=== PATIENT | female | born 1935 | race Caucasian/White ===

== ENCOUNTER 2017-03-12 10:03 | Emergency (ER) | payer OTHER, MEDICARE ==
[~2017-03-12] VITALS: Ht 154.9 cm; Wt 95.3 kg
[~2017-03-12 10:03] MED LIST: ADVAIR 250-501 EACH INH; ALPH-E-MIXED-4400 IU PO; ASPIRIN EC81 M1 PO; BYSTOLIC5 M1 PO; CARDIZEM30 MG; CRESTOR20 M2 PO; CYMBALTA60 MG PO; LIPOFLAVONOID1 TAB PO; SINGULAIR10 M1 PO; SPIRIVA18 MCG INH
[2017-03-12 10:11] VITALS: BP 129/72
--- NOTE | 2017-03-12 10:19 | ED GENERAL ADULT ---
See Addendum History of Present Illness General Chief Complaint: Upper Respiratory Sx/Fever Stated Complaint: COUGH SOB Source: patient, old records Exam Limitations: no limitations Vital Signs & Intake/Output Vital Signs & Intake/Output Vital Signs Date Time Temp Pulse Resp B/P Pulse O2 O2 Flow FiO2 Ox Delivery Rate 03/12 1035 97 03/12 1011 98.5 69 20 129/72 98 Room Air Allergies Coded Allergies: Penicillins (Severe, ANAPHYLAXIS 03/12/17) latex (Intermediate, HIVES 03/12/17) atorvastatin (VOMITING 03/12/17) diphenhydramine (HIVES 03/12/17) Reconcile Medications Aspirin (Ecotrin*) 81 MG TABLET.DR 1 TAB PO QPM HEART HEALTH (Reported) Azithromycin 250 MG TABLET 1 DP PO AD lungs 2 the first day followed by 1 for days 2-5 Benzonatate (Tessalon Perle) 100 MG CAPSULE 1 CAP PO TID PRN COUGH Fluticasone/Salmeterol (Advair 250-50 Diskus) 250 MCG-50 MCG/DOSE BLST.W.DEV 1 PUF INH BID ASTHMA (Reported) Methylprednisolone. (Medrol) 4 MG TAB.DS.PK 1 DP PO AD breathing Montelukast Sodium (Singulair) 10 MG TABLET 1 TAB PO QPM ASTHMA (Reported) Nebivolol HCl (Bystolic) 5 MG TABLET 1 TAB PO QPM HEART (Reported) Rosuvastatin Calcium (Crestor) 20 MG TABLET 1 TAB PO DAILY CHOLESTEROL ( Reported) Tiotropium [place] (Spiriva) 18 MCG CAP.W.DEV 1 CAP INH DAILY ASTHMA ( Reported) Triage Note: PER PT DRY COUGH X 3 DAYS NO FEVER DID NOT CALL DR BECAUSE IT WAS THE WEEKEND. DRY COUGH IN TRIAGE. Triage Nurses Notes Reviewed? yes HPI: Patient is an 81-year-old female presents complaining of cough. Cough 3 days. Cough had clear sputum production until this morning when she noticed some mcgraw sputum production. Intermittent wheezing. Mild dyspnea that worsens with exertion. Cough is currently moderate at times severe. Patient has not used her nebulizer treatment today for her symptoms. Positive nasal congestion and sinus pressure. Patient denies chest pain, fevers, chills. (MIKEY PACE,CLAY) Past History Travel History Traveled to [place] past 21 day No Medical History Any Pertinent Medical History? 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 BROTHER FH: myocardial infarction, Onset: 50-60. Hx Contributory? No (CLAY KRAMER) Review of Systems Review of Systems Constitutional: Denies: chills, fever. EENTM: Reports: nasal congestion. Respiratory: Reports: see HPI. Cardiovascular: Reports: peripheral edema. Denies: chest pain. GI: Reports: no symptoms. Denies: abdominal pain, nausea, vomiting. Genitourinary: Reports: no symptoms. Musculoskeletal: Reports: no symptoms. Skin: Reports: no symptoms. Neurological/Psychological: Reports: no symptoms. Hematologic/Endocrine: Reports: no symptoms. Immunologic/Allergic: Reports: no symptoms. (CLAY KRAMER) Physical Exam Physical Exam General Appearance: well developed/nourished, alert, awake Head: atraumatic, normal appearance Eyes: Bilateral: normal appearance, PERRL, EOMI. Ears, Nose, Throat: normal pharynx, normal ENT inspection, hearing grossly normal Neck: normal inspection, supple, full range of motion Respiratory: chest non-tender, mild expiratory wheezing most pronounced in the right mid and upper lobe. No appreciable rales or rhonchi Cardiovascular: regular rate/rhythm (no appreciable murmur) Gastrointestinal: soft, non-tender Extremities: 1+ bilateral lower extremity edema Neurologic/Psych: no motor/sensory deficits, awake, alert, oriented x 3, normal gait, normal mood/affect Skin: intact, normal color, warm/dry Lymphatic: no anterior cervical collin Core Measures ACS in differential dx? No CVA/TIA Diagnosis: No Severe Sepsis Present: No Septic Shock Present: No (CLAY KRAMER) Progress Differential Diagnoses I considered the following diagnoses in my evaluation of the patient: Bronchitis , pneumonia, sinusitis, congestive heart failure Plan of Care: Orders Procedure Date/time Status XRY-CHEST XRAY, PA AND LATERAL 03/12 1023 Active 03/12/2017 11:16:54 AM: Patient resting comfortably. Awaiting results of chest x -ray. Discussed with Dr. Ravi. 03/12/2017 11:23:44 AM: Results of chest x-ray discussed with patient. No respiratory distress, patient afebrile, oxygen saturation high 90s on room air. Appears stable for discharge and outpatient follow-up. Instructed to follow-up with her primary care doctor this week for recheck and further evaluation. (CLAY KRAMER) Initial ED EKG: none (CLAY KRAMER) Departure Departure Time of Disposition: 1118 Disposition: HOME OR SELF CARE Condition: Stable Clinical Impression Primary Impression: Bronchitis Secondary Impressions: Sinusitis Qualifiers: Sinusitis location: maxillary Chronicity: acute Recurrence: not specified as recurrent Qualified Code: J01.00 - Acute maxillary sinusitis, unspecified Referrals: KACEY GRAY MD (PCP/Family) Additional Instructions: Follow-up with your primary care doctor this week for further evaluation. Call tomorrow morning for appointment. Return to emergency department if breathing worsening, unable to stay hydrated, or worsening of symptoms. Departure Forms: Customer Survey General Discharge Information Prescriptions: Current Visit Scripts Azithromycin 1 DP PO AD #6 TAB 2 the first day followed by 1 for days 2-5 Methylprednisolone. (Medrol) 1 DP PO AD #1 DP Benzonatate (Tessalon Perle) 1 CAP PO TID PRN COUGH #21 CAP (CLAY KRAMER) PA/LOADER OPERATOR SUPERVISOR Co-Sign Statement Statement: ED Attending supervision documentation- [X] I saw and evaluated the patient. I have also reviewed all the pertinent lab results and diagnostic results. I agree with the findings and the plan of care as documented in the PA's/LOADER OPERATOR SUPERVISOR's documentation. [X] I have reviewed the ED Record and agree with the PA's/LOADER OPERATOR SUPERVISOR's documentation. [] Additions or exceptions (if any) to the PAs/LOADER OPERATOR SUPERVISOR's note and plan are summarized below: [] (ALENA MARIN,LEA Yang) Critical Care Note Critical Care Note Critical Care Time: non-applicable (CLAY KRAMER)
--- NOTE | 2017-03-12 11:18 | RADIOLOGY REPORT ---
EXAMINATION: XR CHEST CLINICAL INFORMATION: Cough with sputum production. COMPARISON: None TECHNIQUE: 2 views of the chest were obtained. FINDINGS: Both lungs are well-expanded and clear of acute process. Heart size is mildly enlarged. Pulmonary vascularity is normal. No gross bony abnormality seen. IMPRESSION: Mild cardiomegaly. No acute process seen in the chest.
[2017-03-12] MEDS ORDERED: TESSALON PERLE100 M1 PO (11:19)
[2017-03-12] MEDS ORDERED: AZITHROMYCIN250 M1 PO (11:19)
[2017-03-12] MEDS ORDERED: MEDROL4 M2 PO (11:19)
== END 2017-03-12 11:28 ==
LOC: ERH 10:03
DX: J40 Bronchitis, not specified as acute or chronic (principal); J32.9 Chronic sinusitis, unspecified; Z87.891 Personal history of nicotine dependence
CPT/HCPCS: 1263

== ENCOUNTER 2017-04-07 16:15 | Inpatient (IN) | payer OTHER, MEDICARE ==
[~2017-04-07] VITALS: Ht 157.5 cm; Wt 94.6 kg
[~2017-04-07 16:15] MED LIST changes: +AZITHROMYCIN250 M1 PO; +MEDROL4 M2 PO; +TESSALON PERLE100 M1 PO
--- NOTE | 2017-04-07 16:21 | NUR ---
PT TO ED FOR C/C OF SOB FOR THE LAST THREE DAYS, DENIES CHEST PAIN OR CHEST PRESSURE. DOES HAVE HISTORY OF COPD AND ASTHMA. DID USE NEBULIZER AND RESCUE INHALER WITHOUT RELIEF. REPORTS DYSPNEA ON EXERTION. O2 SAT 96% RA. DENIES FEVER OR COUGH AT HOME.
--- NOTE | 2017-04-07 16:37 | ED DYSPNEA/ASTHMA COMPLAINT ---
History of Present Illness General Chief Complaint: Dyspnea (COPD, CHF, Other) Stated Complaint: SOB, TROUBLE AMBULATING Source: patient, family, old records Exam Limitations: no limitations Vital Signs & Intake/Output Vital Signs & Intake/Output Vital Signs Date Time Temp Pulse Resp B/P B/P Pulse O2 O2 Flow FiO2 Mean Ox Delivery Rate 04/07 1754 114 22 116/70 04/07 1754 112 22 116/70 96 04/07 1744 112 28 121/77 96 Room Air 04/07 1720 98.1 102 20 111/80 04/07 1621 98.1 102 20 111/80 96 Room Air Room Air Allergies Coded Allergies: Penicillins (Severe, ANAPHYLAXIS 04/07/17) latex (Intermediate, HIVES 04/07/17) atorvastatin (VOMITING 04/07/17) diphenhydramine (HIVES 04/07/17) Reconcile Medications Aspirin (Ecotrin*) 81 MG TABLET.DR 1 TAB PO QPM HEART HEALTH (Reported) Azithromycin 250 MG TABLET 1 DP PO AD lungs 2 the first day followed by 1 for days 2-5 Benzonatate (Tessalon Perle) 100 MG CAPSULE 1 CAP PO TID PRN COUGH Fluticasone/Salmeterol (Advair 250-50 Diskus) 250 MCG-50 MCG/DOSE BLST.W.DEV 1 PUF INH BID ASTHMA (Reported) Methylprednisolone. (Medrol) 4 MG TAB.DS.PK 1 DP PO AD breathing Montelukast Sodium (Singulair) 10 MG TABLET 1 TAB PO QPM ASTHMA (Reported) Nebivolol HCl (Bystolic) 5 MG TABLET 1 TAB PO QPM HEART (Reported) Rosuvastatin Calcium (Crestor) 20 MG TABLET 1 TAB PO DAILY CHOLESTEROL ( Reported) Tiotropium [place] (Spiriva) 18 MCG CAP.W.DEV 1 CAP INH DAILY ASTHMA ( Reported) Triage Note: PT TO ED FOR C/C OF SOB FOR THE LAST THREE DAYS, DENIES CHEST PAIN OR CHEST PRESSURE. DOES HAVE HISTORY OF COPD AND ASTHMA. DID USE NEBULIZER AND RESCUE INHALER WITHOUT RELIEF. REPORTS DYSPNEA ON EXERTION. O2 SAT 96% RA. DENIES FEVER OR COUGH AT HOME. Triage Nurses Notes Reviewed? yes HPI: Patient presents to the emergency department with increasing dyspnea on exertion over the past 2 days. Patient denies any chest pain or palpitations. Patient states that she woke up at 5:30 this morning feeling like she cannot breathe and had to go sit in a recliner. Patient does use CPAP at night. Today she got short of breath just walking across room so came into the emergency department for evaluation. Patient denies any anorexia. There are no fevers or chills. There is no coughing. Past History Travel History Traveled to [place] past 21 day No Medical History Any Pertinent Medical History? 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 BROTHER FH: myocardial infarction, Onset: 50-60. Hx Contributory? No Review of Systems Review of Systems Constitutional: Reports: no symptoms. EENTM: Reports: no symptoms. Respiratory: Reports: see HPI, orthopnea, short of breath. Cardiovascular: Reports: no symptoms. GI: Reports: no symptoms. Genitourinary: Reports: no symptoms. Musculoskeletal: Reports: no symptoms. Skin: Reports: no symptoms. Neurological/Psychological: Reports: no symptoms. Hematologic/Endocrine: Reports: no symptoms. Immunologic/Allergic: Reports: no symptoms. All Other Systems: Reviewed and Negative Physical Exam Physical Exam General Appearance: well developed/nourished, alert, awake, anxious, moderate distress Head: atraumatic, normal appearance Eyes: Bilateral: PERRL, EOMI. Ears, Nose, Throat: normal pharynx, normal ENT inspection, hearing grossly normal Neck: normal inspection, supple, full range of motion, NO JVD Respiratory: normal breath sounds, chest non-tender, no respiratory distress, lungs clear Cardiovascular: normal peripheral pulses, tachycardia, irregularly irregular Gastrointestinal: normal bowel sounds, soft, non-tender Extremities: normal inspection, normal capillary refill, normal range of motion, pedal edema (TRACE) Neurologic/Psych: no motor/sensory deficits, awake, alert, oriented x 3, normal mood/affect Skin: intact, normal color, warm/dry Lymphatic: no anterior cervical collin Core Measures ACS in differential dx? Yes Severe Sepsis Present: No Septic Shock Present: No Progress Differential Diagnosis: AMI, pulmonary embolism, NEW ONSET AFIB Plan of Care: Orders Procedure Date/time Status Admit to inpatient 04/07 1808 Active CTA CHEST-PULMONARY EMBOLISM 04/07 1734 Active THYROID STIMULATING HORMONE 04/07 1640 Complete MAGNESIUM 04/07 1640 Complete D-DIMER 04/07 1637 Complete TROPONIN LEVEL 04/07 1616 Complete COMPREHENSIVE METABOLIC PANEL 04/07 161 Complete CBC WITHOUT DIFFERENTIAL 04/07 161 Complete EKG 04/07 1616 Active Current Medications Sig/Trinity Start time Last Medication Dose Stop Time Status Admin Diltiazem HCl 10 MG ONCE ONE 04/07 1745 UNVr 04/07 (Cardizem) 04/07 1746 1754 Heparin Sodium/ 25,000 UNIT Q24H 04/07 1700 UNVr 04/07 Dextrose 1740 (Heparin) Dextrose/Water 500 ML (D5W) Laboratory Tests 04/07/17 1640: Anion Gap 11, Estimated GFR > 60, BUN/Creatinine Ratio 23.8, Glucose 92, Calcium 9.3, Magnesium 1.9, Total Bilirubin 0.5, AST 32, ALT 50, Alkaline Phosphatase 42 , Troponin I < 0.01, Total Protein 6.5, Albumin 4.1, Globulin 2.4, Albumin/ Globulin Ratio 1.7, TSH 2.090, D-Dimer 419 H, CBC w Diff NO MAN DIFF REQ, RBC 4.28, MCV 89.5, MCH 29.4, RDW 14.6 H, MPV 8.7, Gran % 66.2, Lymphocytes % 25.6, Monocytes % 5.7, Eosinophils % 1.7, Basophils % 0.8, Absolute Granulocytes 5.6, Absolute Lymphocytes 2.2, Absolute Monocytes 0.5, Absolute Eosinophils 0.1, Absolute Basophils 0.1, PUBS MCHC 32.9 L 04/07/17 1637: Magnesium Cancelled, TSH Cancelled Initial ED EKG: AFIB (WITH RVR), nonspecific ST T wave chg Prior EKG: changed Rhythm Strip: atrial fibrillation Departure Departure Disposition: STILL A PATIENT Condition: Fair Clinical Impression Primary Impression: Atrial fibrillation with RVR Referrals: MARINA MD,SUCHITH (PCP/Family) Departure Forms: Customer Survey General Discharge Information Admission Note Spoke With: KACEY GRAY MD Documentation of Exam: Documentation of any treatments & extenuating circumstances including Concerns Regarding Discharge (functional status, medication knowledge or non-compliance, living conditions, etc.) that warrant an admission rather than observation: [ Tele admission, rate control, heparin, cardiology consultation, follow up CT scan.] Critical Care Note Critical Care Note Critical Care Time: mins: (45 min)
--- NOTE | 2017-04-07 16:58 | NUR ---
PT MILDLY SOB INCREASINGLY WORSE X 3 DAYS, UNABLWE TO LAY FLAT REPORTS REMOTE AFIB HX
[2017-04-07 17:01] LABS: ABSOLUTE BASOPHIL COUNT 0.1 /CUMM (0.0-0.2); ABSOLUTE EOSINOPHIL COUNT 0.1 /CUMM (0.0-0.7); ABSOLUTE GRANULOCYTE CT 5.6 /CUMM (1.4-6.5); ABSOLUTE LYMPH COUNT 2.2 /CUMM (1.2-3.4); ABSOLUTE MONOCYTE COUNT 0.5 /CUMM (0.10-0.60); BASOPHIL % 0.8 % (0.0-2.0); EOSINOPHIL % 1.7 % (0-5); GRANULOCYTE % 66.2 % (42.2-75.2); HEMATOCRIT 38.3 % (37-47); MEAN CORPUSCULAR HGB 29.4 PG (27.0-31.0); MEAN CORPUSCULAR HGB CONC 32.9 G/DL (33.0-37.0); MEAN CORPUSCULAR VOLUME 89.5 FL (81.0-99.0); MEAN PLATELET VOLUME 8.7 FL (7.4-10.4); PLATELET COUNT 204 /CUMM (130-400); RBC DISTRIBUTION WIDTH 14.6 % (11.5-14.5); RED BLOOD CELL CT 4.28 /CUMM (4.20-5.40); WHITE BLOOD CELL COUNT 8.4 /CUMM (4.8-10.8)
--- NOTE | 2017-04-07 17:42 | NUR ---
PT ON MONITOR AFIB WITH RVR RATE 144,, IV CARDIZEM 10 MG GIVEN, F/B HEPARIN BOLUS , LUNGS CLEAR NO RHONCHI. PT REPORTS STUNG BY A BEE A WEEK AGO AND THAT IS WHAT STARTED THIS. NO PEDAL EDEMA
--- NOTE | 2017-04-07 18:37 | History & Physical ---
ALBERT GOLDMAN 04/07/17 1836: General Information and HPI MD Statement: I have seen and personally examined HERIBERTO YANG and documented this H&P. The patient is a 81 year old F who presented with a patient stated chief complaint of [seven-day duration shortness of breath, new onset atrial fibrillation]. Source of Information: patient, family Exam Limitations: no limitations History of Present Illness: Mrs Yang is an 81-year-old lady with a PMH of CAD/stent placement to LAD (2006 ), SD status post cath in January 2010, COLT on CPAP, hyperlipidemia, prior tobacco use, asthma presents with complaints of 67 day duration of shortness of breath with mild exertion. The patient reports being stung by a bumblebee last Monday evening and woke up on Monday with noticeable shortness of breath with minimal exertion. She denied any tightness in her neck or wheezing at the time. She reports symptoms persisted for the rest of the week that she describes as getting winded with walking a few steps. She does endorse some intermittent episodes of palpitations at night and an episode of nausea, dizziness and noticeable lower extremity swelling late yesterday to today. She denies any fevers, chills, chest pain, chest pressure, orthopnea, PND during this time. She did attempt to use her albuterol nebulizer with no relief Allergies/Medications Allergies: Coded Allergies: Penicillins (Severe, ANAPHYLAXIS 04/07/17) latex (Intermediate, HIVES 04/07/17) atorvastatin (VOMITING 04/07/17) diphenhydramine (HIVES 04/07/17) Home Med list Aspirin (Ecotrin*) 81 MG TABLET. 1 TAB PO QPM HEART HEALTH (Reported) Fluticasone/Salmeterol (Advair 250-50 Diskus) 250 MCG-50 MCG/DOSE BLST.W.DEV 1 PUF INH BID ASTHMA (Reported) Montelukast Sodium (Singulair) 10 MG TABLET 1 TAB PO QPM ASTHMA (Reported) Nebivolol HCl (Bystolic) 5 MG TABLET 1 TAB PO QPM HEART (Reported) Rosuvastatin Calcium (Crestor) 20 MG TABLET 1 TAB PO DAILY CHOLESTEROL ( Reported) Tiotropium [place] (Spiriva) 18 MCG CAP.W.DEV 1 CAP INH DAILY ASTHMA ( Reported) Past History Travel History Traveled to [place] past 21 day No Medical History Neurological: NONE EENT: NONE Cardiovascular: CAD, hypertension, hyperlipidemia, myocardial infarction, NSTEMI , CARDIAC STENT Respiratory: asthma, COPD Gastrointestinal: NONE Hepatic: NONE Renal: NONE Musculoskeletal: osteoarthritis Psychiatric: NONE Endocrine: NONE Blood Disorders: NONE 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 BROTHER FH: myocardial infarction, Onset: 50-60. Psychosocial History Who Do You Live With? spouse ETOH Use: denies use Illicit Drug Use: denies illicit drug use Review of Systems Review of Systems Constitutional: Reports: see HPI. EENTM: Reports: see HPI. Cardiovascular: Reports: see HPI. Respiratory: Reports: see HPI. GI: Reports: see HPI. Genitourinary: Reports: no symptoms. Musculoskeletal: Reports: see HPI. Skin: Reports: no symptoms. Exam & Diagnostic Data Last 24 Hrs of Vital Signs/I&O Vital Signs Date Time Temp Pulse Resp B/P B/P Pulse O2 O2 Flow FiO2 Mean Ox Delivery Rate 04/07 2005 97.4 119 20 128/90 96 04/07 1754 114 22 116/70 04/07 1754 112 22 116/70 96 04/07 1744 112 28 121/77 96 Room Air 04/07 1720 98.1 102 20 111/80 04/07 1621 98.1 102 20 111/80 96 Room Air Room Air Physical Exam General Appearance Alert, Cooperative, No Acute Distress Skin No Breakdown, No Significant Lesion HEENT EOMI, Mucous Membr. moist/pink Cardiovascular Normal S1, Normal S2, irregularly irregular rhythm Lungs Normal Air Movement, diminished breath sounds in the basilar regions bilaterally Abdomen Normal Bowel Sounds, Soft, No Tenderness Extremities Normal Pulses, 1+ pitting edema bilateral lower extremities Vascular Pulses Symmetrical Last 24 Hrs of Labs/Luiz: Laboratory Tests 04/07/17 1640: Anion Gap 11, Estimated GFR > 60, BUN/Creatinine Ratio 23.8, Glucose 92, Calcium 9.3, Magnesium 1.9, Total Bilirubin 0.5, AST 32, ALT 50, Alkaline Phosphatase 42 , Troponin I < 0.01, Total Protein 6.5, Albumin 4.1, Globulin 2.4, Albumin/ Globulin Ratio 1.7, TSH 2.090, D-Dimer 419 H, CBC w Diff NO MAN DIFF REQ, RBC 4.28, MCV 89.5, MCH 29.4, RDW 14.6 H, MPV 8.7, Gran % 66.2, Lymphocytes % 25.6, Monocytes % 5.7, Eosinophils % 1.7, Basophils % 0.8, Absolute Granulocytes 5.6, Absolute Lymphocytes 2.2, Absolute Monocytes 0.5, Absolute Eosinophils 0.1, Absolute Basophils 0.1, PUBS MCHC 32.9 L 04/07/17 1637: Magnesium Cancelled, TSH Cancelled Diagnostic Data EKG Results Atrial fibrillation, HR 145. Low voltage throughout. Borderline T abnormalities in anterior lateral leads. QTC 469 Other Results Chest CTA: 1. Small focus of pulmonary emboli in peripheral right lower lobe pulmonary vessels. 2. Right upper lobe infiltrate in the medial right upper lobe. Assessment/Plan Assessment: 81-year-old lady with a PMH of CAD/stent placement to [facility] (2006), SD status post cath in January 2010, COLT on CPAP, hyperlipidemia, prior tobacco use, asthma presents with complaints of 67 day duration of shortness of breath with mild exertion. Patient was stung by a bee on her face 7 days ago and has since experienced daily dyspnea with minimal exertion, intermittent episodes of palpitations, dizziness, lower extremity swelling for the past 24 hours. No relief obtained with albuterol nebulizer. VS on admission: BP 111/80, HR 102, RR 20, SPO2 96% on RA, T 98.1 Pertinent labs: WBC 8.4, H&H 12.6/30.3, glucose 204, sodium 142, potassium 4.7, bicarbonate 22, BUN/Cr 19/0.8, glucose 92. D-dimer: 419 Magnesium: 1.9 TSH: 2.090 Chest CTA: Small focus of pulmonary emboli in peripheral right lower lobe pulmonary vessels. Right upper lobe infiltrate in the medial right upper lobe. Problem list 1. New onset atrial ablation 2. Rapid ventricular response 3. Small PE and peripheral right lower lobe 4. CAD s/p stent placement to LAD 2006 5. Hyperlipidemia 6. COLT on nocturnal CPAP 7. Asthma Plan: * Admit to telemetry for continuous cardiac monitoring * Heparin therapy for atrial fibrillation protocol * A. fib with RVR: Patient did receive 1 dose of Cardizem 10 mg 1. Will discuss with cardiology for Cardizem IV pushes if recurrence of RVR * continue home dose of Crestor 20 mg daily. Follow-up lipid panel in the a.m. and adjust statin dose per ASCVD score. The patient does have a previous history of myalgias associated with atorvastatin thus may not be able to tolerate higher dose of Crestor 20 mg * Continue with aspirin 81 mg daily * EKG/troponin at 0100 hours, 0600 hrs to rule out ACS * Echocardiogram in the a.m. to assess ventricular function and for valve pathology * Nocturnal CPAP * TRCs for history of asthma * Heart healthy diet * DVT prophylaxis: Heparin * Full code As Ranked By This Provider Problem List: 1. Atrial fibrillation with RVR 2. PE (pulmonary thromboembolism) 3. HLD (hyperlipidemia) 4. COLT (obstructive sleep apnea) 5. Asthma Core Measures/Miscellaneous Acute Coronary Syndrome ACS Diagnosis: No Cerebrovascular Accident CVA/TIA Diagnosis: No Congestive Heart Failure CHF Diagnosis: No Venous Thromboembolism VTE Risk Factors: Age > 40 No Mech VTE prophylaxis d/t: No contraindications No VTE Pharm Prophylaxis d/t: No contraindications VTE Diagnosis: No VTE Type: Pulmonary Embolism VTE Confirmed by (Test): CT CHEST ANGIOGRAM Severe Sepsis Severe Sepsis Present: No Septic Shock Septic Shock Present: No Miscellaneous Documentation Attending Case Discussed With: KACEY GRAY MD Primary Care Physician: KACEY GRAY MD Patient sees these Specialists Dr. Patricio (cardiology) Level of Patient Care: Telemetry Resident Review Statement Resident Statement: examined this patient, discussed with sourcing internship, agreed with sourcing internship, discussed with family, reviewed EMR data (avail), discussed with nursing , reviewed images KACEY GRAY MD 04/08/17 1134: Attending Review Statement Attending Statement Attending Statement: examined this patient, discuss w/resident/PA/YIELD ANALYST, agreed w/resident/PA/YIELD ANALYST, reviewed EMR data (avail)
--- NOTE | 2017-04-07 18:59 | NUR ---
TO CT. PT ALERT NO ACUTE SOB, NO CP./
--- NOTE | 2017-04-07 19:05 | NUR ---
PT TO BED 177 BED 1
--- NOTE | 2017-04-07 19:24 | NUR ---
ASSUMED CARE FROM RACH Mendes RN
--- NOTE | 2017-04-07 19:28 | CT SCAN REPORT ---
EXAMINATION: CT ANGIOGRAM OF THE CHEST WITH AND WITHOUT CONTRAST (CT PULMONARY ANGIOGRAM FOR PE) CLINICAL INFORMATION: CHEST PAIN, CRAVEN, A FIB, +D-DIMER
COMPARISON: Chest x-ray 03/12/2017 TECHNIQUE: Prior to contrast administration, noncontrast localization images were obtained. Subsequently, multidetector volumetric imaging was performed from the thoracic inlet to below the diaphragms following the administration of 77 mL Optiray 350 intravenous contrast. No contrast reaction reported. Sagittal, coronal, and MIP oblique sagittal reformatted images were obtained on the CT workstation, uploaded to PACS, and reviewed. Total exam dose-length product 518.38 mGy-cm. FINDINGS: QUALITY OF STUDY/CONTRAST BOLUS: Satisfactory PULMONARY ARTERIES: There are small peripheral pulmonary emboli in the tertiary and more peripheral vessels at the right lower lobe. No other pulmonary emboli evident. THORACIC AORTA: Thoracic aortic diameter measures 4.2 cm, mildly prominent. LUNG: In the medial right upper lobe there is a patchy parenchymal infiltrate. Left lung is clear. PLEURA: No pleural effusion or pneumothorax. MEDIASTINUM: Heart size is enlarged. No evidence of septal bowing or right heart strain. No pericardial effusion. CHEST WALL/AXILLA: No axillary or internal mammary lymphadenopathy. OSSEOUS STRUCTURES: Multilevel degenerative change of the spine with bridging osteophytes of the vertebrae. UPPER ABDOMEN: Unremarkable. No reflux of contrast into the hepatic veins to suggest elevated right heart pressures. IMPRESSION: 1. Small focus of pulmonary emboli in peripheral right lower lobe pulmonary vessels. 2. Right upper lobe infiltrate in the medial right upper lobe. This critical result was discussed with Dr. Benitez on 04/07/2017, 7:25 PM and it was ascertained that the content and urgency of the report was understood at the time of direct communication. VTE: positive
--- NOTE | 2017-04-07 19:31 | NUR ---
HOUSE STAFF AT BEDSIDE
--- NOTE | 2017-04-07 19:50 | NUR ---
HEPARIN RUNNING AT 22.8 ML. HEPARIN STOPPED AT 1935. MD GOLDMAN INFORMED SOON HE CAME OUT OF PT ROOM. HEPARIN CONTINUES TO BE STOPPED PER . PTT DRAWN AND SENT TO LAB
--- NOTE | 2017-04-07 19:58 | NUR ---
PT A/O X4. RESP UNLABORED. HR 117 AFIB. PT DENIES CP.
[2017-04-07 21:00] VITALS: BP 122/60
[2017-04-07 21:31] LABS: PTT 77 SEC (25-37)
[2017-04-08 03:02] LABS: PTT 97 SEC (25-37)
[2017-04-08 08:01] VITALS: BP 120/76
--- NOTE | 2017-04-08 08:19 | PN- Housestaff ---
Subjective Follow-up For: Afib with RVR Pulmonary embolism Subjective: Patient seen and examined at bedside. Resting comfortably in bed with no complaints other than dypsnea on exertion. Denies an chest pain, palpitations, lightheadedness, dizziness, abdominal pain, n/v/c/d. No events reported overnight. Review of Systems Constitutional: Reports: see HPI. Objective Last 24 Hrs of Vital Signs/I&O Vital Signs Date Time Temp Pulse Resp B/P B/P Pulse O2 O2 Flow FiO2 Mean Ox Delivery Rate 04/08 0801 98.1 100 20 120/76 98 Nasal 2.0L Cannula 04/07 2339 102 130/72 04/07 2100 95 Room Air 04/07 2100 97.9 115 22 122/60 95 Room Air 04/07 2005 97.4 119 20 128/90 96 04/07 1754 114 22 116/70 04/07 1754 112 22 116/70 96 04/07 1744 112 28 121/77 96 Room Air 04/07 1720 98.1 102 20 111/80 04/07 1621 98.1 102 20 111/80 96 Room Air Room Air Intake & Output 04/08 1600 04/08 0800 04/08 0000 Intake Total 797.6 Output Total 475 Balance 322.6 Intake, IV 177.6 Intake, Oral 620 Output, Urine 475 Patient 94.574 kg Weight Weight Standing Scale Measurement Method Physical Exam General Appearance: Alert, Cooperative, No Acute Distress Other Physical Findings: Skin No Breakdown, No Significant Lesion HEENT EOMI, Mucous Membr. moist/pink Cardiovascular Normal S1, Normal S2, irregularly irregular rhythm Lungs Normal Air Movement, diminished breath sounds in the basilar regions bilaterally Abdomen Normal Bowel Sounds, Soft, No Tenderness Extremities Normal Pulses, 1+ pitting edema bilateral lower extremities Vascular Pulses Symmetrical Current Medications: Current Medications Sig/Trinity Start time Last Medication Dose Route Stop Time Status Admin Acetaminophen 650 MG Q6P PRN 04/07 2015 AC PO Al Hydroxide/Mg 30 ML ONCE ONE 04/08 630 DC Hydroxide PO 04/08 631 Aspirin Buffered 81 MG QPM 04/07 2200 AC 04/07 PO 2339 Budesonide/ 2 PUF BID 04/07 2200 AC Formoterol Fumarate INH Diltiazem HCl 5 MG ONCE ONE 04/08 415 DC IV PUSH 04/08 416 Diltiazem HCl 0 .STK-MED ONE 05/12 1755 DC .ROUTE Diltiazem HCl 10 MG ONCE ONE 04/07 1745 DC / IV PUSH 04/07 1746 1754 Diltiazem HCl 0 .STK-MED ONE 04/07 1733 DC .ROUTE Diltiazem HCl 10 MG ONCE ONE 04/07 1700 DC 05/ IV / 1701 1720 Heparin Sodium 0 .STK-MED ONE 04/07 1733 DC (Porcine) .ROUTE Heparin Sodium 4,000 UNIT ONCE ONE 04/07 1700 DC 04/07 (Porcine) IV 04/07 1701 1720 Heparin Sodium/ 25,000 UNIT Q24H 04/07 2115 AC 04/07 Dextrose IV 2115 Dextrose/Water 500 ML Heparin Sodium/ 25,000 UNIT Q24H 04/07 1700 DC 04/07 Dextrose IV 1740 Dextrose/Water 500 ML Montelukast Sodium 10 MG QPM 04/07 2200 AC 04/07 PO 2339 Nebivolol 5 MG QPM 04/07 2200 AC 04/07 PO 2339 Oxycodone/ 1 TAB Q6P PRN 04/07 2015 AC Acetaminophen PO Oxycodone/ 2 TAB Q6P PRN 04/07 2015 AC Acetaminophen PO Patient Medication 1 UNIT ONE NR 04/07 2100 DC Teaching ED 04/07 2130 Rosuvastatin Calcium 20 MG 1700 04/08 1700 AC PO Tiotropium [place] 1 PUF DAILY 04/08 1000 AC 04/07 INH 2339 Last 24 Hrs of Lab/Luiz Results Last 24 Hrs of Labs/Mics: Laboratory Tests 04/08/17 0615: Sodium Pending, Potassium Pending, Chloride Pending, Carbon Dioxide Pending, Anion Gap Pending, BUN Pending, Creatinine Pending, BUN/Creatinine Ratio Pending , Phosphorus Pending, Magnesium Pending, Troponin I Pending, Triglycerides Pending, Cholesterol Pending, LDL Cholesterol, Calc Pending, HDL Cholesterol Pending, Cholesterol/HDL Ratio Pending, CBC w Diff Pending, WBC Pending, RBC Pending, Hgb Pending, Hct Pending, MCV Pending, MCH Pending, RDW Pending, Plt Count Pending, MPV Pending, PUBS MCHC Pending 04/08/17 0230: APTT 97 H 04/08/17 0015: Troponin I < 0.01 04/07/17 2000: PT 12.0, INR 1.14, APTT 77 H 04/07/17 1640: Anion Gap 11, Estimated GFR > 60, BUN/Creatinine Ratio 23.8, Glucose 92, Calcium 9.3, Magnesium 1.9, Total Bilirubin 0.5, AST 32, ALT 50, Alkaline Phosphatase 42 , Troponin I < 0.01, Total Protein 6.5, Albumin 4.1, Globulin 2.4, Albumin/ Globulin Ratio 1.7, TSH 2.090, D-Dimer 419 H, CBC w Diff NO MAN DIFF REQ, RBC 4.28, MCV 89.5, MCH 29.4, RDW 14.6 H, MPV 8.7, Gran % 66.2, Lymphocytes % 25.6, Monocytes % 5.7, Eosinophils % 1.7, Basophils % 0.8, Absolute Granulocytes 5.6, Absolute Lymphocytes 2.2, Absolute Monocytes 0.5, Absolute Eosinophils 0.1, Absolute Basophils 0.1, PUBS MCHC 32.9 L 04/07/17 1637: Magnesium Cancelled, TSH Cancelled Assessment/Plan Assessment: 81-year-old lady with a PMH of CAD/stent placement to LAD (2006), OK status post cath in January 2010, COLT on CPAP, hyperlipidemia, prior tobacco use, asthma presents with complaints of 67 day duration of shortness of breath with mild exertion 2/2 PE. # New onset Afib with RVR Better controlled after some cardizem boluses were given on admission. However patient needs to be on cardizem drip as per cardio. * Cont tele monitoring * Give on time cardizem bolus 5mg and then start Cardizem drip 5 cc/hr * Continue home dose of Crestor 20 mg daily. * Follow-up lipid panel - only remarkable for TG 157 * Follow echocardiogram to assess ventricular function and for valve pathology * Cont to appreciate cardio recs # Small PE and possible PNA Chest CTA: Small focus of pulmonary emboli in peripheral right lower lobe pulmonary vessels. Right upper lobe infiltrate in the medial right upper lobe. D-dimer elevated at 419. * Cont heparin drip * Pulm consulted, Dr. Benitez aware. * Appreciate cardio recs # History of CAD s/p stent placement to LAD 2006 Serial troponins and EKGs negative. * Follow echo * Continue with aspirin 81 mg daily # Hyperlipidemia, asthma, COLT on nocturnal CPAP * Cont home meds * Nocturnal CPAP * TRCs for history of asthma - Heart healthy diet - Mild pain pathway - DVT prophylaxis: Heparin - Full code Problem List: 1. PE (pulmonary thromboembolism) 2. HLD (hyperlipidemia) 3. COLT (obstructive sleep apnea) 4. Atrial fibrillation with RVR 5. DVT prophylaxis 6. Full code status Pain Ratin Pain Location: 0 Pain Goal: Remain pain free Pain Plan: Mild path Tomorrow's Labs & Rationales: CBC, BEP Pain Goal: Remain pain free Pain Plan: Mild path Tomorrow's Labs & Rationales: CBC, BEP
[2017-04-08 08:55] LABS: ABSOLUTE BASOPHIL COUNT 0.1 /CUMM (0.0-0.2); ABSOLUTE EOSINOPHIL COUNT 0.2 /CUMM (0.0-0.7); ABSOLUTE GRANULOCYTE CT 5.9 /CUMM (1.4-6.5); ABSOLUTE LYMPH COUNT 2.3 /CUMM (1.2-3.4); ABSOLUTE MONOCYTE COUNT 0.6 /CUMM (0.10-0.60); BASOPHIL % 0.7 % (0.0-2.0); EOSINOPHIL % 2.2 % (0-5); GRANULOCYTE % 65.2 % (42.2-75.2); HEMATOCRIT 38.1 % (37-47); MEAN CORPUSCULAR HGB 29.5 PG (27.0-31.0); MEAN CORPUSCULAR HGB CONC 32.7 G/DL (33.0-37.0); MEAN CORPUSCULAR VOLUME 90.1 FL (81.0-99.0); MEAN PLATELET VOLUME 9.4 FL (7.4-10.4); PLATELET COUNT 202 /CUMM (130-400); RBC DISTRIBUTION WIDTH 14.5 % (11.5-14.5); RED BLOOD CELL CT 4.23 /CUMM (4.20-5.40)
[2017-04-08 11:17] LABS: PTT 87 SEC (25-37)
--- NOTE | 2017-04-08 11:29 | Admission Certification ---
Admission Certification Certification Statement - As attending physician, I certify that at the time of - admission, based on clinical presentation, severity of - symptoms, need for further diagnostic testing and - therapeutic interventions, and risk of adverse outcomes - without in-hospital treatment, in my clinical assessment, - this patient requires an acute hospital stay for a minimum - of two nights or longer. I have also considered psychsocial - factors such as support system, advanced age, financial - issues, cognitive issues, and failed out-patient treatments, - past re-admission history, safety of patient, and lack of - compliance as applicable. Specific rationale supporting this admission is: PE, AFIB
--- NOTE | 2017-04-08 11:31 | Cons- Cardiology ---
General Information and HPI Consulting Request Date of Consult: 04/08/17 Requested By: KACEY GRAY MD Reason for Consult: New-onset atrial fibrillation Source of Information: patient, old records Exam Limitations: no limitations History of Present Illness: Yumiko Yang is an 81-year-old female with known coronary artery disease and a previous stent. She also has sleep apnea, hyperlipidemia, asthma. The patient has noted about one week of increasing shortness of breath and also awareness of her heart beating rapid and irregular. She has had no chest pain, edema, syncope. On evaluation in the emergency department she was found to have a small pulmonary artery embolism in the right lower lobe and a right upper lobe infiltrate. She has been started on heparin drip. She was found to be in rapid atrial fibrillation in the emergency department. She has been given some boluses of IV Cardizem but was not placed on a drip. She remains in atrial fibrillation at this time with a heart rate ranging in the 120s to 140s. Allergies/Medications Allergies: Coded Allergies: Penicillins (Severe, ANAPHYLAXIS 04/07/17) latex (Intermediate, HIVES 04/07/17) atorvastatin (VOMITING 04/07/17) diphenhydramine (HIVES 04/07/17) Home Med List: Aspirin (Ecotrin*) 81 MG TABLET.DR 1 TAB PO QPM HEART HEALTH (Reported) Fluticasone/Salmeterol (Advair 250-50 Diskus) 250 MCG-50 MCG/DOSE BLST.W.DEV 1 PUF INH BID ASTHMA (Reported) Montelukast Sodium (Singulair) 10 MG TABLET 1 TAB PO QPM ASTHMA (Reported) Nebivolol HCl (Bystolic) 5 MG TABLET 1 TAB PO QPM HEART (Reported) Rosuvastatin Calcium (Crestor) 20 MG TABLET 1 TAB PO DAILY CHOLESTEROL ( Reported) Tiotropium [place] (Spiriva) 18 MCG CAP.W.DEV 1 CAP INH DAILY ASTHMA ( Reported) Review of Systems Review of Systems: She has no complaints in the review of systems. Past History Travel History Traveled to [place] past 21 day No Medical History Neurological: NONE EENT: NONE Cardiovascular: CAD, hypertension, hyperlipidemia, myocardial infarction, NSTEMI , CARDIAC STENT Respiratory: asthma, COPD Gastrointestinal: NONE Hepatic: NONE Renal: NONE Musculoskeletal: osteoarthritis Psychiatric: NONE Endocrine: NONE Blood Disorders: NONE Cancer(s): NONE COMMERCIAL ARTIST/Reproductive: NONE Surgical History Surgical History: none, non-contributory Family History Relations & Conditions If Any: FATHER FH: myocardial infarction, Onset: 60+. BROTHER FH: myocardial infarction, Onset: 50-60. Psychosocial History Where Do You Live? Home Who Do You Live With? spouse Services at Home: None Smoking Status: Former Smoker ETOH Use: denies use Illicit Drug Use: denies illicit drug use Exam & Diagnostic Data Vital Signs and I&O Vital Signs Date Time Temp Pulse Resp B/P B/P Pulse O2 O2 Flow FiO2 Mean Ox Delivery Rate 04/08 1007 98 Nasal 2.0L Cannula 04/08 1004 Nasal 2.0L Cannula 04/08 0801 98.1 100 20 120/76 98 Nasal 2.0L Cannula 04/08 0415 118 116/70 04/07 2339 102 130/72 04/07 2100 95 Room Air 04/07 2100 97.9 115 22 122/60 95 Room Air 04/07 2005 97.4 119 20 128/90 96 04/07 1754 114 22 116/70 04/07 1754 112 22 116/70 96 04/07 1744 112 28 121/77 96 Room Air 04/07 1720 98.1 102 20 111/80 04/07 1621 98.1 102 20 111/80 96 Room Air Room Air Intake & Output 04/08 1600 04/08 0800 04/08 0000 04/07 1600 04/07 0800 04/07 0000 Intake Total 797.6 Output Total 475 Balance 322.6 Intake, IV 177.6 Intake, Oral 620 Output, Urine 475 Patient 209 lb Weight Weight Standing Scale Measurement Method Physical Exam: She is an obese elderly female in no acute distress. HEENT exam is normal Neck veins are not distended Carotids are normal Chest is clear to percussion and auscultation Heart reveals irregular rhythm, soft heart sounds, no murmurs Abdomen is benign Extremities reveal no edema and pulses are present. There is negative Soraya's sign. Labs/Luiz Results: Laboratory Tests 04/08 04/08 04/08 04/08 0930 0615 0230 0015 Chemistry Sodium (137 - 145 mmol/L) 143 Potassium (3.5 - 5.1 mmol/L) 4.5 Chloride (98 - 107 mmol/L) 107 Carbon Dioxide (22 - 30 mmol/L) 25 Anion Gap (5 - 16) 11 BUN (7 - 17 mg/dL) 19 H Creatinine (0.5 - 1.0 mg/dL) 0.8 Estimated GFR (>60 ml/min) > 60 BUN/Creatinine Ratio (7 - 25 %) 23.8 Phosphorus (2.5 - 4.5 mg/dL) 4.8 H Magnesium (1.6 - 2.3 mg/dL) 2.1 Troponin I (< 0.11 ng/ml) < 0.01 < 0.01 Triglycerides (<150 mg/dL) 157 H Cholesterol (<200 MG/DL) 135 LDL Cholesterol, Calc (65 - 129 mg/dL) 47 L HDL Cholesterol (40 - 60 mg/dL) 57 Cholesterol/HDL Ratio (0.00 - 4.23 %) 2 Coagulation APTT (25 - 37 SEC) Pending 97 H Hematology CBC w Diff NO MAN DIFF REQ WBC (4.8 - 10.8 /CUMM) 9.0 RBC (4.20 - 5.40 /CUMM) 4.23 Hgb (12.0 - 16.0 G/DL) 12.4 Hct (37 - 47 %) 38.1 MCV (81.0 - 99.0 FL) 90.1 MCH (27.0 - 31.0 PG) 29.5 RDW (11.5 - 14.5 %) 14.5 Plt Count (130 - 400 /CUMM) 202 MPV (7.4 - 10.4 FL) 9.4 Gran % (42.2 - 75.2 %) 65.2 Lymphocytes % (20.5 - 51.1 %) 25.0 Monocytes % (1.7 - 9.3 %) 6.9 Eosinophils % (0 - 5 %) 2.2 Basophils % (0.0 - 2.0 %) 0.7 Absolute Granulocytes (1.4 - 6.5 /CUMM) 5.9 Absolute Lymphocytes (1.2 - 3.4 /CUMM) 2.3 Absolute Monocytes (0.10 - 0.60 /CUMM) 0.6 Absolute Eosinophils (0.0 - 0.7 /CUMM) 0.2 Absolute Basophils (0.0 - 0.2 /CUMM) 0.1 PUBS MCHC (33.0 - 37.0 G/DL) 32.7 L 04/07 04/07 04/07 2000 1640 1637 Chemistry Sodium (137 - 145 mmol/L) 142 Potassium (3.5 - 5.1 mmol/L) 4.7 Chloride (98 - 107 mmol/L) 109 H Carbon Dioxide (22 - 30 mmol/L) 22 Anion Gap (5 - 16) 11 BUN (7 - 17 mg/dL) 19 H Creatinine (0.5 - 1.0 mg/dL) 0.8 Estimated GFR (>60 ml/min) > 60 BUN/Creatinine Ratio (7 - 25 %) 23.8 Glucose (65 - 99 mg/dL) 92 Calcium (8.4 - 10.2 mg/dL) 9.3 Magnesium (1.6 - 2.3 mg/dL) 1.9 Cancelled Total Bilirubin (0.2 - 1.3 mg/dL) 0.5 AST (14 - 36 U/L) 32 ALT (9 - 52 U/L) 50 Alkaline Phosphatase (<127 U/L) 42 Troponin I (< 0.11 ng/ml) < 0.01 Total Protein (6.3 - 8.2 g/dL) 6.5 Albumin (3.5 - 5.0 g/dL) 4.1 Globulin (1.9 - 4.2 gm/dL) 2.4 Albumin/Globulin Ratio (1.1 - 2.2 %) 1.7 TSH (0.270 - 4.200 uIU/mL) 2.090 Cancelled Coagulation PT (9.4 - 12.5 SEC) 12.0 INR (0.90 - 1.19) 1.14 APTT (25 - 37 SEC) 77 H D-Dimer (70 - 232 ng/ml) 419 H Hematology CBC w Diff NO MAN DIFF REQ WBC (4.8 - 10.8 /CUMM) 8.4 RBC (4.20 - 5.40 /CUMM) 4.28 Hgb (12.0 - 16.0 G/DL) 12.6 Hct (37 - 47 %) 38.3 MCV (81.0 - 99.0 FL) 89.5 MCH (27.0 - 31.0 PG) 29.4 RDW (11.5 - 14.5 %) 14.6 H Plt Count (130 - 400 /CUMM) 204 MPV (7.4 - 10.4 FL) 8.7 Gran % (42.2 - 75.2 %) 66.2 Lymphocytes % (20.5 - 51.1 %) 25.6 Monocytes % (1.7 - 9.3 %) 5.7 Eosinophils % (0 - 5 %) 1.7 Basophils % (0.0 - 2.0 %) 0.8 Absolute Granulocytes (1.4 - 6.5 /CUMM) 5.6 Absolute Lymphocytes (1.2 - 3.4 /CUMM) 2.2 Absolute Monocytes (0.10 - 0.60 /CUMM) 0.5 Absolute Eosinophils (0.0 - 0.7 /CUMM) 0.1 Absolute Basophils (0.0 - 0.2 /CUMM) 0.1 PUBS MCHC (33.0 - 37.0 G/DL) 32.9 L Diagnostic Data EKG Results Admission EKG on 04/07/2017 showed atrial fibrillation at a rate of 145 with diffuse low voltage and nonspecific anterolateral T-wave flattening. 2 other EKGs have been done subsequently, both of which show similar findings with heart rates in the 130s. CXR Results PATIENT: YUMIKO YANG PRESENT AGE: 81 PATIENT ACCOUNT NO: [id number] : 34 LOCATION: [facility] ORDERING PHYSICIAN: LEA CARVAJAL MD SERVICE DATE: 04/07/17 EXAM TYPE: CAT - CTA CHEST-PULMONARY EMBOLISM EXAMINATION: CT ANGIOGRAM OF THE CHEST WITH AND WITHOUT CONTRAST (CT PULMONARY ANGIOGRAM FOR PE) CLINICAL INFORMATION: CHEST PAIN, CRAVEN, A FIB, +D-DIMER
COMPARISON: Chest x-ray 03/12/2017 TECHNIQUE: Prior to contrast administration, noncontrast localization images were obtained. Subsequently, multidetector volumetric imaging was performed from the thoracic inlet to below the diaphragms following the administration of 77 mL Optiray 350 intravenous contrast. No contrast reaction reported. Sagittal, coronal, and MIP oblique sagittal reformatted images were obtained on the CT workstation, uploaded to PACS, and reviewed. Total exam dose-length product 518.38 mGy-cm. FINDINGS: QUALITY OF STUDY/CONTRAST BOLUS: Satisfactory PULMONARY ARTERIES: There are small peripheral pulmonary emboli in the tertiary and more peripheral vessels at the right lower lobe. No other pulmonary emboli evident. THORACIC AORTA: Thoracic aortic diameter measures 4.2 cm, mildly prominent. LUNG: In the medial right upper lobe there is a patchy parenchymal infiltrate. Left lung is clear. PLEURA: No pleural effusion or pneumothorax. MEDIASTINUM: Heart size is enlarged. No evidence of septal bowing or right heart strain. No pericardial effusion. CHEST WALL/AXILLA: No axillary or internal mammary lymphadenopathy. OSSEOUS STRUCTURES: Multilevel degenerative change of the spine with bridging osteophytes of the vertebrae. UPPER ABDOMEN: Unremarkable. No reflux of contrast into the hepatic veins to suggest elevated right heart pressures. IMPRESSION: 1. Small focus of pulmonary emboli in peripheral right lower lobe pulmonary vessels. 2. Right upper lobe infiltrate in the medial right upper lobe. This critical result was discussed with Dr. Benitez on 04/07/2017, 7:25 PM and it was ascertained that the content and urgency of the report was understood at the time of direct communication. VTE: positive DICTATED BY: ANNABEL MAURER MD DATE/TIME DICTATED:04/07/171916 VEGETABLE TIER:CYDNEY DATE/TIME TRANSCRIBED:04/07/171916 CONFIDENTIAL, DO NOT COPY WITHOUT APPROPRIATE AUTHORIZATION. Assessment/Plan Assessment/Plan This patient presents with "new onset" atrial fibrillation at a moderate to rapid rate. She also has a small pulmonary embolism and a probable pneumonia. For some reason she has not been placed on a Cardizem drip at this time and her rate is not well controlled. I recommend an additional Cardizem bolus and then starting on a Cardizem drip starting at 5 mg/h and increasing as necessary to keep heart rate under 100. I would keep her on IV heparin for now and eventually convert her to pulmonary embolism doses of Eliquis. An echocardiogram will be ordered. Consideration for antibiotic therapy for her infiltrate would be appropriate. A pulmonary consult should be obtained. Copies To: FARNKLYN MARIN,EMIL Thomas; MARINA MARIN,[facility] Consult Acknowledgment - Thank you for your consult request.
--- NOTE | 2017-04-08 11:34 | PN- Att Addend ---
See Addendum Attending Addendum Attending Brief Note Patient has no complaints this morning. She reports shortness of breath with minimal exertion. General Appearance: Alert, No Acute Distress Skin: Grossly normal HEENT: PEERLA Neck: Supple, No JVD Cardiovascular: Irregular rhythm Lungs: Clear to Auscultation, Normal Air Movement Abdomen: Normal Bowel Sounds, Soft, No Tenderness Neurological: Normal Speech, Strength at 5/5 X4 Ext, Cranial Nerves 3-12 NL, Reflexes 2+ Extremities: No Clubbing, No Cyanosis, No Edema Vascular: Normal Pulses Assessment 81-year-old with history of coronary artery disease, objective sleep apnea, dyslipidemia, history of asthma, and prior history of atrial fibrillation that has resolved and has previously followed Mateo Patricio MD presenting with complaints of shortness of breath. Patient in new onset A. fib with RVR and CAT scan chest suggesting peripheral right lower lobe PE. Suspect A. fib in the setting of PE. Patient is currently on heparin drip. Right upper lobe infiltrate however patient is not demonstrating any signs of pneumonia. We will follow off antibiotics. Plan Continue heparin drip Cardiology consult Rate control meds per cardiology Inform patient's pulmonary K. Maribell Benitez MD Follow off antibiotics Continue other medications including inhalers DVT prophylaxis Current Medications Sig/Trinity Start time Last Medication Dose Route Stop Time Status Admin Acetaminophen 650 MG Q6P PRN 04/07 2015 AC PO Al Hydroxide/Mg 30 ML ONCE ONE 04/08 0630 DC 04/08 Hydroxide PO 04/08 0631 0640 Albuterol Sulfate 3 ML Q4P PRN 04/08 1015 AC INH Aspirin Buffered 81 MG QPM 04/07 2200 AC 04/07 PO 2339 Budesonide/ 2 PUF BID 04/07 2200 AC Formoterol Fumarate INH Diltiazem HCl 125 MG Q24H 04/08 1130 AC Sodium Chloride 100 ML IV Diltiazem HCl 5 MG ONCE ONE 04/08 0415 DC 04/08 IV PUSH 04/086 0415 Diltiazem HCl 0 .STK-MED ONE 04/07 1755 DC .ROUTE Diltiazem HCl 10 MG ONCE ONE 04/07 1745 DC 04/07 IV PUSH 04/07 1746 1754 Diltiazem HCl 0 .STK-MED ONE 04/07 1733 DC .ROUTE Diltiazem HCl 10 MG ONCE ONE 04/07 1700 DC / IV 04/07 1701 1720 Heparin Sodium 0 .STK-MED ONE 04/07 1733 DC (Porcine) .ROUTE Heparin Sodium 4,000 UNIT ONCE ONE 04/07 1700 DC 04/07 (Porcine) IV 04/07 1701 1720 Heparin Sodium/ 25,000 UNIT Q24H 04/07 2115 AC 04/07 Dextrose IV 2115 Dextrose/Water 500 ML Heparin Sodium/ 25,000 UNIT Q24H 04/07 1700 DC 04/07 Dextrose IV 1740 Dextrose/Water 500 ML Montelukast Sodium 10 MG QPM 04/07 2200 AC 04/07 PO 2339 Nebivolol 5 MG QPM 04/07 2200 AC 04/07 PO 2339 Oxycodone/ 1 TAB Q6P PRN 04/07 2015 AC Acetaminophen PO Oxycodone/ 2 TAB Q6P PRN 04/07 2015 AC Acetaminophen PO Patient Medication 1 UNIT ONE NR 04/07 2100 DC Teaching ED 04/07 2130 Rosuvastatin Calcium 20 MG 1700 04/08 1700 AC PO Tiotropium [place] 1 PUF DAILY 04/08 1000 AC 04/07 INH 2339 Laboratory Tests 04/08 04/08 04/08 04/08 0930 0615 0230 0015 Chemistry Sodium (137 - 145 mmol/L) 143 Potassium (3.5 - 5.1 mmol/L) 4.5 Chloride (98 - 107 mmol/L) 107 Carbon Dioxide (22 - 30 mmol/L) 25 Anion Gap (5 - 16) 11 BUN (7 - 17 mg/dL) 19 H Creatinine (0.5 - 1.0 mg/dL) 0.8 Estimated GFR (>60 ml/min) > 60 BUN/Creatinine Ratio (7 - 25 %) 23.8 Phosphorus (2.5 - 4.5 mg/dL) 4.8 H Magnesium (1.6 - 2.3 mg/dL) 2.1 Troponin I (< 0.11 ng/ml) < 0.01 < 0.01 Triglycerides (<150 mg/dL) 157 H Cholesterol (<200 MG/DL) 135 LDL Cholesterol, Calc (65 - 129 mg/dL) 47 L HDL Cholesterol (40 - 60 mg/dL) 57 Cholesterol/HDL Ratio (0.00 - 4.23 %) 2 Coagulation APTT (25 - 37 SEC) Pending 97 H Hematology CBC w Diff NO MAN DIFF REQ WBC (4.8 - 10.8 /CUMM) 9.0 RBC (4.20 - 5.40 /CUMM) 4.23 Hgb (12.0 - 16.0 G/DL) 12.4 Hct (37 - 47 %) 38.1 MCV (81.0 - 99.0 FL) 90.1 MCH (27.0 - 31.0 PG) 29.5 RDW (11.5 - 14.5 %) 14.5 Plt Count (130 - 400 /CUMM) 202 MPV (7.4 - 10.4 FL) 9.4 Gran % (42.2 - 75.2 %) 65.2 Lymphocytes % (20.5 - 51.1 %) 25.0 Monocytes % (1.7 - 9.3 %) 6.9 Eosinophils % (0 - 5 %) 2.2 Basophils % (0.0 - 2.0 %) 0.7 Absolute Granulocytes (1.4 - 6.5 /CUMM) 5.9 Absolute Lymphocytes (1.2 - 3.4 /CUMM) 2.3 Absolute Monocytes (0.10 - 0.60 /CUMM) 0.6 Absolute Eosinophils (0.0 - 0.7 /CUMM) 0.2 Absolute Basophils (0.0 - 0.2 /CUMM) 0.1 PUBS MCHC (33.0 - 37.0 G/DL) 32.7 L 04/07 04/07 04/07 2000 1640 1637 Chemistry Sodium (137 - 145 mmol/L) 142 Potassium (3.5 - 5.1 mmol/L) 4.7 Chloride (98 - 107 mmol/L) 109 H Carbon Dioxide (22 - 30 mmol/L) 22 Anion Gap (5 - 16) 11 BUN (7 - 17 mg/dL) 19 H Creatinine (0.5 - 1.0 mg/dL) 0.8 Estimated GFR (>60 ml/min) > 60 BUN/Creatinine Ratio (7 - 25 %) 23.8 Glucose (65 - 99 mg/dL) 92 Calcium (8.4 - 10.2 mg/dL) 9.3 Magnesium (1.6 - 2.3 mg/dL) 1.9 Cancelled Total Bilirubin (0.2 - 1.3 mg/dL) 0.5 AST (14 - 36 U/L) 32 ALT (9 - 52 U/L) 50 Alkaline Phosphatase (<127 U/L) 42 Troponin I (< 0.11 ng/ml) < 0.01 Total Protein (6.3 - 8.2 g/dL) 6.5 Albumin (3.5 - 5.0 g/dL) 4.1 Globulin (1.9 - 4.2 gm/dL) 2.4 Albumin/Globulin Ratio (1.1 - 2.2 %) 1.7 TSH (0.270 - 4.200 uIU/mL) 2.090 Cancelled Coagulation PT (9.4 - 12.5 SEC) 12.0 INR (0.90 - 1.19) 1.14 APTT (25 - 37 SEC) 77 H D-Dimer (70 - 232 ng/ml) 419 H Hematology CBC w Diff NO MAN DIFF REQ WBC (4.8 - 10.8 /CUMM) 8.4 RBC (4.20 - 5.40 /CUMM) 4.28 Hgb (12.0 - 16.0 G/DL) 12.6 Hct (37 - 47 %) 38.3 MCV (81.0 - 99.0 FL) 89.5 MCH (27.0 - 31.0 PG) 29.4 RDW (11.5 - 14.5 %) 14.6 H Plt Count (130 - 400 /CUMM) 204 MPV (7.4 - 10.4 FL) 8.7 Gran % (42.2 - 75.2 %) 66.2 Lymphocytes % (20.5 - 51.1 %) 25.6 Monocytes % (1.7 - 9.3 %) 5.7 Eosinophils % (0 - 5 %) 1.7 Basophils % (0.0 - 2.0 %) 0.8 Absolute Granulocytes (1.4 - 6.5 /CUMM) 5.6 Absolute Lymphocytes (1.2 - 3.4 /CUMM) 2.2 Absolute Monocytes (0.10 - 0.60 /CUMM) 0.5 Absolute Eosinophils (0.0 - 0.7 /CUMM) 0.1 Absolute Basophils (0.0 - 0.2 /CUMM) 0.1 PUBS MCHC (33.0 - 37.0 G/DL) 32.9 L Vital Signs Date Time Temp Pulse Resp B/P B/P Pulse O2 O2 Flow FiO2 Mean Ox Delivery Rate 04/08 1007 98 Nasal 2.0L Cannula 04/08 1004 Nasal 2.0L Cannula 04/08 0801 98.1 100 20 120/76 98 Nasal 2.0L Cannula 04/08 0415 118 116/70 04/07 2339 102 130/72 04/07 2100 95 Room Air 04/07 2100 97.9 115 22 122/60 95 Room Air 04/07 2005 97.4 119 20 128/90 96 04/07 1754 114 22 116/70 04/07 1754 112 22 116/70 96 04/07 1744 112 28 121/77 96 Room Air 04/07 1720 98.1 102 20 111/80 04/07 1621 98.1 102 20 111/80 96 Room Air Room Air
--- NOTE | 2017-04-08 13:11 | ULTRASOUND REPORT ---
EXAMINATION: US TRIPLEX OF LOWER EXTREMITIES, BILATERAL CLINICAL INFORMATION: This is an 81-year-old female with history of pulmonary embolism. Lower extremity edema bilaterally. Possible deep vein thrombosis. Shortness of breath. COMPARISON: None TECHNIQUE: Color-flow triplex imaging with spectral analysis and compression Doppler were performed on the lower extremities. FINDINGS: Respiratory variation, normal compression and augmented flow are noted throughout the lower extremities. The visualized common femoral vein, superficial femoral vein, profunda femoral vein, popliteal vein and midcalf peroneal and posterior tibial venous segments show no evidence of deep venous thrombosis. There is no Sheldon's cyst. IMPRESSION: Normal triplex scan without evidence of deep venous thrombosis involving the lower extremities.
[2017-04-08 15:44] VITALS: BP 108/60
[2017-04-08 22:06] LABS: PTT 79 SEC (25-37)
[2017-04-08 22:38] VITALS: BP 102/60
[2017-04-09 08:04] VITALS: BP 100/60
--- NOTE | 2017-04-09 09:10 | PN- Housestaff ---
Subjective Follow-up For: afib rvr PE Subjective: Patient seen and examined at bedside. Resting comfortably in bed but still complaints of dypsnea on exertion. Denies an chest pain, palpitations, lightheadedness, dizziness, abdominal pain, n/v/c/d. No events reported overnight. Review of Systems Constitutional: Reports: no symptoms. Objective Last 24 Hrs of Vital Signs/I&O Vital Signs Date Time Temp Pulse Resp B/P B/P Pulse O2 O2 Flow FiO2 Mean Ox Delivery Rate 04/09 0804 98.1 96 18 100/60 97 Nasal 2.0L Cannula 04/09 0000 95 Nasal 2.0L Cannula 04/08 2315 98 100/58 04/08 2238 98.5 66 18 102/60 96 04/08 1630 132 120/76 04/08 1619 Nasal 2.0L Cannula 04/08 1544 98.1 89 20 108/60 97 Intake & Output 04/09 1600 04/09 0800 04/09 0000 Intake Total 577.6 857.6 Output Total 375 325 Balance 202.6 532.6 Intake, IV 177.6 177.6 Intake, Oral 400 680 Output, Urine 375 325 Physical Exam General Appearance: Alert, Oriented X3, Cooperative Other Physical Findings: Skin No Breakdown, No Significant Lesion HEENT EOMI, Mucous Membr. moist/pink Cardiovascular Normal S1, Normal S2, irregularly irregular rhythm Lungs Normal Air Movement, diminished breath sounds in the basilar regions bilaterally Abdomen Normal Bowel Sounds, Soft, No Tenderness Extremities Normal Pulses, 1+ pitting edema bilateral lower extremities Vascular Pulses Symmetrical Current Medications: Current Medications Sig/Trinity Start time Last Medication Dose Route Stop Time Status Admin Acetaminophen 650 MG Q6P PRN 04/07 2015 AC PO Al Hydroxide/Mg 30 ML Q4-6 PRN PRN 04/09 1015 AC 04/09 Hydroxide PO 1026 Al Hydroxide/Mg 30 ML .STK-MED ONE 04/08 2355 DC Hydroxide PO 04/08 2356 Al Hydroxide/Mg 30 ML ONCE ONE 04/08 2345 DC 04/09 Hydroxide PO 04/08 2346 0650 Albuterol Sulfate 3 ML Q4P PRN 04/08 1015 AC INH Aspirin Buffered 81 MG QPM 04/070 AC 04/08 PO 2300 Budesonide/ 2 PUF BID 04/07 2200 AC 04/09 Formoterol Fumarate INH 1008 Diltiazem HCl 5 MG ONCE ONE 04/08 1400 DC 04/08 IV PUSH 04/08 1401 1630 Diltiazem HCl 125 MG Q24H 04/08 1130 AC 04/09 Sodium Chloride 100 ML IV 1009 Heparin Sodium/ 25,000 UNIT Q24H 04/07 2115 AC 04/07 Dextrose IV 2115 Dextrose/Water 500 ML Montelukast Sodium 10 MG QPM 04/07 2200 AC 04/08 PO 2300 Nebivolol 5 MG QPM 04/07 2200 AC 04/07 PO 2339 Oxycodone/ 1 TAB Q6P PRN 04/07 2015 AC Acetaminophen PO Oxycodone/ 2 TAB Q6P PRN 04/07 2015 AC Acetaminophen PO Rosuvastatin Calcium 20 MG 1700 04/08 1700 AC 04/08 PO 1723 Tiotropium [employer] 1 PUF DAILY 04/08 1000 AC 04/09 INH 1008 Last 24 Hrs of Lab/Luiz Results Last 24 Hrs of Labs/Mics: Laboratory Tests 04/09/17 1045: APTT Pending 04/08/17 2150: APTT 79 H Assessment/Plan Assessment: 81-year-old lady with a PMH of CAD/stent placement to LAD (2006), SD status post cath in January 2010, COLT on CPAP, hyperlipidemia, prior tobacco use, asthma presents with complaints of 67 day duration of shortness of breath with mild exertion 2/2 PE. # New onset Afib with RVR Better controlled after some cardizem boluses were given on admission. However patient needs to be on cardizem drip as per cardio. * Cont tele monitoring * Will switch from cardizem drip to 30 mg po q 6h, per cardiology (appreciated) * Continue home dose of Crestor 20 mg daily. * LDL= 47. TG 157 * will f/u echocardiogram to assess ventricular function and for valve pathology * Cont to appreciate cardio recs # Small PE and possible PNA Chest CTA: Small focus of pulmonary emboli in peripheral right lower lobe pulmonary vessels. Right upper lobe infiltrate in the medial right upper lobe. D-dimer elevated at 419. * Cont heparin drip, will eventually transition to NOAC. * persitent dyspnea could be multifactorial, will start Lasix 20 mg IV daily ( per cardio recc) * Pulm consulted, Dr. Benitez aware. * Appreciate cardio recs # History of CAD s/p stent placement to LAD 2006 Serial troponins and EKGs negative. * Follow echo * Continue with aspirin 81 mg daily # Hyperlipidemia, asthma, COLT on nocturnal CPAP * Cont home meds * Nocturnal CPAP * TRCs for history of asthma - Heart healthy diet - Mild pain pathway - DVT prophylaxis: Heparin - Full code Problem List: 1. Atrial fibrillation with RVR 2. PE (pulmonary thromboembolism) Pain Ratin Pain Location: NONE Pain Goal: Remain pain free Pain Plan: PER PAIN PATHWAY Tomorrow's Labs & Rationales: BEP-Arythmias CBC-On ANTICOAGUALTION
--- NOTE | 2017-04-09 10:59 | PN- Cardiology ---
Subjective Subjective: The patient is still complaining of shortness of breath. She remains in atrial fibrillation. Her heart rate is in the 90s to low 100s. She is on 5 mg per hour of Cardizem. She is also on 5 mg daily of Bystolic. Cardiac enzymes were negative. Objective Vital Signs and I&Os Vital Signs Date Time Temp Pulse Resp B/P B/P Pulse O2 O2 Flow FiO2 Mean Ox Delivery Rate 04/09 0804 98.1 96 18 100/60 97 Nasal 2.0L Cannula 04/09 0000 95 Nasal 2.0L Cannula 04/08 2315 98 100/58 04/08 2238 98.5 66 18 102/60 96 04/08 1630 132 120/76 04/08 1619 Nasal 2.0L Cannula 04/08 1544 98.1 89 20 108/60 97 Intake & Output 04/09 1600 04/09 0800 04/09 0000 04/08 1600 04/08 0800 04/08 0000 Intake Total 577.6 857.6 950 797.6 Output Total 375 325 925 475 Balance 202.6 532.6 25 322.6 Intake, IV 177.6 177.6 150 177.6 Intake, Oral 400 680 800 620 Number 1 Bowel Movements Output, Urine 375 325 925 475 Patient 209 lb Weight Weight Standing Scale Measurement Method Physical Exam: She is in no distress HEENT exam is normal Chest is clear Heart reveals irregular rhythm no murmurs Extremities no edema Current Medications: Current Medications Sig/Trinity Start time Last Medication Dose Route Stop Time Status Admin Acetaminophen 650 MG Q6P PRN 04/07 2015 AC PO Al Hydroxide/Mg 30 ML Q4-6 PRN PRN 04/09 1015 AC 04/09 Hydroxide PO 1026 Al Hydroxide/Mg 30 ML .STK-MED ONE 04/08 2355 DC Hydroxide PO 04/08 2356 Al Hydroxide/Mg 30 ML ONCE ONE 04/08 2345 DC 04/09 Hydroxide PO 04/08 2346 0650 Albuterol Sulfate 3 ML Q4P PRN 04/08 1015 AC INH Aspirin Buffered 81 MG QPM 04/07 2200 AC 04/08 PO 2300 Budesonide/ 2 PUF BID 04/07 2200 04/09 Formoterol Fumarate INH 1008 Diltiazem HCl 5 MG ONCE ONE 04/08 1400 DC 04/08 IV PUSH 05/13 1401 1630 Diltiazem HCl 125 MG Q24H 04/08 1130 04/09 Sodium Chloride 100 ML IV 1009 Heparin Sodium/ 25,000 UNIT Q24H 04/07 2115 04/07 Dextrose IV 2115 Dextrose/Water 500 ML Montelukast Sodium 10 MG QPM 04/07 2200 04/08 PO 2300 Nebivolol 5 MG QPM 04/07 220 04/07 PO 2339 Oxycodone/ 1 TAB Q6P PRN 04/07 2015 AC Acetaminophen PO Oxycodone/ 2 TAB Q6P PRN 04/07 2015 AC Acetaminophen PO Rosuvastatin Calcium 20 MG 1700 04/08 1700 04/08 PO 1723 Tiotropium [place] 1 PUF DAILY 04/08 1000 04/09 INH 1008 Results Last 48 Hrs of Labs/Mics: Laboratory Tests 04/09/17 1045: APTT Pending 04/08/17 2150: APTT 79 H 04/08/17 0930: APTT 87 H 04/08/17 0615: Anion Gap 11, Estimated GFR > 60, BUN/Creatinine Ratio 23.8, Phosphorus 4.8 H, Magnesium 2.1, Troponin I < 0.01, Triglycerides 157 H, Cholesterol 135, LDL Cholesterol, Calc 47 L, HDL Cholesterol 57, Cholesterol/HDL Ratio 2, CBC w Diff NO MAN DIFF REQ, RBC 4.23, MCV 90.1, MCH 29.5, RDW 14.5, MPV 9.4, Gran % 65.2, Lymphocytes % 25.0, Monocytes % 6.9, Eosinophils % 2.2, Basophils % 0.7, Absolute Granulocytes 5.9, Absolute Lymphocytes 2.3, Absolute Monocytes 0.6, Absolute Eosinophils 0.2, Absolute Basophils 0.1, PUBS MCHC 32.7 L 04/08/17 0230: APTT 97 H 04/08/17 0015: Troponin I < 0.01 04/07/17 2000: PT 12.0, INR 1.14, APTT 77 H 04/07/17 1640: Anion Gap 11, Estimated GFR > 60, BUN/Creatinine Ratio 23.8, Glucose 92, Calcium 9.3, Magnesium 1.9, Total Bilirubin 0.5, AST 32, ALT 50, Alkaline Phosphatase 42 , Troponin I < 0.01, Total Protein 6.5, Albumin 4.1, Globulin 2.4, Albumin/ Globulin Ratio 1.7, TSH 2.090, D-Dimer 419 H, CBC w Diff NO MAN DIFF REQ, RBC 4.28, MCV 89.5, MCH 29.4, RDW 14.6 H, MPV 8.7, Gran % 66.2, Lymphocytes % 25.6, Monocytes % 5.7, Eosinophils % 1.7, Basophils % 0.8, Absolute Granulocytes 5.6, Absolute Lymphocytes 2.2, Absolute Monocytes 0.5, Absolute Eosinophils 0.1, Absolute Basophils 0.1, PUBS MCHC 32.9 L 04/07/17 1637: Magnesium Cancelled, TSH Cancelled Assessment/Plan Assessment/Plan The heart rate is improved. I recommend changing IV Cardizem for oral Cardizem 30 mg 4 times a day to start. She is still short of breath and I recommend adding a diuretic to her regimen, Lasix 20 mg daily by mouth. Her echocardiogram showed LVH with normal LV systolic function. Continue telemetry? Yes
--- NOTE | 2017-04-09 12:01 | PN- Att Addend ---
Attending Addendum Attending Brief Note She reports shortness of breath with minimal exertion. General Appearance: Alert, No Acute Distress Skin: Grossly normal HEENT: PEERLA Neck: Supple, No JVD Cardiovascular: Irregular rhythm Lungs: Decreased air entry Abdomen: Normal Bowel Sounds, Soft, No Tenderness Neurological: Normal Speech, Strength at 5/5 X4 Ext, Cranial Nerves 3-12 NL, Reflexes 2+ Extremities: No Clubbing, No Cyanosis, No Edema Vascular: Normal Pulses Assessment 81-year-old with history of coronary artery disease, objective sleep apnea, dyslipidemia, history of asthma, and prior history of atrial fibrillation that has resolved and has previously followed Mateo Patricio MD presenting with complaints of shortness of breath. Patient in new onset A. fib with RVR and CAT scan chest suggesting peripheral right lower lobe PE with no DVT. Suspect A. fib in the setting of PE. Patient is currently on heparin drip. Right upper lobe infiltrate however patient is not demonstrating any signs of pneumonia. We will follow off antibiotics. Rates are controlled on Cardizem. Plan to transition to Eliquis for anticoagulation. Plan Continue heparin drip and change to Eliquis PE dose Rate control meds per cardiology Follow echocardiogram Follow off antibiotics Continue other medications including inhalers DVT prophylaxis Current Medications Sig/Trinity Start time Last Medication Dose Route Stop Time Status Admin Acetaminophen 650 MG Q6P PRN 04/07 2015 AC PO Al Hydroxide/Mg 30 ML Q4-6 PRN PRN 04/09 1015 AC 04/09 Hydroxide PO 1026 Al Hydroxide/Mg 30 ML .STK-MED ONE 04/08 2355 DC Hydroxide PO 04/08 2356 Al Hydroxide/Mg 30 ML ONCE ONE 04/08 2345 DC 04/09 Hydroxide PO 04/08 2346 0650 Albuterol Sulfate 3 ML Q4P PRN 04/08 1015 AC INH Aspirin Buffered 81 MG QPM 04/07 2200 AC 04/08 PO 2300 Budesonide/ 2 PUF BID 04/07 220 AC 04/09 Formoterol Fumarate INH 1008 Diltiazem HCl 5 MG ONCE ONE 04/08 1400 DC 04/08 IV PUSH 04/08 1401 1630 Diltiazem HCl 125 MG Q24H 04/08 1130 AC 04/09 Sodium Chloride 100 ML IV 1009 Heparin Sodium/ 25,000 UNIT Q24H 04/07 2115 04/07 Dextrose IV 2115 Dextrose/Water 500 ML Montelukast Sodium 10 MG QPM 04/07 2200 AC 04/08 PO 2300 Nebivolol 5 MG QPM 04/07 2200 AC 04/07 PO 2339 Oxycodone/ 1 TAB Q6P PRN 04/07 2015 AC Acetaminophen PO Oxycodone/ 2 TAB Q6P PRN 04/07 2015 AC Acetaminophen PO Rosuvastatin Calcium 20 MG 1700 04/08 1700 AC 04/08 PO 1723 Tiotropium [place] 1 PUF DAILY 04/08 1000 AC 04/09 INH 1008 Laboratory Tests 04/09 04/08 1045 2150 Coagulation APTT (25 - 37 SEC) Pending 79 H Vital Signs Date Time Temp Pulse Resp B/P B/P Pulse O2 O2 Flow FiO2 Mean Ox Delivery Rate 04/09 0804 98.1 96 18 100/60 97 Nasal 2.0L Cannula 04/09 0000 95 Nasal 2.0L Cannula 04/08 2315 98 100/58 04/08 2238 98.5 66 18 102/60 96 04/08 1630 132 120/76 04/08 1619 Nasal 2.0L Cannula 04/08 1544 98.1 89 20 108/60 97
[2017-04-09 12:37] LABS: PTT 71 SEC (25-37)
[2017-04-09 14:27] VITALS: BP 110/70
--- NOTE | 2017-04-09 19:42 | ECHOCARDIOGRAM REPORT ---
HERIBERTO PETTY Age: 81 : 1935 Gender: F Exam Date: 04/09/2017 08:58 Exam Location: [address] Ht (in): 62 Wt (lb): 208 BSA: 2.08 BP: 100 / 58 Ordering Physician: ALBERT GOLDMAN MD Referring Physician: Mateo Patricio MD Technologist: Maya Foster [facility] Room Number: 172 Indications: AFIB/FLUTTER Rhythm: Atrial fibrillation Technical Quality: fair FINDINGS Left Ventricle Normal size left ventricle. Left ventricular wall thickness mildly increased. Normal left ventricular ejection fraction estimated at 60-65%. Right Ventricle Normal right ventricular size and function. Right Atrium Normal right atrial size. Left Atrium Mild left atrial dilatation. Mitral Valve Mitral annular calcification. Trace to mild mitral regurgitation. Aortic Valve Aortic valve is normal in structure and function. Tricuspid Valve Tricuspid valve is normal in structure and function. Trace to mild tricuspid regurgitation. Right ventricular systolic pressure estimated to be within the normal range at 30 mmHg. Pulmonic Valve Pulmonic valve not well visualized, grossly normal. Pericardium No pericardial effusion. Great Vessels Normal size aortic root and borderline dilated Ascending Aorta. CONCLUSIONS Normal left and right ventricular systolic function with mild left ventricular hypertrophy.Mild left atrial enlargement. No significant Pulmonary hypertension. Mild left atrial enlargement. Mateo Patircio M.D. (Electronically Signed) Final Date: 09 Apr 2017 19:41 MEASUREMENTS (Male / Female) Normal Values 2D ECHO LV Diastolic Diameter PLAX 5.2 cm 4.2 - 5.9 / 3.9 - 5.3 cm LV Systolic Diameter PLAX 3.5 cm 2.1 - 4.0 cm LV Fractional Shortening PLAX 32.7 % 25 - 46 % LV Ejection Fraction 2D Teich 60.7 % IVS Diastolic Thickness 1.3 cm LVPW Diastolic Thickness 1.3 cm LV Relative Wall Thickness 0.5 RV Internal Dim ED PLAX 2.6 cm 1.9 - 3.8 cm LVOT Diameter 1.9 cm Aortic Root Diameter 3.0 cm LA Systolic Diameter LX 3.7 cm 3.0 - 4.0 / 2.7 - 3.8 cm LA Volume 47.0 cm 18 - 58 / 22 - 52 cm Ascending Aorta Diameter 3.9 cm DOPPLER AV Peak Velocity 113.0 cm/s AV Peak Gradient 5.1 mmHg AV Mean Velocity 77.7 cm/s AV Mean Gradient 3.0 mmHg AV Velocity Time Integral 19.7 cm LVOT Peak Velocity 83.6 cm/s LVOT Peak Gradient 2.8 mmHg LVOT Mean Velocity 55.7 cm/s LVOT Mean Gradient 1.0 mmHg LVOT Velocity Time Integral 15.8 cm LVOT Stroke Volume 44.8 cm AV Area Cont Eq vti 2.3 cm AV Area Cont Eq pk 2.1 cm MV Peak Velocity 139.0 cm/s MV Peak Gradient 7.7 mmHg MV Mean Velocity 59.5 cm/s MV Mean Gradient 2.0 mmHg Mitral E Point Velocity 134.0 cm/s MV PHT Velocity 146.0 cm/s MV Deceleration [place] 515.0 cm/s MV Pressure Half Time 85.0 ms MV Area PHT 2.6 cm MV Deceleration Time 257.0 ms TR Peak Velocity 252.0 cm/s TR Peak Gradient 25.4 mmHg Right Atrial Pressure 5.0 mmHg Pulmonary Artery Systolic Pressu 30.4 mmHg Right Ventricular Systolic Press 30.4 mmHg PV Peak Velocity 114.0 cm/s PV Peak Gradient 5.2 mmHg PV Mean Velocity 73.7 cm/s PV Mean Gradient 3.0 mmHg PV Velocity Time Integral 23.3 cm LV E' Lateral Velocity 12.9 cm/s Mitral E to LV E' Lateral Ratio 10.4 LV E' Septal Velocity 15.2 cm/s Mitral E to LV E' Septal Ratio 8.8
[2017-04-09 23:54] VITALS: BP 106/66
--- NOTE | 2017-04-10 06:30 | PN- Housestaff ---
Subjective Follow-up For: Afib with RVR Pulmonary embolism Tele-Events Since Last Visit: Afib with HR 80-113 Subjective: Patient seen and examined at bedside. Seating comfortably in bed with no complaints other than dypsnea on exertion. She was doing fine until she woke up and felt short of breath. Feeling better after putting the oxygen on. Denies an chest pain, palpitations, lightheadedness, dizziness, abdominal pain, n/v/c/d. No events reported overnight. Review of Systems Constitutional: Reports: see HPI. Objective Last 24 Hrs of Vital Signs/I&O Vital Signs Date Time Temp Pulse Resp B/P B/P Pulse O2 O2 Flow FiO2 Mean Ox Delivery Rate 04/10 0747 97.9 108 20 100/60 97 Nasal 2.0L Cannula 04/10 0625 107 102/68 04/10 0027 92 106/66 04/10 0000 92 CPAP 04/09 2354 98.9 85 20 106/66 92 Nasal Cannula 04/09 2049 107 106/64 04/09 2000 98.3 04/09 1725 118 110/70 04/09 1600 Nasal 2.0L Cannula 04/09 1427 99.5 94 20 110/70 96 Nasal 2.0L Cannula 04/09 1423 94 110/70 04/09 1359 94 Nasal 2.0L Cannula Intake & Output 04/10 1600 04/10 0800 04/10 0000 Intake Total 75 777.6 Output Total 500 Balance 75 277.6 Intake, IV 177.6 Intake, Oral 75 600 Output, Urine 500 Physical Exam General Appearance: Alert, Oriented X3, Cooperative, No Acute Distress Other Physical Findings: Skin No Breakdown, No Significant Lesion HEENT EOMI, Mucous Membr. moist/pink Cardiovascular Normal S1, Normal S2, irregularly irregular rhythm Lungs Normal Air Movement, diminished breath sounds in the basilar regions bilaterally Abdomen Normal Bowel Sounds, Soft, No Tenderness Extremities Normal Pulses, 1+ pitting edema bilateral lower extremities Vascular Pulses Symmetrical Current Medications: Current Medications: Current Medications Sig/Trinity Start time Last Medication Dose Route Stop Time Status Admin Acetaminophen 650 MG Q6P PRN 04/07 2015 AC PO Al Hydroxide/Mg 30 ML .STK-MED ONE 04/09 1030 DC Hydroxide PO 04/09 1031 Al Hydroxide/Mg 30 ML .STK-MED ONE 04/09 1027 DC Hydroxide PO 04/09 1028 Al Hydroxide/Mg 30 ML Q4-6 PRN PRN 04/09 1015 AC 04/09 Hydroxide PO 1026 Albuterol Sulfate 3 ML Q4P PRN 04/08 1015 AC 04/09 INH 1359 Apixaban 10 MG BID 04/09 2200 AC 04/09 PO 2049 Aspirin Buffered 81 MG QPM 04/07 2200 AC 04/09 PO 2049 Budesonide/ 2 PUF BID 04/07 2200 AC 04/09 Formoterol Fumarate INH 2048 Diltiazem HCl 30 MG Q6 04/09 1256 AC 04/10 PO 0625 Diltiazem HCl 125 MG Q24H 04/08 1130 DC 04/09 Sodium Chloride 100 ML IV 1009 Furosemide 20 MG DAILY 04/09 1254 AC 04/09 PO 1423 Furosemide 20 MG DAILY 04/09 1246 DC IV Furosemide 20 MG ONCE ONE 04/09 1245 CAN IV 04/09 1246 Heparin Sodium/ 25,000 UNIT Q24H 04/07 2115 DC 04/09 Dextrose IV 04/09 2200 1541 Dextrose/Water 500 ML Montelukast Sodium 10 MG QPM 04/07 2200 AC 04/09 PO 2049 Nebivolol 5 MG QPM 04/07 2200 AC 04/09 PO 2049 Oxycodone/ 1 TAB Q6P PRN 04/07 2015 AC Acetaminophen PO Oxycodone/ 2 TAB Q6P PRN 04/07 2015 AC Acetaminophen PO Patient Medication 1 UNIT ONE NR 04/09 1315 [place] Teaching ED 04/09 1330 Patient Medication 1 UNIT ONE NR 04/09 1315 [place] Teaching ED 04/09 1330 Rosuvastatin Calcium 20 MG 1700 04/08 1700 AC 04/09 PO 1725 Senna/Docusate Sodium 1 TAB DAILY 04/10 1000 UNVr PO Tiotropium [place] 1 PUF DAILY 04/08 1000 AC 04/09 INH 1008 Last 24 Hrs of Lab/Luiz Results Last 24 Hrs of Labs/Mics: Laboratory Tests 04/09/17 2245: APTT Cancelled 04/09/17 1045: APTT 71 H Assessment/Plan Assessment: 81-year-old lady with a PMH of CAD/stent placement to LAD (2006), CT status post cath in January 2010, COLT on CPAP, hyperlipidemia, prior tobacco use, asthma presents with complaints of 67 day duration of shortness of breath with mild exertion 2/2 PE. # New onset Afib with RVR Better controlled after some cardizem boluses were given on admission. However patient needs to be on cardizem drip as per cardio. * Cont tele monitoring * Consider starting Cardizem CD 120mg if okay with cardi * Cont 30 mg po Q6 for now * Cont to appreciate cardio recs # Small PE and possible PNA Chest CTA: Small focus of pulmonary emboli in peripheral right lower lobe pulmonary vessels. Right upper lobe infiltrate in the medial right upper lobe. D-dimer elevated at 419. * Cont Eliquis 10mg BID * Cont Lasix 20 mg IV daily (per cardio recc) * Pulm consulted, Dr. Benitez aware. * Appreciate cardio recs # History of CAD s/p stent placement to LAD 2006 Serial troponins and EKGs negative. * Follow echo - Normal left and right ventricular systolic function with mild left ventricular hypertrophy.Mild left atrial enlargement. No significant Pulmonary hypertension. Mild left atrial enlargement. * Continue with aspirin 81 mg daily # Hyperlipidemia, * Continue home dose of Crestor 20 mg daily. * LDL= 47. TG 157 # Asthma, COLT on nocturnal CPAP * Cont home meds * Nocturnal CPAP * TRCs for history of asthma * Oxygen support as needed # Weakness Patient feels weaker than baseline and would like to rehab. * Appreciate PT recs - Heart healthy diet - Mild pain pathway - DVT prophylaxis: Heparin - Full code Problem List: 1. PE (pulmonary thromboembolism) 2. HLD (hyperlipidemia) 3. COLT (obstructive sleep apnea) 4. Atrial fibrillation with RVR Pain Ratin Pain Location: 0 Pain Goal: Remain pain free Pain Plan: Mild path Tomorrow's Labs & Rationales: None
[2017-04-10 07:47] VITALS: BP 100/60
[2017-04-10] MEDS ORDERED: ELIQUIS5 M1 PO ×2 (08:52→11:55)
[2017-04-10] MEDS ORDERED: FUROSEMIDE20 M1 PO (08:55)
--- NOTE | 2017-04-10 08:58 | Patient Discharge Instructions ---
Discharge Instructions General Discharge Information You were seen/treated for: Atrial fibrillation with rapid ventircular rate Pulmonary embolism Special Instructions: Please follow up with your member service specialist Dr. Henderson and machine puller over Dr. Benitez within 1 week of discaharge. Please follow up with primary care provider within 2 weeks of discharge. Diet Continue normal diet: Yes Activity Full Activity/No Limits: Yes (as tolerated) Acute Coronary Syndrome Inclusion Criteria At DC or during hospital stay patient has or had the following: ACS DIAGNOSIS No Discharge Core Measures Meds if any: Prescribed or Continued at Discharge Meds if any: NOT Prescribed or Continued at Discharge Congestive Heart Failure Inclusion Criteria At DC or during hospital stay patient has or had the following: CHF DIAGNOSIS No Discharge Core Measures Meds if any: Prescribed or Continued at Discharge Meds if any: NOT Prescribed or Continued at Discharge Cerebrovascular accident Inclusion Criteria At DC or during hospital stay patient has or had the following: CVA/TIA Diagnosis No Discharge Core Measures Meds if any: Prescribed or Continued at Discharge Meds if any: NOT Prescribed or Continued at Discharge Venous thromboembolism Inclusion Criteria VTE Diagnosis Yes VTE Type Pulmonary Embolism VTE Confirmed by (Test) CT CHEST ANGIOGRAM Discharge Core Measures - Per Current guidelines, there needs to be overlap - treatment for the first 5 days of Warfarin therapy. - If discharged on Warfarin prior to 5 days of - overlap therapy, the patient will need to be - assessed for post discharge needs including - *Post discharge parental anticoagulation - *Warfarin and/or parental anticoagulation education - *Follow up date to check INR post discharge At least 5 days overlap therapy as Inpatient Yes Meds if any: Prescribed or Continued at Discharge Note: Overlap Therapy is Warfarin and Anticoagulant Meds if any: NOT Prescribed or Continued at Discharge
--- NOTE | 2017-04-10 09:12 | PN- Att Addend ---
Attending Addendum Attending Brief Note She reports shortness of breath with minimal exertion. General Appearance: Alert, No Acute Distress Skin: Grossly normal HEENT: PEERLA Neck: Supple, No JVD Cardiovascular: Irregular rhythm Lungs: Decreased air entry Abdomen: Normal Bowel Sounds, Soft, No Tenderness Neurological: Normal Speech, Strength at 5/5 X4 Ext, Cranial Nerves 3-12 NL, Reflexes 2+ Extremities: No Clubbing, No Cyanosis, No Edema Vascular: Normal Pulses Assessment 81-year-old with history of coronary artery disease, objective sleep apnea, dyslipidemia, history of asthma, and prior history of atrial fibrillation that has resolved and has previously followed Mateo Patricio MD presenting with complaints of shortness of breath. Patient in new onset A. fib with RVR and CAT scan chest suggesting peripheral right lower lobe PE with no DVT. Suspect A. fib in the setting of PE. Patient is currently on heparin drip. Right upper lobe infiltrate however patient is not demonstrating any signs of pneumonia. We will follow off antibiotics. Rates are controlled on Cardizem. Now transitioned to Eliquis for anticoagulation. Plan Eliquis PE dose Rate control meds per cardiology Continue other medications including inhalers STR placement Current Medications Sig/Trinity Start time Last Medication Dose Route Stop Time Status Admin Acetaminophen 650 MG Q6P PRN 04/07 2015 AC PO Al Hydroxide/Mg 30 ML .STK-MED ONE 04/09 1030 DC Hydroxide PO 04/09 1031 Al Hydroxide/Mg 30 ML .STK-MED ONE 04/09 1027 DC Hydroxide PO 04/09 1028 Al Hydroxide/Mg 30 ML Q4-6 PRN PRN 04/09 1015 AC 04/09 Hydroxide PO 1026 Albuterol Sulfate 3 ML Q4P PRN 04/08 1015 AC 04/09 INH 1359 Apixaban 10 MG BID 04/09 2200 AC 04/09 PO 2049 Aspirin Buffered 81 MG QPM 04/07 2200 AC 04/09 PO 2049 Budesonide/ 2 PUF BID 04/07 2200 AC 04/09 Formoterol Fumarate INH 2048 Diltiazem HCl 120 MG DAILY 04/10 1000 AC PO Diltiazem HCl 30 MG Q6 04/09 1256 DC 04/10 PO 0625 Diltiazem HCl 125 MG Q24H 04/08 1130 DC 04/09 Sodium Chloride 100 ML IV 1009 Furosemide 20 MG DAILY 04/09 1254 AC 04/09 PO 1423 Furosemide 20 MG DAILY 04/09 1246 DC IV Furosemide 20 MG ONCE ONE 04/09 1245 CAN IV 04/09 1246 Heparin Sodium/ 25,000 UNIT Q24H 04/07 2115 DC 04/09 Dextrose IV 04/09 2200 1541 Dextrose/Water 500 ML Montelukast Sodium 10 MG QPM 04/07 2200 AC 04/09 PO 2049 Nebivolol 5 MG QPM 04/07 2200 AC 04/09 PO 2049 Oxycodone/ 1 TAB Q6P PRN 04/07 2015 AC Acetaminophen PO Oxycodone/ 2 TAB Q6P PRN 04/07 2015 AC Acetaminophen PO Patient Medication 1 UNIT ONE NR 04/10 0900 [place] Teaching ED 04/10 1500 Patient Medication 1 UNIT ONE NR 04/09 1315 [place] Teaching ED 04/09 1330 Patient Medication 1 UNIT ONE NR 04/09 1315 [place] Teaching [place] 04/09 1330 Rosuvastatin Calcium 20 MG 1700 04/08 1700 AC 04/09 PO 1725 Senna/Docusate Sodium 1 TAB DAILY 04/10 1000 AC PO Tiotropium [employer] 1 PUF DAILY 04/08 1000 AC 04/09 INH 1008 Laboratory Tests 04/09 04/09 2245 1045 Coagulation APTT (25 - 37 SEC) Cancelled 71 H Vital Signs Date Time Temp Pulse Resp B/P B/P Pulse O2 O2 Flow FiO2 Mean Ox Delivery Rate 04/10 0848 98 Nasal 2.0L Cannula 04/10 0747 97.9 108 20 100/60 97 Nasal 2.0L Cannula 04/10 0625 107 102/68 04/10 0027 92 106/66 04/10 0000 92 CPAP 04/09 2354 98.9 85 20 106/66 92 Nasal Cannula 04/09 2049 107 106/64 04/09 2000 98.3 04/09 1725 118 110/70 04/09 1600 Nasal 2.0L Cannula 04/09 1427 99.5 94 20 110/70 96 Nasal 2.0L Cannula 04/09 1423 94 110/70 04/09 1359 94 Nasal 2.0L Cannula
--- NOTE | 2017-04-10 09:45 | PN- Cardiology ---
Subjective Subjective: The patient is awake, alert The patient continues to not feel palpitations despite underlying atrial fibrillation The events of the last 24 hours as well as telemetry were reviewed. Review of Systems: The review of systems is negative for chest pains, palpitations nor lightheadedness. The remainder of the 14 point review of systems is noncontributory with the exception of above. Objective Vital Signs and I&Os Vital Signs Date Time Temp Pulse Resp B/P B/P Pulse O2 O2 Flow FiO2 Mean Ox Delivery Rate 04/10 0848 98 Nasal 2.0L Cannula 04/10 0747 97.9 108 20 100/60 97 Nasal 2.0L Cannula 04/10 0625 107 102/68 04/10 0027 92 106/66 04/10 0000 92 CPAP 04/09 2354 98.9 85 20 106/66 92 Nasal Cannula 04/09 2049 107 106/64 04/09 2000 98.3 04/09 1725 118 110/70 04/09 1600 Nasal 2.0L Cannula 04/09 1427 99.5 94 20 110/70 96 Nasal 2.0L Cannula 04/09 1423 94 110/70 04/09 1359 94 Nasal 2.0L Cannula Intake & Output 04/10 1600 04/10 0800 / 0000 04/09 1600 04/09 0800 04/09 0000 Intake Total 75 777.6 578 577.6 857.6 Output Total 500 400 375 325 Balance 75 277.6 178 202.6 532.6 Intake, IV 177.6 218 177.6 177.6 Intake, Oral 75 600 360 400 680 Output, Urine 500 400 375 325 Physical Exam: General: Nontoxic, no apparent distress. HEENT: Sclera and conjunctiva within normal limits, without xanthelasmas. Neck: Carotids 2+ without bruits. Respiratory: Scattered rhonchi, without accessory respiratory muscle use. Heart: Irregularly irregular rate and rhythm, 2/6 systolic ejection left sternal border, without JVD. Abdomen: Soft, nontender, no masses, normoactive bowel sounds. Extremities: Without clubbing, cyanosis, without edema. Neuro: Nonfocal exam, strength, 5 out of 5 Skin: Within normal limits without lesions. Psych: Mood and affect: Normal Current Medications: Current Medications Sig/Trinity Start time Last Medication Dose Route Stop Time Status Admin Acetaminophen 650 MG Q6P PRN 04/07 2015 AC PO Al Hydroxide/Mg 30 ML .STK-MED ONE 04/09 1030 DC Hydroxide PO 04/09 1031 Al Hydroxide/Mg 30 ML .STK-MED ONE 04/09 1027 DC Hydroxide PO 04/09 1028 Al Hydroxide/Mg 30 ML Q4-6 PRN PRN 04/09 1015 AC 04/09 Hydroxide PO 1026 Albuterol Sulfate 3 ML Q4P PRN 04/08 1015 AC 04/09 INH 1359 Apixaban 10 MG BID 04/09 2200 AC 04/09 PO 2049 Aspirin Buffered 81 MG QPM 04/07 2200 AC 04/09 PO 2049 Budesonide/ 2 PUF BID 04/07 2200 AC 04/09 Formoterol Fumarate INH 2048 Diltiazem HCl 120 MG DAILY 04/10 1000 AC PO Diltiazem HCl 30 MG Q6 04/09 1256 DC 04/10 PO 0625 Diltiazem HCl 125 MG Q24H 04/08 1130 DC 04/09 Sodium Chloride 100 ML IV 1009 Furosemide 20 MG DAILY 04/09 1254 AC 04/09 PO 1423 Furosemide 20 MG DAILY 04/09 1246 DC IV Furosemide 20 MG ONCE ONE 04/09 1245 CAN IV 04/09 1246 Heparin Sodium/ 25,000 UNIT Q24H 04/07 2115 DC 04/09 Dextrose IV 04/09 2200 1541 Dextrose/Water 500 ML Montelukast Sodium 10 MG QPM / 2200 AC 04/09 PO 2049 Nebivolol 5 MG QPM 04/07 2200 04/09 PO 2049 Oxycodone/ 1 TAB Q6P PRN 04/07 2015 AC Acetaminophen PO Oxycodone/ 2 TAB Q6P PRN 04/07 2015 AC Acetaminophen PO Patient Medication 1 UNIT ONE NR 04/10 0900 Teaching ED 04/10 1500 Patient Medication 1 UNIT ONE NR 04/09 1315 [place] Teaching ED 04/09 1330 Patient Medication 1 UNIT ONE NR 04/09 1315 [place] Teaching ED 04/09 1330 Rosuvastatin Calcium 20 MG 1700 04/08 1700 04/09 PO 1725 Senna/Docusate Sodium 1 TAB DAILY 04/10 1000 AC PO Tiotropium [place] 1 PUF DAILY 04/08 1000 AC 04/09 INH 1008 Results Last 48 Hrs of Labs/Mics: Laboratory Tests 04/09/17 2245: APTT Cancelled 04/09/17 1045: APTT 71 H 04/08/17 2150: APTT 79 H Assessment/Plan Assessment/Plan The patient is an 81-year-old woman with a past medical history of coronary artery disease as well as remote atrial fibrillation (proximally 6 years ago), asthma and obstructive sleep apnea. She presents with symptoms of increasing dyspnea, and is found to have a pulmonary embolism was well as recurrence of atrial fibrillation with suboptimal rate control. Pulmonary embolism: Continue with full anticoagulation using her current regimen of Eliquis. She will require permanent further anticoagulation given her atrial fibrillation. Atrial fibrillation: Heart rate control has improved; however, is not optimal. Long-acting Cardizem CD has been started, and I would increase the dose if tolerated from a blood pressure standpoint. Her beta kody regimen will remain changed given her underlying asthma. Coronary artery disease: Stable, We will continue to follow, continue current regimen Continue telemetry? Yes
--- NOTE | 2017-04-10 12:01 | Discharge Summary ---
Visit Information Visit Dates Admission Date: 04/07/17 Discharge Date: 04/10/17 Hospital Course Course Attending Physician: KACEY GRAY MD Primary Care Physician: KACEY GRAY MD Hospital Course: Mrs Yang is an 81-year-old lady with a PMH of CAD/stent placement to LAD (2006 ), RI status post cath in January 2010, COLT on CPAP, hyperlipidemia, prior tobacco use, asthma presents with complaints of 67 day duration of shortness of breath with mild exertion. VS on admission: BP 111/80, HR 102, RR 20, SPO2 96% on RA, T 98.1 Pertinent labs: WBC 8.4, H&H 12.6/30.3, glucose 204, sodium 142, potassium 4.7, bicarbonate 22, BUN/Cr 19/0.8, glucose 92. D-dimer: 419 Magnesium: 1.9 TSH: 2.090 Patient was admitted on telemetry protocol measures were addressed Problem #1 new onset atrial fibrillation with rapid ventricular response Patient was diagnosed with new onset atrial fibrillation on admission and was during her hospital stay started on Cardizem drip after Cardizem bolus and later on changed to oral Cardizem 120 mg daily on discharge. She was also started on heparin drip that was later changed to Eliquis first on milligrams twice a day for 7 days and will change to 5 mg twice a day and patient was instructed to follow-up environmental projects advisor as outpatient and she would be on long-term anticoagulation for atrial fibrillation. Problem #2 small PE in peripheral right lower lobe/right upper lobe infiltrate Chest CTA was done on admission that showed small focus of primary emboli in peripheral right lower lobe vessels and was started on heparin drip and was changed to therapeutic dose of Eliquis 10 mg twice a day for 7 days and then 5 mg twice a day. Even though on CAT scan patient showed right upper lobe infiltrate however patient was not demonstrating any signs of pneumonia and watched off of antibiotics during her hospital stay. Problem #3 CAD status post stent placement to LAD 2006 We continues her home dose of Lasix 20 mg daily along with 81 mg of aspirin. Patient was continued on her home dose of beta blockers. Problem #4 hyperlipidemia Patient was continued on her home dose of Crestor 20 mg daily Problem #5 obstructive sleep apnea on nocturnal CPAP Patient was instructed to continue her nocturnal CPAP at home Problem #6 history of asthma Patient was provided with her home doses of inhalers and was instructed to continue the same. Comment logical DVT prophylaxis Heart appetite Patient is full code Complications: none Allergies: Coded Allergies: Penicillins (Severe, ANAPHYLAXIS 04/07/17) latex (Intermediate, HIVES 04/07/17) atorvastatin (VOMITING 04/07/17) diphenhydramine (HIVES 04/07/17) Significant Procedures: HERIBERTO YANG Age: 81 : 1935 Gender: F Exam Date: 04/09/2017 08:58 Exam Location: [address] [place] [address] Ht (in): 62 Wt (lb): 208 BSA: 2.08 BP: 100 / 58 Ordering Physician: ALBERT GOLDMAN MD Referring Physician: Emil Patricio MD Technologist: Maya Foster [facility] Room Number: 172 Indications: AFIB/FLUTTER Rhythm: Atrial fibrillation Technical Quality: fair FINDINGS Left Ventricle Normal size left ventricle. Left ventricular wall thickness mildly increased. Normal left ventricular ejection fraction estimated at 60-65%. Right Ventricle Normal right ventricular size and function. Right Atrium Normal right atrial size. Left Atrium Mild left atrial dilatation. Mitral Valve Mitral annular calcification. Trace to mild mitral regurgitation. Aortic Valve Aortic valve is normal in structure and function. Tricuspid Valve Tricuspid valve is normal in structure and function. Trace to mild tricuspid regurgitation. Right ventricular systolic pressure estimated to be within the normal range at 30 mmHg. Pulmonic Valve Pulmonic valve not well visualized, grossly normal. Pericardium No pericardial effusion. Great Vessels Normal size aortic root and borderline dilated Ascending Aorta. CONCLUSIONS Normal left and right ventricular systolic function with mild left ventricular hypertrophy.Mild left atrial enlargement. No significant Pulmonary hypertension. Mild left atrial enlargement. Emil Patricio M.D. (Electronically Signed) Final Date: 09 Apr 2017 19:41 MEASUREMENTS (Male / Female) Normal Values 2D ECHO LV Diastolic Diameter PLAX 5.2 cm 4.2 - 5.9 / 3.9 - 5.3 cm LV Systolic Diameter PLAX 3.5 cm 2.1 - 4.0 cm LV Fractional Shortening PLAX 32.7 % 25 - 46 % LV Ejection Fraction 2D Teich 60.7 % IVS Diastolic Thickness 1.3 cm LVPW Diastolic Thickness 1.3 cm LV Relative Wall Thickness 0.5 RV Internal Dim ED PLAX 2.6 cm 1.9 - 3.8 cm LVOT Diameter 1.9 cm Aortic Root Diameter 3.0 cm LA Systolic Diameter LX 3.7 cm 3.0 - 4.0 / 2.7 - 3.8 cm LA Volume 47.0 cm 18 - 58 / 22 - 52 cm Ascending Aorta Diameter 3.9 cm DOPPLER AV Peak Velocity 113.0 cm/s AV Peak Gradient 5.1 mmHg AV Mean Velocity 77.7 cm/s AV Mean Gradient 3.0 mmHg AV Velocity Time Integral 19.7 cm LVOT Peak Velocity 83.6 cm/s LVOT Peak Gradient 2.8 mmHg LVOT Mean Velocity 55.7 cm/s LVOT Mean Gradient 1.0 mmHg LVOT Velocity Time Integral 15.8 cm LVOT Stroke Volume 44.8 cm AV Area Cont Eq vti 2.3 cm AV Area Cont Eq pk 2.1 cm MV Peak Velocity 139.0 cm/s MV Peak Gradient 7.7 mmHg MV Mean Velocity 59.5 cm/s MV Mean Gradient 2.0 mmHg Mitral E Point Velocity 134.0 cm/s MV PHT Velocity 146.0 cm/s MV Deceleration Gregory 515.0 cm/s MV Pressure Half Time 85.0 ms MV Area PHT 2.6 cm MV Deceleration Time 257.0 ms TR Peak Velocity 252.0 cm/s TR Peak Gradient 25.4 mmHg Right Atrial Pressure 5.0 mmHg Pulmonary Artery Systolic Pressu 30.4 mmHg Right Ventricular Systolic Press 30.4 mmHg PV Peak Velocity 114.0 cm/s PV Peak Gradient 5.2 mmHg PV Mean Velocity 73.7 cm/s PV Mean Gradient 3.0 mmHg PV Velocity Time Integral 23.3 cm LV E' Lateral Velocity 12.9 cm/s Mitral E to LV E' Lateral Ratio 10.4 LV E' Septal Velocity 15.2 cm/s Mitral E to LV E' Septal Ratio 8.8 DICTATED BY: EMIL PATRICIO MD DATE/TIME DICTATED:04/09/171940 FISHER EEL:CYDNEY DATE/TIME TRANSCRIBED:04/09/171940 Pertinent Lab Results: SERVICE DATE: 04/07/17 EXAM TYPE: CAT - CTA CHEST-PULMONARY EMBOLISM EXAMINATION: CT ANGIOGRAM OF THE CHEST WITH AND WITHOUT CONTRAST (CT PULMONARY ANGIOGRAM FOR PE) CLINICAL INFORMATION: CHEST PAIN, CRAVEN, A FIB, +D-DIMER
COMPARISON: Chest x-ray 03/12/2017 TECHNIQUE: Prior to contrast administration, noncontrast localization images were obtained. Subsequently, multidetector volumetric imaging was performed from the thoracic inlet to below the diaphragms following the administration of 77 mL Optiray 350 intravenous contrast. No contrast reaction reported. Sagittal, coronal, and MIP oblique sagittal reformatted images were obtained on the CT workstation, uploaded to PACS, and reviewed. Total exam dose-length product 518.38 mGy-cm. FINDINGS: QUALITY OF STUDY/CONTRAST BOLUS: Satisfactory PULMONARY ARTERIES: There are small peripheral pulmonary emboli in the tertiary and more peripheral vessels at the right lower lobe. No other pulmonary emboli evident. THORACIC AORTA: Thoracic aortic diameter measures 4.2 cm, mildly prominent. LUNG: In the medial right upper lobe there is a patchy parenchymal infiltrate. Left lung is clear. PLEURA: No pleural effusion or pneumothorax. MEDIASTINUM: Heart size is enlarged. No evidence of septal bowing or right heart strain. No pericardial effusion. CHEST WALL/AXILLA: No axillary or internal mammary lymphadenopathy. OSSEOUS STRUCTURES: Multilevel degenerative change of the spine with bridging osteophytes of the vertebrae. UPPER ABDOMEN: Unremarkable. No reflux of contrast into the hepatic veins to suggest elevated right heart pressures. IMPRESSION: 1. Small focus of pulmonary emboli in peripheral right lower lobe pulmonary vessels. 2. Right upper lobe infiltrate in the medial right upper lobe. This critical result was discussed with Dr. Benitez on 04/07/2017, 7:25 PM and it was ascertained that the content and urgency of the report was understood at the time of direct communication. VTE: positive Disposition Summary Disposition Principal Diagnosis: New onset atrial fibrillation Additional Diagnosis: PE Discharge Disposition: SNF Discharge Instructions General Discharge Information Code Status: Full Code Patient's Diet: Heart healthy diet Patient's Activity: as tolerated assistance Follow-Up Instructions/Appts: Please follow up with your environmental projects advisor Dr. Henderson and rn wound care Dr. Benitez within 1 week of discaharge. Please follow up with primary care provider within 2 weeks of discharge. Medications at Discharge Discharge Medications: Continue taking these medications: Fluticasone/Salmeterol (Advair 250-50 Diskus) 250 MCG-50 MCG/DOSE BLST.W.DEV 1 Puff Inhale through mouth TWICE DAILY Montelukast Sodium (Singulair) 10 MG TABLET 1 Tablet ORAL Every night Tiotropium [place] (Spiriva) 18 MCG CAP.W.DEV 1 Capsule Inhale through mouth DAILY Aspirin (Ecotrin*) 81 MG TABLET.DR 1 Tablet ORAL Every night Rosuvastatin Calcium (Crestor) 20 MG TABLET 1 Tablet ORAL DAILY Nebivolol HCl (Bystolic) 5 MG TABLET 1 Tablet ORAL Every night Start taking the following new medications: Apixaban (Eliquis) 5 MG TABLET 10 Milligram ORAL TWICE DAILY Qty = 90 No Refills Instructions: 04/10-04/16 10mg twice a day 04/17- 5mg twice a day Furosemide (Furosemide) 20 MG TABLET 20 Milligram ORAL DAILY Qty = 30 No Refills Copies To: KACEY GRAY MD Attending MD Review Statement Documenting Attending: KACEY GRAY MD
[2017-04-10 12:41] VITALS: BP 100/60
== END 2017-04-10 13:15 | DRG 308 ==
LOC: ERH 16:15 → ERHI 18:08 → 1NO 18:08 → ENRESERV 18:53 → 1NO 20:57 → ENPENDDIS 04-10 12:24 → 1NO 04-10 13:15
PROVIDERS: Emergency Medicine; Internal Medicine; ADMIT Internal Medicine
DX: I48.91 Unspecified atrial fibrillation (principal); I26.99 Other pulmonary embolism without acute cor pulmonale; J44.9 Chronic obstructive pulmonary disease, unspecified; I25.10 Atherosclerotic heart disease of native coronary artery without angina pectoris; I25.2 Old myocardial infarction; E78.5 Hyperlipidemia, unspecified; G47.33 Obstructive sleep apnea (adult) (pediatric); J45.909 Unspecified asthma, uncomplicated; Z87.891 Personal history of nicotine dependence
CPT/HCPCS: 1NP; 36415; 82436; 93005; 93010; 93306; 93970; 96365; 96366; 96375; 96376; 97116-GO; 97161-GP; 97530-GO; 99291; J1644; J3490; J7060

== ENCOUNTER 2017-05-14 15:34 | Emergency (ER) | payer OTHER, MEDICARE ==
[~2017-05-14] VITALS: Ht 160 cm; Wt 98.0 kg
[~2017-05-14 15:34] MED LIST changes: +ELIQUIS5 M1 PO; +FUROSEMIDE20 M1 PO
--- NOTE | 2017-05-14 16:30 | ED DYSPNEA/ASTHMA COMPLAINT ---
History of Present Illness General Chief Complaint: Wheezing/Asthma Stated Complaint: PT HAS A PROBLEM BREATHING SPO 96 Source: patient Exam Limitations: no limitations Vital Signs & Intake/Output Vital Signs & Intake/Output Vital Signs Date Time Temp Pulse Resp B/P B/P Pulse O2 O2 Flow FiO2 Mean Ox Delivery Rate 05/14 1827 97.2 98 18 123/57 97 Room Air 05/14 1705 97 05/14 1617 96 Room Air Room Air 05/14 1544 97.7 47 20 128/80 95 Room Air Room Air Allergies Coded Allergies: Penicillins (Severe, ANAPHYLAXIS 05/14/17) latex (Intermediate, HIVES 05/14/17) atorvastatin (VOMITING 05/14/17) diphenhydramine (HIVES 05/14/17) Triage Note: PT TO ED FOR C/C OF DIFFICULTY BREATHING, CHEST TIGHTNESS THAT HAS BEEN INTERMITTENT FOR THE LAST WEEK SINCE BEING DISCHARGED FROM [facility], BUT TODAY IT BECAME WORSE. NO WORK OF BREATHING NOTED, DENIES FEVER OR CHILLS, DENIES CHEST PAIN, RECENTLY DIAGNOSED HERE WITH PE THREE WEEKS AGO AND STARTED ON ELIQUIS, CARDIZEM, AND DIGOXIN. PT'S O2 SAT 95 RA. Triage Nurses Notes Reviewed? yes HPI: 81 yo Female with past medical history of atrial fibrillation on digoxin/ Cardizem/Eliquis, pulmonary embolism, coronary artery disease status post stent placement in 2006, CT in 2009, obstructive sleep apnea with CPAP, hyperlipidemia , asthma, and a recent diagnosis of pneumonia in March, is here with complaints of shortness of breath and chest pressure since . She initially had dyspnea on exertion, but worsened to dyspnea at rest today which brought her to the emergency department. She has bilateral lower extremity swelling, which has remained the same since a month. She denies any fever, chills, palpitation, nausea, vomiting, headache, trauma, recent flu, sick contacts, recent travel, cough. She quit smoking 43 yrs ago, but used to smoke 2 packs per day before that. (SESAR MARIN,JENNIFER) Reconcile Medications Acetaminophen 500 MG TABLET 2 TAB PO Q6 PRN PAIN (Reported) Apixaban (Eliquis) 5 MG TABLET 1 TAB PO BID BLOOD THINNER (Reported) Aspirin (Ecotrin*) 81 MG TABLET. 1 TAB PO QPM HEART HEALTH (Reported) Digoxin 125 MCG TABLET 1 TAB PO DAILY HEART (Reported) Ergocalciferol (Vitamin D2) (Vitamin D2) 50,000 UNIT CAPSULE 1 CAP PO Q2W SUPPLEMENT (Reported) Fluticasone Propionate (Flonase Allergy Relief) 50 MCG/ACTUATION SPRAY.SUSP 1 SPRAY JONATHAN DAILY ALLERGIES (Reported) Fluticasone/Salmeterol (Advair 250-50 Diskus) 250 MCG-50 MCG/DOSE BLST.W.DEV 1 PUF INH BID ASTHMA (Reported) Furosemide (Lasix) 40 MG TABLET 1 TAB PO DAILY DIURETIC (Reported) Levalbuterol HCl (Xopenex) 0.63 MG/3 ML VIAL.NEB 1 Vial INH/ARTEMIO Q6P PRN ASTHMA Montelukast Sodium (Singulair) 10 MG TABLET 1 TAB PO QPM ASTHMA (Reported) Nebivolol HCl (Bystolic) 5 MG TABLET 1 TAB PO QPM HEART (Reported) Rosuvastatin Calcium (Crestor) 20 MG TABLET 1 TAB PO DAILY CHOLESTEROL ( Reported) Sennosides (Senna) 8.6 MG TABLET 1 TAB PO QPM GI (Reported) Tiotropium [place] (Spiriva) 18 MCG CAP.W.DEV 1 CAP INH DAILY ASTHMA ( Reported) Ubidecarenone (Co Q-10) (Unknown Strength) CAPSULE (Unknown Dose) PO DAILY SUPPLEMENT (Reported) Vitamin E 400 UNIT CAPSULE 1 CAP PO DAILY SUPPLEMENT (Reported) (CHEKO MARIN,FRANKLIN) Past History Travel History Traveled to [place] past 21 day No Medical History Any Pertinent Medical History? see below for history Neurological: NONE EENT: NONE Cardiovascular: AFIB, CAD, hypertension, hyperlipidemia, myocardial infarction, NSTEMI, CARDIAC STENT Respiratory: asthma, COPD, pulmonary embolism Gastrointestinal: NONE Hepatic: NONE Renal: NONE Musculoskeletal: osteoarthritis Psychiatric: NONE Endocrine: NONE Blood Disorders: NONE Cancer(s): NONE CHIEF CREDIT OFFICER/Reproductive: NONE History of MRSA: No History of VRE: No History of CDIFF: No Surgical History Surgical History: non-contributory, N Psychosocial History Who do you live with Spouse Services at Home None What is your primary language Malawian Tobacco Use: Quit >30 days ago ETOH Use: denies use Illicit Drug Use: denies illicit drug use Family History Family History, If Any: FATHER FH: myocardial infarction, Onset: 60+. BROTHER FH: myocardial infarction, Onset: 50-60. Hx Contributory? No (JENNIFER KABA MD) Review of Systems Review of Systems Constitutional: Reports: weakness. Denies: chills, diaphoresis, fever, malaise. EENTM: Reports: no symptoms. Respiratory: Reports: short of breath. Denies: cough, hemoptysis, sputum production, stridor , wheezing. Cardiovascular: Reports: see HPI (chest pressure), edema, orthopena. Denies: palpitations. GI: Reports: no symptoms. Musculoskeletal: Reports: no symptoms. Skin: Reports: no symptoms. Neurological/Psychological: Reports: no symptoms. Hematologic/Endocrine: Reports: no symptoms. All Other Systems: Reviewed and Negative (JENNIFER KABA MD) Physical Exam Physical Exam General Appearance: well developed/nourished, no apparent distress, alert, awake , obese Head: atraumatic, normal appearance Eyes: Bilateral: normal appearance, PERRL, EOMI. Ears, Nose, Throat: normal pharynx, normal ENT inspection Neck: normal inspection, supple, full range of motion, no JVD Respiratory: chest non-tender, no respiratory distress, quiet respiration, bilateral vesicular breath sounds, harsh breath sound heard over right lung base , no wheeze b/l Cardiovascular: irregularly irregular Peripheral Pulses: 4+ radial (R), 4+ radial (L) Gastrointestinal: normal bowel sounds, soft, non-tender, no organomegaly Extremities: normal capillary refill, pedal edema Neurologic/Psych: no motor/sensory deficits, awake, alert, oriented x 3, normal gait, normal mood/affect Skin: intact, normal color, warm/dry Lymphatic: no anterior cervical collin Core Measures ACS in differential dx? No Severe Sepsis Present: No Septic Shock Present: No (JENNIFER KABA MD) Progress Differential Diagnosis: asthma, AMI, CHF, pericarditis, pulmonary embolism, pneumonia, pneumothorax, unstable angina Plan of Care: Orders Procedure Date/time Status ER SPECIMEN TO BE OBTAINED 05/14 1726 Active Lab Add-on Test 05/14 1700 Active B-TYPE NATRIURETIC PEP (BNP) 05/14 1614 Complete EKG 05/14 1551 Active TROPONIN LEVEL 05/14 1548 Complete COMPREHENSIVE METABOLIC PANEL 05/14 1548 Complete CBC WITHOUT DIFFERENTIAL 05/14 1548 Complete Laboratory Tests 05/14/17 1629: Quy-I-Xcqqdanidcy Pept Cancelled 05/14/17 1614: Anion Gap 11, Estimated GFR 53 L, BUN/Creatinine Ratio 14.0, Glucose 99, Calcium 9.2, Total Bilirubin 0.6, AST 24, ALT 37, Alkaline Phosphatase 44, Troponin I < 0.01, Lou-F-Rwrrjejlnyv Pept 1480 H, Total Protein 6.8, Albumin 4.2, Globulin 2.6, Albumin/Globulin Ratio 1.6, CBC w Diff NO MAN DIFF REQ, RBC 4.32, MCV 88.8, MCH 29.1, RDW 14.2, MPV 8.2, Gran % 59.9, Lymphocytes % 25.4, Monocytes % 9.2, Eosinophils % 4.4, Basophils % 1.1, Absolute Granulocytes 4.0, Absolute Lymphocytes 1.7, Absolute Monocytes 0.6, Absolute Eosinophils 0.3, Absolute Basophils 0.1, PUBS MCHC 32.7 L Microbiology 05/14 1726 LOWER RESP: Respiratory Culture - CAN Cancelled: REJECTED - POOR QUALITY SPECIMEN. ER ([facility] NOTIFIED AT 05/14 1726 LOWER RESP: Gram Stain - CAN Cancelled: REJECTED - POOR QUALITY SPECIMEN. ER ([facility]) NOTIFIED AT PATIENT IMPROVED SLIGHTLY AFTER NEBULIZER TREATMENT. SHE WAS NOT WHEEZING BEFORE OR AFTER TREATMENT, AND HER LUNG EXAM REMAINS CLEAR. SHE IS SATURATING 97% WITH AMBULATION ON ROOM AIR. SHE FEELS WELL AT REST AND HAS NO COMPLAINTS. HER HR HAS IMPROVED. PATIENT IS STABLE FOR DISCHARGE HOME, HAS NEBULIZER AT HOME AND WILL CONTINUE ROUND THE CLOCK TREATMENTS FOR 1 MORE DAY, WILL FOLLOW UP WITH HER PROCESSING ASSOCIATE AND ERP PM THIS WEEK, RETURN TO ED IF DYSPNEA WORSENS. SUSPECT LIKELY DECONDITIONING AND SEASONAL ALLERGIES CONTRIBUTING TO SYMPTOMS. PATIENT FEELS SAFE TO GO HOME AND HAS EXCELLENT FAMILY SUPPORT. (CHEKO MARIN,FRANKLIN) CXR Impression: no acute abnormality, cardiomegaly present Initial ED EKG: normal QRS complex, AFIB, no ST T wave changes Prior EKG: changed (rate under control) Comments: 05/14/17 1755hrs: Signing out the patient to my attending Dr Still. Patient is still in the ED and the reports of blood tests and CXR just discussed with him. neck cutter or Plasterer Rough not contacted yet. (SESAR MARIN,JENNIFER) Departure Departure Condition: Stable Clinical Impression Primary Impression: Dyspnea Qualifiers: Dyspnea type: dyspnea on exertion Qualified Code: R06.09 - Other forms of dyspnea Referrals: KALEB GRAY MD (PCP/Family) Departure Forms: Customer Survey General Discharge Information (JENNIFER KABA MD) Departure Time of Disposition: 1813 Disposition: HOME OR SELF CARE Additional Instructions: PLEASE FOLLOW UP WITH DR. AVILEZ AND DR. ESTES THIS WEEK. TAKE YOUR NEBULIZER TREATMENTS EVERY 6 HOURS. RETURN TO EMERGENCY DEPARTMENT IF YOU FEEL LIGHTHEADED, PALPITATIONS, SUDDEN SHORTNESS OF BREATH, FEVER, OR CHILLS. Prescriptions: Current Visit Scripts Levalbuterol HCl (Xopenex) 1 Vial INH/ARTEMIO Q6P PRN ASTHMA #144 ML Ref 3 (FRANKLIN STILL MD) Critical Care Note Critical Care Note Critical Care Time: non-applicable (JENNIFER KABA MD) (JENNIFER KABA MD) Critical Care Note Critical Care Note Critical Care Time: non-applicable (JENNIFER KABA MD)
[2017-05-14 16:37] LABS: ABSOLUTE BASOPHIL COUNT 0.1 /CUMM (0.0-0.2); ABSOLUTE EOSINOPHIL COUNT 0.3 /CUMM (0.0-0.7); ABSOLUTE LYMPH COUNT 1.7 /CUMM (1.2-3.4); ABSOLUTE MONOCYTE COUNT 0.6 /CUMM (0.10-0.60); BASOPHIL % 1.1 % (0.0-2.0); EOSINOPHIL % 4.4 % (0-5); GRANULOCYTE % 59.9 % (42.2-75.2); HEMATOCRIT 38.3 % (37-47); MEAN CORPUSCULAR HGB 29.1 PG (27.0-31.0); MEAN CORPUSCULAR HGB CONC 32.7 G/DL (33.0-37.0); MEAN CORPUSCULAR VOLUME 88.8 FL (81.0-99.0); MEAN PLATELET VOLUME 8.2 FL (7.4-10.4); PLATELET COUNT 220 /CUMM (130-400); RBC DISTRIBUTION WIDTH 14.2 % (11.5-14.5); RED BLOOD CELL CT 4.32 /CUMM (4.20-5.40); WHITE BLOOD CELL COUNT 6.6 /CUMM (4.8-10.8)
[2017-05-14] MEDS ORDERED: VITAMIN D250000 UNIT PO (16:55)
[2017-05-14] MEDS ORDERED: ACETAMINOPHEN500 M4 PO (16:56)
[2017-05-14] MEDS ORDERED: ELIQUIS5 M1 PO (16:57)
[2017-05-14] MEDS ORDERED: DIGOXIN125 MCG PO (16:58)
[2017-05-14] MEDS ORDERED: CO Q-10400 MG PO (16:58)
[2017-05-14] MEDS ORDERED: FLONASE ALLERG9.9 ML NAS (16:59)
[2017-05-14] MEDS ORDERED: LASIX40 M1 PO (16:59)
[2017-05-14] MEDS ORDERED: SENNA8.6 M3 PO (17:01)
[2017-05-14] MEDS ORDERED: VITAMIN E400 UNI5 PO (17:01)
--- NOTE | 2017-05-14 17:44 | RADIOLOGY REPORT ---
EXAMINATION: XR PORTABLE CHEST CLINICAL INFORMATION: Chest pressure and dyspnea for 3 days. COMPARISON: Chest 03/12/2017. TECHNIQUE: Portable frontal view of the chest was obtained. FINDINGS: There is mild cardiomegaly with normal pulmonary vascularity. Both lungs are expanded and clear. No gross bony abnormality seen. IMPRESSION: Cardiomegaly otherwise no acute process seen.
[2017-05-14] MEDS ORDERED: XOPENEX0.63 MG/1 INH/SOL (18:17)
[2017-05-14 18:27] VITALS: BP 123/57
== END 2017-05-14 18:50 ==
LOC: ERH 15:34
PROVIDERS: Emergency Medicine
DX: R06.00 Dyspnea, unspecified (principal); R07.89 Other chest pain
CPT/HCPCS: 1263; 87070; 93005; 93010

== ENCOUNTER 2017-06-24 19:44 | Emergency (ER) | payer OTHER, MEDICARE ==
[~2017-06-24] VITALS: Ht 157.5 cm; Wt 98.4 kg
[~2017-06-24 19:44] MED LIST changes: +ACETAMINOPHEN500 M4 PO; +CO Q-10400 MG PO; +DIGOXIN125 MCG PO; +FLONASE ALLERG9.9 ML NAS; +LASIX40 M1 PO; +SENNA8.6 M3 PO; +VITAMIN D250000 UNIT PO; +VITAMIN E400 UNI5 PO; +XOPENEX0.63 MG/1 INH/SOL
[2017-06-24 19:51] VITALS: BP 116/71
--- NOTE | 2017-06-24 20:07 | ED SKIN/ALLERGY COMPLAINT ---
History of Present Illness General Chief Complaint: General Adult Stated Complaint: LEFT LEG BLEEDING, ON BLOOD THINNER Source: patient Exam Limitations: no limitations Vital Signs & Intake/Output Vital Signs & Intake/Output Vital Signs Date Time Temp Pulse Resp B/P B/P Pulse O2 O2 Flow FiO2 Mean Ox Delivery Rate 06/24 2019 98 Room Air 06/24 1951 89 20 116/71 98 Allergies Coded Allergies: Penicillins (Severe, ANAPHYLAXIS 05/14/17) latex (Intermediate, HIVES 05/14/17) atorvastatin (VOMITING 05/14/17) diphenhydramine (HIVES 05/14/17) Reconcile Medications Apixaban (Eliquis) 5 MG TABLET 1 TAB PO BID BLOOD THINNER (Reported) Aspirin (Ecotrin*) 81 MG TABLET.DR 1 TAB PO QPM HEART HEALTH (Reported) Digoxin 125 MCG TABLET 1 TAB PO DAILY HEART (Reported) Ergocalciferol (Vitamin D2) (Vitamin D2) 50,000 UNIT CAPSULE 1 CAP PO Q2W SUPPLEMENT (Reported) Fluticasone Propionate (Flonase Allergy Relief) 50 MCG/ACTUATION SPRAY.SUSP 1 SPRAY JONATHAN DAILY ALLERGIES (Reported) Fluticasone/Salmeterol (Advair 250-50 Diskus) 250 MCG-50 MCG/DOSE BLST.W.DEV 1 PUF INH BID ASTHMA (Reported) Furosemide (Lasix) 40 MG TABLET 1 TAB PO DAILY DIURETIC (Reported) Montelukast Sodium (Singulair) 10 MG TABLET 1 TAB PO QPM ASTHMA (Reported) Rosuvastatin Calcium (Crestor) 20 MG TABLET 1 TAB PO DAILY CHOLESTEROL ( Reported) Sennosides (Senna) 8.6 MG TABLET 1 TAB PO QPM GI (Reported) Tiotropium Pigeon (Spiriva) 18 MCG CAP.W.DEV 1 CAP INH DAILY ASTHMA ( Reported) Ubidecarenone (Co Q-10) (Unknown Strength) CAPSULE (Unknown Dose) PO DAILY SUPPLEMENT (Reported) Vitamin E 400 UNIT CAPSULE 1 CAP PO DAILY SUPPLEMENT (Reported) Triage Note: PER PT HIT LLE ON BED THIS AM, CONTINUES TO BLEED, MILD BLEEDING NOTED NO DEFORMITY NOTED Triage Nurses Notes Reviewed? yes Onset: Abrupt Duration: hour(s):, constant, continues in ED Timing: recent history Severity: moderate, severe No Modifying Factors: none HPI: 81-year-old female comes into emergency room for further evaluation of skin avulsion to left lower leg. She is on the liquids. She reports that she banged her leg on table earlier. His had some associated bleeding that has not stopped. Last tetanus shot unknown. Denies any trauma or injury anywhere else. Denies any other system symptoms. (ANANDA ZEPEDA) Past History Travel History Traveled to [place] past 21 day No Medical History Any Pertinent Medical History? see below for history Neurological: NONE EENT: NONE Cardiovascular: AFIB, CAD, hypertension, hyperlipidemia, myocardial infarction, NSTEMI, CARDIAC STENT Respiratory: asthma, COPD, pulmonary embolism Gastrointestinal: NONE Hepatic: NONE Renal: NONE Musculoskeletal: osteoarthritis Psychiatric: NONE Endocrine: NONE Blood Disorders: NONE Cancer(s): NONE SHORT PIECE HANDLER/Reproductive: NONE History of MRSA: No History of VRE: No History of CDIFF: No Surgical History Surgical History: non-contributory, N Psychosocial History Who do you live with Spouse Services at Home None What is your primary language Maldivian Tobacco Use: Never used Family History Family History, If Any: FATHER FH: myocardial infarction, Onset: 60+. BROTHER FH: myocardial infarction, Onset: 50-60. Hx Contributory? No (ANANDA ZEPEDA) Review of Systems Review of Systems Constitutional: Reports: no symptoms. EENTM: Reports: no symptoms. Respiratory: Reports: no symptoms. Cardiovascular: Reports: no symptoms. GI: Reports: no symptoms. Genitourinary: Reports: no symptoms. Musculoskeletal: Reports: see HPI. Skin: Reports: see HPI. Neurological/Psychological: Reports: no symptoms. Hematologic/Endocrine: Reports: no symptoms. Immunologic/Allergic: Reports: no symptoms. All Other Systems: Reviewed and Negative (ANANDA ZEPEDA) Physical Exam Physical Exam General Appearance: well developed/nourished Head: atraumatic Eyes: Bilateral: normal appearance. Ears, Nose, Throat: normal ENT inspection, hearing grossly normal Neck: normal inspection Respiratory: no respiratory distress Back: normal inspection Extremities: normal inspection, normal range of motion, no edema Neurologic/Psych: awake, alert, oriented x 3, normal mood/affect Skin: intact Skin Problem Location: lower extremities Skin Problem Character: small skin avulsion left lower leg, no activebleeding, mild weeping, no hemorrhaging, Lymphatic: no anterior cervical collin (ANANDA ZEPEDA) Progress Differential Diagnosis: abscess/cellulitis, allergic reaction, contusion, laceration, Plan of Care: Current Medications Sig/Trinity Start time Last Medication Dose Stop Time Status Admin Tetanus/Diphtheria 0.5 ML ONCE ONE 06/24 2015 UNVr 06/24 Toxoids Adsorbed 06/24 (Decavac) Departure Departure Disposition: HOME OR SELF CARE Condition: Stable Clinical Impression Primary Impression: Avulsion of skin of left lower leg Referrals: KALEB GRAY MD (PCP/Family) Additional Instructions: Keep dressing in place for 3 days. Have taken out by primary care doctor. Return if any concerns worsening symptoms. Please go over all results of today's visit with your primary care doctor. Contact your primary care doctor to let them know you were here in the emergency room. There may be nonspecific findings which may not be related to your visit today here in the emergency room but may require further evaluation and chronic monitoring by your primary care doctor. If you had a laceration today the chance of foreign body always remains. You should follow-up with your primary care doctor for recheck in 3-5 days for a wound check. If you had an x-ray done there is a chance that a fracture could have been missed on initial read and you should follow-up with your primary care doctor for repeat x-rays if symptoms persist. If your blood pressure was elevated here in the emergency room please have rechecked by her primary care doctor within the next 48 hours by your primary care doctor. If you were prescribed a narcotic here in the emergency room or any type of controlled substances you're not allowed to drive while taking this medication or operate any type of heavy machinery. Narcotics can make you feel lightheaded dizziness nausea and can cause constipation. You may need to burr picker a stool softener. Thank you for choosing [facility] emergency room. Please return to the emergency room immediately if you have any other concerns worsening of symptoms. Departure Forms: Customer Survey General Discharge Information Comments 06/24/2017 8:20:57 PM [facility] in [place] and place. No bleeding or weeping through dressing. Leave in place for 3 days. Follow-up with primary care. Return if any concerns. (ANANDA ZEPEDA) PA/ORGAN PIPE FINISHER Co-Sign Statement Statement: ED Attending supervision documentation- [X] I saw and evaluated the patient. I have also reviewed all the pertinent lab results and diagnostic results. I agree with the findings and the plan of care as documented in the PA's/ORGAN PIPE FINISHER's documentation. [] I have reviewed the ED Record and agree with the PA's/ORGAN PIPE FINISHER's documentation. [] Additions or exceptions (if any) to the PAs/ORGAN PIPE FINISHER's note and plan are summarized below: [] (BRITTANY ALATORRE DO)
== END 2017-06-24 20:19 ==
LOC: ERH 19:44
DX: S81.812A Laceration without foreign body, left lower leg, initial encounter (principal); W22.03XA Walked into furniture, initial encounter; Y92.9 Unspecified place or not applicable; Y93.9 Activity, unspecified
CPT/HCPCS: 90471; 90714

== ENCOUNTER 2017-11-12 14:08 | Inpatient (IN) | payer OTHER, MEDICARE ==
[~2017-11-12] VITALS: Ht 157.5 cm; Wt 82.1 kg
[~2017-11-12 14:08] MED LIST changes: +BACLOFEN10 M1 PO; +BACTRIM DS TAB1 EACH PO; +BENTYL10 M1 PO; +DILTIAZEM 24HR180 M2 PO; +LINZESS145 MC1 PO; +MACRODANTIN100 M1 PO; +MAGNESIUM OXID400 M1 PO; +METOLAZONE2.5 M1 PO; +METOPROLOL SUCC25 M1 PO; +Magic mouthwash PO; +PREDNISONE10 M2 PO; +PREDNISONE20 M1 PO; +PROAIR HFA8.5 GM INH; +SIMETHICONE80 M1 PO; +TORSEMIDE10 M1 PO; +TORSEMIDE20 M1 PO; +ULTRAM50 M1 PO; +VITAMIN B-121000 MC3 PO; +[UNRECOGNIZED DRUG - CODE] IV
--- NOTE | 2017-11-12 14:55 | ED DYSPNEA/ASTHMA COMPLAINT ---
History of Present Illness General Chief Complaint: General Adult Stated Complaint: SOB Source: patient, old records Exam Limitations: no limitations Vital Signs & Intake/Output Vital Signs & Intake/Output Vital Signs Date Time Temp Pulse Resp B/P B/P Pulse O2 O2 Flow FiO2 Mean Ox Delivery Rate 11/17 1501 97.8 100 20 100/60 96 Room Air 11/17 1417 96 Room Air 11/17 1048 98.3 11/17 1034 107 118/64 11/17 0710 98.0 92 18 104/68 95 Room Air 11/17 0000 Room Air 11/16 2221 99.4 117 18 100/64 96 Room Air 11/16 2020 93 Room Air ED Intake and Output 11/17 0000 11/16 1200 Intake Total 640 210 Output Total 1600 Balance -960 210 Intake, IV 10 Intake, Oral 640 200 Number 0 Bowel Movements Output, Urine 1600 Allergies Coded Allergies: Penicillins (Severe, ANAPHYLAXIS 05/14/17) lubiprostone (From AMITIZA) (Severe, ITCHING 10/06/17) latex (Intermediate, HIVES 05/14/17) atorvastatin (VOMITING 05/14/17) diphenhydramine (HIVES 05/14/17) Reconcile Medications Albuterol Sulfate (Proair Hfa) 90 MCG HFA.AER.AD 2 PUF INH Q4-6 PRN PRN DYSPNEA Apixaban (Eliquis) 5 MG TABLET 1 TAB PO BID atrial fibrilliation (Reported) Aspirin (Ecotrin*) 81 MG TABLET. 0.25 TAB PO QA HEART HEALTH (Reported) Digoxin 125 MCG TABLET 1 TAB PO EOD HEART (Reported) Diltiazem HCl (Diltiazem 24HR Cd) 180 MG CAP.ER.24H 1 TAB PO DAILY ARRYTHMIAS (Reported) Fluticasone Propionate (Flonase Allergy Relief) 50 MCG/ACTUATION SPRAY.SUSP 1 SPRAY JONATHAN PRN ALLERGIES (Reported) Fluticasone/Salmeterol (Advair 250-50 Diskus) 250 MCG-50 MCG/DOSE BLST.W.DEV 1 PUF INH BID ASTHMA (Reported) Magnesium Oxide 400 MG TABLET 1 TAB PO DAILY supplement (Reported) Metoprolol Succinate 25 MG TAB 1 TAB PO DAILY HIGH BLOOD PRESSURE (Reported) Montelukast Sodium (Singulair) 10 MG TABLET 1 TAB PO 2100 ALLERGIES (Reported ) Rosuvastatin Calcium (Crestor) (Unknown Strength) TABLET 20 MG PO QPM CHOLESTEROL (Reported) Tiotropium Garden (Spiriva) 18 MCG CAP.W.DEV 1 CAP INH DAILY ASTHMA ( Reported) Torsemide 10 MG TABLET 1 TAB PO Mon SUN water retention . Torsemide 20 MG TABLET 1 TAB PO SAT water retention . Triage Note: 82 YO FEMALE TO TRIAGE FOR SHARP PAIN UNDERNEATH L BREAST THAT STARTED LAST PM. ALSO C/O SOB. STATES HX OF ASTHMA, STATES SHE TRIED USING HER INHALER WITHOUT RELIEF. STATES "I THOUGH THE PAIN WOULD GO AWAY BUT IT DIDNT" PT TO [facility] FOR EKG. Triage Nurses Notes Reviewed? yes HPI: Patient presents for evaluation of dyspnea that began subacutely on Monday. Patient states she is also experiencing an intermittent sharp stabbing left chest pain or merrily under the left breast that gets worse with coughing. It occasionally radiates to the left side of her back. She describes the pain as "electric shocks". She is not currently experiencing the sharp, electric like pain over the left chest but instead just a mild ache. She has had a cough productive of brown phlegm along with nasal congestion and sore throat. She denies fever, rashes, vomiting, diarrhea, dysuria or abdominal pain. Past History Travel History Traveled to [place] past 21 day No Medical History Any Pertinent Medical History? 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 Psychiatric: anxiety Endocrine: NONE Blood Disorders: NONE Cancer(s): NONE TEST AUTOMATION ARCHITECT/Reproductive: NONE History of MRSA: No History of VRE: No History of CDIFF: No Influenza Vaccine: 07/28/17 Tetanus Vaccine: 06/24/17 Surgical History Surgical History: appendectomy, CERVICAL SPINE, C SECTION, BREAST CYST, APPENDICITIS, TONSILITIS CARDIAC STENT breast surgery right knee surgery Psychosocial History Who do you live with Spouse Services at Home None What is your primary language Georgian Tobacco Use: Never used Family History Family History, If Any: FATHER FH: myocardial infarction, Onset: 60+. BROTHER FH: myocardial infarction, Onset: 50-60. Hx Contributory? No Review of Systems Review of Systems Constitutional: Reports: no symptoms. EENTM: Reports: no symptoms. Respiratory: Reports: see HPI. Cardiovascular: Reports: no symptoms. GI: Reports: no symptoms. Genitourinary: Reports: no symptoms. Musculoskeletal: Reports: no symptoms. Skin: Reports: see HPI. Neurological/Psychological: Reports: no symptoms. Hematologic/Endocrine: Reports: no symptoms. Immunologic/Allergic: Reports: no symptoms. All Other Systems: Reviewed and Negative Physical Exam Physical Exam Respiratory: SEE BELOW Comments: Gen.: Well-nourished, well-developed, no acute respiratory distress. Head: Normocephalic, atraumatic. Eyes: Normal inspection bilaterally Ears: Normal inspection bilaterally Nose: Normal inspection Throat/mouth : Moist mucosa Neck: Supple, full range of motion, no goiter Heart: Regular rate and rhythm, no murmurs rubs or gallops Lungs: Decreased breath sounds over the left posterior base Chest: Nontender Back: Normal range of motion Abdomen: Soft, nontender, nondistended, normal bowel sounds Extremities: Normal range of motion grossly, equal radial pulses, no cyanosis, mild pretibial pitting edema bilaterally, calves nontender Neurologic: Cranial nerves grossly intact, speech is clear Skin: warm and dry Psychiatric: Calm, cooperative, no apparent delusions or hallucinations Core Measures ACS in differential dx? No CVA/TIA Diagnosis No Sepsis Present: No Sepsis Focused Exam Completed? No Progress Differential Diagnosis: bronchitis, CHF, COPD, pneumonia, PERICARDIAL EFFUSION Plan of Care: Orders Procedure Date/time Status XRY-CHEST XRAY, PA AND LATERAL 11/18 0800 Active CBC WITHOUT DIFFERENTIAL 11/18 0600 Active Nursing Misc 11/17 1557 Active RT: Reevaluation 11/17 1417 Active RT RE-EVALUATION 11/17 UNK Complete PT Evaluate & Treat 11/17 UNK Active Nursing Misc 11/17 UNK Active AEROSOL CHG 11/16 UNK Complete Current Medications Sig/Trinity Start time Last Medication Dose Stop Time Status Admin Torsemide 20 MG TUES THURS SAT 11/18 1000 AC (Demadex 20 MG) Torsemide 10 MG SuMoWeFr 11/17 1359 AC (Demadex 10 MG) Acetaminophen 650 MG Q6 PRN 11/17 0632 AC 11/17 (Tylenol) 0637 Aspirin 81 MG DAILY 11/16 1000 AC 11/17 (Aspirin) 1033 Apixaban 5 MG BID 11/15 2200 AC 11/17 (Eliquis) 1034 Guaifenesin 600 MG Q12 11/14 1346 AC 11/17 (Mucinex) 1034 Budesonide/ 2 PUF BID 11/14 1240 AC 11/17 Formoterol Fumarate 1035 (SYMBICORT) Albuterol Sulfate 3 ML Q4P PRN 11/13 2330 AC 11/16 (Proventil) 2020 Rosuvastatin Calcium 20 MG 1700 11/13 1700 AC 11/17 (Crestor) 1758 Diltiazem HCl 180 MG DAILY 11/13 1000 AC 11/17 (Cardizem CD) 1034 Fluticasone 2 SPRAY DAILY 11/13 1000 AC 11/17 Propionate 1034 (Flonase) Magnesium Oxide 400 MG DAILY 11/13 1000 AC 11/17 (Mag-Ox) 1034 Metoprolol Succinate 25 MG DAILY 11/13 1000 AC 11/17 (Toprol XL) 1034 Tiotropium Garden 1 PUF DAILY 11/13 1000 AC 11/17 (Spiriva) 1035 Montelukast Sodium 10 MG 2100 11/12 2100 AC 11/16 (Singulair) 2103 Albuterol Sulfate 2 PUF Q4-6 PRN PRN 11/12 2015 AC (Ventolin) Digoxin 0.125 MG Q48@1700 11/12 2015 AC 11/16 (Lanoxin) 1621 Laboratory Tests 11/17/17 0640: Anion Gap 7, Estimated GFR > 60, BUN/Creatinine Ratio 15.0, CBC w Diff NO MAN DIFF REQ, RBC 3.71 L, MCV 86.2, MCH 28.5, RDW 16.1 H, MPV 8.0, Gran % 74.5, Lymphocytes % 17.5 L, Monocytes % 5.9, Eosinophils % 1.8, Basophils % 0.3, Absolute Granulocytes 7.2 H, Absolute Lymphocytes 1.7, Absolute Monocytes 0.6, Absolute Eosinophils 0.2, Absolute Basophils 0, PUBS MCHC 33.0 Diagnostic Imaging: Discussed w/RAD: Radiology Read. CXR Impression: PATIENT: YUMIKO PETTY PRESENT AGE: 82 PATIENT ACCOUNT NO: [id number] : 34 LOCATION: [facility] ORDERING PHYSICIAN: Janes Vidal MD SERVICE DATE: 11/12/17-1646 EXAM TYPE: RAD - XRY-CHEST XRAY, PA AND LATERAL EXAMINATION: XR CHEST CLINICAL INFORMATION: Left effusion COMPARISON: 10/09/2017 TECHNIQUE: 2 views of the chest were obtained. FINDINGS: Frontal and lateral views of the chest were obtained. The right lung is well expanded and clear. There is a moderate to large left pleural effusion present, larger in size than on the prior exam. There may be associated left lower lung consolidation. No pneumothorax is seen. The cardiac silhouette is prominent. There is no evidence of pulmonary edema. IMPRESSION: Moderate to large left pleural effusion which is larger in size than effusion demonstrated on the prior exam. Cannot exclude underlying left lower lobe consolidation. DICTATED BY: Della Tellez MD DATE/TIME DICTATED:11/12/171721 OFFICE SUPPORT ASSOCIATE:CYDNEY DATE/TIME TRANSCRIBED:11/12/171721 CONFIDENTIAL, DO NOT COPY WITHOUT APPROPRIATE AUTHORIZATION. <Electronically signed in Other Vendor System> SIGNED BY: Della Tellez MD 11/12/171725 Initial ED EKG: rate (121), AFIB, ST depression Prior EKG: unchanged Comments: 11/12/2017 6:18:44 PM I updated Yumiko on lab tests initially and then after her chest x-ray report was available. She has been ambulated here in the emergency department and dropped her oxygen saturation into the low 80s and became extremely dyspneic. Departure Departure Disposition: STILL A PATIENT Condition: Stable Clinical Impression Primary Impression: Recurrent left pleural effusion Secondary Impressions: Dyspnea Qualifiers: Dyspnea type: dyspnea on exertion Qualified Code: R06.09 - Other forms of dyspnea Hypoxia Referrals: Thierry Nunes MD (PCP/Family) Departure Forms: Customer Survey General Discharge Information Admission Note Documentation of Exam: Documentation of any treatments & extenuating circumstances including Concerns Regarding Discharge (functional status, medication knowledge or non-compliance, living conditions, etc.) that warrant an admission rather than observation: Observation Note Spoke With: Arben MARIN,[facility] Physician Advisor Notified: JANES ALATORRE DO Place Patient In: Non-ED OBS Care Area Rationale for Observation: My rational for observation is as follows: Patient has a worsening left pleural effusion of an unclear etiology. The effusion has now compromised pulmonary function to the point where she is unable to ambulate even a few steps without becoming severely dyspneic and hypoxic. She cannot be safely treated as an outpatient and would likely return in worse clinical condition. The exertion of outpatient treatment could cause worsening dyspnea, hypoxia and respiratory failure. I feel she now requires hospitalization for thoracentesis and pulmonary consultation. Critical Care Note Critical Care Note Critical Care Time: non-applicable
[2017-11-12 16:14] LABS: ABSOLUTE BASOPHIL COUNT 0.1 /CUMM (0.0-0.2); ABSOLUTE EOSINOPHIL COUNT 0 /CUMM (0.0-0.7); ABSOLUTE GRANULOCYTE CT 12.3 /CUMM (1.4-6.5); ABSOLUTE LYMPH COUNT 1.6 /CUMM (1.2-3.4); ABSOLUTE MONOCYTE COUNT 0.8 /CUMM (0.10-0.60); BASOPHIL % 0.6 % (0.0-2.0); EOSINOPHIL % 0.2 % (0-5); HEMATOCRIT 38.4 % (37-47); MEAN CORPUSCULAR HGB 28.1 PG (27.0-31.0); MEAN CORPUSCULAR HGB CONC 32.3 G/DL (33.0-37.0); MEAN CORPUSCULAR VOLUME 86.8 FL (81.0-99.0); MEAN PLATELET VOLUME 7.9 FL (7.4-10.4); PLATELET COUNT 376 /CUMM (130-400); RBC DISTRIBUTION WIDTH 16.6 % (11.5-14.5); RED BLOOD CELL CT 4.42 /CUMM (4.20-5.40); WHITE BLOOD CELL COUNT 14.8 /CUMM (4.8-10.8)
--- NOTE | 2017-11-12 17:26 | RADIOLOGY REPORT ---
EXAMINATION: XR CHEST CLINICAL INFORMATION: Left effusion COMPARISON: 10/09/2017 TECHNIQUE: 2 views of the chest were obtained. FINDINGS: Frontal and lateral views of the chest were obtained. The right lung is well expanded and clear. There is a moderate to large left pleural effusion present, larger in size than on the prior exam. There may be associated left lower lung consolidation. No pneumothorax is seen. The cardiac silhouette is prominent. There is no evidence of pulmonary edema. IMPRESSION: Moderate to large left pleural effusion which is larger in size than effusion demonstrated on the prior exam. Cannot exclude underlying left lower lobe consolidation.
--- NOTE | 2017-11-12 20:05 | History & Physical ---
Surinder MARIN,[facility] 11/12/17 2004: General Information and HPI MD Statement: I have seen and personally examined HERIBERTO PETTY and documented this H&P. The patient is a 82 year old F who presented with a patient stated chief complaint of [sob and L chest pain]. Source of Information: patient Exam Limitations: no limitations History of Present Illness: 82 yo F pmhx AFIB, CAD (s/p PCI of LAD), hypertension, hyperlipidemia, myocardial infarction, NSTEMI, pericardial effusion, pulmonary embolism, asthma, COPD, pulmonary embolism, osteoarthritis, cervical disc disease with myelopathy s/p anterior cervical discectomy, anxiety presenting for sob and L chest pain. She recently admitted to [facility] (Oct 08) for COPD and recurrent left exudative pleural effusion. The patietn states that she has been having intermitted cough with brown productive phelgm, congestion and worsenign SOB. She visited the wellness center and was treated with IV steroids which initially improved her symptoms however for the past 2 days her symptoms have gotten worst. She also complains of L sided chest pain described as sharp, 10/10 and radiating to her back. She says it feels like it is an electic shock like feeling. The pain is worst with inspiration, sitting up and acitvity. She also states that she was been stopped her diureitcs as she last 5 lbs 2 weeks ago and 5 lbs this past week. She endorses poor appetite during this period. She was supposed to see Dr. Benitez tomorrow. She denies any nausea, vomiting, abdominal pain, palpitations, urinary or bowel symptoms. Allergies/Medications Allergies: Coded Allergies: Penicillins (Severe, ANAPHYLAXIS 05/14/17) lubiprostone (From AMITIZA) (Severe, ITCHING 10/06/17) latex (Intermediate, HIVES 05/14/17) atorvastatin (VOMITING 05/14/17) diphenhydramine (HIVES 05/14/17) Home Med list Albuterol Sulfate (Proair Hfa) 90 MCG HFA.AER.AD 2 PUF INH Q4-6 PRN PRN DYSPNEA Apixaban (Eliquis) 5 MG TABLET 1 TAB PO BID atrial fibrilliation (Reported) Aspirin (Ecotrin*) 81 MG TABLET.DR 0.25 TAB PO [facility] [employer] [facility] (Reported) Digoxin 125 MCG TABLET 1 TAB PO EOD HEART (Reported) Diltiazem HCl (Diltiazem 24HR Cd) 180 MG CAP.ER.24H 1 TAB PO DAILY ARRYTHMIAS (Reported) Fluticasone Propionate (Flonase Allergy Relief) 50 MCG/ACTUATION SPRAY.SUSP 1 SPRAY JONATHAN PRN ALLERGIES (Reported) Fluticasone/Salmeterol (Advair 250-50 Diskus) 250 MCG-50 MCG/DOSE BLST.W.DEV 1 PUF INH BID ASTHMA (Reported) Magnesium Oxide 400 MG TABLET 1 TAB PO DAILY supplement (Reported) Metoprolol Succinate 25 MG TAB 1 TAB PO DAILY HIGH BLOOD PRESSURE (Reported) Montelukast Sodium (Singulair) 10 MG TABLET 1 TAB PO 2100 ALLERGIES (Reported ) Rosuvastatin Calcium (Crestor) (Unknown Strength) TABLET 20 MG PO QPM CHOLESTEROL (Reported) Tiotropium [place] (Spiriva) 18 MCG CAP.W.DEV 1 CAP INH DAILY ASTHMA ( Reported) Torsemide 10 MG TABLET 1 TAB PO Mon SUN water retention . Torsemide 20 MG TABLET 1 TAB PO Mon water retention . Past History Travel History Traveled to [place] past 21 day No Medical History Neurological: NONE EENT: NONE Cardiovascular: AFIB, CAD (s/p PCI of LAD), hypertension, hyperlipidemia, myocardial infarction, NSTEMI, pericardial effusion pulmonary embolism Respiratory: asthma, COPD, pulmonary embolism, EFFUSION Gastrointestinal: NONE Hepatic: NONE Renal: NONE Musculoskeletal: osteoarthritis, cervical disc disease with myelopathy s/p anterior cervical discectomy Psychiatric: anxiety Endocrine: NONE Blood Disorders: NONE Cancer(s): NONE OUTSIDE INSTALLATION MACHINIST/Reproductive: NONE History of MRSA: No History of VRE: No History of CDIFF: No Influenza Vaccine: 07/28/17 Tetanus Vaccine: 06/24/17 Surgical History Surgical History: appendectomy, CERVICAL SPINE, C SECTION, BREAST CYST, APPENDICITIS, TONSILITIS CARDIAC STENT breast surgery right knee surgery Past Family/Social History Family History Relations & Conditions if any FATHER FH: myocardial infarction, Onset: 60+. BROTHER FH: myocardial infarction, Onset: 50-60. Psychosocial History Who Do You Live With? spouse Services at Home: None Functional Ability ADLs Independent: dressing, eating, toileting, bathing. Ambulation: cane, walker IADLs Independent: shopping, housework, finances, food prep, telephone, transportation , medication admin. Review of Systems Review of Systems Constitutional: Reports: see HPI, unexplained weight loss. Cardiovascular: Reports: chest pain, peripheral edema. Denies: palpitations. Respiratory: Reports: cough, short of breath, sputum production. GI: Denies: abdominal pain, constipation, diarrhea. Genitourinary: Reports: no symptoms. Exam & Diagnostic Data Last 24 Hrs of Vital Signs/I&O Vital Signs Date Time Temp Pulse Resp B/P B/P Pulse O2 O2 Flow FiO2 Mean Ox Delivery Rate 11/13 1251 97.0 81 18 112/63 95 Room Air 11/13 1241 97.0 81 18 112/63 95 Room Air 11/13 1005 98.5 102 20 122/60 11/13 0611 96.2 83 20 102/55 96 Nasal 2.0L Cannula 11/13 0600 98 Nasal 2.0L Cannula 11/13 0600 97.1 85 20 106/53 98 Nasal 2.0L Cannula 11/12 2230 99.9 103 20 106/56 11/12 2209 103 20 106/56 97 Nasal 2.0L Cannula 11/12 2100 106 19 161/61 97 Nasal 2.0L Cannula 11/12 2015 99.9 109 20 105/56 95 Nasal 2.0L Cannula 11/12 1918 102 16 93/54 Nasal 2.0L Cannula 11/12 1816 97.8 114 18 111/68 96 Nasal 2.0L Cannula Intake & Output 11/13 1600 11/13 0800 11/13 0000 Intake Total 410 Output Total 400 100 Balance 10 -100 Intake, IV 10 Intake, Oral 400 Output, Urine 400 100 Patient 150 lb Weight Weight Estimated Measurement Method Physical Exam General Appearance Alert, Oriented X3, Cooperative Cardiovascular irregularly irregular Lungs Clear to Auscultation, decreased breath sounds form mid and lower bases, worst on L Abdomen Normal Bowel Sounds, Soft, No Tenderness Last 24 Hrs of Labs/Luiz: Laboratory Tests 11/13/17 1027: Troponin I < 0.01 11/13/17 0630: CBC w Diff NO MAN DIFF REQ, RBC 3.94 L, MCV 86.9, MCH 28.3, RDW 16.3 H, MPV 8.0, Gran % 77.0 H, Lymphocytes % 14.6 L, Monocytes % 7.2, Eosinophils % 1.0, Basophils % 0.2, Absolute Granulocytes 8.2 H, Absolute Lymphocytes 1.6, Absolute Monocytes 0.8 H, Absolute Eosinophils 0.1, Absolute Basophils 0, PUBS MCHC 32.6 L 11/13/17 0345: Troponin I < 0.01 Microbiology 11/13 320 URINE ROUT: Legionella Antigen - COLB 11/13 320 URINE ROUT: Streptococcus pneumoniae Antigen (M - COLB 11/12 2156 BLOOD: Blood Culture - RES 11/12 2116 BLOOD: Blood Culture - RES 11/12 1947 NASOPHARYN: Influenza Virus A & B Rapid Smear - CAN Cancelled: SPECIMEN NOT RECEIVED IN LABORATORY 11/12 1945 LOWER RESP: Respiratory Culture - CAN Cancelled: SPECIMEN NOT RECEIVED IN LABORATORY 11/12 1945 LOWER RESP: Gram Stain - CAN Cancelled: SPECIMEN NOT RECEIVED IN LABORATORY Assessment/Plan Assessment: A: 82 yo F pmhx AFIB, CAD (s/p PCI of LAD), hypertension, hyperlipidemia, myocardial infarction, NSTEMI, pericardial effusion, pulmonary embolism, asthma, COPD, pulmonary embolism, osteoarthritis, cervical disc disease with myelopathy s/p anterior cervical discectomy, anxiety presenting for sob and L chest pain found to have worsening L pleural effuision P: #Acute hypoxic respiratory failure with Recurrent left pleural effusion vitals: HR 114, RR 19, BP 93/48797/60, 96% on 2 L WBC 14.8 pro bnp 201 CXR: Moderate to large left pleural effusion which is larger in size than effusion demonstrated on the prior exam. Cannot exclude underlying left lower lobe consolidation. Chest Ct: Left-sided pleural-parenchymal disease is essentially stable. No new findings. Interval resolution right-sided groundglass nodule. Stable small pericardial fluid. Severe coronary atherosclerosis with stents noted. Echo 2017: LVEF >55, prominent picardial fat. -trc, nebs, mucinixex, spiriva, flonase, singulair -IR consult for thora -holding eliquis for thora -pulm consult (Dr. Kirby) #LLL consolidaiton -f/u lima culture, urine legionella/strep, rapid flu -cont IV ceftriaxone and azithro for cap coverage #L chest pain Trops <.01x3 -3x ekg and trops #htn -cont torsemide #hx of PE -cont dilt, digoxin -holding eliquis for possible thora #hx of cad -cont metoprolol, crestor, aspirin #vitamins -cont mag ox #dvt prophylaxis -ALPS until restart eqliuis #FULL CODE As Ranked By This Provider Problem List: 1. Pleural effusion 2. Consolidation lung Core Measures/Misc (08/13) Acute Coronary Syndrome ACS Diagnosis: No Congestive Heart Failure Congestive Heart Failure Diagnosis No Cerebrovascular Accident CVA/TIA Diagnosis: No VTE (View Protocol) VTE Risk Factors Acute Medical Illness No Mechanical VTE Prophylaxis d/t N/A MechProphylax Ordered No VTE Pharm Prophylaxis d/t Surgical Contraindication Sepsis (View protocol) Sepsis Present: No Margo Avinajulián 11/13/17 0313: Resident Review Statement Resident Statement: examined this patient, discussed with fashion intern Other Findings: Patient is a 62-year-old female with past medical history of epicardial mass, pericardial effusion, COPD/asthma, CAD status post stent placement, hyperlipidemia, A. fib/PE on Eliquis and sleep apnea on CPAP , recent thoracentesis(10/09/2017) showing exudative effusion/reactive mesothelial cells presented to the ED the chief complaint of shortness of breath that worsened since yesterday. Patient was discharged from [facility] on 10/14/2017 after being treated for COPD exacerbation and thoracentesis for large pleural effusion. She reports that after she went home she never really got back to her baseline. She has been continuously short of breath and felt as if she had upper respiratory tract infection. She has been coughing with reddish brown productive sputum and postnasal drip. She was seen at the wellness center and was prescribed steroids which improved her symptoms slightly. Her breathing was worsening however over the past weekend she was very short of breath and unable to ambulate much. She has bringing up a lot of productive reddish sputum. She also complains of sharp , 10/ 10 substernal chest pain under the breast that felt like electrical shocks down her back. These pains worsened with inspiration and ambulation. She denies any nausea, vomiting, abdominal pain, palpitations, urinary or bowel symptoms. She does admit to having lost about 10 pounds of weight in the past few days. Her appetite has also been poor because of the sickness. Vitals in ED: Temperature 98.9, pulse 94, respiration 18, blood pressure 106/68, saturating 97% on room air Labs showed a white count of 14.8, normal chemistries, troponin 0.01, proBNP 2010, digoxin level 0.05 KG showed atrial fibrillation at 130 bpm, no ST-T wave changes Chest CT showed left-sided pleural parenchymal disease which is stable. Coronary atherosclerosis which is stable Chest x-ray showed left large pleural effusion which is bigger than effusion seen in the prior exam. Physical exam: General: Awake, alert, oriented, no distress HEENT: PERRLA, EOMI Chest: Diminished breath sounds on the left side CVS: S1 and S2 heard no murmurs Extremities: No edema, normal pulses Assessment and plan #1 Acute hypoxic respiratory failure likely Secondary to community acquired pneumonia and moderate left-sided pleural effusion: recent thoracentesis(2016) showing exudative effusion/reactive mesothelial cells. -Admit patient to telemetry -Vitals per protocol -Pancultures -Urine strep and Legionella -We'll get a flu swab -We'll continue IV ceftriaxone and azithromycin for now. -TRC nebs [id number] -Oxygen as needed -No steroids at this time since patient is not wheezing -Pulmonary consult with Dr. Kirby in a.m. -Consider IR consult for possible thoracentesis -We will hold Eliquis for possible thoracentesis. #2 atypical chest pain: Pain is slightly pruritic. It was associated EKG changes. -Closely monitored on telemetry -3 sets of troponin and EKG to rule out ACS -Continue aspirin and statin and metoprolol. #3History of COPD -Oxygen as needed -Continue home medications ipratropium albuterol and nebs #4 hypertension/hyperlipidemia -We will hold torsemide for now for borderline low blood pressure. -Continue aspirin and statin #5 Atrial fibrillation -continue diltiazem and digoxin -We will hold Eliquis for possible thoracentesis in a.m. #Diet -Heart healthy #DVT prophylaxis with Alps #CODE STATUS full code Arben MARIN, [facility] 11/13/17 0659: Attending MD Review Statement Attending Statement Attending MD Statement: examined this patient, discuss w/resident/PA/RAIL CAR PAINTER/SANDBLASTER, agreed w/resident/PA/RAIL CAR PAINTER/SANDBLASTER, reviewed images, amended to note Attending Assessment/Plan: 82 yo F with h/o COPD/ asthma, COLT on CPAP, Afib/ PE on eliquis, CAD s/p stent, resolved pericardial effusion with negative workup, chronic leukocytosis, HTN, recently admitted to [facility] (Oct 08) for COPDE and recurrent left pleural effusion that was tapped showed exudative effusion with reactive epithelial cells, returns today for left sided sharp chest pain (under left breast) radiating to the back, worse with inspiration and coughing, productive cough ( brown phlegm), congestion and worsening exertional dyspnea. She was seen at the infusion center on Oct 30 and received IV solumedrol but over past 2 days her symptoms have gotten worse. She tried mucinex with some relief. C/o sore throat, post nasal drip and chills. She is on torsemide 20 mg alternating with 10 mg. She has noticed a 10 lb weight loss over 2 weeks and hence she did not take torsemide 10 mg for 2 days. She has seen Dr. Kirby in the past, and states she had an appointment with Dr. Benitez on 11/13 for further evaluation of cause of pleural effusion. Vitals: tmax 99.9, HR 100's, BP 106/56, sats 96% RA, on ambulation sats dropped to 85% on RA. Exam: AAO, in no distress. Chest reduced air entry on left lung. LE: no edema. Labs: WBC 14.8, glucose 133, trop neg, proBNP 2010, digoxin level 0.5. EKG: Afib. CXR: moderate to large left pleural effusion, mild cardiomegaly, no CHF. LE dopplers neg. CT chest: moderate to large volume left pleural effusion which is larger in size than effusion demonstrated on prior exam, left lower lobe consolidation. CT chest: Left lung notable for partial consolidation/ atelectasis left lower lobe due to persistent moderate size pleural effusion. Fluid is subpulmonic. Echo (2017): EF > 55%, mild to mod TR, pulm htn. Assessment and plan: 1. Acute hypoxic respiratory failure 2. Recurrent left pleural effusion 3. Left lower lobe consolidation concerning for community acquired pneumonia 4. Left sided pleuritic chest pain 5. No evidence of COPD exacerbation 6. Afib on eliquis (last dose at 10.30 pm on 11/12) - 23 hour observation on Telemetry - Serial EKG and troponin to rule out ACS - TRC nebs - Panculture, urine legionella and strep Ag, flu swab - IV ceftriaxone and azithro if she remains afebrile, would consider stopping antibiotics - Symptomatic rx with nebs, mucinex. - No need for steroids at this point. - IR guided thoracentesis in AM - Hold eliquis in anticipation of thoracentesis - Pulm consult (Dr. Kirby) - Resume torsemide, digoxin, metoprolol, cardizem, aspirin, statin. DVT ppx Alps (resume eliquis post thoracentesis). Full code. Observation Initial Note - I have personally examined HERIBERTO PETTY on 11/13/17 at 0659. The disposition of HERIBERTO PETTY is uncertain at this time and before a determination can be made, she requires a period of observation for the following reasons [dyspnea, recurrent pleural effusion]
--- NOTE | 2017-11-12 20:55 | CT SCAN REPORT ---
EXAMINATION: CT CHEST WITHOUT CONTRAST CLINICAL INFORMATION: Shortness of breath, productive cough COMPARISON: 10/06/2018 TECHNIQUE: Multidetector volumetric CT imaging of the chest was done. Axial MIP volume rendering provided. Sagittal and coronal reformatted images were obtained. DLP: 529 mGy-cm FINDINGS: ANIMAL CARE ASSISTANT: Unchanged in extent of left-sided pleural-parenchymal disease LUNGS: Right lung remains clear. Left lung notable for partial consolidation/atelectasis left lower lobe due to a persistent moderate size pleural effusion which remains simple fluid attenuating. No locules of air. Fluid remains predominantly subpulmonic. Small amount of pericardial fluid. Severe coronary atherosclerosis with stents noted. Groundglass nodule right lower lobe has resolved. MEDIASTINUM: As above. No aneurysm. PLEURA: As above. AXILLA: No lymphadenopathy. UPPER ABDOMEN: Unremarkable. OSSEOUS STRUCTURES: Unremarkable. IMPRESSION: Left-sided pleural-parenchymal disease is essentially stable. No new findings. Interval resolution right-sided groundglass nodule. Stable small pericardial fluid. Severe coronary atherosclerosis with stents noted.
[2017-11-13 06:00] VITALS: BP 106/53
[2017-11-13 07:00] LABS: ABSOLUTE BASOPHIL COUNT 0 /CUMM (0.0-0.2); ABSOLUTE EOSINOPHIL COUNT 0.1 /CUMM (0.0-0.7); ABSOLUTE GRANULOCYTE CT 8.2 /CUMM (1.4-6.5); ABSOLUTE LYMPH COUNT 1.6 /CUMM (1.2-3.4); ABSOLUTE MONOCYTE COUNT 0.8 /CUMM (0.10-0.60); BASOPHIL % 0.2 % (0.0-2.0); HEMATOCRIT 34.3 % (37-47); MEAN CORPUSCULAR HGB 28.3 PG (27.0-31.0); MEAN CORPUSCULAR HGB CONC 32.6 G/DL (33.0-37.0); MEAN CORPUSCULAR VOLUME 86.9 FL (81.0-99.0); PLATELET COUNT 316 /CUMM (130-400); RBC DISTRIBUTION WIDTH 16.3 % (11.5-14.5); RED BLOOD CELL CT 3.94 /CUMM (4.20-5.40); WHITE BLOOD CELL COUNT 10.6 /CUMM (4.8-10.8)
--- NOTE | 2017-11-13 08:41 | PN- Housestaff ---
[facility] 11/13/17 0839: Subjective Follow-up For: Acute hypoxic respiratory failure due to community-acquired pneumonia. Pleural effusion Tele-Events Since Last Visit: No overnight events. Subjective: No overnight events patient remained afebrile overnight. Patient seen and examined this morning on bedside. She is lying in bed comfortably. She is using 2 L of oxygen and maintaining saturation 96%. She reported cough without sputum and also she is feeling weak. She reported some chest discomfort while taking deep breath. She denied any chest pain, short of breath at rest, nausea, vomiting, abdominal pain, headache, chills, fever and dysuria. Review of Systems Constitutional: Reports: weakness. EENTM: Reports: no symptoms. Cardiovascular: Reports: no symptoms. Respiratory: Reports: cough. Gastrointestinal: Reports: no symptoms. Genitourinary: Reports: no symptoms. Musculoskeletal: Reports: no symptoms. Neurological/Psychological: Reports: no symptoms. Objective Last 24 Hrs of Vital Signs/I&O Vital Signs Date Time Temp Pulse Resp B/P B/P Pulse O2 O2 Flow FiO2 Mean Ox Delivery Rate 11/13 0611 96.2 83 20 102/55 96 Nasal 2.0L Cannula 11/13 0600 98 Nasal 2.0L Cannula 11/13 0600 97.1 85 20 106/53 98 Nasal 2.0L Cannula 11/12 2230 99.9 103 20 106/56 11/12 2209 103 20 106/56 97 Nasal 2.0L Cannula 11/12 2100 106 19 161/61 97 Nasal 2.0L Cannula 11/12 2015 99.9 109 20 105/56 95 Nasal 2.0L Cannula 11/12 1918 102 16 93/54 Nasal 2.0L Cannula 11/12 1816 97.8 114 18 111/68 96 Nasal 2.0L Cannula 11/12 1620 102 19 107/55 11/12 1502 98.2 114 20 125/60 96 Room Air 11/12 1441 Room Air 11/12 1411 98.9 94 18 106/68 97 Room Air Intake & Output 11/13 1600 11/13 0800 12 0000 Intake Total 410 Output Total 400 100 Balance 10 -100 Intake, IV 10 Intake, Oral 400 Output, Urine 400 100 Patient 150 lb Weight Weight Estimated Measurement Method Physical Exam General Appearance: Alert, Oriented X3, Cooperative, No Acute Distress Skin Temp/Moisture Exam: Warm/Dry HEENT: Atraumatic, PERRLA, EOMI Neck: Supple Cardiovascular: Normal S1, Normal S2 Lungs: decreased breath sounds at bases. Abdomen: Soft, No Tenderness Neurological: Normal Speech, Strength at 5/5 X4 Ext, Normal Tone, Sensation Intact Extremities: No Edema Assessment/Plan Assessment: 82 yo F with h/o COPD/ asthma, COLT on CPAP, Afib/ PE on eliquis, CAD s/p stent, resolved pericardial effusion with negative workup, chronic leukocytosis, HTN, recently admitted to [facility] (Oct 08) for COPDE and recurrent left pleural effusion that was tapped showed exudative effusion with reactive epithelial cells, returns today for left sided sharp chest pain (under left breast) radiating to the back, worse with inspiration and coughing, productive cough ( brown phlegm), congestion and worsening exertional dyspnea. She was seen at the infusion center on Oct 30 and received IV solumedrol but over past 2 days her symptoms have gotten worse. We will keep the patient under observation in telemetry for 23 hours. Acute hypoxic respiratory failure due to community accquired pneumonia: -we will continue the supplemental oxygen to keep the patient's oxygen saturation above 92% -We will continue IV antibiotics -We'll follow the blood and sputum culture -We'll follow the strep and Legionella urine antigen results Pleural effusion: -Last time thoracentesis was done, it was exudative fluid. -Probably patient had empyema. -We will get the thoracentesis again and send the fluids for culture sensitivity and cytology. H/O A.fib: -We will continue Cardizem and metoprolol for rate control. -We will hold Eliquis considering patient needs thoracentesis for pleural effusion. -Continue low-dose aspirin. History of COPD and obstructive sleep apnea: -TRC nebulization as needed -We will continue home medication -We will continue nighttime CPAP patient is using. DVT prophylaxis: Mechanical as well as holding Eliquis for thoracentesis. Code status: Full code Problem List: 1. Acute respiratory failure with hypoxia 2. Community acquired pneumonia 3. Pleural effusion Pain Ratin Pain Location: none Pain Goal: Remain pain free Pain Plan: tylenol for mild pain Tomorrow's Labs & Rationales: cbc/bep Kezia Durham 11/13/17 1232: Attending MD Review Statement Attending Statement Attending MD Statement: examined this patient, discuss w/resident/PA/TEST TUBE MAKER, agreed w/resident/PA/TEST TUBE MAKER, discussed with family, reviewed EMR data (avail), discussed with nursing, discussed with case mgmt, reviewed images, amended to note Attending Assessment/Plan: 82 yo F with h/o COPD/ asthma, COLT on CPAP, Afib/ PE on eliquis, CAD s/p stent, resolved pericardial effusion with negative workup, chronic leukocytosis, HTN, recently admitted to [facility] (Oct 08) for COPDE and recurrent left pleural effusion that was tapped showed exudative effusion with reactive epithelial cells, returns today for left sided sharp chest pain (under left breast) radiating to the back, worse with inspiration and coughing, productive cough ( brown phlegm), congestion and worsening exertional dyspnea. Patient seen/examined bedside. Patient c/o left sided pleuritic chest pain wtih cough and sputum production. She is afebrile and denies chills, weight loss. CT wit left lower lobe consolidation. labs and vitals reviewed. Patient admit to telemetry monitoring for atypical chest pain likely from pleural origin in high risk patient. Serial cardiac enzymes negative for MA. Patient is on iv antibitoics , oxygen supplementation since admission. Consult ID (?empyema and need of abx) and pulmonary (recurrent pleural effusion). Eliquis is held in anticipation of possible thoracocentesis. Home meds resumed. Plan of care d/mon patient bedside in ER. She agrees to plan of care.
[2017-11-13 12:51] VITALS: BP 112/63
[2017-11-13 16:05] VITALS: BP 122/70
--- NOTE | 2017-11-13 16:34 | Cons- Infect Disease ---
General Information and HPI Consulting Request Date of Consult: 11/13/17 Requested By: Kezia Durham MD Reason for Consult: Rule out pneumonia/empyema Source of Information: patient, old records History of Present Illness: This is an 82-year-old woman with a history of hypertension, hyperlipidemia, coronary artery disease, status post non-STEMI, atrial fibrillation, maintained on Eliquis, CHFpEF, pericardial effusion, pulmonary embolism, COPD, obstructive sleep apnea, on CPAP, and osteoarthritis, with a reportedly 40 pound weight loss over the past several months on diuretics, hospitalized 5 weeks prior to admission with shortness of breath, treated with steroids and found to have an exudative left pleural effusion, with cytology revealing atypical epithelial cells, discharged off steroids and on Torsemide, with the dose decreased over the past several weeks, admitted on November 12 after presenting to the emergency room with the acute onset of left sided chest pain, worse with movement, shortness of breath and a cough, productive of brown sputum, with no reported fevers or chills. On admission she was afebrile. Her O2 sat dropped to 85% with ambulation but increased to 95% at rest. Laboratory data revealed a white blood cell count of 15,000, BUN/creatinine 17 and 0.9, BNP 2010. Chest x- ray revealed a moderate to large left pleural effusion. CT of the chest revealed a partial consolidation/atelectasis at the left lower lobe with a moderate size pleural effusion, appearing simple. She was begun on Ceftriaxone and Azithromycin. Her Eliquis has been held and she is scheduled for a left thoracentesis tomorrow. She has been afebrile since admission. She feels somewhat improved from admission with no further chest pain and with a minimal cough. Allergies/Medications Allergies: Coded Allergies: Penicillins (Severe, ANAPHYLAXIS 05/14/17) lubiprostone (From AMITIZA) (Severe, ITCHING 10/06/17) latex (Intermediate, HIVES 05/14/17) atorvastatin (VOMITING 05/14/17) diphenhydramine (HIVES 05/14/17) Home Med List: Albuterol Sulfate (Proair Hfa) 90 MCG HFA.AER.AD 2 PUF INH Q4-6 PRN PRN DYSPNEA Apixaban (Eliquis) 5 MG TABLET 1 TAB PO BID atrial fibrilliation (Reported) Aspirin (Ecotrin*) 81 MG TABLET. 0.25 TAB PO QAM HEART HEALTH (Reported) Digoxin 125 MCG TABLET 1 TAB PO EOD HEART (Reported) Diltiazem HCl (Diltiazem 24HR Cd) 180 MG CAP.ER.24H 1 TAB PO DAILY ARRYTHMIAS (Reported) Fluticasone Propionate (Flonase Allergy Relief) 50 MCG/ACTUATION SPRAY.SUSP 1 SPRAY JONATHAN PRN ALLERGIES (Reported) Fluticasone/Salmeterol (Advair 250-50 Diskus) 250 MCG-50 MCG/DOSE BLST.W.DEV 1 PUF INH BID ASTHMA (Reported) Magnesium Oxide 400 MG TABLET 1 TAB PO DAILY supplement (Reported) Metoprolol Succinate 25 MG TAB 1 TAB PO DAILY HIGH BLOOD PRESSURE (Reported) Montelukast Sodium (Singulair) 10 MG TABLET 1 TAB PO 2100 ALLERGIES (Reported ) Rosuvastatin Calcium (Crestor) (Unknown Strength) TABLET 20 MG PO QPM CHOLESTEROL (Reported) Tiotropium [place] (Spiriva) 18 MCG CAP.W.DEV 1 CAP INH DAILY ASTHMA ( Reported) Torsemide 10 MG TABLET 1 TAB PO Mon SUN water retention . Torsemide 20 MG TABLET 1 TAB PO Mon water retention . 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 BROTHER FH: myocardial infarction, Onset: 50-60. Psychosocial History Who Do You Live With? spouse Services at Home: None Smoking Status: Former Smoker Functional Ability ADLs Independent: dressing, eating, toileting, bathing. Ambulation: cane, walker IADLs Independent: shopping, housework, finances, food prep, telephone, transportation , medication admin. Review of Systems Review of Systems All Other Systems: Reviewed and Negative Exam & Diagnostic Data Last 24 Hrs of Vital Signs/I&O Vital Signs Date Time Temp Pulse Resp B/P B/P Pulse O2 O2 Flow FiO2 Mean Ox Delivery Rate 11/13 1251 97.0 81 18 112/63 95 Room Air 11/13 1241 97.0 81 18 112/63 95 Room Air 11/13 1005 98.5 102 20 122/60 11/13 0611 96.2 83 20 102/55 96 Nasal 2.0L Cannula 11/13 0600 98 Nasal 2.0L Cannula 11/13 0600 97.1 85 20 106/53 98 Nasal 2.0L Cannula 11/12 2230 99.9 103 20 106/56 11/12 2209 103 20 106/56 97 Nasal 2.0L Cannula 11/12 2100 106 19 161/61 97 Nasal 2.0L Cannula 11/12 2015 99.9 109 20 105/56 95 Nasal 2.0L Cannula 11/12 1918 102 16 93/54 Nasal 2.0L Cannula 11/12 1816 97.8 114 18 111/68 96 Nasal 2.0L Cannula Intake & Output 11/13 1600 11/13 0800 11/13 0000 Intake Total 410 Output Total 400 100 Balance 10 -100 Intake, IV 10 Intake, Oral 400 Output, Urine 400 100 Patient 150 lb Weight Weight Estimated Measurement Method Physical Exam Other Physical Findings: Afebrile. She is awake and alert in no acute distress. Skin reveals no rash. HEENT negative. Neck is supple with no adenopathy. Chest tender under the left breast on palpation. Lungs decreased breath sounds at the left base. Heart regular rhythm with no murmur. Abdomen is soft, nontender with positive bowel sounds. Back no CVA tenderness. Extremities trace edema both lower extremities. Neuro is without focality. Last 24 Hours of Lab Results: Laboratory Tests 11/13 11/13 11/13 1027 0630 0345 Chemistry Troponin I (< 0.11 ng/ml) < 0.01 < 0.01 Hematology CBC w Diff NO MAN DIFF REQ WBC (4.8 - 10.8 /CUMM) 10.6 RBC (4.20 - 5.40 /CUMM) 3.94 L Hgb (12.0 - 16.0 G/DL) 11.2 L Hct (37 - 47 %) 34.3 L MCV (81.0 - 99.0 FL) 86.9 MCH (27.0 - 31.0 PG) 28.3 RDW (11.5 - 14.5 %) 16.3 H Plt Count (130 - 400 /CUMM) 316 MPV (7.4 - 10.4 FL) 8.0 Gran % (42.2 - 75.2 %) 77.0 H Lymphocytes % (20.5 - 51.1 %) 14.6 L Monocytes % (1.7 - 9.3 %) 7.2 Eosinophils % (0 - 5 %) 1.0 Basophils % (0.0 - 2.0 %) 0.2 Absolute Granulocytes (1.4 - 6.5 /CUMM) 8.2 H Absolute Lymphocytes (1.2 - 3.4 /CUMM) 1.6 Absolute Monocytes (0.10 - 0.60 /CUMM) 0.8 H Absolute Eosinophils (0.0 - 0.7 /CUMM) 0.1 Absolute Basophils (0.0 - 0.2 /CUMM) 0 PUBS MCHC (33.0 - 37.0 G/DL) 32.6 L Last 24 Hours of Luiz Results: Blood cultures 2 November 12 negative Diagnostic Data Recent Imaging Findings: Chest x-ray November 12 revealed a moderate to large left pleural effusion. CT of the chest November 12 revealed a partial consolidation/atelectasis at the left lower lobe with a moderate size pleural effusion, appearing simple. Assessment/Plan Assessment/Plan Impression: This is an 82-year-old woman with a history of hypertension, hyperlipidemia, coronary artery disease, status post non-STEMI, atrial fibrillation, maintained on Eliquis, CHFpEF, pericardial effusion, pulmonary embolism, COPD, obstructive sleep apnea, on CPAP and osteoarthritis, with a reportedly 40 pound weight loss over the past several months on diuretics, found to have an exudative effusion on her last hospitalization 5 weeks prior to admission, admitted on November 12 after presenting to the emergency room with the acute onset of left sided chest pain, worse with movement, shortness of breath and a cough, productive of brown sputum, found to be afebrile with an elevated white blood cell count and with a recurrent left pleural effusion on chest x-ray and CT scan. The etiology of her recurrent effusion is unclear. It may be related to CHF, though her ejection fraction was greater than 55% on her recent echocardiogram. Infection is possible, though the fluid appears simple and an empyema seems unlikely, particularly as she has remained afebrile and her white blood cell count quickly normalized. An underlying malignancy is possible, particularly with her recent weight loss, though this occurred on diuretics, with her recent cytology revealing atypical epithelial cells. Finally a pulmonary embolism is possible, though she is on Eliquis. Suggestion: 1. Await repeat left thoracentesis, scheduled for the a.m. 2. Await Pulmonary evaluation 3. Consider Cardiology reevaluation 4. Discontinue Ceftriaxone and Azithromycin and follow off antibiotics pending above Consult Acknowledgment - Thank you for your consult request.
[2017-11-13 21:25] VITALS: BP 107/62
[2017-11-13 22:29] VITALS: BP 124/60
[2017-11-14 07:02] VITALS: BP 120/60
[2017-11-14 08:12] LABS: PT 15.9 SEC (9.4-12.5)
[2017-11-14 08:25] LABS: ABSOLUTE BASOPHIL COUNT 0.1 /CUMM (0.0-0.2); ABSOLUTE EOSINOPHIL COUNT 0.1 /CUMM (0.0-0.7); ABSOLUTE GRANULOCYTE CT 8.9 /CUMM (1.4-6.5); ABSOLUTE LYMPH COUNT 1.8 /CUMM (1.2-3.4); ABSOLUTE MONOCYTE COUNT 1.1 /CUMM (0.10-0.60); BASOPHIL % 0.5 % (0.0-2.0); EOSINOPHIL % 0.8 % (0-5); GRANULOCYTE % 74.7 % (42.2-75.2); MEAN CORPUSCULAR HGB CONC 33.5 G/DL (33.0-37.0); MEAN CORPUSCULAR VOLUME 86.7 FL (81.0-99.0); MEAN PLATELET VOLUME 8.2 FL (7.4-10.4); PLATELET COUNT 329 /CUMM (130-400); RBC DISTRIBUTION WIDTH 16.3 % (11.5-14.5); RED BLOOD CELL CT 3.69 /CUMM (4.20-5.40); WHITE BLOOD CELL COUNT 11.9 /CUMM (4.8-10.8)
--- NOTE | 2017-11-14 09:07 | PN-Observation ---
Assessment/Plan Assessment: 82 yo F with h/o COPD/ asthma, COLT on CPAP, Afib/ PE on eliquis, CAD s/p stent, resolved pericardial effusion with negative workup, chronic leukocytosis, HTN, recently admitted to [place] (Oct 08-) for COPDE and recurrent left pleural effusion that was tapped showed exudative effusion with reactive epithelial cells, returns today for left sided sharp chest pain (under left breast) radiating to the back, worse with inspiration and coughing, productive cough ( brown phlegm), congestion and worsening exertional dyspnea. She was seen at the infusion center on Oct 30 and received IV solumedrol but over past 2 days her symptoms have gotten worse. We will keep the patient under observation in telemetry for 23 hours. Acute hypoxic respiratory failure due to community accquired pneumonia: -we will continue the supplemental oxygen to keep the patient's oxygen saturation above 92% -We will continue IV antibiotics -We'll follow the blood and sputum culture -We'll follow the strep and Legionella urine antigen results Pleural effusion: -Last time thoracentesis was done, it was exudative fluid. -Probably patient had empyema. -We will get the thoracentesis again and send the fluids for culture sensitivity and cytology. H/O A.fib: -We will continue Cardizem and metoprolol for rate control. -We will hold Eliquis considering patient needs thoracentesis for pleural effusion. -Continue low-dose aspirin. History of COPD and obstructive sleep apnea: -TRC nebulization as needed -We will continue home medication -We will continue nighttime CPAP patient is using. DVT prophylaxis: Mechanical as well as holding Eliquis for thoracentesis. Code status: Full code
--- NOTE | 2017-11-14 09:22 | PN- Housestaff ---
Remy MARIN,Marisa 11/14/17921: Subjective Follow-up For: Acute hypoxic respiratory failure due to community-acquired pneumonia/malignancy /pulmonary embolism/cardiac etiology Pleural effusion Tele-Events Since Last Visit: afib rate 82-107, in the 120's as of morning. no events. Subjective: Patient was seen and evaluated bedside. She notes that she feels "okay" and that she feels better since admission. However, she notes some shortness of breath on exertion when she went to the bathroom without her oxygen. At the time of interview she is on oxygen 2 L. She notes that last night she had an event where she woke up completely confused. This has never happened to her before. About 10 minutes later she returned to normal baseline mental functioning. Review of Systems Constitutional: Reports: weakness. EENTM: Reports: no symptoms. Cardiovascular: Reports: no symptoms. Respiratory: Reports: short of breath. Gastrointestinal: Reports: no symptoms. Genitourinary: Reports: no symptoms. Musculoskeletal: Reports: no symptoms, see HPI. Skin: Reports: no symptoms. Neurological/Psychological: Reports: no symptoms. Hematologic/Endocrine: Reports: no symptoms. Immunologic/Allergic: Reports: no symptoms. Objective Last 24 Hrs of Vital Signs/I&O Vital Signs Date Time Temp Pulse Resp B/P B/P Pulse O2 O2 Flow FiO2 Mean Ox Delivery Rate 11/14 0909 93 104/52 11/14 0900 19 96 Room Air 11/14 0849 98 Nasal 2.0L Cannula 11/14 800 18 96 Nasal 2.0L Cannula 11/14 0702 98.3 80 20 120/60 97 Nasal Cannula 11/13 2303 Nasal 2.0L Cannula 11/139 98.2 104 20 124/60 95 Nasal 2.0L Cannula 11/13 2219 95 Nasal 2.0L Cannula 11/13 2125 97.9 89 20 107/62 95 Nasal 2.0L Cannula 11/13 1605 97.5 84 16 122/70 95 Room Air 11/13 1251 97.0 81 18 112/63 95 Room Air 11/13 1241 97.0 81 18 112/63 95 Room Air Intake & Output 11/14 1600 11/14 0800 11/14 0000 Intake Total 0 Output Total 350 Balance -350 Intake, IV 0 Intake, Oral 0 Number 1 Bowel Movements Output, Urine 350 Physical Exam General Appearance: Alert, Oriented X3, Cooperative, No Acute Distress Skin: No Rashes, No Breakdown, No Significant Lesion Skin Temp/Moisture Exam: Warm/Dry Sepsis Skin Exam (color): Normal for Ethnicity HEENT: Atraumatic, PERRLA, EOMI, Mucous Membr. moist/pink Neck: Supple, No JVD Cardiovascular: Normal S1, Normal S2, No Murmurs Lungs: Clear to Auscultation Abdomen: Normal Bowel Sounds, Soft, No Tenderness Neurological: Normal Speech Extremities: No Clubbing, No Cyanosis, No Edema, Normal Pulses, tenderness in the lower left extremity on palpation Vascular: Pulses Symmetrical Sepsis Peripheral Pulse Location: Radial Sepsis Peripheral Pulse Exam: Normal Sepsis Cap Refill Exam: <2 Sec Current Medications: Current Medications Sig/Trinity Start time Last Medication Dose Route Stop Time Status Admin Acetaminophen 325 MG Q6 PRN 11/12 2015 AC PO Albuterol Sulfate 3 ML Q4P PRN 11/13 2330 AC 11/13 INH 2323 Albuterol Sulfate 2 PUF Q4-6 PRN PRN 11/12 2015 AC INH Aspirin 20.25 MG QAM 11/13 1000 AC 11/14 PO 0936 Azithromycin 500 MG DAILY 11/13 1000 DC 11/13 Sodium Chloride 250 ML IV 1005 Ceftriaxone Sodium 1,000 MG DAILY 11/13 1000 DC 11/13 IV 1005 Digoxin 0.125 MG Q48@1700 11/12 2015 AC 11/12 PO 2230 Diltiazem HCl 180 MG DAILY 11/13 1000 AC 11/14 PO 0908 Fluticasone 2 SPRAY DAILY 11/13 1000 AC 11/13 Propionate JONATHAN 1005 Magnesium Oxide 400 MG DAILY 11/13 1000 AC 11/14 PO 0909 Metoprolol Succinate 25 MG DAILY 11/13 1000 AC 11/14 PO 0909 Montelukast Sodium 10 MG 2100 11/12 2100 AC 11/13 PO 2123 Rosuvastatin Calcium 20 MG 1700 11/13 1700 AC 11/13 PO 1828 Tiotropium [place] 1 PUF DAILY 11/13 1000 AC 11/13 INH 1005 Torsemide 10 MG SuMoWeFr 11/12 2015 AC 11/13 PO 212 Last 24 Hrs of Lab/Luiz Results Last 24 Hrs of Labs/Mics: Laboratory Tests 11/14/17 0650: Anion Gap 8, Estimated GFR 60, BUN/Creatinine Ratio 18.9, PT 15.9 H, INR 1.52 H, CBC w Diff NO MAN DIFF REQ, RBC 3.69 L, MCV 86.7, MCH 29.0, RDW 16.3 H, MPV 8.2, Gran % 74.7, Lymphocytes % 15.0 L, Monocytes % 9.0, Eosinophils % 0.8, Basophils % 0.5, Absolute Granulocytes 8.9 H, Absolute Lymphocytes 1.8, Absolute Monocytes 1.1 H, Absolute Eosinophils 0.1, Absolute Basophils 0.1, PUBS MCHC 33.5 Assessment/Plan Assessment: Assessment 82 yo F with h/o COPD/ asthma, COLT on CPAP, Afib/PE in december on eliquis, CAD s/p stent, resolved pericardial effusion with negative workup, chronic leukocytosis, HTN, recently admitted to [facility] (Oct 08-) for COPD and recurrent left pleural effusion that was tapped showed exudative effusion with reactive epithelial cells, returned for left sided sharp chest pain (under left breast) radiating to the back, worse with inspiration and coughing, productive cough (brown phlegm), congestion and worsening exertional dyspnea. She was last seen at the infusion center on Oct 30 and received IV solumedrol but her symptoms continued to worsen. A chest x-ray showed a large left pleural effusion, unable to exclude underlying left lower lobe consolidation. CT scan of the chest showed left-sided pleural parenchymal disease. She was started on ceftriaxone and azithromycin for questionable pneumonia but further antibiotics were deferred as per infectious disease due to the unclear etiology of her recurrent effusion. The patient was afebrile on admission and did have an increased WBC count to 14.8 but this decreased to 10.6 the next day. The patient had a recent echocardiogram which showed an ejection fraction of greater than 55%. The patient has no history of malignancy but does admit to recent weight loss. She also had recent cytology which showed atypical epithelial cells. The patient has a history of pulmonary embolism last December and has been on Eliquis since. The patient has normal kidney function. Thus as of yet the etiology of her recurrent pleural effusion is unclear but we are evaluating infection, malignancy, pulmonary embolism, cardiac causes. Plan Acute hypoxic respiratory failure with left recurrent/persistent pleural effusion secondary to questionable pneumonia/malignancy/pulmonary embolism/ cardiac causes: -we will continue the supplemental oxygen to keep the patient's oxygen saturation above 92%. Patient is currently on 2 L nasal cannula. -Follow off antibiotics as per infectious disease consult. -Blood culture no growth day 1 -Urine strep and Legionella antigen are pending receipt and will be sent today. -Patient is set for thoracentesis tomorrow with fluid culture, sensitivity, cytology -Patient is to receive CTA chest today for questionable pulmonary embolism. -Cardio consult with Dr. Hunt's group has been placed -Symbicort and Mucinex as needed A.fib: -We will continue Cardizem and metoprolol for rate control. -Continue to hold Eliquis as patient is sent for thoracentesis tomorrow. Will need 2 days of being off Eliquis before procedure can be performed. -Continue low-dose aspirin. Hypotension -Continue to hold torsemide for borderline low blood pressure of 104/52 History of COPD and obstructive sleep apnea: -TRC nebulization as needed -Continue home medication -Continue nighttime CPAP Overnight confusion -Closely monitor patient's mental status DVT prophylaxis: -Mechanical solely as we are holding Eliquis for tomorrow's thoracentesis. Code status: Full code Problem List: 1. Pleural effusion 2. Acute respiratory failure with hypoxia 3. Hypoxia Pain Ratin Pain Location: Left lower extremity Pain Goal: Pain 4 or less Pain Plan: Tylenol Tomorrow's Labs & Rationales: CBC, BEP DVT/Prophylaxis: mechanical Kezia Durham 11/14/17 1115: Attending MD Review Statement Attending Statement Attending MD Statement: examined this patient, discuss w/resident/PA/[employer], agreed w/resident/PA/[employer], discussed with family, reviewed EMR data (avail), discussed with nursing, discussed with case mgmt, reviewed images, amended to note Attending Assessment/Plan: 82 yo F with h/o COPD/ asthma, COLT on CPAP, Afib/ PE on eliquis, CAD s/p stent, resolved pericardial effusion with negative workup, chronic leukocytosis, HTN, recently admitted to [facility] (Oct 08) for COPDE and recurrent left pleural effusion that was tapped showed exudative effusion with reactive epithelial cells, returns today for left sided sharp chest pain (under left breast) radiating to the back, worse with inspiration and coughing, productive cough ( brown phlegm), congestion and worsening exertional dyspnea. Patient seen/examined bedside. No new complaints. Patient admit to telemetry monitoring for atypical chest pain likely from pleural origin in high risk patient. Serial cardiac enzymes negative for GA. Recurrent/persistent pleural effusion : Patient is off antibitoics as per ID, oxygen supplementation as needed. Plan for thorcacentesis r/o infection or malignancy. Consulted ID (?empyema and need of abx) and pulmonary (recurrent pleural effusion), cardiology for uncontrolled afib. Afib is uncontrolled , cardiology consulted, cardizem and metoprolol. CTA chest rule underlying PE. Eliquis is held in anticipation of possible thoracocentesis tomorrow. Home meds resumed. cont current care. I anticipate > 2midnight stay for her acute clinical problems and aprpecuiate consultants input.
--- NOTE | 2017-11-14 10:26 | Cons- Cardiology ---
General Information and HPI Consulting Request Date of Consult: 11/14/17 Requested By: Kezia Durham MD Reason for Consult: Shortness of breath Source of Information: patient, old records Exam Limitations: no limitations History of Present Illness: This is an 82-year-old female with a past medical history of asthma, heart failure with preserved ejection fraction, renal insufficiency, coronary artery disease with prior LAD stent, pulmonary embolism in March 2017, sleep apnea, atrial fibrillation on Eliquis, previous pleural effusion, previous pericardial effusion requiring a transfer to [place]; cardiac catheterization without obstructive CAD but some concern for possible interventricular dependence who presents to [facility] with an episode of shortness of breath has not resolved. Patient states that she was concerned that she may be losing minerals and therefore decreased her torsemide dose from 20 alternating with 10 daily to only 20 mg every other day. She only did that for a few days prior to admission. She states that she developed acute shortness of breath and therefore presented to the emergency room for evaluation. She also described a left sharp chest pain that was pleuritic and worse with inspiration. She still has dyspnea on exertion but denies chest discomfort. On prior admission her pleural effusion demonstrated exudative effusion. Allergies/Medications Allergies: Coded Allergies: Penicillins (Severe, ANAPHYLAXIS 05/14/17) lubiprostone (From AMITIZA) (Severe, ITCHING 10/06/17) latex (Intermediate, HIVES 05/14/17) atorvastatin (VOMITING 05/14/17) diphenhydramine (HIVES 05/14/17) Home Med List: Albuterol Sulfate (Proair Hfa) 90 MCG HFA.AER.AD 2 PUF INH Q4-6 PRN PRN DYSPNEA Apixaban (Eliquis) 5 MG TABLET 1 TAB PO BID atrial fibrilliation (Reported) Aspirin (Ecotrin*) 81 MG TABLET.DR 0.25 TAB PO rubberit HEART [employer] (Reported) Digoxin 125 MCG TABLET 1 TAB PO EOD HEART (Reported) Diltiazem HCl (Diltiazem 24HR Cd) 180 MG CAP.ER.24H 1 TAB PO DAILY ARRYTHMIAS (Reported) Fluticasone Propionate (Flonase Allergy Relief) 50 MCG/ACTUATION SPRAY.SUSP 1 SPRAY JONATHAN PRN ALLERGIES (Reported) Fluticasone/Salmeterol (Advair 250-50 Diskus) 250 MCG-50 MCG/DOSE BLST.W.DEV 1 PUF INH BID ASTHMA (Reported) Magnesium Oxide 400 MG TABLET 1 TAB PO DAILY supplement (Reported) Metoprolol Succinate 25 MG TAB 1 TAB PO DAILY HIGH BLOOD PRESSURE (Reported) Montelukast Sodium (Singulair) 10 MG TABLET 1 TAB PO 2100 ALLERGIES (Reported ) Rosuvastatin Calcium (Crestor) (Unknown Strength) TABLET 20 MG PO QPM CHOLESTEROL (Reported) Tiotropium [facility] (Spiriva) 18 MCG CAP.W.DEV 1 CAP INH DAILY ASTHMA ( Reported) Torsemide 10 MG TABLET 1 TAB PO Mon SUN water retention . Torsemide 20 MG TABLET 1 TAB PO Mon water retention . Current Medications: Current Medications Sig/Trinity Start time Last Medication Dose Route Stop Time Status Admin Acetaminophen 325 MG Q6 PRN 11/12 2015 AC PO Albuterol Sulfate 3 ML Q4P PRN 11/13 2330 AC 11/13 INH 2323 Albuterol Sulfate 2 PUF Q4-6 PRN PRN 11/12 2015 AC INH Aspirin 20.25 MG QAM 11/13 1000 AC 11/14 PO 0936 Azithromycin 500 MG DAILY 11/13 1000 DC 11/13 Sodium Chloride 250 ML IV 1005 Ceftriaxone Sodium 1,000 MG DAILY 11/13 1000 DC 11/13 IV 1005 Digoxin 0.125 MG Q48@1700 11/12 2015 AC 11/12 PO 2230 Diltiazem HCl 180 MG DAILY 11/13 1000 AC 11/14 PO 0908 Fluticasone 2 SPRAY DAILY 11/13 1000 AC 11/13 Propionate JONATHAN 1005 Magnesium Oxide 400 MG DAILY 11/13 1000 AC 11/14 PO 0909 Metoprolol Succinate 25 MG DAILY 11/13 1000 AC 11/14 PO 0909 Montelukast Sodium 10 MG 2100 11/12 2100 AC 11/13 PO 2122 Rosuvastatin Calcium 20 MG 1700 11/13 1700 AC 11/13 PO 1828 Tiotropium [facility] 1 PUF DAILY 11/13 1000 AC 11/13 INH 1005 Torsemide 10 MG SuMoWeFr 11/12 2015 AC 11/13 PO 2122 Review of Systems Review of Systems: Eyes no blurred or double vision Ears no deafness or ringing Nose and throat no recurrent sinusitis Lungs per history of present illness Heart per history of present illness Abdomen no nausea vomiting Musculoskeletal occasional muscle and joint pains Psych no anxiety or depression Neuro without recurrent headache or seizures Endocrine no heat or cold intolerance Past History Travel History Traveled to [place] past 21 day No Medical History Neurological: NONE EENT: NONE Cardiovascular: AFIB, CAD (s/p PCI of LAD), hypertension, hyperlipidemia, myocardial infarction, NSTEMI, pericardial effusion pulmonary embolism Respiratory: asthma, COPD, obstructive sleep apnea, pulmonary embolism, EFFUSION Gastrointestinal: gastritis Hepatic: NONE Renal: NONE Musculoskeletal: osteoarthritis, cervical disc disease with myelopathy s/p anterior cervical discectomy Psychiatric: anxiety Endocrine: NONE Blood Disorders: NONE Cancer(s): NONE 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 BROTHER FH: myocardial infarction, Onset: 50-60. Psychosocial History Who Do You Live With? spouse Services at Home: None Smoking Status: Former Smoker Functional Ability ADLs Independent: dressing, eating, toileting, bathing. Ambulation: cane, walker IADLs Independent: shopping, housework, finances, food prep, telephone, transportation , medication admin. Exam & Diagnostic Data Vital Signs and I&O Vital Signs Date Time Temp Pulse Resp B/P B/P Pulse O2 O2 Flow FiO2 Mean Ox Delivery Rate 11/14 0909 93 104/52 11/14 09 19 96 Room Air 11/14 0849 98 Nasal 2.0L Cannula 11/14 800 18 96 Nasal 2.0L Cannula 11/14 0702 98.3 80 20 120/60 97 Nasal Cannula 11/13 2303 Nasal 2.0L Cannula 11/13 2229 98.2 104 20 124/60 95 Nasal 2.0L Cannula 11/13 2219 95 Nasal 2.0L Cannula 11/13 2125 97.9 89 20 107/62 95 Nasal 2.0L Cannula 11/13 1605 97.5 84 16 122/70 95 Room Air 11/13 1251 97.0 81 18 112/63 95 Room Air 11/13 1241 97.0 81 18 112/63 95 Room Air Intake & Output 11/14 1600 11/14 0800 11/14 0000 11/13 1600 11/13 0800 11/13 0000 Intake Total 0 410 Output Total 350 400 100 Balance -350 10 -100 Intake, IV 0 10 Intake, Oral 0 400 Number 1 Bowel Movements Output, Urine 350 400 100 Patient 150 lb Weight Weight Estimated Measurement Method Physical Exam: Patient is a well-developed well-nourished female appearing in no acute distress HEENT is unremarkable Neck is supple there is no JVD Lungs decreased breath sounds at the left base Heart irregular rhythm S1 and S2 are normal no murmurs gallops or rubs Abdomen bowel sounds positive Extremities 1+ edema Labs/Luiz Results: Laboratory Tests 11/14 11/13 0650 1027 Chemistry Sodium (137 - 145 mmol/L) 137 Potassium (3.5 - 5.1 mmol/L) 3.9 Chloride (98 - 107 mmol/L) 101 Carbon Dioxide (22 - 30 mmol/L) 28 Anion Gap (5 - 16) 8 BUN (7 - 17 mg/dL) 17 Creatinine (0.5 - 1.0 mg/dL) 0.9 Estimated GFR (>60 ml/min) 60 BUN/Creatinine Ratio (7 - 25 %) 18.9 Troponin I (< 0.11 ng/ml) < 0.01 Coagulation PT (9.4 - 12.5 SEC) 15.9 H INR (0.90 - 1.19) 1.52 H Hematology CBC w Diff NO MAN DIFF REQ WBC (4.8 - 10.8 /CUMM) 11.9 H RBC (4.20 - 5.40 /CUMM) 3.69 L Hgb (12.0 - 16.0 G/DL) 10.7 L Hct (37 - 47 %) 32.0 L MCV (81.0 - 99.0 FL) 86.7 MCH (27.0 - 31.0 PG) 29.0 RDW (11.5 - 14.5 %) 16.3 H Plt Count (130 - 400 /CUMM) 329 MPV (7.4 - 10.4 FL) 8.2 Gran % (42.2 - 75.2 %) 74.7 Lymphocytes % (20.5 - 51.1 %) 15.0 L Monocytes % (1.7 - 9.3 %) 9.0 Eosinophils % (0 - 5 %) 0.8 Basophils % (0.0 - 2.0 %) 0.5 Absolute Granulocytes (1.4 - 6.5 /CUMM) 8.9 H Absolute Lymphocytes (1.2 - 3.4 /CUMM) 1.8 Absolute Monocytes (0.10 - 0.60 /CUMM) 1.1 H Absolute Eosinophils (0.0 - 0.7 /CUMM) 0.1 Absolute Basophils (0.0 - 0.2 /CUMM) 0.1 PUBS MCHC (33.0 - 37.0 G/DL) 33.5 11/13 11/13 0630 0345 Chemistry Troponin I (< 0.11 ng/ml) < 0.01 Hematology CBC w Diff NO MAN DIFF REQ WBC (4.8 - 10.8 /CUMM) 10.6 RBC (4.20 - 5.40 /CUMM) 3.94 L Hgb (12.0 - 16.0 G/DL) 11.2 L Hct (37 - 47 %) 34.3 L MCV (81.0 - 99.0 FL) 86.9 MCH (27.0 - 31.0 PG) 28.3 RDW (11.5 - 14.5 %) 16.3 H Plt Count (130 - 400 /CUMM) 316 MPV (7.4 - 10.4 FL) 8.0 Gran % (42.2 - 75.2 %) 77.0 H Lymphocytes % (20.5 - 51.1 %) 14.6 L Monocytes % (1.7 - 9.3 %) 7.2 Eosinophils % (0 - 5 %) 1.0 Basophils % (0.0 - 2.0 %) 0.2 Absolute Granulocytes (1.4 - 6.5 /CUMM) 8.2 H Absolute Lymphocytes (1.2 - 3.4 /CUMM) 1.6 Absolute Monocytes (0.10 - 0.60 /CUMM) 0.8 H Absolute Eosinophils (0.0 - 0.7 /CUMM) 0.1 Absolute Basophils (0.0 - 0.2 /CUMM) 0 PUBS MCHC (33.0 - 37.0 G/DL) 32.6 L 11/12 1600 Chemistry Sodium (137 - 145 mmol/L) 137 Potassium (3.5 - 5.1 mmol/L) 4.0 Chloride (98 - 107 mmol/L) 98 Carbon Dioxide (22 - 30 mmol/L) 27 Anion Gap (5 - 16) 12 BUN (7 - 17 mg/dL) 17 Creatinine (0.5 - 1.0 mg/dL) 0.9 Estimated GFR (>60 ml/min) 60 BUN/Creatinine Ratio (7 - 25 %) 18.9 Glucose (65 - 99 mg/dL) 133 H Calcium (8.4 - 10.2 mg/dL) 9.4 Magnesium (1.6 - 2.3 mg/dL) 2.2 Troponin I (< 0.11 ng/ml) < 0.01 [id number]-[id number] Pept (<125 pg/mL) 2010 H Hematology CBC w Diff NO MAN DIFF REQ WBC (4.8 - 10.8 /CUMM) 14.8 H RBC (4.20 - 5.40 /CUMM) 4.42 Hgb (12.0 - 16.0 G/DL) 12.4 Hct (37 - 47 %) 38.4 MCV (81.0 - 99.0 FL) 86.8 MCH (27.0 - 31.0 PG) 28.1 RDW (11.5 - 14.5 %) 16.6 H Plt Count (130 - 400 /CUMM) 376 MPV (7.4 - 10.4 FL) 7.9 Gran % (42.2 - 75.2 %) 83.0 H Lymphocytes % (20.5 - 51.1 %) 10.6 L Monocytes % (1.7 - 9.3 %) 5.6 Eosinophils % (0 - 5 %) 0.2 Basophils % (0.0 - 2.0 %) 0.6 Absolute Granulocytes (1.4 - 6.5 /CUMM) 12.3 H Absolute Lymphocytes (1.2 - 3.4 /CUMM) 1.6 Absolute Monocytes (0.10 - 0.60 /CUMM) 0.8 H Absolute Eosinophils (0.0 - 0.7 /CUMM) 0 Absolute Basophils (0.0 - 0.2 /CUMM) 0.1 PUBS MCHC (33.0 - 37.0 G/DL) 32.3 L Toxicology Digoxin (0.8 - 2.0 ng/mL) 0.5 L Diagnostic Data EKG Results Atrial fibrillation nonspecific ST-T changes CXR Results IMPRESSION: Moderate to large left pleural effusion which is larger in size than effusion demonstrated on the prior exam. Cannot exclude underlying left lower lobe consolidation. Other Results Echocardiogram September 2017 CONCLUSIONS Limited follow-up study. Left ventricular cavity size normal. Left ventricular wall thickness mildly increased. No obvious regional wall motion abnormalities. Left ventricular ejection fraction is estimated at > 55 %. Normal right ventricular size and function. Mild right atrial dilatation. Moderate left atrial dilatation. Mild mitral stenosis. Bbfl-iz-dxlpxpdi mitral regurgitation. Tdju-vt-njlgkchs tricuspid regurgitation. Unable to estimate the right ventricular systolic pressure. Minimal pericardial effusion. Prominent epicardial fat. Left pleural effusion. Jone Jefferson M.D. Assessment/Plan Assessment/Plan 1. Previous pericardial effusion requiring prior transfer to [place] and cardiac mass was excluded by MRI; concern for constrictive physdiology 2. Cardiac catheterization 07/2017 without obstructive CAD, mildly increased filling pressures and concern for interventricular dependence 3. History of known atrial fibrillation on Eliquis 3. History of coronary artery disease with prior LAD stent 4. History of pulmonary embolism in March 2017 5. History of asthma 6. Heart failure with preserved ejection fraction, mild EF 55% 7. Pleural effusion, left recurrent questionable etiology most recent thoracentesis demonstrating the fluid to be an exudate which is not consistent with congestive heart failure. Etiology possibly secondary to infection versus malignancy. 8. Renal insufficiency 9. Atypical chest pain most likely secondary to pericardial effusion. Troponins are negative 3 Recommendations 1. Agree with holding liquids pending thoracentesis 2. Plan for CTA to rule out PE 3. Continue Cardizem and metoprolol for rate control 4. Further plans from the cardiac standpoint will be dependent upon the results of thoracentesis. 5. Stress importance of compliance with outpatient diuretics Thank you for allowing [facility] to participate in the care of your patient. Consult Acknowledgment - Thank you for your consult request.
--- NOTE | 2017-11-14 10:53 | PN- Infect Dx ---
Subjective Subjective: Afebrile. She slept poorly last night and did note shortness of breath with exertion. She has had no further left-sided chest pain or cough. Objective Last 24 Hrs of Vital Signs/I&O Vital Signs Date Time Temp Pulse Resp B/P B/P Pulse O2 O2 Flow FiO2 Mean Ox Delivery Rate 11/14 0909 93 104/52 11/14 0900 19 96 Room Air 11/14 0849 98 Nasal 2.0L Cannula 11/14 08 18 96 Nasal 2.0L Cannula 11/14 0702 98.3 80 20 120/60 97 Nasal Cannula 11/13 2303 Nasal 2.0L Cannula 11/13 2229 98.2 104 20 124/60 95 Nasal 2.0L Cannula 11/13 2219 95 Nasal 2.0L Cannula 11/13 2125 97.9 89 20 107/62 95 Nasal 2.0L Cannula 11/13 1605 97.5 84 16 122/70 95 Room Air 11/13 1251 97.0 81 18 112/63 95 Room Air 11/13 1241 97.0 81 18 112/63 95 Room Air Intake & Output 11/14 1600 11/14 0800 11/14 0000 Intake Total 0 Output Total 350 Balance -350 Intake, IV 0 Intake, Oral 0 Number 1 Bowel Movements Output, Urine 350 Physical Exam Other Physical Findings: She appears comfortable in no acute distress Lungs decreased breath sounds at the left base Heart irregular rhythm with no murmur Extremities trace edema both lower extremities Results Last 24 Hours of Lab Results: Laboratory Tests 11/14 0650 Chemistry Sodium (137 - 145 mmol/L) 137 Potassium (3.5 - 5.1 mmol/L) 3.9 Chloride (98 - 107 mmol/L) 101 Carbon Dioxide (22 - 30 mmol/L) 28 Anion Gap (5 - 16) 8 BUN (7 - 17 mg/dL) 17 Creatinine (0.5 - 1.0 mg/dL) 0.9 Estimated GFR (>60 ml/min) 60 BUN/Creatinine Ratio (7 - 25 %) 18.9 Coagulation PT (9.4 - 12.5 SEC) 15.9 H INR (0.90 - 1.19) 1.52 H Hematology CBC w Diff NO MAN DIFF REQ WBC (4.8 - 10.8 /CUMM) 11.9 H RBC (4.20 - 5.40 /CUMM) 3.69 L Hgb (12.0 - 16.0 G/DL) 10.7 L Hct (37 - 47 %) 32.0 L MCV (81.0 - 99.0 FL) 86.7 MCH (27.0 - 31.0 PG) 29.0 RDW (11.5 - 14.5 %) 16.3 H Plt Count (130 - 400 /CUMM) 329 MPV (7.4 - 10.4 FL) 8.2 Gran % (42.2 - 75.2 %) 74.7 Lymphocytes % (20.5 - 51.1 %) 15.0 L Monocytes % (1.7 - 9.3 %) 9.0 Eosinophils % (0 - 5 %) 0.8 Basophils % (0.0 - 2.0 %) 0.5 Absolute Granulocytes (1.4 - 6.5 /CUMM) 8.9 H Absolute Lymphocytes (1.2 - 3.4 /CUMM) 1.8 Absolute Monocytes (0.10 - 0.60 /CUMM) 1.1 H Absolute Eosinophils (0.0 - 0.7 /CUMM) 0.1 Absolute Basophils (0.0 - 0.2 /CUMM) 0.1 PUBS MCHC (33.0 - 37.0 G/DL) 33.5 Last 24 Hours of Luiz Results: Blood cultures 2 November 12 negative Assessment/Plan Impression: Stable now off antibiotics with temperatures remaining normal and white blood cell count mildly elevated. Her respiratory status is stable and she is awaiting a left thoracentesis for her recurrent left pleural effusion, which is of unclear etiology. This will apparently be deferred until tomorrow because she was on Eliquis, but she is scheduled for a CTA today to rule out a pulmonary embolism. Suggestion: 1. Follow-up CTA of the chest 2. Await left thoracentesis, now scheduled for the a.m. November 15 3. Continue to follow off antibiotics
--- NOTE | 2017-11-14 11:50 | CT SCAN REPORT ---
EXAMINATION: CT ANGIOGRAM CHEST CLINICAL INFORMATION: Shortness of breath, pleural effusion tachycardia. Assess for pulmonary embolus. COMPARISON: Chest x-ray and CT scan 11/12/2017. TECHNIQUE: Multiple axial images were obtained through the chest after the administration of 98 mL of Optiray 350 intravenous contrast. Images were reviewed on a dedicated 3-D workstation. DLP: 528.01 mGy-cm FINDINGS: Vascular: The main pulmonary artery, secondary and tertiary branches of the pulmonary artery are normally opacified with no evidence of pulmonary embolism. The aorta, coronary arteries and great vessels demonstrate atheromatous calcifications. There is no evidence of thrombus or dissection.. Mediastinum: There is no mediastinal mass and there is no mediastinal lymphadenopathy. The cardiac size is slightly prominent. There is a small pericardial effusion. Lungs: There is opacification of the left base which may be consistent with atelectasis or consolidation. This underlies a moderate pleural effusion, similar compared to the prior study. The right lung is well-aerated. Pleura: There is a moderate left-sided pleural effusion which has a similar configuration compared to the prior study. Fluid is redemonstrated in the left major fissure. Axilla: There is no axillary lymphadenopathy. There are no masses in the chest wall. Upper abdomen: The adrenal glands are not enlarged. The visualized spleen and kidneys are unremarkable. The gallbladder is not included on the [id number], but was normal on the prior CT scan. Skeletal: There are multilevel degenerative changes in the thoracic spine. There are no acute osseous findings. Bone mineralization is diffusely decreased. There is multilevel osteophytosis with multiple bridging osteophytes. IMPRESSION: 1. There are no pulmonary emboli or thrombi. 2. There has been no interval change in the left-sided moderate pleural effusion with adjacent left lower lobe atelectasis/consolidation. 3. There is a stable small pericardial effusion.
[2017-11-14 14:25] VITALS: BP 102/62
[2017-11-14 22:35] VITALS: BP 104/68
[2017-11-15 07:39] VITALS: BP 92/54
[2017-11-15 08:05] LABS: ABSOLUTE BASOPHIL COUNT 0.1 /CUMM (0.0-0.2); ABSOLUTE EOSINOPHIL COUNT 0.2 /CUMM (0.0-0.7); ABSOLUTE GRANULOCYTE CT 7.6 /CUMM (1.4-6.5); BASOPHIL % 0.5 % (0.0-2.0); EOSINOPHIL % 1.7 % (0-5); GRANULOCYTE % 69.9 % (42.2-75.2); HEMATOCRIT 35.5 % (37-47); MEAN CORPUSCULAR HGB 28.5 PG (27.0-31.0); MEAN CORPUSCULAR HGB CONC 32.8 G/DL (33.0-37.0); MEAN PLATELET VOLUME 8.3 FL (7.4-10.4); PLATELET COUNT 372 /CUMM (130-400); RBC DISTRIBUTION WIDTH 16.1 % (11.5-14.5); RED BLOOD CELL CT 4.08 /CUMM (4.20-5.40); WHITE BLOOD CELL COUNT 10.9 /CUMM (4.8-10.8)
--- NOTE | 2017-11-15 09:05 | PN- Housestaff ---
Remy MARIN,Marisa 11/15/17 0905: Subjective Follow-up For: Acute hypoxic respiratory failure due to community-acquired pneumonia/malignancy /pulmonary embolism/cardiac etiology Pleural effusion Tele-Events Since Last Visit: Atrial fibrillation rates ranging from 76-84 with a 3 beat run of V-tach at 12am Subjective: Patient was seen and examined bedside. She notes that her breathing is "heavier " today. She denies any chest or abdominal pain. She continues to have a cough and was able to produce sputum which is clear. She denies any dizziness/ weakness. Review of Systems Constitutional: Reports: no symptoms. EENTM: Reports: no symptoms. Cardiovascular: Reports: no symptoms. Respiratory: Reports: cough, short of breath, sputum production. Gastrointestinal: Reports: no symptoms. Genitourinary: Reports: no symptoms. Musculoskeletal: Reports: no symptoms. Skin: Reports: no symptoms. Neurological/Psychological: Reports: no symptoms. Hematologic/Endocrine: Reports: no symptoms. Immunologic/Allergic: Reports: no symptoms. Objective Last 24 Hrs of Vital Signs/I&O Vital Signs Date Time Temp Pulse Resp B/P B/P Pulse O2 O2 Flow FiO2 Mean Ox Delivery Rate 11/15 0739 98.3 77 20 92/54 93 Room Air 11/15 0645 94 Room Air 11/15 0000 Nasal 2.0L Cannula 11/14 2235 98.5 66 20 104/68 94 Room Air 11/14 2130 96 Room Air 11/14 1616 114 102/62 11/14 1600 Nasal 2.0L Cannula 11/14 1425 98.8 78 20 102/62 97 Nasal 2.0L Cannula Intake & Output 11/15 1600 11/15 0800 11/15 0000 Intake Total 120 120 Output Total 300 300 Balance -180 -180 Intake, Oral 120 120 Number 1 Bowel Movements Output, Urine 300 300 Physical Exam General Appearance: Alert, Oriented X3, Cooperative, No Acute Distress Skin: No Rashes, No Breakdown, No Significant Lesion Skin Temp/Moisture Exam: Warm/Dry Sepsis Skin Exam (color): Normal for Ethnicity HEENT: Atraumatic, PERRLA, EOMI, Mucous Membr. moist/pink Lymphatic: Axillary nl, Cervical nl Cardiovascular: Normal S1, Normal S2, No Murmurs Lungs: decreased left lower lobe air entry. otherwise good air entry and clear to auscultation. Abdomen: Normal Bowel Sounds, Soft, No Tenderness, No Hepatospenomegaly, No Masses Neurological: Normal Speech Extremities: No Clubbing, No Cyanosis, Normal Pulses, No Tenderness/Swelling, decreasing pedal edema now 1+ nonpitting Vascular: Normal Pulses, Pulses Symmetrical Sepsis Peripheral Pulse Location: Radial Sepsis Peripheral Pulse Exam: Normal Sepsis Cap Refill Exam: <2 Sec Current Medications: Current Medications Sig/Trinity Start time Last Medication Dose Route Stop Time Status Admin Acetaminophen 325 MG Q6 PRN 11/12 2015 AC PO Albuterol Sulfate 3 ML Q4P PRN 11/13 2330 AC 11/15 INH 0634 Albuterol Sulfate 2 PUF Q4-6 PRN PRN 11/12 2015 AC INH Aspirin 20.25 MG QAM 11/13 1000 AC 11/14 PO 0936 Budesonide/ 2 PUF BID 11/14 1240 AC 11/15 Formoterol Fumarate INH 0949 Digoxin 0.125 MG Q48@1700 11/12 2015 AC 11/14 PO 1616 Diltiazem HCl 180 MG DAILY 11/13 1000 AC 11/14 PO 0908 Fluticasone 2 SPRAY DAILY 11/13 1000 AC 11/15 Propionate JONATHAN 0949 Guaifenesin 600 MG Q12 11/14 1346 AC 11/15 PO 0948 Magnesium Oxide 400 MG DAILY 11/13 1000 AC 11/15 PO 0948 Metoprolol Succinate 25 MG DAILY 11/13 1000 AC 11/14 PO 0909 Montelukast Sodium 10 MG 2100 11/12 2100 AC 11/14 PO 2045 Rosuvastatin Calcium 20 MG 1700 11/13 1700 AC 11/14 PO 1616 Tiotropium [place] 1 PUF DAILY 11/13 1000 AC 11/15 INH 0948 Torsemide 10 MG SuMoWeFr 11/12 2015 AC 11/13 PO 2123 Last 24 Hrs of Lab/Luiz Results Last 24 Hrs of Labs/Mics: Laboratory Tests 11/15/17 0624: CBC w Diff NO MAN DIFF REQ, RBC 4.08 L, MCV 87.0, MCH 28.5, RDW 16.1 H, MPV 8.3, Gran % 69.9, Lymphocytes % 18.8 L, Monocytes % 9.1, Eosinophils % 1.7, Basophils % 0.5, Absolute Granulocytes 7.6 H, Absolute Lymphocytes 2.0, Absolute Monocytes 1.0 H, Absolute Eosinophils 0.2, Absolute Basophils 0.1, PUBS MCHC 32.8 L Microbiology 11/15 900 BODY FLUID: Body Fluid Culture - ORD 11/15 900 BODY FLUID: Gram Stain - ORD 11/15 800 BODY FLUID: Body Fluid Culture - COLB 11/15 800 BODY FLUID: Gram Stain - COLB 11/14 123 URINE ROUT: Legionella Antigen - COMP 11/14 123 URINE ROUT: Streptococcus pneumoniae Antigen (M - COMP Assessment/Plan Assessment: Assessment 82 yo F with h/o COPD/ asthma, COLT on CPAP, Afib/PE in december on eliquis, CAD s/p stent, resolved pericardial effusion with negative workup, chronic leukocytosis, HTN, recently admitted to [facility] (Oct 08) for COPD and recurrent left pleural effusion that was tapped showed exudative effusion with reactive epithelial cells, returned for left sided sharp chest pain (under left breast) radiating to the back, worse with inspiration and coughing, productive cough (brown phlegm), congestion and worsening exertional dyspnea. She was last seen at the infusion center on Oct 30 and received IV solumedrol but her symptoms continued to worsen. A chest x-ray showed a large left pleural effusion, unable to exclude underlying left lower lobe consolidation. CT scan of the chest showed left-sided pleural parenchymal disease. She was started on ceftriaxone and azithromycin for questionable pneumonia but further antibiotics were deferred as per infectious disease due to the unclear etiology of her recurrent effusion. She has been persistently afebrile and has a decreased WBC count since admission. The patient had a recent echocardiogram which showed an ejection fraction of greater than 55%. The patient has no history of malignancy but does admit to recent weight loss. She also had recent cytology which showed atypical epithelial cells that are most likely reactive mesothelial cells. The patient has a history of pulmonary embolism last December and has been on Eliquis since. The patient has normal kidney function. Thus as of yet the etiology of her recurrent pleural effusion is unclear but we are evaluating infection, malignancy, cardiac causes. She had a CTA chest yesterday which was negative for PE. Plan Acute hypoxic respiratory failure with left recurrent/persistent pleural effusion secondary to questionable pneumonia/malignancy/cardiac causes: -we will continue the supplemental oxygen to keep the patient's oxygen saturation above 92%. This morning oxygen saturation is 93% on room air. -Continue to follow off antibiotics as per infectious disease. -Blood culture no growth day 2 -Urine strep and Legionella antigen are negative. -Patient is set for thoracentesis today with fluid culture, sensitivity, cytology -Symbicort and Mucinex as needed A.fib: -We will continue Cardizem and metoprolol for rate control. -Continue to hold Eliquis as patient is undergoing thoracentesis today. We will restart post-procedure. -Holding outpatient ASA as 20.25 tab is not available here and she is to undergo thoracentesis anyway. Hypotension -Continue to hold torsemide for borderline low blood pressure of 104/52 History of COPD and obstructive sleep apnea -TRC nebulization as needed -Continue home medication -Continue nighttime CPAP Overnight confusion 11/14 -Continue to closely monitor patient's mental status DVT prophylaxis: -Mechanical solely as we are holding Eliquis for thoracentesis. Code status: Full code Problem List: 1. Pleural effusion 2. Acute respiratory failure with hypoxia Pain Ratin Pain Location: left lower extremity on palpation Pain Goal: Pain 4 or less Pain Plan: tylenol Tomorrow's Labs & Rationales: bep cbc Marva,Kezia 11/15/17 1350: Attending MD Review Statement Attending Statement Attending MD Statement: examined this patient, discuss w/resident/PA/PUBLICATIONS INSPECTOR, agreed w/resident/PA/PUBLICATIONS INSPECTOR, discussed with family, reviewed EMR data (avail), discussed with nursing, discussed with case mgmt, reviewed images, amended to note Attending Assessment/Plan: 82 yo F with h/o COPD/ asthma, COLT on CPAP, Afib/ PE on eliquis, CAD s/p stent, resolved pericardial effusion with negative workup, chronic leukocytosis, HTN, recently admitted to [facility] (Oct 08) for COPDE and recurrent left pleural effusion that was tapped showed exudative effusion with reactive epithelial cells, returns today for left sided sharp chest pain (under left breast) radiating to the back, worse with inspiration and coughing, productive cough ( brown phlegm), congestion and worsening exertional dyspnea. Patient seen/examined bedside. No new complaints. Patient admit to telemetry monitoring for atypical chest pain likely from pleural origin in high risk patient. Serial cardiac enzymes negative for SC. Recurrent/persistent pleural effusion : Patient is off antibitoics as per ID, oxygen supplementation as needed. Plan for thorcacentesis scheduled later today r/o infection or malignancy. Consulted ID (?empyema and need of abx) and pulmonary (recurrent pleural effusion), cardiology for uncontrolled afib. Afib is better controlled , cardiology consulted, cardizem and metoprolol. CTA chest no PE. Eliquis is held in anticipation of possible thoracocentesis, restart scarlett. cont current care.
--- NOTE | 2017-11-15 10:50 | PN- Cardiology ---
Subjective Subjective: The patient is awake, alert The events of the last 24 hours as well as telemetry were reviewed. Review of Systems: The review of systems is negative for chest pains, palpitations nor lightheadedness. The remainder of the 14 point review of systems is noncontributory with the exception of above. Objective Vital Signs and I&Os Vital Signs Date Time Temp Pulse Resp B/P B/P Pulse O2 O2 Flow FiO2 Mean Ox Delivery Rate 11/15 0739 98.3 77 20 92/54 93 Room Air 11/15 0645 94 Room Air 11/15 0000 Nasal 2.0L Cannula 11/14 2235 98.5 66 20 104/68 94 Room Air 11/14 2130 96 Room Air 11/14 1616 114 102/62 11/14 1600 Nasal 2.0L Cannula 11/14 1425 98.8 78 20 102/62 97 Nasal 2.0L Cannula Intake & Output 11/15 1600 11/15 0800 11/15 0000 11/14 1600 11/14 0800 11/14 0000 Intake Total 120 120 240 0 Output Total 300 300 400 350 Balance -180 -180 -160 -350 Intake, IV 0 Intake, Oral 120 120 240 0 Number 1 1 Bowel Movements Output, Urine 300 300 400 350 Physical Exam: General: Nontoxic, no apparent distress. HEENT: Sclera and conjunctiva within normal limits, without xanthelasmas. Neck: Carotids 2+ without bruits. Respiratory: Decreased breath sounds and left lower to mid thorax, without accessory respiratory muscle use. Heart: Irregular rate and rhythm, 2-6 systolic ejection murmur at left sternal border, without JVD. Abdomen: Soft, nontender, no masses, normoactive bowel sounds. Extremities: Without clubbing, cyanosis, without edema. Neuro: Nonfocal exam, strength, 5 out of 5 Skin: Within normal limits without lesions. Psych: Mood and affect: Normal Current Medications: Current Medications Sig/Trinity Start time Last Medication Dose Route Stop Time Status Admin Acetaminophen 325 MG Q6 PRN 11/12 2015 AC PO Albuterol Sulfate 3 ML Q4P PRN 11/13 2330 AC 11/15 INH 0634 Albuterol Sulfate 2 PUF Q4-6 PRN PRN 11/12 2015 AC INH Aspirin 20.25 MG QAM 11/13 1000 AC 11/14 PO 0936 Budesonide/ 2 PUF BID 11/14 1240 AC 11/15 Formoterol Fumarate INH 0949 Digoxin 0.125 MG Q48@1700 11/12 2015 AC 11/14 PO 1616 Diltiazem HCl 180 MG DAILY 11/13 1000 AC 11/14 PO 0908 Fluticasone 2 SPRAY DAILY 11/13 1000 AC 11/15 Propionate JONATHAN 0949 Guaifenesin 600 MG Q12 11/14 1346 AC 11/15 PO 0948 Magnesium Oxide 400 MG DAILY 11/13 1000 AC 11/15 PO 0948 Metoprolol Succinate 25 MG DAILY 11/13 1000 AC 11/14 PO 0909 Montelukast Sodium 10 MG 2100 11/12 2100 AC 11/14 PO 2045 Rosuvastatin Calcium 20 MG 1700 11/13 1700 AC 11/14 PO 1616 Tiotropium [place] 1 PUF DAILY 11/13 1000 AC 11/15 INH 0948 Torsemide 10 MG SuMoWeFr 11/12 2015 AC 11/13 PO 2123 Results Last 48 Hrs of Labs/Mics: Laboratory Tests 11/15/17 0624: CBC w Diff NO MAN DIFF REQ, RBC 4.08 L, MCV 87.0, MCH 28.5, RDW 16.1 H, MPV 8.3, Gran % 69.9, Lymphocytes % 18.8 L, Monocytes % 9.1, Eosinophils % 1.7, Basophils % 0.5, Absolute Granulocytes 7.6 H, Absolute Lymphocytes 2.0, Absolute Monocytes 1.0 H, Absolute Eosinophils 0.2, Absolute Basophils 0.1, PUBS MCHC 32.8 L 11/14/17 0650: Anion Gap 8, Estimated GFR 60, BUN/Creatinine Ratio 18.9, PT 15.9 H, INR 1.52 H, CBC w Diff NO MAN DIFF REQ, RBC 3.69 L, MCV 86.7, MCH 29.0, RDW 16.3 H, MPV 8.2, Gran % 74.7, Lymphocytes % 15.0 L, Monocytes % 9.0, Eosinophils % 0.8, Basophils % 0.5, Absolute Granulocytes 8.9 H, Absolute Lymphocytes 1.8, Absolute Monocytes 1.1 H, Absolute Eosinophils 0.1, Absolute Basophils 0.1, PUBS MCHC 33.5 Microbiology 11/14 1230 URINE ROUT: Legionella Antigen - COMP 11/14 1230 URINE ROUT: Streptococcus pneumoniae Antigen (M - COMP Assessment/Plan Assessment/Plan The patient is an 82-year-old woman with past medical history of asthma, congestive heart failure with preserved LVEF, chronic kidney disease, coronary artery disease (prior LAD stenting), atrial fibrillation on request and a prior pulmonary embolism. She has well has had pleural effusions with thoracentesis. She presented to our hospital with increasing dyspnea in the setting of withholding her diuretics at home due to a self concern of losing minerals. Dyspnea: The patient has chronic congestive heart failure with a preserved LV systolic function and has had previous pleural effusions which demonstrated an exudate quality. At this time, she will undergo a repeat thoracentesis, both for diagnostic and palliative effect. We have discussed the need for compliance with her diuretic regimen. Coronary artery disease: Stable, we will continue current medication regimen. Atrial fibrillation: The patient's anticoagulation regimen was held for her upcoming thoracentesis. This will be restarted afterwards, and we will follow. Continue telemetry? Yes
--- NOTE | 2017-11-15 11:06 | PN- Infect Dx ---
Subjective Subjective: Afebrile. She continues to note shortness of breath with exertion but not at rest. She has had no further chest pain but notes a minimal cough, occasionally productive of mcgraw sputum. Objective Last 24 Hrs of Vital Signs/I&O Vital Signs Date Time Temp Pulse Resp B/P B/P Pulse O2 O2 Flow FiO2 Mean Ox Delivery Rate 11/15 0739 98.3 77 20 92/54 93 Room Air 11/15 0645 94 Room Air 11/15 0000 Nasal 2.0L Cannula 11/14 2235 98.5 66 20 104/68 94 Room Air 11/14 2130 96 Room Air 11/14 1616 114 102/62 11/14 1600 Nasal 2.0L Cannula 11/14 1425 98.8 78 20 102/62 97 Nasal 2.0L Cannula Intake & Output 11/15 1600 11/15 0800 11/15 0000 Intake Total 120 120 Output Total 300 300 Balance -180 -180 Intake, Oral 120 120 Number 1 Bowel Movements Output, Urine 300 300 Physical Exam Other Physical Findings: She appears comfortable in no acute distress Lungs decreased breath sounds at the left base Heart irregular rhythm with no murmur Extremities no cyanosis, clubbing or edema Results Last 24 Hours of Lab Results: Laboratory Tests 11/15 624 Hematology CBC w Diff NO MAN DIFF REQ WBC (4.8 - 10.8 /CUMM) 10.9 H RBC (4.20 - 5.40 /CUMM) 4.08 L Hgb (12.0 - 16.0 G/DL) 11.6 L Hct (37 - 47 %) 35.5 L MCV (81.0 - 99.0 FL) 87.0 MCH (27.0 - 31.0 PG) 28.5 RDW (11.5 - 14.5 %) 16.1 H Plt Count (130 - 400 /CUMM) 372 MPV (7.4 - 10.4 FL) 8.3 Gran % (42.2 - 75.2 %) 69.9 Lymphocytes % (20.5 - 51.1 %) 18.8 L Monocytes % (1.7 - 9.3 %) 9.1 Eosinophils % (0 - 5 %) 1.7 Basophils % (0.0 - 2.0 %) 0.5 Absolute Granulocytes (1.4 - 6.5 /CUMM) 7.6 H Absolute Lymphocytes (1.2 - 3.4 /CUMM) 2.0 Absolute Monocytes (0.10 - 0.60 /CUMM) 1.0 H Absolute Eosinophils (0.0 - 0.7 /CUMM) 0.2 Absolute Basophils (0.0 - 0.2 /CUMM) 0.1 PUBS MCHC (33.0 - 37.0 G/DL) 32.8 L Last 24 Hours of Luiz Results: Blood cultures November 12 negative Recent Imaging Studies: CTA of the chest November 14 no evidence of pulmonary emboli; opacification of the left base with a moderate left pleural effusion Assessment/Plan Impression: Stable off antibiotics with temperatures remaining normal and white blood cell count essentially normal. Her respiratory status is stable and she is awaiting a left thoracentesis, to be done later today, for her recurrent left pleural effusion, which is of unclear etiology. Suggestion: 1. Await left thoracentesis, scheduled for later today 2. Continue to follow off antibiotics pending above
[2017-11-15 14:02] VITALS: BP 120/62
--- NOTE | 2017-11-15 16:04 | RADIOLOGY REPORT ---
EXAMINATION:\H\ \N\XR CHEST CLINICAL INFORMATION: Status post left thoracentesis COMPARISON: CTA chest 11/14/2017 and chest x-ray 11/12/2017 TECHNIQUE: Frontal view of the chest was obtained. FINDINGS: Significant interval improvement in aeration of the left lung base. A small left-sided pleural effusion persists. No pneumothorax. Cardiomegaly IMPRESSION: No left-sided pneumothorax. Significant interval improvement in aeration of the left lung base.
--- NOTE | 2017-11-15 17:08 | ULTRASOUND REPORT ---
PROCEDURE: Thoracentesis CLINICAL INFORMATION: Pleural Effusion COMPARISON: CTA chest 11/14/2017 and thoracentesis 10/09/2017 TECHNIQUE: Indirect ultrasound guided thoracentesis using a 5 Romansh Yueh catheter. FINDINGS: Informed consent was obtained from the patient prior to the procedure. During this process, the procedure alternatives were explained, along with the intended outcome and benefits. The risks of the procedure, as well as the risk of not doing the procedure, was discussed. The patient was given the opportunity to ask questions regarding the procedure and appeared competent to make medical decisions. A signed consent form which documents this discussion was placed in the medical record. Ultrasound evaluation of the chest for pleural fluid was performed. A moderate pleural effusion is noted on the left side. A timeout procedure was performed. Using standard interventional and sterile techniques, lidocaine was used to anesthetize the region. A 5 Romansh Yueh catheter was introduced into the left pleural fluid using standard safety needle technique. Approximately 860 mL of serous fluid was removed into the Vacutainer bottles. The catheter was then removed. Good hemostasis was achieved. The patient tolerated the procedure well. A sterile dressing was placed. The patient was discharged from the department in stable condition. Postprocedure x-ray demonstrated no pneumothorax. Sample sent to laboratory for requested analysis. COMPLICATIONS: None. IMPRESSION: Successful ultrasound-guided left-sided thoracentesis yielding 860 mL of fluid.
[2017-11-15 22:15] VITALS: BP 110/62
[2017-11-16 06:30] VITALS: BP 92/62
--- NOTE | 2017-11-16 09:13 | PN- Housestaff ---
Marisa Alberto MD 11/16/17 0912: Subjective Review of Systems Constitutional: Reports: no symptoms. EENTM: Reports: no symptoms. Cardiovascular: Reports: chest pain. Respiratory: Reports: short of breath. Gastrointestinal: Reports: no symptoms. Genitourinary: Reports: no symptoms. Musculoskeletal: Reports: back pain. Skin: Reports: no symptoms. Neurological/Psychological: Reports: no symptoms. Hematologic/Endocrine: Reports: no symptoms. Immunologic/Allergic: Reports: no symptoms. Objective Last 24 Hrs of Vital Signs/I&O Vital Signs Date Time Temp Pulse Resp B/P B/P Pulse O2 O2 Flow FiO2 Mean Ox Delivery Rate 11/16 1621 91 98/52 11/16 1427 99.6 80 18 96/50 95 Room Air 11/16 0744 93 Room Air Room Air 11/16 0630 98.3 60 18 92/62 95 Room Air 11/16 0000 Room Air 11/15 2215 98.4 84 18 110/62 95 Room Air 11/15 2049 94 Room Air 11/15 1724 117 124/62 Intake & Output 11/16 1600 11/16 0800 11/16 0000 Intake Total 400 210 550 Output Total 750 390 Balance -350 210 160 Intake, IV 10 10 Intake, Oral 400 200 540 Output, Urine 750 390 Physical Exam General Appearance: Alert, Oriented X3, Cooperative, No Acute Distress Skin: No Rashes, No Breakdown, No Significant Lesion Skin Temp/Moisture Exam: Warm/Dry Sepsis Skin Exam (color): Normal for Ethnicity HEENT: Atraumatic, PERRLA, EOMI, Mucous Membr. moist/pink Neck: Supple Cardiovascular: Regular Rate, Normal S1, Normal S2, No Murmurs Lungs: Clear to Auscultation, Normal Air Movement Abdomen: Normal Bowel Sounds, Soft, No Tenderness Neurological: Normal Speech Extremities: No Clubbing, No Cyanosis, No Edema, Normal Pulses, No Tenderness/ Swelling Vascular: Normal Pulses, Pulses Symmetrical Sepsis Peripheral Pulse Location: Radial Sepsis Peripheral Pulse Exam: Normal Sepsis Cap Refill Exam: <2 Sec Current Medications: Current Medications Sig/Trinity Start time Last Medication Dose Route Stop Time Status Admin Acetaminophen 325 MG .STK-MED ONE 11/15 2138 DC PO 11/15 2139 Acetaminophen 325 MG Q6 PRN 11/12 2015 AC 11/15 PO 2138 Albuterol Sulfate 3 ML Q4P PRN 11/13 2330 AC 11/16 INH 0741 Albuterol Sulfate 2 PUF Q4-6 PRN PRN 11/12 2015 AC INH Apixaban 5 MG BID 11/15 2200 AC 11/16 PO 0957 Aspirin 81 MG DAILY 11/16 1000 AC 11/16 PO 0959 Aspirin 20.25 MG QAM 11/13 1000 DC 11/14 PO 0936 Budesonide/ 2 PUF BID 11/14 1240 AC 11/16 Formoterol Fumarate INH 0959 Digoxin 0.125 MG Q48@1700 11/12 2015 AC 11/16 PO 1621 Diltiazem HCl 180 MG DAILY 11/13 1000 AC 11/15 PO 1725 Fluticasone 2 SPRAY DAILY 11/13 1000 AC 11/16 Propionate JONATHAN 0957 Guaifenesin 600 MG Q12 11/14 1346 AC 11/16 PO 0957 Magnesium Oxide 400 MG DAILY 11/13 1000 AC 11/16 PO 0957 Metoprolol Succinate 25 MG DAILY 11/13 1000 AC 11/15 PO 1724 Montelukast Sodium 10 MG 2100 11/12 2100 AC 11/15 PO 2134 Oxycodone/ 1 TAB ONCE ONE 11/15 2145 CAN Acetaminophen PO 11/15 2146 Rosuvastatin Calcium 20 MG 1700 11/13 1700 AC 11/16 PO 1621 Tiotropium Aspen 1 PUF DAILY 11/13 1000 AC 11/16 INH 0957 Torsemide 10 MG DAILY 11/16 1000 AC 11/16 PO 1240 Torsemide 10 MG SuMoWeFr 11/12 2015 AC 11/15 PO 2134 Last 24 Hrs of Lab/Luiz Results Last 24 Hrs of Labs/Mics: Laboratory Tests 11/16/17 0630: Glucose 119 H, Lactate Dehydrogenase 420, Total Protein 5.1 L, Albumin 2.8 L Assessment/Plan Assessment: Assessment 82 yo F with h/o COPD/ asthma, COLT on CPAP, Afib/PE in december on eliquis, CAD s/p stent, resolved pericardial effusion with negative workup, chronic leukocytosis, HTN, recently admitted to [place] (Oct 08) for COPD and recurrent left pleural effusion that was tapped showed exudative effusion with reactive epithelial cells, returned for left sided sharp chest pain (under left breast) radiating to the back, worse with inspiration and coughing, productive cough (brown phlegm), congestion and worsening exertional dyspnea. She was last seen at the [facility] center on Oct 30 and received IV solumedrol but her symptoms continued to worsen. A chest x-ray showed a large left pleural effusion, unable to exclude underlying left lower lobe consolidation. CT scan of the chest showed left-sided pleural parenchymal disease. She was started on ceftriaxone and azithromycin for questionable pneumonia but further antibiotics were deferred as per infectious disease due to the unclear etiology of her recurrent effusion. She has been persistently afebrile and has a decreased WBC count since admission. The patient had a recent echocardiogram which showed an ejection fraction of greater than 55%. The patient has no history of malignancy but does admit to recent weight loss. She also had recent cytology which showed atypical epithelial cells that are most likely reactive mesothelial cells. The patient has a history of pulmonary embolism last December and has been on Eliquis since. The patient has normal kidney function. Thus as of yet the etiology of her recurrent pleural effusion is unclear but we are evaluating infection, malignancy, cardiac causes. She had a CTA chest yesterday which was negative for PE. Patient had a thoracentesis yesterday which showed to be exudative, 860 mL were drained. She was restarted on her Eliquis after the procedure. Cytology of the pleural fluid was sent and we are awaiting results. As per Dr. Garza cardiology the persistent pleural effusions may be caused by scar tissue cause from previous pericarditis that are obstructing the lymphatic system. We have obtained records from [place] regarding her workup there. Plan Acute hypoxic respiratory failure with left recurrent/persistent pleural effusion secondary to questionable pneumonia/malignancy/cardiac causes: -We will continue the supplemental oxygen to keep the patient's oxygen saturation above 92%. This morning oxygen saturation is 93% on room air. -Continue to follow off antibiotics as per infectious disease. -Blood culture no growth day 3 -Urine strep and Legionella antigen are negative. -Follow up on pleural fluid cytology -Appreciate pulmonary input -Follow-up echocardiogram -Symbicort and Mucinex as needed A.fib and history of coronary artery disease: -We will continue Cardizem and metoprolol for rate control. -We have restarted Eliquis -Continue aspirin 81 mg Hypotension -Give a low dose of 10 mg torsemide as patient's blood pressures are persistently low. History of COPD and obstructive sleep apnea -TRC nebulization as needed -Continue home medication -Continue nighttime CPAP DVT prophylaxis: Eliquis and Alps Code status: Full code Problem List: 1. Recurrent left pleural effusion Pain Ratin Kezia Durham 11/16/17 1223: Attending MD Review Statement Attending Statement Attending MD Statement: examined this patient, discuss w/resident/PA/PATIENT INTAKE COORDINATOR, agreed w/resident/PA/PATIENT INTAKE COORDINATOR, discussed with family, reviewed EMR data (avail), discussed with nursing, discussed with case mgmt, reviewed images, amended to note Attending Assessment/Plan: 82 yo F with h/o COPD/ asthma, COLT on CPAP, Afib/ PE on eliquis, CAD s/p stent, resolved pericardial effusion with negative workup, chronic leukocytosis, HTN, recently admitted to [place] (Oct 08) for COPDE and recurrent left pleural effusion that was tapped showed exudative effusion with reactive epithelial cells, returns today for left sided sharp chest pain (under left breast) radiating to the back, worse with inspiration and coughing, productive cough ( brown phlegm), congestion and worsening exertional dyspnea. Patient seen/examined bedside. No new complaints. Patient admit to telemetry monitoring for atypical chest pain likely from pleural origin in high risk patient. Serial cardiac enzymes negative for MS. Recurrent/persistent pleural effusion : Patient is off antibitoics as per ID, oxygen supplementation as needed s/p thorcacentesis r/o infection or malignancy. F/U ID (?empyema and need of abx) and pulmonary (recurrent pleural effusion), cardiology for uncontrolled afib. Afib is better controlled , cardiology consulted, cardizem and metoprolol. CTA chest no PE. Eliquis resumed. cont current care. Vineet MARIN,Kate 11/16/17 1639: Subjective Follow-up For: Acute hypoxic respiratory failure due to community-acquired pneumonia/malignancy /pulmonary embolism/cardiac etiology Pleural effusion Tele-Events Since Last Visit: Atrial fibrillation rates ranging from 67-82 Subjective: Patient seen and examined the patient complaining of pain at site of thoracocentesis. No overnight acute events Review of Systems Constitutional: Reports: see HPI. Objective Last 24 Hrs of Vital Signs/I&O Vital Signs Date Time Temp Pulse Resp B/P B/P Pulse O2 O2 Flow FiO2 Mean Ox Delivery Rate 11/16 1621 91 98/52 11/16 1427 99.6 80 18 96/50 95 Room Air 11/16 0744 93 Room Air Room Air 11/16 0630 98.3 60 18 92/62 95 Room Air 11/16 0000 Room Air 11/15 2215 98.4 84 18 110/62 95 Room Air 11/15 2049 94 Room Air 11/15 1724 117 124/62 Intake & Output 11/16 1600 11/16 0800 11/16 0000 Intake Total 400 210 550 Output Total 750 390 Balance -350 210 160 Intake, IV 10 10 Intake, Oral 400 200 540 Output, Urine 750 390 Physical Exam General Appearance: Alert, Oriented X3, Cooperative Other Physical Findings: Extremities: No Clubbing, No Cyanosis, Normal Pulses, No Tenderness/Swelling, decreasing pedal edema now 1+ nonpitting Current Medications: Current Medications Sig/Trinity Start time Last Medication Dose Route Stop Time Status Admin Acetaminophen 325 MG .STK-MED ONE 11/15 2138 DC PO 11/15 2139 Acetaminophen 325 MG Q6 PRN 11/12 2015 AC 11/15 PO 2139 Albuterol Sulfate 3 ML Q4P PRN 11/13 2330 AC 11/16 INH 0741 Albuterol Sulfate 2 PUF Q4-6 PRN PRN 11/12 2015 AC INH Apixaban 5 MG BID 11/15 2200 AC 11/16 PO 0957 Aspirin 81 MG DAILY 11/16 1000 AC 11/16 PO 0959 Aspirin 20.25 MG QAM 11/13 1000 DC 11/14 PO 0936 Budesonide/ 2 PUF BID 11/14 1240 AC 11/16 Formoterol Fumarate INH 0959 Digoxin 0.125 MG Q48@1700 11/12 2015 AC 11/16 PO 1621 Diltiazem HCl 180 MG DAILY 11/13 1000 AC 11/15 PO 1725 Fluticasone 2 SPRAY DAILY 11/13 1000 AC 11/16 Propionate JONATHAN 0957 Guaifenesin 600 MG Q12 11/14 1346 AC 11/16 PO 0957 Magnesium Oxide 400 MG DAILY 11/13 1000 AC 11/16 PO 0957 Metoprolol Succinate 25 MG DAILY 11/13 1000 AC 11/15 PO 1724 Montelukast Sodium 10 MG 2100 11/12 2100 AC 11/15 PO 2134 Oxycodone/ 1 TAB ONCE ONE 11/15 2145 CAN Acetaminophen PO 11/15 2146 Rosuvastatin Calcium 20 MG 1700 11/13 1700 AC 11/16 PO 1621 Tiotropium Aspen 1 PUF DAILY 11/13 1000 AC 11/16 INH 0957 Torsemide 10 MG DAILY 11/16 1000 AC 11/16 PO 1240 Torsemide 10 MG SuMoWeFr 11/12 2015 AC 11/15 PO 2134 Last 24 Hrs of Lab/Luiz Results Last 24 Hrs of Labs/Mics: Laboratory Tests 11/16/17 0630: Glucose 119 H, Lactate Dehydrogenase 420, Total Protein 5.1 L, Albumin 2.8 L Assessment/Plan Pain Ratin Pain Location: thorac site Pain Goal: Pain 4 or less Pain Plan: as ordered Tomorrow's Labs & Rationales: cbc bep
--- NOTE | 2017-11-16 09:46 | PN- Cardiology ---
Subjective Subjective: Telemetry reviewed. Atrial fibrillation with controlled ventricular response. Patient appears to feel better. Still has localized pain at the site of thoracentesis. Objective Vital Signs and I&Os Vital Signs Date Time Temp Pulse Resp B/P B/P Pulse O2 O2 Flow FiO2 Mean Ox Delivery Rate 11/16 0744 93 Room Air Room Air 11/16 0630 98.3 60 18 92/62 95 Room Air 11/16 0000 Room Air 11/15 2215 98.4 84 18 110/62 95 Room Air 11/15 2049 94 Room Air 11/15 1724 117 124/62 11/15 1402 98.2 126 20 120/62 94 Room Air 11/15 1308 93 Room Air Room Air 11/15 1256 94/57 Intake & Output 11/16 1600 11/16 0800 11/16 0000 11/15 1600 11/15 0800 11/15 0000 Intake Total 210 550 400 120 120 Output Total 390 700 300 300 Balance 210 160 -300 -180 -180 Intake, IV 10 10 Intake, Oral 200 540 400 120 120 Number 1 Bowel Movements Output, Urine 390 700 300 300 Physical Exam: Gen. exam patient comfortable lying supine Head normocephalic atraumatic Eyes sclera anicteric conjunctiva showed no pallor extraocular muscles were normal Neck no jugular venous distention no thyroid masses no palpable nodes Chest lungs appeared clear anterior lung villavicencio. Heart irregular rhythm with a ventricle rate around 80. Abdomen soft no organomegaly bowel sounds normal Extremities no clubbing cyanosis or edema Neurological no gross motor or sensory deficits Current Medications: Current Medications Sig/Trinity Start time Last Medication Dose Route Stop Time Status Admin Acetaminophen 325 MG .STK-MED ONE 11/15 2138 DC PO 11/15 2139 Acetaminophen 325 MG Q6 PRN 11/12 2015 AC 11/15 PO 2138 Albuterol Sulfate 3 ML Q4P PRN 11/13 2330 AC 11/16 INH 0741 Albuterol Sulfate 2 PUF Q4-6 PRN PRN 11/12 2015 AC INH Apixaban 5 MG BID 11/15 220 AC 11/15 PO 213 Aspirin 81 MG DAILY 11/16 1000 AC PO Aspirin 20.25 MG QAM 11/13 1000 DC 11/14 PO 0936 Budesonide/ 2 PUF BID 11/14 1240 AC 11/15 Formoterol Fumarate INH 2134 Digoxin 0.125 MG Q48@1700 11/12 2015 AC 11/14 PO 1616 Diltiazem HCl 180 MG DAILY 11/13 1000 AC 11/15 PO 1725 Fluticasone 2 SPRAY DAILY 11/13 1000 AC 11/15 Propionate JONATHAN 0949 Guaifenesin 600 MG Q12 11/14 1346 AC 11/15 PO 2134 Magnesium Oxide 400 MG DAILY 11/13 1000 AC 11/15 PO 0948 Metoprolol Succinate 25 MG DAILY 11/13 1000 AC 11/15 PO 172 Montelukast Sodium 10 MG 2100 11/12 2100 AC 11/15 PO 213 Oxycodone/ 1 TAB ONCE ONE 11/15 2145 CAN Acetaminophen PO 11/15 2146 Rosuvastatin Calcium 20 MG 1700 11/13 1700 AC 11/15 PO 172 Tiotropium [place] 1 PUF DAILY 11/13 1000 AC 11/15 INH 0948 Torsemide 10 MG SuMoWeFr 11/12 2015 AC 11/15 PO 2133 Results Last 48 Hrs of Labs/Mics: Laboratory Tests 11/16/17 0630: Glucose 119 H, Lactate Dehydrogenase 420, Total Protein 5.1 L, Albumin 2.8 L 11/15/17 1514: Pleural pH 7.471 11/15/17 1514: Ref Lab Test Result Pending, Fluid WBC 913 H, Fld Total RBCs Counted 150 H 11/15/17 1514: Lymphocytes 56, % Normal PMNs 12, Misc Hematology Test , Phlebotomy Draw Site L THORACENTESIS, Fluid Glucose 134, Fluid Total Protein 3.5, Fluid Albumin 1.8, Fluid LDH 201 11/15/17 0624: CBC w Diff NO MAN DIFF REQ, RBC 4.08 L, MCV 87.0, MCH 28.5, RDW 16.1 H, MPV 8.3, Gran % 69.9, Lymphocytes % 18.8 L, Monocytes % 9.1, Eosinophils % 1.7, Basophils % 0.5, Absolute Granulocytes 7.6 H, Absolute Lymphocytes 2.0, Absolute Monocytes 1.0 H, Absolute Eosinophils 0.2, Absolute Basophils 0.1, PUBS MCHC 32.8 L Microbiology 11/14 1230 URINE ROUT: Legionella Antigen - COMP 11/14 1230 URINE ROUT: Streptococcus pneumoniae Antigen (M - COMP Assessment/Plan Assessment/Plan In summary this 81-year-old female has the following problems #1. Recurrent left pleural effusion. On last admission fluid appeared to be an exudate. Antibiotics were not prescribed. 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 She had extensive workup and was treated conservatively and pericardial effusion resolved. She is now with a second admission with recurrent left-sided pleural effusion. #2. Pulmonary embolism and atrial fibrillation on anticoagulation with Elliquis #3. Atrial fibrillation with rate control #4. Remote coronary artery disease having had a stent. #5. Tendency to low blood pressure readings. I will obtain a limited echo to rule out recurrent pericardial effusion. I doubt she is demonstrating any evidence of pericarditic syndrome. We will determine the need for mechanical drainage if recurrent left pleural effusion especially if of exudative type. Continue telemetry? Yes
--- NOTE | 2017-11-16 14:09 | PN- Infect Dx ---
Subjective Subjective: Afebrile. She complains of pain in the left side of her back at the site of the recent thoracentesis. She did note improvement in her shortness of breath after the procedure and notes a minimal cough. Objective Last 24 Hrs of Vital Signs/I&O Vital Signs Date Time Temp Pulse Resp B/P B/P Pulse O2 O2 Flow FiO2 Mean Ox Delivery Rate 11/16 0744 93 Room Air Room Air 11/16 0630 98.3 60 18 92/62 95 Room Air 11/16 0000 Room Air 11/15 2215 98.4 84 18 110/62 95 Room Air 11/15 2049 94 Room Air 11/15 1724 117 124/62 Intake & Output 11/16 1600 11/16 0800 11/16 0000 Intake Total 210 550 Output Total 390 Balance 210 160 Intake, IV 10 10 Intake, Oral 200 540 Output, Urine 390 Physical Exam Other Physical Findings: She appears comfortable in no acute distress Lungs decreased breath sounds at the left base Heart irregular rhythm with no murmur Extremities trace edema both lower extremities Results Last 24 Hours of Lab Results: Laboratory Tests 11/16 11/15 11/15 11/15 0630 1514 1514 1514 Chemistry Glucose (65 - 99 mg/dL) 119 H Lactate Dehydrogenase (313 - 618 U/L) 420 Total Protein (6.3 - 8.2 g/dL) 5.1 L Albumin (3.5 - 5.0 g/dL) 2.8 L Hematology Lymphocytes (%) 56 % Normal PMNs (%) 12 Misc Hematology Test (%) Miscellaneous Ref Lab Test Result Pending Phlebotomy Draw Site L THORACENTESIS Other Body Source Fluid WBC (0 - 5 /CUMM) 913 H Fld Total RBCs Counted (0 /CUMM) 150 H Fluid Glucose (mg/dL) 134 Fluid Total Protein (g/dL) 3.5 Fluid Albumin (g/dL) 1.8 Fluid LDH (U/L) 201 Pleural pH (PH) 7.471 Last 24 Hours of Luiz Results: Left pleural fluid culture November 15 negative Recent Imaging Studies: Chest x-ray November 15 after the thoracentesis reveals no pneumothorax with significant interval improvement in aeration of the left lung base. Assessment/Plan Impression: Stable, status post thoracentesis yesterday, with removal of 850 mL of serous fluid, which appears to be exudative, with no evidence of infection, and with cytology pending. She remains afebrile with white blood cell count minimally elevated off antibiotics with little evidence for pneumonia on her postthoracentesis chest x-ray. Suggestion: 1. Follow-up pleural fluid culture and cytology 2. Pulmonary follow-up regarding her pleural fluid results 3. Continue to follow off antibiotics
[2017-11-16 14:27] VITALS: BP 96/50
--- NOTE | 2017-11-16 15:34 | ECHOCARDIOGRAM REPORT ---
HERIBERTO PETTY Age: 82 : 1935 Gender: F Exam Date: 11/16/2017 10:03 Exam Location: [address] Ht (in): 61 Wt (lb): 175 BSA: 1.88 BP: 92 / 62 Ordering Physician: LUCIANA ACEVEDO MD Referring Physician: LUCIANA ACEVEDO MD Technologist: Bharathi Bustillos RDCS Room Number: [id number] Indications: Shortness of breath Rhythm: PACs Technical Quality: fair to poor FINDINGS Left Ventricle Normal global left ventricular size, wall thickness, systolic function with no obvious regional wall motion abnormalities. Normal left ventricular ejection fraction estimated at 60-65%. Right Ventricle Normal right ventricular size and function. Right Atrium Mild right atrial dilatation. Left Atrium Mild to moderate left atrial dilatation. Mitral Valve Mild mitral annular calcification. Mild thickening/calcification of the anterior mitral valve leaflet. Aortic Valve Aortic sclerosis. Tricuspid Valve Tricuspid valve is normal in structure and function. Mild tricuspid regurgitation. Right ventricular systolic pressure estimated to be at upper limits of normal at 32 mmHg. Pulmonic Valve Pulmonic valve not well visualized, grossly normal. Pericardium Small pericardial effusion. Pleural effusion. Great Vessels Normal size aortic root. CONCLUSIONS Normal left and right ventricular systolic function. Biatrial enlargement. Trace to small pericardial effusion. No significant Pulmonary hypertension. Mateo Patricio M.D. (Electronically Signed) Final Date: 16 November 2017 15:33 MEASUREMENTS (Male / Female) Normal Values 2D ECHO LV Diastolic Diameter PLAX 4.7 cm 4.2 - 5.9 / 3.9 - 5.3 cm LV Systolic Diameter PLAX 3.2 cm 2.1 - 4.0 cm LV Fractional Shortening PLAX 31.9 % 25 - 46 % LV Ejection Fraction 2D Teich 60.0 % IVS Diastolic Thickness 1.0 cm LVPW Diastolic Thickness 1.1 cm LV Relative Wall Thickness 0.4 RV Internal Dim ED PLAX 2.8 cm 1.9 - 3.8 cm LVOT Diameter 1.9 cm Aortic Root Diameter 2.7 cm LA Systolic Diameter LX 3.2 cm 3.0 - 4.0 / 2.7 - 3.8 cm DOPPLER AV Peak Velocity 138.0 cm/s AV Peak Gradient 7.6 mmHg AV Mean Velocity 94.5 cm/s AV Mean Gradient 4.0 mmHg AV Velocity Time Integral 25.4 cm AI Deceleration [place]away 236.0 cm/s AI Peak Velocity 419.0 cm/s AI Pressure Half Time 519.0 ms AI Peak Gradient 70.2 mmHg LVOT Peak Velocity 94.0 cm/s LVOT Peak Gradient 3.5 mmHg LVOT Mean Velocity 57.0 cm/s LVOT Mean Gradient 2.0 mmHg LVOT Velocity Time Integral 19.0 cm LVOT Stroke Volume 53.9 cm AV Area Cont Eq vti 2.1 cm AV Area Cont Eq pk 1.9 cm MV Peak Velocity 180.0 cm/s MV Peak Gradient 13.0 mmHg MV Mean Velocity 88.7 cm/s MV Mean Gradient 4.0 mmHg Mitral E Point Velocity 150.0 cm/s Mitral A Point Velocity 50.0 cm/s Mitral E to A Ratio 3.0 MV PHT Velocity 191.0 cm/s MV Deceleration [place]away 910.0 cm/s MV Pressure Half Time 63.0 ms MV Area PHT 3.5 cm MV Deceleration Time 275.0 ms MR Peak Velocity 415.0 cm/s MR Peak Gradient 68.9 mmHg TR Peak Velocity 237.0 cm/s TR Peak Gradient 22.5 mmHg Right Atrial Pressure 10.0 mmHg Pulmonary Artery Systolic Pressu 32.5 mmHg Right Ventricular Systolic Press 32.5 mmHg PV Peak Velocity 82.7 cm/s PV Peak Gradient 2.7 mmHg PV Mean Velocity 55.0 cm/s PV Mean Gradient 1.0 mmHg PV Velocity Time Integral 17.5 cm LV E' Lateral Velocity 6.9 cm/s Mitral E to LV E' Lateral Ratio 21.7 LV E' Septal Velocity 7.4 cm/s Mitral E to LV E' Septal Ratio 20.2
[2017-11-16 22:21] VITALS: BP 100/64
[2017-11-17 07:10] VITALS: BP 104/68
[2017-11-17 08:10] LABS: ABSOLUTE BASOPHIL COUNT 0 /CUMM (0.0-0.2); ABSOLUTE EOSINOPHIL COUNT 0.2 /CUMM (0.0-0.7); ABSOLUTE GRANULOCYTE CT 7.2 /CUMM (1.4-6.5); ABSOLUTE LYMPH COUNT 1.7 /CUMM (1.2-3.4); ABSOLUTE MONOCYTE COUNT 0.6 /CUMM (0.10-0.60); BASOPHIL % 0.3 % (0.0-2.0); EOSINOPHIL % 1.8 % (0-5); GRANULOCYTE % 74.5 % (42.2-75.2); MEAN CORPUSCULAR HGB 28.5 PG (27.0-31.0); MEAN CORPUSCULAR VOLUME 86.2 FL (81.0-99.0); PLATELET COUNT 375 /CUMM (130-400); RBC DISTRIBUTION WIDTH 16.1 % (11.5-14.5); RED BLOOD CELL CT 3.71 /CUMM (4.20-5.40); WHITE BLOOD CELL COUNT 9.6 /CUMM (4.8-10.8)
--- NOTE | 2017-11-17 10:55 | PN- Cardiology ---
Subjective Subjective: Reports no shortness of breath today. Does report some chills and also some fatigue. Objective Vital Signs and I&Os Vital Signs Date Time Temp Pulse Resp B/P B/P Pulse O2 O2 Flow FiO2 Mean Ox Delivery Rate 11/17 1048 98.3 11/17 1034 107 118/64 11/17 0710 98.0 92 18 104/68 95 Room Air 11/17 0000 Room Air 11/16 2221 99.4 117 18 100/64 96 Room Air 11/16 2020 93 Room Air 11/16 1621 91 98/52 11/16 1427 99.6 80 18 96/50 95 Room Air Intake & Output 11/17 1600 11/17 0800 11/17 0000 11/16 1600 11/16 0800 11/16 0000 Intake Total 120 240 400 210 550 Output Total 250 850 750 390 Balance -130 -610 -350 210 160 Intake, IV 10 10 Intake, Oral 120 240 400 200 540 Number 0 0 Bowel Movements Output, Urine 250 850 750 390 Physical Exam: General: no apparent distress. Alert. Eyes: No obvious scleral icterus. HEENT: No jugular venous distention or abnormal jugular venous pulsations. Cardiovascular: Normal intensity S1/S2. Irregular. Respiratory: No rales or rhonchi Abdomen: Soft, no guarding or rebound tenderness. Musculoskeletal: No clubbing or cyanosis noted Skin: warm Neurologic: No gross focal deficits noted. Current Medications: Current Medications Sig/Trinity Start time Last Medication Dose Route Stop Time Status Admin Acetaminophen 650 MG Q6 PRN 11/17 0632 AC 11/17 PO 0637 Acetaminophen 325 MG Q6 PRN 11/12 2015 DC 11/15 PO 2139 Albuterol Sulfate 3 ML Q4P PRN 11/13 2330 AC 11/16 INH 2020 Albuterol Sulfate 2 PUF Q4-6 PRN PRN 11/12 2015 AC INH Apixaban 5 MG BID 11/15 2200 AC 11/17 PO 1034 Aspirin 81 MG DAILY 11/16 1000 AC 11/17 PO 1033 Budesonide/ 2 PUF BID 11/14 1240 AC 11/17 Formoterol Fumarate INH 1035 Digoxin 0.125 MG Q48@1700 11/12 2015 AC 11/16 PO 1621 Diltiazem HCl 180 MG DAILY 11/13 1000 AC 11/17 PO 1034 Fluticasone 2 SPRAY DAILY 11/13 1000 AC 11/17 Propionate JONATHAN 1034 Guaifenesin 600 MG Q12 11/14 1346 AC 11/17 PO 1034 Magnesium Oxide 400 MG DAILY 11/13 1000 AC 11/17 PO 1034 Metoprolol Succinate 25 MG DAILY 11/13 1000 AC 11/17 PO 1034 Montelukast Sodium 10 MG 2100 11/12 2100 AC 11/16 PO 2103 Rosuvastatin Calcium 20 MG 1700 11/13 1700 AC 11/16 PO 1621 Tiotropium [place] 1 PUF DAILY 11/13 1000 AC 11/17 INH 1035 Torsemide 10 MG DAILY 11/16 1000 AC 11/17 PO 1035 Torsemide 10 MG SuMoWeFr 11/12 2015 AC 11/15 PO 2134 Results Last 48 Hrs of Labs/Mics: Laboratory Tests 11/17/17 0640: Anion Gap 7, Estimated GFR > 60, BUN/Creatinine Ratio 15.0, CBC w Diff NO MAN DIFF REQ, RBC 3.71 L, MCV 86.2, MCH 28.5, RDW 16.1 H, MPV 8.0, Gran % 74.5, Lymphocytes % 17.5 L, Monocytes % 5.9, Eosinophils % 1.8, Basophils % 0.3, Absolute Granulocytes 7.2 H, Absolute Lymphocytes 1.7, Absolute Monocytes 0.6, Absolute Eosinophils 0.2, Absolute Basophils 0, PUBS MCHC 33.0 11/16/17 0630: Glucose 119 H, Lactate Dehydrogenase 420, Total Protein 5.1 L, Albumin 2.8 L 11/15/17 1514: Pleural pH 7.471 11/15/17 1514: Ref Lab Test Result Pending, Fluid WBC 913 H, Fld Total RBCs Counted 150 H 11/15/17 1514: Lymphocytes 56, % Normal PMNs 12, [facility] Hematology Test , Phlebotomy Draw Site L THORACENTESIS, Fluid Glucose 134, Fluid Total Protein 3.5, Fluid Albumin 1.8, Fluid LDH 201 Recent Imaging Studies: Telemetry tracings were personally reviewed and show atrial fibrillation Echo: Normal left and right ventricular systolic function. Biatrial enlargement. Trace to small pericardial effusion. No significant Pulmonary hypertension. Assessment/Plan Assessment/Plan 1.prevous pericardial effusion requiring prior transfer to [place] and cardiac mass was excluded by MRI; concern for constrictive physiology 2. Cardiac catheterization 07/2017 without obstructive CAD, mildly increased filling pressures and concern for interventricular dependence 3. History of known atrial fibrillation on Eliquis 3. History of coronary artery disease with prior LAD stent 4. History of pulmonary embolism in March 2017 5. History of asthma 6. Heart failure with preserved ejection fraction, mild 7. Recurrent Pleural effusion, status post repeat thoracentesis 11/15 8. Previous Renal insufficiency Denies any shortness of breath today. Does report some chills although she is afebrile. Follow-up pleural fluid analysis. Minimal pericardial effusion by echo , no indication for pericardiocentesis. Continue on her outpatient diuretic regimen; compliance with this regimen has been discussed. Continue on anticoagulation. Continue current AV elizabeth regimen. Johnson Jefferson MD [facility] Continue telemetry? No
--- NOTE | 2017-11-17 11:25 | PN- Housestaff ---
Remy MARIN,Marisa 11/17/17 1124: Subjective Follow-up For: Acute hypoxic respiratory failure due to community-acquired pneumonia/malignancy /cardiac etiology Pleural effusion Tele-Events Since Last Visit: Patient was overnight in A. fib at rates ranging from 91-127 Subjective: Patient was seen and examined bedside. She is not currently on oxygen. She notes that she is very weak and complains of pain in her shoulders on moving and breathing that was relieved when she took Tylenol this morning. She also states that she has right leg pain that is worse on palpation and has also been relieved by Tylenol. She also notes that she feels very dehydrated. Review of Systems Constitutional: Reports: weakness. EENTM: Reports: no symptoms. Cardiovascular: Reports: no symptoms. Respiratory: Reports: no symptoms. Gastrointestinal: Reports: no symptoms. Genitourinary: Reports: no symptoms. Musculoskeletal: Reports: muscle pain. Skin: Reports: no symptoms. Neurological/Psychological: Reports: no symptoms. Hematologic/Endocrine: Reports: no symptoms. Immunologic/Allergic: Reports: no symptoms. Objective Last 24 Hrs of Vital Signs/I&O Vital Signs Date Time Temp Pulse Resp B/P B/P Pulse O2 O2 Flow FiO2 Mean Ox Delivery Rate 11/17 1501 97.8 100 20 100/60 96 Room Air 11/17 1417 96 Room Air 11/17 1048 98.3 11/17 1034 107 118/64 11/17 0710 98.0 92 18 104/68 95 Room Air 11/17 0000 Room Air 11/16 2221 99.4 117 18 100/64 96 Room Air 11/16 2020 93 Room Air 11/16 1621 91 98/52 Intake & Output 11/17 1600 11/17 0800 11/17 0000 Intake Total 120 240 Output Total 250 850 Balance -130 -610 Intake, Oral 120 240 Number 0 0 Bowel Movements Output, Urine 250 850 Physical Exam General Appearance: Alert, Oriented X3, Cooperative, Mild Distress Skin: No Rashes, No Breakdown, No Significant Lesion Skin Temp/Moisture Exam: Warm/Dry Sepsis Skin Exam (color): Normal for Ethnicity HEENT: Atraumatic, PERRLA, EOMI, Mucous Membr. moist/pink Cardiovascular: Normal S1, Normal S2, No Murmurs, Gallops, Rubs Lungs: Clear to Auscultation, Normal Air Movement Abdomen: Normal Bowel Sounds, Soft, No Tenderness, No Hepatospenomegaly, No Masses Neurological: Normal Speech Extremities: No Clubbing, No Cyanosis, No Edema, Normal Pulses, pain on palpation of lower extremities Vascular: Normal Pulses, Pulses Symmetrical Sepsis Peripheral Pulse Location: Radial Sepsis Peripheral Pulse Exam: Normal Sepsis Cap Refill Exam: <2 Sec Current Medications: Current Medications Sig/Trinity Start time Last Medication Dose Route Stop Time Status Admin Acetaminophen 650 MG Q6 PRN 11/17 0632 AC 11/17 PO 0637 Acetaminophen 325 MG Q6 PRN 11/12 2015 DC 11/15 PO 2139 Albuterol Sulfate 3 ML Q4P PRN 11/13 2330 AC 11/16 INH 2020 Albuterol Sulfate 2 PUF Q4-6 PRN PRN 11/12 2015 AC INH Apixaban 5 MG BID 11/15 2200 AC 11/17 PO 1034 Aspirin 81 MG DAILY 11/16 1000 AC 11/17 PO 1033 Budesonide/ 2 PUF BID 11/14 1240 AC 11/17 Formoterol Fumarate INH 1035 Digoxin 0.125 MG Q48@1700 11/12 2015 AC 11/16 PO 1621 Diltiazem HCl 180 MG DAILY 11/13 1000 AC 11/17 PO 1034 Fluticasone 2 SPRAY DAILY 11/13 1000 AC 11/17 Propionate JONATHAN 1034 Guaifenesin 600 MG Q12 11/14 1346 AC 11/17 PO 1034 Magnesium Oxide 400 MG DAILY 11/13 1000 AC 11/17 PO 1034 Metoprolol Succinate 25 MG DAILY 11/13 1000 AC 11/17 PO 1034 Montelukast Sodium 10 MG 2100 11/12 2100 AC 11/16 PO 2103 Rosuvastatin Calcium 20 MG 1700 11/13 1700 AC 11/16 PO 1621 Tiotropium [place] 1 PUF DAILY 11/13 1000 AC 11/17 INH 1035 Torsemide 10 MG 11/27 1000 DC PO Torsemide 10 MG Norris@1000 11/19 1000 DC PO Torsemide 20 MG SAT 11/18 1000 AC PO Torsemide 10 MG SuMoWeFr 11/17 1359 AC PO Torsemide 10 MG DAILY 11/16 1000 DC 11/17 PO 1035 Torsemide 10 MG SuMoWeFr 11/12 2015 DC 11/15 PO 2134 Last 24 Hrs of Lab/Luiz Results Last 24 Hrs of Labs/Mics: Laboratory Tests 11/17/17 0640: Anion Gap 7, Estimated GFR > 60, BUN/Creatinine Ratio 15.0, CBC w Diff NO MAN DIFF REQ, RBC 3.71 L, MCV 86.2, MCH 28.5, RDW 16.1 H, MPV 8.0, Gran % 74.5, Lymphocytes % 17.5 L, Monocytes % 5.9, Eosinophils % 1.8, Basophils % 0.3, Absolute Granulocytes 7.2 H, Absolute Lymphocytes 1.7, Absolute Monocytes 0.6, Absolute Eosinophils 0.2, Absolute Basophils 0, PUBS MCHC 33.0 Assessment/Plan Assessment: Assessment 82 yo F with h/o COPD/ asthma, COLT on CPAP, Afib/PE in december on eliquis, CAD s/p stent, resolved pericardial effusion with negative workup, chronic leukocytosis, HTN, recently admitted to [place] (Oct 08) for COPD and recurrent left pleural effusion that was tapped showed exudative effusion with reactive epithelial cells, returned for left sided sharp chest pain (under left breast) radiating to the back, worse with inspiration and coughing, productive cough (brown phlegm), congestion and worsening exertional dyspnea. She was last seen at the infusion center on Oct 30 and received IV solumedrol but her symptoms continued to worsen. A chest x-ray showed a large left pleural effusion, unable to exclude underlying left lower lobe consolidation. CT scan of the chest showed left-sided pleural parenchymal disease. She was started on ceftriaxone and azithromycin for questionable pneumonia but further antibiotics were deferred as per infectious disease due to the unclear etiology of her recurrent effusion. She has been persistently afebrile and has a decreased WBC count since admission. The patient had a recent echocardiogram which showed an ejection fraction of greater than 55%. The patient has no history of malignancy but does admit to recent weight loss. She also had recent cytology which showed atypical epithelial cells that are most likely reactive mesothelial cells. The patient has a history of pulmonary embolism last December and has been on Eliquis since. The patient has normal kidney function. Thus as of yet the etiology of her recurrent pleural effusion is unclear but we are evaluating infection, malignancy, cardiac causes. She had a CTA chest which was negative for PE. Patient had a thoracentesis on the which showed to be exudative, 860 mL were drained. She was restarted on her Eliquis after the procedure. Cytology of the pleural fluid was sent and we are still awaiting results. As per Dr. Garza cardiology the persistent pleural effusions may be caused by scar tissue cause from previous pericarditis that are obstructing the lymphatic system. We have obtained records from [place] regarding her workup there and on echo she had no evidence of pericardial effusion during the time that she has pericarditis although this does not exclude scar tissue formation now. Echocardiogram showed : Normal left and right ventricular systolic function. Biatrial enlargement. Trace to small pericardial effusion. No significant pulmonary hypertension. Ejection fraction 60-65% Plan Acute hypoxic respiratory failure with left recurrent/persistent pleural effusion secondary to questionable pneumonia/malignancy/cardiac causes: -We will continue the supplemental oxygen to keep the patient's oxygen saturation above 92%. This morning oxygen saturation is 95% on room air. -Continue to follow off antibiotics as per infectious disease. -Blood culture no growth -Urine strep and Legionella antigen are negative. -Continue to follow up on pleural fluid cytology -Awaiting pulmonary input -Symbicort and Mucinex as needed A.fib and history of coronary artery disease: -We will continue Cardizem and metoprolol for rate control. -We have restarted Eliquis -Continue aspirin 81 mg Hypotension -Give a low dose of 10 mg torsemide as patient's blood pressures are persistently low. Can alternate with her 20 mg torsemide every other day. History of COPD and obstructive sleep apnea -TRC nebulization as needed -Continue home medication -Continue nighttime CPAP DVT prophylaxis: Eliquis and Alps Code status: Full code Problem List: 1. Recurrent left pleural effusion Pain Ratin Pain Location: Lower legs on palpation Pain Goal: Pain 4 or less Pain Plan: Tylenol for pain Tomorrow's Labs & Rationales: CBC and BEP MarvaClintonmahendra 11/17/17 1209: Attending MD Review Statement Attending Statement Attending MD Statement: examined this patient, discuss w/resident/PA/STEAM SHOVELMAN, agreed w/resident/PA/STEAM SHOVELMAN, discussed with family, reviewed EMR data (avail), discussed with nursing, discussed with case mgmt, reviewed images, amended to note Attending Assessment/Plan: 82 yo F with h/o COPD/ asthma, COLT on CPAP, Afib/ PE on eliquis, CAD s/p stent, resolved pericardial effusion with negative workup, chronic leukocytosis, HTN, recently admitted to [place] (Oct 08) for COPDE and recurrent left pleural effusion that was tapped showed exudative effusion with reactive epithelial cells, returns today for left sided sharp chest pain (under left breast) radiating to the back, worse with inspiration and coughing, productive cough ( brown phlegm), congestion and worsening exertional dyspnea. Patient seen/examined bedside. No new complaints. Her BP is borderline. Patient admit to telemetry monitoring for atypical chest pain likely from pleural origin in high risk patient. Serial cardiac enzymes negative for [place]. Recurrent/persistent pleural effusion : Patient is off antibitoics as per ID, oxygen supplementation as needed s/p thorcacentesis r/o infection or malignancy. Gram stain and cultures negative so far. F/U ID (?empyema and need of abx) and pulmonary (recurrent pleural effusion), cardiology for uncontrolled afib. Afib is better controlled , cardiology consulted, cardizem and metoprolol. CTA chest no PE. Eliquis resumed. cont current care. dc planning with weekly chest xray with Dr Benitez outpatient office. (spoke to Dr Benitez).
--- NOTE | 2017-11-17 14:35 | PN- Pulmonary ---
Subjective HPI/Critical Care Issues: The patient is awake and alert. She has had nausea and gagging this morning. She reports no significant worsening of her breathing. She reports feeling fatigued this morning. She remains on room air. The patient continues to be monitored off antibiotics as per ID. Objective Current Medications: Current Medications Sig/Trinity Start time Last Medication Dose Route Stop Time Status Admin Acetaminophen 650 MG Q6 PRN 11/17 0632 AC 11/17 PO 0637 Acetaminophen 325 MG Q6 PRN 11/12 2015 DC 11/15 PO 2139 Albuterol Sulfate 3 ML Q4P PRN 11/13 2330 AC 11/16 INH 2020 Albuterol Sulfate 2 PUF Q4-6 PRN PRN 11/12 2015 AC INH Apixaban 5 MG BID 11/15 2200 AC 11/17 PO 1034 Aspirin 81 MG DAILY 11/16 1000 AC 11/17 PO 1033 Budesonide/ 2 PUF BID 11/14 1240 AC 11/17 Formoterol Fumarate INH 1035 Digoxin 0.125 MG Q48@1700 11/12 2015 AC 11/16 PO 1621 Diltiazem HCl 180 MG DAILY 11/13 1000 AC 11/17 PO 1034 Fluticasone 2 SPRAY DAILY 11/13 1000 AC 11/17 Propionate JONATHAN 1034 Guaifenesin 600 MG Q12 11/14 1346 AC 11/17 PO 1034 Magnesium Oxide 400 MG DAILY 11/13 1000 AC 11/17 PO 1034 Metoprolol Succinate 25 MG DAILY 11/13 1000 AC 11/17 PO 1034 Montelukast Sodium 10 MG 2100 11/12 2100 AC 11/16 PO 2103 Rosuvastatin Calcium 20 MG 1700 11/13 1700 AC 11/16 PO 1621 Tiotropium [place] 1 PUF DAILY 11/13 1000 AC 11/17 INH 1035 Torsemide 10 MG 11/27 1000 DC PO Torsemide 10 MG Norris@1000 11/19 1000 DC PO Torsemide 20 MG SAT 11/18 1000 AC PO Torsemide 10 MG SuMoWeFr 11/17 1359 AC PO Torsemide 10 MG DAILY 11/16 1000 DC 11/17 PO 1035 Torsemide 10 MG SuMoWeFr 11/12 2015 DC 11/15 PO 2134 Vital Signs & I&O Last 24 Hrs of Vitals and I&O: Vital Signs Date Time Temp Pulse Resp B/P B/P Pulse O2 O2 Flow FiO2 Mean Ox Delivery Rate 11/17 1417 96 Room Air 11/17 1048 98.3 11/17 1034 107 118/64 11/17 0710 98.0 92 18 104/68 95 Room Air 11/17 0000 Room Air 11/16 2221 99.4 117 18 100/64 96 Room Air 11/16 2020 93 Room Air 11/16 1621 91 98/52 11/16 1427 99.6 80 18 96/50 95 Room Air Intake & Output 11/17 1600 11/17 0800 11/17 0000 Intake Total 120 240 Output Total 250 850 Balance -130 -610 Intake, Oral 120 240 Number 0 0 Bowel Movements Output, Urine 250 850 Exam General Appearance: alert, awake, comfortable Head: atraumatic, normal appearance Neck: supple Respiratory: no respiratory distress, quiet respiration, lungs clear Cardiovascular: S1 and S2 heard Abdomen: normal bowel sounds, soft, non-tender Extremities: trace edema Skin: intact, normal color, warm/dry Results Last 24 Hrs of Lab Results: Laboratory Tests 11/17/17 0640: Anion Gap 7, Estimated GFR > 60, BUN/Creatinine Ratio 15.0, CBC w Diff NO MAN DIFF REQ, RBC 3.71 L, MCV 86.2, MCH 28.5, RDW 16.1 H, MPV 8.0, Gran % 74.5, Lymphocytes % 17.5 L, Monocytes % 5.9, Eosinophils % 1.8, Basophils % 0.3, Absolute Granulocytes 7.2 H, Absolute Lymphocytes 1.7, Absolute Monocytes 0.6, Absolute Eosinophils 0.2, Absolute Basophils 0, PUBS MCHC 33.0 Impression/Plan Impression/Plan Impression/Plan: 1. Prevous pericardial effusion with possible constrictive physiology. 2. Recurrent left pleural effusion, exudative. Cytology negative. Etiology remains unclear. Status post repeat thoracentesis on 11/15. 3. History of known atrial fibrillation on Eliquis. 3. History of coronary artery disease with prior LAD stent. 4. History of pulmonary embolism in March 2017. 5. History of mild to moderate asthma. 6. Heart failure with preserved ejection fraction. Recommendations: * Continue diuresis. * Monitor CXRs - will need to monitor effusion. * Increase activity/PT for ambulation. * Continue nebs/TRC. * Check ambulatory oxygen saturations. * Monitor oxygen saturations, keep sats greater than 92% at rest and greaterh than 88% with ambulation. * DVT prophylaxis at all times. * Continue all supportive care per primary team. * Will follow up as out patient.
[2017-11-17 15:01] VITALS: BP 100/60
[2017-11-17 23:30] VITALS: BP 100/58
[2017-11-18 06:54] VITALS: BP 122/62
--- NOTE | 2017-11-18 08:17 | PN- Housestaff ---
See Addendum Subjective Follow-up For: Acute hypoxic respiratory failure due to community-acquired pneumonia/malignancy /cardiac etiology Pleural effusion Complaints: no complaints Tele-Events Since Last Visit: rhythm continues to be in atrial fibrilliation with heart rate controlled to 70s -90s. No overnight events. Subjective: Patient was seen and examined at bedside. She reports doing well. She mentions that she gets short of breath when walks back and forth to bathroom. On rest her breathing is okay. She does not offer any complaints. Review of Systems Constitutional: Reports: no symptoms. Objective Last 24 Hrs of Vital Signs/I&O Vital Signs Date Time Temp Pulse Resp B/P B/P Pulse O2 O2 Flow FiO2 Mean Ox Delivery Rate 11/18 1008 103 116/64 11/18 0820 97 Room Air 11/18 0800 97 Room Air Room Air 11/18 0654 98.3 76 20 122/62 11/18 0633 Room Air 11/17 2330 97.6 93 22 100/58 93 Room Air 11/17 2145 93 Room Air 11/17 1501 97.8 100 20 100/60 96 Room Air 11/17 1417 96 Room Air Intake & Output 11/18 1600 11/18 0800 11/18 0000 Intake Total 200 360 Output Total 200 Balance 0 360 Intake, Oral 200 360 Output, Urine 200 Patient 150 lb Weight Physical Exam General Appearance: Alert, Oriented X3, Cooperative, No Acute Distress Skin: No Rashes, No Breakdown Skin Temp/Moisture Exam: Warm/Dry Sepsis Skin Exam (color): Normal for Ethnicity HEENT: Atraumatic Cardiovascular: Normal S1, Normal S2, No Murmurs, irregular Lungs: Clear to Auscultation, Normal Air Movement Abdomen: Soft, No Tenderness Neurological: Normal Speech Extremities: No Edema, tenderness on palpation of lower extremities (chronic) Assessment/Plan Assessment: Assessment 82 yo F with h/o COPD/ asthma, COLT on CPAP, Afib/PE in december on eliquis, CAD s/p stent, resolved pericardial effusion with negative workup, chronic leukocytosis, HTN, recently admitted to [place] (Oct 08) for COPD and recurrent left pleural effusion that was tapped showed exudative effusion with reactive epithelial cells, returned for left sided sharp chest pain (under left breast) radiating to the back, worse with inspiration and coughing, productive cough (brown phlegm), congestion and worsening exertional dyspnea. She was last seen at the [facility] center on Oct 30 and received IV solumedrol but her symptoms continued to worsen. A chest x-ray showed a large left pleural effusion, unable to exclude underlying left lower lobe consolidation. CT scan of the chest showed left-sided pleural parenchymal disease. She was started on ceftriaxone and azithromycin for questionable pneumonia but further antibiotics were deferred as per infectious disease due to the unclear etiology of her recurrent effusion. She has been persistently afebrile and has a decreased WBC count since admission. The patient had a recent echocardiogram which showed an ejection fraction of greater than 55%. The patient has no history of malignancy but does admit to recent weight loss. She also had recent cytology which showed atypical epithelial cells that are most likely reactive mesothelial cells. The patient has a history of pulmonary embolism last December and has been on Eliquis since. The patient has normal kidney function. Thus as of yet the etiology of her recurrent pleural effusion is unclear but we are evaluating infection, malignancy, cardiac causes. She had a CTA chest which was negative for PE. Patient had a thoracentesis on the which showed to be exudative, 860 mL were drained. She was restarted on her Eliquis after the procedure. Cytology of the pleural fluid was sent results are still pending. As per Dr. Garza cardiology the persistent pleural effusions may be caused by scar tissue cause from previous pericarditis that are obstructing the lymphatic system. We have obtained records from [place] regarding her workup there and on echo she had no evidence of pericardial effusion during the time that she has pericarditis although this does not exclude scar tissue formation now. Echocardiogram showed : Normal left and right ventricular systolic function. Biatrial enlargement. Trace to small pericardial effusion. No significant pulmonary hypertension. Ejection fraction 60-65% Plan: Acute hypoxic respiratory failure with left recurrent/persistent pleural effusion secondary to questionable pneumonia/malignancy/cardiac causes: - Patient is off oxygen now. Her breathing has improved. -Continue to follow off antibiotics as per infectious disease. -Blood culture no growth -Urine strep and Legionella antigen are negative. -Continue to follow up on pleural fluid cytology -Repeat CXR to monitor effusion - pending. -Symbicort and Mucinex as needed - TRC nebs as needed. - continue diuresis. A.fib and history of coronary artery disease: -We will continue Cardizem and metoprolol for rate control. -Continue Apixaban. -Continue aspirin 81 mg Hypotension: -Will alternate with her 20 mg torsemide every other day as her blood pressure was previously on the lower side but currently stable - 116/64 today. History of COPD and obstructive sleep apnea -TRC nebulization as needed -Continue home medication -Continue nighttime CPAP DVT prophylaxis: Eliquis and Alps Code status: Full code Problem List: 1. Pleural effusion Pain Ratin Pain Location: none Pain Goal: Remain pain free Pain Plan: none Tomorrow's Labs & Rationales: CBC
[2017-11-18 08:18] LABS: ABSOLUTE BASOPHIL COUNT 0.1 /CUMM (0.0-0.2); ABSOLUTE EOSINOPHIL COUNT 0.2 /CUMM (0.0-0.7); ABSOLUTE GRANULOCYTE CT 5.8 /CUMM (1.4-6.5); ABSOLUTE MONOCYTE COUNT 0.8 /CUMM (0.10-0.60); BASOPHIL % 0.7 % (0.0-2.0); EOSINOPHIL % 2.7 % (0-5); HEMATOCRIT 32.4 % (37-47); MEAN CORPUSCULAR HGB 28.4 PG (27.0-31.0); MEAN CORPUSCULAR HGB CONC 32.9 G/DL (33.0-37.0); MEAN CORPUSCULAR VOLUME 86.2 FL (81.0-99.0); MEAN PLATELET VOLUME 7.9 FL (7.4-10.4); PLATELET COUNT 408 /CUMM (130-400); RBC DISTRIBUTION WIDTH 16.6 % (11.5-14.5); RED BLOOD CELL CT 3.76 /CUMM (4.20-5.40)
--- NOTE | 2017-11-18 10:33 | PN- Pulmonary ---
Subjective HPI/Critical Care Issues: Patient is comfortable on room air without chest pain or shortness of breath. Objective Current Medications: Current Medications Sig/Trinity Start time Last Medication Dose Route Stop Time Status Admin Acetaminophen 650 MG Q6 PRN 11/17 0632 AC 11/17 PO 0637 Albuterol Sulfate 3 ML Q4P PRN 11/13 2330 AC 11/18 INH 0632 Albuterol Sulfate 2 PUF Q4-6 PRN PRN 11/12 2015 AC INH Apixaban 5 MG BID 11/15 2200 AC 11/18 PO 1008 Aspirin 81 MG DAILY 11/16 1000 AC 11/18 PO 1008 Budesonide/ 2 PUF BID 11/14 1240 AC 11/18 Formoterol Fumarate INH 1009 Digoxin 0.125 MG Q48@1700 11/12 2015 AC 11/16 PO 1621 Diltiazem HCl 180 MG DAILY 11/13 1000 AC 11/18 PO 1008 Fluticasone 2 SPRAY DAILY 11/13 1000 AC 11/18 Propionate JONATHAN 1010 Guaifenesin 600 MG Q12 11/14 1346 AC 11/18 PO 1008 Magnesium Oxide 400 MG DAILY 11/13 1000 AC 11/18 PO 1008 Metoprolol Succinate 25 MG DAILY 11/13 1000 AC 11/18 PO 1008 Montelukast Sodium 10 MG 2100 11/12 2100 AC 11/17 PO 2147 Rosuvastatin Calcium 20 MG 1700 11/13 1700 AC 11/17 PO 1758 Tiotropium [place] 1 PUF DAILY 11/13 1000 AC 11/18 INH 1009 Torsemide 10 MG 11/27 1000 DC PO Torsemide 10 MG Norris@1000 11/19 1000 DC PO Torsemide 20 MG SAT 11/18 1000 AC 11/18 PO 1008 Torsemide 10 MG SuMoWeFr 11/17 1359 AC PO Torsemide 10 MG DAILY 11/16 1000 DC 11/17 PO 1035 Torsemide 10 MG SuMoWeFr 11/12 2015 DC 11/15 PO 2134 Vital Signs & I&O Last 24 Hrs of Vitals and I&O: Vital Signs Date Time Temp Pulse Resp B/P B/P Pulse O2 O2 Flow FiO2 Mean Ox Delivery Rate 11/18 1008 103 116/64 11/18 0820 97 Room Air 11/18 0800 97 Room Air Room Air 11/18 0654 98.3 76 20 122/62 11/18 0633 Room Air 11/17 2330 97.6 93 22 100/58 93 Room Air 11/17 2145 93 Room Air 11/17 1501 97.8 100 20 100/60 96 Room Air 11/17 1417 96 Room Air 11/17 1048 98.3 11/17 1034 107 118/64 Intake & Output 11/18 1600 11/18 0800 11/18 0000 Intake Total 200 360 Output Total 200 Balance 0 360 Intake, Oral 200 360 Output, Urine 200 Patient 150 lb Weight Room oxygen saturation 97% exam for chest shows diminished breath sounds the bases there are no wheezes cardiac exam shows regular S1 and S2 without murmurs Impression/Plan Impression/Plan Impression/Plan: 82-year-old woman with exudative pleural effusion of uncertain etiology Recommendations: Follow up on cultures and cytology assess ambulatory room air oxygen saturation. Follow-up on Dr. Benitez's recommendations
--- NOTE | 2017-11-18 13:29 | PN- Infect Dx ---
Subjective Subjective: Afebrile. She feels well with no complaints Objective Last 24 Hrs of Vital Signs/I&O Vital Signs Date Time Temp Pulse Resp B/P B/P Pulse O2 O2 Flow FiO2 Mean Ox Delivery Rate 11/18 1008 103 116/64 11/18 0820 97 Room Air 11/18 0800 97 Room Air Room Air 11/18 0654 98.3 76 20 122/62 11/18 0633 Room Air 11/17 2330 97.6 93 22 100/58 93 Room Air 11/17 2145 93 Room Air 11/17 1501 97.8 100 20 100/60 96 Room Air 11/17 1417 96 Room Air Intake & Output 11/18 1600 11/18 0800 11/18 0000 Intake Total 200 360 Output Total 200 Balance 0 360 Intake, Oral 200 360 Output, Urine 200 Patient 150 lb Weight Physical Exam Other Physical Findings: She appears comfortable in no acute distress Lungs decreased breath sounds at the left base Heart regular rhythm with no murmur Extremities no cyanosis, clubbing or edema Results Last 24 Hours of Lab Results: Laboratory Tests 11/18 615 Hematology CBC w Diff NO MAN DIFF REQ WBC (4.8 - 10.8 /CUMM) 9.0 RBC (4.20 - 5.40 /CUMM) 3.76 L Hgb (12.0 - 16.0 G/DL) 10.7 L Hct (37 - 47 %) 32.4 L MCV (81.0 - 99.0 FL) 86.2 MCH (27.0 - 31.0 PG) 28.4 RDW (11.5 - 14.5 %) 16.6 H Plt Count (130 - 400 /CUMM) 408 H MPV (7.4 - 10.4 FL) 7.9 Gran % (42.2 - 75.2 %) 65.0 Lymphocytes % (20.5 - 51.1 %) 22.4 Monocytes % (1.7 - 9.3 %) 9.2 Eosinophils % (0 - 5 %) 2.7 Basophils % (0.0 - 2.0 %) 0.7 Absolute Granulocytes (1.4 - 6.5 /CUMM) 5.8 Absolute Lymphocytes (1.2 - 3.4 /CUMM) 2.0 Absolute Monocytes (0.10 - 0.60 /CUMM) 0.8 H Absolute Eosinophils (0.0 - 0.7 /CUMM) 0.2 Absolute Basophils (0.0 - 0.2 /CUMM) 0.1 PUBS MCHC (33.0 - 37.0 G/DL) 32.9 L Left pleural fluid cytology negative Last 24 Hours of Luiz Results: Left pleural fluid culture November 15 negative Assessment/Plan Impression: Stable with temperatures and white blood cell count normal off antibiotics and with recent left thoracentesis for a recurrent left pleural effusion revealing an exudate, with culture and cytology negative. Suggestion: 1. Further management of her recurrent left pleural effusion per Pulmonary 2. Continue to follow off antibiotics
--- NOTE | 2017-11-18 13:37 | PN- Cardiology ---
Subjective Subjective: * Patient continues to report shortness of breath with walking. There is a slight heaviness in her chest. * atrial fibrillation Objective Vital Signs and I&Os Vital Signs Date Time Temp Pulse Resp B/P B/P Pulse O2 O2 Flow FiO2 Mean Ox Delivery Rate 11/18 1008 103 116/64 11/18 0820 97 Room Air 11/18 0800 97 Room Air Room Air 11/18 0654 98.3 76 20 122/62 11/18 0633 Room Air 11/17 2330 97.6 93 22 100/58 93 Room Air 11/17 2145 93 Room Air 11/17 1501 97.8 100 20 100/60 96 Room Air 11/17 1417 96 Room Air Intake & Output 11/18 1600 11/18 0800 11/18 0000 11/17 1600 11/17 0800 11/17 0000 Intake Total 200 360 120 240 Output Total 200 800 250 850 Balance 0 360 -800 -130 -610 Intake, Oral 200 360 120 240 Number 1 0 0 Bowel Movements Output, Urine 200 800 250 850 Patient 150 lb Weight Physical Exam: General: WD/overweight female in NAD; alert and oriented x 3 Neck: no JVD Heart: irregularly irregular Lungs: decreased BS at the left base, no crackles Extremities: 1+ leg edema bilaterally Assessment/Plan Assessment/Plan * Patient is status post a left thoracentesis with evidence of a minimal residual effusion. Some of her residual shortness of breath may be related to her weight and deconditioning although this suboptimad baseline status is exacerbated by recurrent pleural effusions. Continue current dose of torsemide. Continue telemetry? Yes
[2017-11-18 14:00] VITALS: BP 100/60
--- NOTE | 2017-11-18 16:07 | RADIOLOGY REPORT ---
EXAMINATION: XR CHEST CLINICAL INFORMATION: Status post thoracentesis of pleural effusion COMPARISON: Chest x-ray 11/15/2017, CTA chest 11/14/2017. Chest x-ray 11/12/2017 TECHNIQUE: 2 views of the chest were obtained. FINDINGS: There is a large volume left pleural effusion. This opacifies about 50% volume of left hemithorax. The volume of the effusion has increased since the chest x-ray of 11/15/2017. The volume of the effusion is now similar to the chest x-ray of 11/12/2017. This left pleural effusion opacifies the left lung base. No right pleural effusion. No pulmonary vascular congestion. There is multilevel bridging osteophytes of the dorsal spine. IMPRESSION: Large volume left pleural effusion. Volume of effusion has increased since the exam of 11/15/2017.
[2017-11-18 22:32] VITALS: BP 104/60
[2017-11-19 06:45] VITALS: BP 110/60
[2017-11-19 07:53] LABS: ABSOLUTE BASOPHIL COUNT 0.1 /CUMM (0.0-0.2); ABSOLUTE EOSINOPHIL COUNT 0.3 /CUMM (0.0-0.7); ABSOLUTE GRANULOCYTE CT 4.7 /CUMM (1.4-6.5); ABSOLUTE LYMPH COUNT 2.2 /CUMM (1.2-3.4); ABSOLUTE MONOCYTE COUNT 0.7 /CUMM (0.10-0.60); BASOPHIL % 0.7 % (0.0-2.0); EOSINOPHIL % 3.7 % (0-5); GRANULOCYTE % 59.2 % (42.2-75.2); HEMATOCRIT 32.1 % (37-47); MEAN CORPUSCULAR HGB 28.1 PG (27.0-31.0); MEAN CORPUSCULAR HGB CONC 32.8 G/DL (33.0-37.0); MEAN CORPUSCULAR VOLUME 85.7 FL (81.0-99.0); MEAN PLATELET VOLUME 7.7 FL (7.4-10.4); PLATELET COUNT 388 /CUMM (130-400); RBC DISTRIBUTION WIDTH 16.3 % (11.5-14.5); RED BLOOD CELL CT 3.75 /CUMM (4.20-5.40); WHITE BLOOD CELL COUNT 7.9 /CUMM (4.8-10.8)
--- NOTE | 2017-11-19 09:16 | PN- Housestaff ---
Marisa Alberto MD 11/19/17 0916: Subjective Follow-up For: -Acute hypoxic respiratory failure due to community-acquired pneumonia/ malignancy/cardiac etiology -Recurrent pleural effusion Tele-Events Since Last Visit: Patient was in atrial fibrillation with rates ranging from 66-73 with a 7 beat run of V tach at 5:28 AM Subjective: Patient was seen and examined bedside. She notes that she continues to feel "lousy". She continues to get short of breath when walking to the bathroom. She also notes that she is experiencing chills. Review of Systems Constitutional: Reports: chills, weakness. EENTM: Reports: no symptoms. Cardiovascular: Reports: no symptoms. Respiratory: Reports: short of breath. Gastrointestinal: Reports: no symptoms. Genitourinary: Reports: no symptoms. Musculoskeletal: Reports: no symptoms. Skin: Reports: no symptoms. Neurological/Psychological: Reports: no symptoms. Hematologic/Endocrine: Reports: no symptoms. Immunologic/Allergic: Reports: no symptoms. Objective Last 24 Hrs of Vital Signs/I&O Vital Signs Date Time Temp Pulse Resp B/P B/P Pulse O2 O2 Flow FiO2 Mean Ox Delivery Rate 11/19 1640 97 Room Air 11/19 1623 Room Air 11/19 1435 98.0 71 20 100/60 95 Room Air 11/19 1342 95 Room Air Room Air 11/19 0936 97.7 80 16 116/68 94 Room Air Room Air 11/19 0930 80 116/68 11/19 0800 94 Room Air Room Air 11/19 0645 97.5 77 20 110/60 97 Nasal 2.0L Cannula 11/19 0000 Nasal 2.0L Cannula 11/18 2232 98.4 73 20 104/60 90 Room Air Intake & Output 11/19 1600 11/19 0800 11/19 0000 Intake Total 600 150 200 Output Total 400 350 Balance 200 150 -150 Intake, Oral 600 150 200 Output, Urine 400 350 Physical Exam General Appearance: Alert, Oriented X3, Cooperative, No Acute Distress Skin: No Rashes, No Breakdown, No Significant Lesion Skin Temp/Moisture Exam: Warm/Dry HEENT: EOMI Cardiovascular: Normal S1, Normal S2, No Murmurs Lungs: Clear to Auscultation, decreased air movement on the left Abdomen: Normal Bowel Sounds, Soft, No Tenderness Extremities: No Clubbing, No Cyanosis, No Edema, Normal Pulses Vascular: Pulses Symmetrical Current Medications: Current Medications Sig/Trinity Start time Last Medication Dose Route Stop Time Status Admin Acetaminophen 650 MG Q6 PRN 11/17 0632 AC 11/17 PO 0637 Albuterol Sulfate 3 ML Q4P PRN 11/13 2330 AC 11/18 INH 0632 Albuterol Sulfate 2 PUF Q4-6 PRN PRN 11/12 2015 AC INH Apixaban 5 MG BID 11/15 2200 AC 11/19 PO 0929 Aspirin 81 MG DAILY 11/16 1000 AC 11/19 PO 0929 Budesonide/ 2 PUF BID 11/14 1240 AC 11/19 Formoterol Fumarate INH 0931 Digoxin 0.125 MG Q48@1700 11/12 2015 AC 11/18 PO 1558 Diltiazem HCl 180 MG DAILY 11/13 1000 AC 11/19 PO 0929 Fluticasone 2 SPRAY DAILY 11/13 1000 AC 11/19 Propionate JONATHAN 0929 Guaifenesin 600 MG Q12 11/14 1346 AC 11/19 PO 0929 Magnesium Oxide 400 MG DAILY 11/13 1000 AC 11/19 PO 0929 Metoprolol Succinate 25 MG DAILY 11/13 1000 AC 11/19 PO 0930 Montelukast Sodium 10 MG 2100 11/12 2100 AC 11/18 PO 2213 Rosuvastatin Calcium 20 MG 1700 11/13 1700 AC 11/19 PO 1615 Tiotropium [place] 1 PUF DAILY 11/13 1000 AC 11/19 INH 0930 Torsemide 10 MG 11/27 1000 DC PO Torsemide 10 MG Norris@1000 11/19 1000 DC PO Torsemide 20 MG SAT 11/18 1000 AC 11/18 PO 1008 Torsemide 10 MG SuMoWeFr 11/17 1359 AC 11/19 PO 1254 Last 24 Hrs of Lab/Luiz Results Last 24 Hrs of Labs/Mics: Laboratory Tests 11/19/17 0615: CBC w Diff NO MAN DIFF REQ, RBC 3.75 L, MCV 85.7, MCH 28.1, RDW 16.3 H, MPV 7.7, Gran % 59.2, Lymphocytes % 27.9, Monocytes % 8.5, Eosinophils % 3.7, Basophils % 0.7, Absolute Granulocytes 4.7, Absolute Lymphocytes 2.2, Absolute Monocytes 0.7 H, Absolute Eosinophils 0.3, Absolute Basophils 0.1, PUBS MCHC 32.8 L Assessment/Plan Assessment: Assessment 82 yo F with h/o COPD/ asthma, COLT on CPAP, Afib/PE in december on eliquis, CAD s/p stent, resolved pericardial effusion with negative workup, chronic leukocytosis, HTN, recently admitted to [facility] (Oct 08-) for COPD and recurrent left pleural effusion that was tapped showed exudative effusion with reactive epithelial cells, returned for left sided sharp chest pain (under left breast) radiating to the back, worse with inspiration and coughing, productive cough (brown phlegm), congestion and worsening exertional dyspnea. She was last seen at the infusion center on Oct 30 and received IV solumedrol but her symptoms continued to worsen. A chest x-ray showed a large left pleural effusion, unable to exclude underlying left lower lobe consolidation. CT scan of the chest showed left-sided pleural parenchymal disease. The patient had a recent echocardiogram which showed an ejection fraction of greater than 55%. The patient has no history of malignancy but does admit to recent weight loss. The patient has a history of pulmonary embolism last December and has been on Eliquis since. The patient has normal kidney function. She had a CTA chest which was negative for PE. Patient had a thoracentesis on the which showed to be exudative, 860 mL were drained, cytology was normal. As per Dr. Garza cardiology the persistent pleural effusions may be caused by scar tissue cause from previous pericarditis that are obstructing the lymphatic system. 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 Echocardiogram here showed : Normal left and right ventricular systolic function. Biatrial enlargement. Trace to small pericardial effusion. No significant pulmonary hypertension. Ejection fraction 60-65%. Today patient is experiencing chills but is afebrile and continues to have difficulty breathing, more so on exertion. Repeat chest x -ray showed reaccumulation of pleural effusion that now occupies about 50% of the left hemithorax. Plan: Acute hypoxic respiratory failure with left recurrent/persistent pleural effusion secondary to questionable pneumonia/malignancy/cardiac causes: -Patient is off oxygen now. Her breathing has improved. -Continue to follow off antibiotics as per infectious disease. -Blood culture no growth -Urine strep and Legionella antigen are negative. -Symbicort and Mucinex as needed -TRC nebs as needed. -Continue diuresis. -Cardiothoracic surgery consult for reaccumulation of pleural fluid. -As per Guillermina Benitez MD the patient will require weekly chest x-rays outpatient pending cardiothoracic surgery consult first. -Monitor fevers as this would warrant an emergent repeat thoracentesis to exclude pleural infection. A.fib and history of coronary artery disease: -We will continue Cardizem and metoprolol for rate control. -Continue Apixaban. -Continue aspirin 81 mg Hypotension: -Will alternate with her 20 mg torsemide every other day as her blood pressure was previously on the lower side but currently stable. History of COPD and obstructive sleep apnea -TRC nebulization as needed -Continue home medication -Continue nighttime CPAP DVT prophylaxis: Eliquis and Alps Code status: Full code Problem List: 1. Recurrent left pleural effusion Pain Ratin Pain Location: none Pain Goal: Remain pain free Pain Plan: tylenol if pain Tomorrow's Labs & Rationales: cbc bep Kezia Durham 11/19/17 1310: Attending MD Review Statement Attending Statement Attending MD Statement: examined this patient, discuss w/resident/PA/ICE CREAM VENDOR, agreed w/resident/PA/ICE CREAM VENDOR, discussed with family, reviewed EMR data (avail), discussed with nursing, discussed with case mgmt, reviewed images, amended to note Attending Assessment/Plan: 82 yo F with h/o COPD/ asthma, COLT on CPAP, Afib/ PE on eliquis, CAD s/p stent, resolved pericardial effusion with negative workup, chronic leukocytosis, HTN, recently admitted to [facility] (Oct 08) for COPDE and recurrent left pleural effusion that was tapped showed exudative effusion with reactive epithelial cells, returns today for left sided sharp chest pain (under left breast) radiating to the back, worse with inspiration and coughing, productive cough ( brown phlegm), congestion and worsening exertional dyspnea. Patient seen/examined bedside. No new complaints. Her BP is borderline. Patient admit to telemetry monitoring for Atypical chest pain likely from pleural origin in high risk patient. Serial cardiac enzymes negative for IN. Recurrent/persistent pleural effusion : Patient is off antibitoics as per ID, oxygen supplementation as needed s/p thorcacentesis r/o infection or malignancy suggestive of exudative effusion. Gram stain and cultures negative so far. Cytology negative so far. Repeat chest xray showed large volume pleural effusion. PT eval ongoing. CTVS consult. (?pleurex catheter) F/U ID (?empyema and need of abx) and pulmonary (recurrent pleural effusion), cardiology for uncontrolled afib. Afib is better controlled , cardiology consulted, cardizem and metoprolol. CTA chest no PE. c/w Eliquis. dc planning with weekly chest xray with Dr Benitez outpatient office. (spoke to Dr Benitez). Discontinue telemetry.
--- NOTE | 2017-11-19 09:27 | PN- Pulmonary ---
Subjective HPI/Critical Care Issues: Patient complaining of chills though white count is normal and she remains afebrile. Repeat chest x-ray has shown reaccumulation of pleural effusion which is now described is occupying 50% of the hemithorax. Cytology and cultures remain negative Objective Current Medications: Current Medications Sig/Trinity Start time Last Medication Dose Route Stop Time Status Admin Acetaminophen 650 MG Q6 PRN 11/17 0632 AC 11/17 PO 0637 Albuterol Sulfate 3 ML Q4P PRN 11/13 2330 AC 11/18 INH 0632 Albuterol Sulfate 2 PUF Q4-6 PRN PRN 11/12 2015 AC INH Apixaban 5 MG BID 11/15 2200 AC 11/18 PO 2213 Aspirin 81 MG DAILY 11/16 1000 AC 11/18 PO 1008 Budesonide/ 2 PUF BID 11/14 1240 AC 11/18 Formoterol Fumarate INH 2214 Digoxin 0.125 MG Q48@1700 11/12 2015 AC 11/18 PO 1558 Diltiazem HCl 180 MG DAILY 11/13 1000 AC 11/18 PO 1008 Fluticasone 2 SPRAY DAILY 11/13 1000 AC 11/18 Propionate JONATHAN 1010 Guaifenesin 600 MG Q12 11/14 1346 AC 11/18 PO 2213 Magnesium Oxide 400 MG DAILY 11/13 1000 AC 11/18 PO 1008 Metoprolol Succinate 25 MG DAILY 11/13 1000 AC 11/18 PO 1008 Montelukast Sodium 10 MG 2100 11/12 2100 AC 11/18 PO 2213 Rosuvastatin Calcium 20 MG 1700 11/13 1700 AC 11/18 PO 1556 Tiotropium [place] 1 PUF DAILY 11/13 1000 AC 11/18 INH 1009 Torsemide 10 MG 11/27 1000 DC PO Torsemide 10 MG [place]@1000 11/19 1000 DC PO Torsemide 20 MG SAT 11/18 1000 AC 11/18 PO 1008 Torsemide 10 MG SuMoWeFr 11/17 1359 AC PO Vital Signs & I&O Last 24 Hrs of Vitals and I&O: Vital Signs Date Time Temp Pulse Resp B/P B/P Pulse O2 O2 Flow FiO2 Mean Ox Delivery Rate 11/19 0645 97.5 77 20 110/60 97 Nasal 2.0L Cannula 11/19 0000 Nasal 2.0L Cannula 12/23 2232 98.4 73 20 104/60 90 Room Air 11/18 1558 74 100/60 11/18 1400 98.7 110 20 100/60 98 Room Air 11/18 1008 103 116/64 Intake & Output 11/19 1600 11/19 0800 11/19 0000 Intake Total 150 200 Output Total 350 Balance 150 -150 Intake, Oral 150 200 Output, Urine 350 Since saturation 2 L 97% exam for chest shows diminished breath sounds over the left hemithorax cardiac exam shows regular S1 and S2 without murmurs Impression/Plan Impression/Plan Impression/Plan: 82-year-old woman with exudative pleural effusion of uncertain etiology which has now recurred and occupies 50% of her left hemithorax Recommendations: Patient will likely need repeat thoracentesis and consideration of Pleurx catheter and/or pleural biopsy and if rapid recurrence of pleural effusion and negative cultures and cytology. Monitor fever curve with complaint of chills. If she spikes fever in view of recent thoracentesis for emergent repeat thoracentesis would be necessary to exclude pleural infection.
[2017-11-19 09:36] VITALS: BP 116/68
[2017-11-19 14:35] VITALS: BP 100/60
[2017-11-19 21:32] VITALS: BP 100/68
[2017-11-20 06:00] VITALS: BP 128/70
--- NOTE | 2017-11-20 09:04 | PN- Housestaff ---
See Addendum Subjective Follow-up For: -Acute hypoxic respiratory failure due to community-acquired pneumonia/ malignancy/cardiac etiology -Recurrent pleural effusion Tele-Events Since Last Visit: Atrial fibrillation heart rate in 70's to 80's Subjective: I seen and examined the patient. The patient was lying comfortably in the bed. no overnight acute events. Reports shortness of breath earlier which was relieved after breathing treatment. Patient was concerned about her blood pressure dipping into the 90s overnight. Blood pressure in the a.m. 128/70 Review of Systems Constitutional: Reports: see HPI. Objective Last 24 Hrs of Vital Signs/I&O Vital Signs Date Time Temp Pulse Resp B/P B/P Pulse O2 O2 Flow FiO2 Mean Ox Delivery Rate 11/20 1010 96.2 11/20 0942 105 106/62 11/20 0844 94 Room Air Room Air 11/20 0600 99.3 87 18 128/70 91 Room Air 11/20 0143 95 Nasal 2.0L Cannula 11/19 2132 98.8 66 18 100/68 91 11/19 1640 97 Room Air 11/19 1623 Room Air 11/19 1435 98.0 71 20 100/60 95 Room Air 11/19 1342 95 Room Air Room Air Intake & Output 11/20 1600 11/20 0800 11/20 0000 Intake Total 360 360 Output Total 450 Balance -90 360 Intake, Oral 360 360 Output, Urine 450 Physical Exam General Appearance: Alert, Oriented X3, Cooperative HEENT: Atraumatic Cardiovascular: Normal S1, Normal S2 Lungs: decresed air movement on left Abdomen: Normal Bowel Sounds Current Medications: Current Medications Sig/Trinity Start time Last Medication Dose Route Stop Time Status Admin Acetaminophen 650 MG Q6 PRN 11/17 0632 AC 11/17 PO 0637 Albuterol Sulfate 3 ML Q4P PRN 11/13 2330 AC 11/20 INH 0842 Albuterol Sulfate 2 PUF Q4-6 PRN PRN 11/12 2015 AC INH Apixaban 5 MG BID 11/15 2200 AC 11/20 PO 0942 Aspirin 81 MG DAILY 11/16 1000 AC 11/20 PO 0942 Budesonide/ 2 PUF BID 11/14 1240 AC 11/20 Formoterol Fumarate INH 0943 Digoxin 0.125 MG Q48@1700 11/12 2015 AC 11/18 PO 1558 Diltiazem HCl 180 MG DAILY 11/13 1000 AC 11/20 PO 0942 Fluticasone 2 SPRAY DAILY 11/13 1000 AC 11/20 Propionate JONATHAN 0942 Guaifenesin 600 MG Q12 11/14 1346 AC 11/20 PO 0942 Magnesium Oxide 400 MG DAILY 11/13 1000 AC 11/20 PO 0942 Metoprolol Succinate 25 MG DAILY 11/13 1000 AC 11/20 PO 0942 Montelukast Sodium 10 MG 2100 11/12 2100 AC 11/19 PO 2033 Rosuvastatin Calcium 20 MG 1700 11/13 1700 AC 11/19 PO 1615 Tiotropium [place] 1 PUF DAILY 11/13 1000 AC 11/20 INH 0942 Torsemide 10 MG 11/27 1000 DC PO Torsemide 20 MG SAT 11/18 1000 AC 11/18 PO 1008 Torsemide 10 MG SuMoWeFr 11/17 1359 AC 11/19 PO 1254 Assessment/Plan Assessment: Assessment 82 yo F with h/o COPD/ asthma, COLT on CPAP, Afib/PE in december on eliquis, CAD s/p stent, resolved pericardial effusion with negative workup, chronic leukocytosis, HTN, recently admitted to [place] (Oct 08) for COPD and recurrent left pleural effusion that was tapped showed exudative effusion with reactive epithelial cells, returned for left sided sharp chest pain (under left breast) radiating to the back, worse with inspiration and coughing, productive cough (brown phlegm), congestion and worsening exertional dyspnea. She was last seen at the infusion center on Oct 30 and received IV solumedrol but her symptoms continued to worsen. A chest x-ray showed a large left pleural effusion, unable to exclude underlying left lower lobe consolidation. CT scan of the chest showed left-sided pleural parenchymal disease. The patient had a recent echocardiogram which showed an ejection fraction of greater than 55%. The patient has no history of malignancy but does admit to recent weight loss. The patient has a history of pulmonary embolism last December and has been on Eliquis since. The patient has normal kidney function. She had a CTA chest which was negative for PE. Patient had a thoracentesis on the which showed to be exudative, 860 mL were drained, cytology was normal. As per Dr. Garza cardiology the persistent pleural effusions may be caused by scar tissue cause from previous pericarditis that are obstructing the lymphatic system. 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 Echocardiogram here showed : Normal left and right ventricular systolic function. Biatrial enlargement. Trace to small pericardial effusion. No significant pulmonary hypertension. Ejection fraction 60-65%. Today patient is experiencing chills but is afebrile and continues to have difficulty breathing, more so on exertion. Repeat chest x -ray showed reaccumulation of pleural effusion that now occupies about 50% of the left hemithorax. Plan: Acute hypoxic respiratory failure with left recurrent/persistent pleural effusion secondary to questionable pneumonia/malignancy/cardiac causes: Appreciate pulmonary recommendations patient will likely need repeat thoracocentesis and consideration of Pleurx catheter and pleural biopsy * Cardiothoracic consult placed * Consider repeat chest x-ray -Patient is off oxygen now. Her breathing has improved. -Continue to follow off antibiotics as per infectious disease. -Blood culture no growth -Urine strep and Legionella antigen are negative. -Symbicort and Mucinex as needed -TRC nebs as needed. -Continue diuresis. -Cardiothoracic surgery consult for reaccumulation of pleural fluid. -As per Guillermina Benitez MD the patient will require weekly chest x-rays outpatient pending cardiothoracic surgery consult first. -Monitor fevers as this would warrant an emergent repeat thoracentesis to exclude pleural infection. A.fib and history of coronary artery disease: -We will continue Cardizem and metoprolol for rate control. -Continue Apixaban. -Continue aspirin 81 mg Hypotension: -Will alternate with her 20 mg torsemide every other day as her blood pressure was previously on the lower side but currently stable. History of COPD and obstructive sleep apnea -TRC nebulization as needed -Continue home medication -Continue nighttime CPAP DVT prophylaxis: Eliquis and Alps Code status: Full code Problem List: 1. Dyspnea Pain Ratin Pain Location: n/a Pain Goal: Pain 4 or less Pain Plan: prn Tomorrow's Labs & Rationales: cbc bep
--- NOTE | 2017-11-20 09:35 | PN- Pulmonary ---
Subjective HPI/Critical Care Issues: She feels mildly short of breath with recurrent left effusion Objective Current Medications: Current Medications Sig/Trinity Start time Last Medication Dose Route Stop Time Status Admin Acetaminophen 650 MG Q6 PRN 11/17 0632 AC 11/17 PO 0637 Albuterol Sulfate 3 ML Q4P PRN 11/13 2330 AC 11/20 INH 0842 Albuterol Sulfate 2 PUF Q4-6 PRN PRN 11/12 2015 AC INH Apixaban 5 MG BID 11/15 2200 AC 11/19 PO 2033 Aspirin 81 MG DAILY 11/16 1000 AC 11/19 PO 0929 Budesonide/ 2 PUF BID 11/14 1240 AC 11/19 Formoterol Fumarate INH 2033 Digoxin 0.125 MG Q48@1700 11/12 2015 AC 11/18 PO 1558 Diltiazem HCl 180 MG DAILY 11/13 1000 AC 11/19 PO 0929 Fluticasone 2 SPRAY DAILY 11/13 1000 AC 11/19 Propionate JONATHAN 0929 Guaifenesin 600 MG Q12 11/14 1346 AC 11/19 PO 2033 Magnesium Oxide 400 MG DAILY 11/13 1000 AC 11/19 PO 0929 Metoprolol Succinate 25 MG DAILY 11/13 1000 AC 11/19 PO 0930 Montelukast Sodium 10 MG 2100 11/12 2100 AC 11/19 PO 2033 Rosuvastatin Calcium 20 MG 1700 11/13 1700 AC 11/19 PO 1615 Tiotropium [place] 1 PUF DAILY 11/13 1000 AC 11/19 INH 0930 Torsemide 10 MG 11/27 1000 DC PO Torsemide 10 MG Norris@1000 11/19 1000 DC PO Torsemide 20 MG SAT 11/18 1000 AC 11/18 PO 1008 Torsemide 10 MG SuMoWeFr 11/17 1359 AC 11/19 PO 1254 Vital Signs & I&O Last 24 Hrs of Vitals and I&O: Vital Signs Date Time Temp Pulse Resp B/P B/P Pulse O2 O2 Flow FiO2 Mean Ox Delivery Rate 11/20 0844 94 Room Air Room Air 11/20 0600 99.3 87 18 128/70 91 Room Air 11/20 0143 95 Nasal 2.0L Cannula 11/192 98.8 66 18 100/68 91 11/19 1640 97 Room Air 11/19 1623 Room Air 11/19 1435 98.0 71 20 100/60 95 Room Air 11/19 1342 95 Room Air Room Air 11/19 0936 97.7 80 16 116/68 94 Room Air Room Air Intake & Output 11/20 1600 11/20 0800 11/20 0000 Intake Total 360 360 Output Total 450 Balance -90 360 Intake, Oral 360 360 Output, Urine 450 Air oxygen saturation 94% exam for chest shows diminished breath sounds left posterior chest and no wheezes cardiac exam shows normal S1 and S2 without murmurs Impression/Plan Impression/Plan Impression/Plan: 82-year-old woman with exudative pleural effusion of uncertain etiology which has now recurred and occupies 50% of her left hemithorax Recommendations: Patient will likely need repeat thoracentesis and consideration of Pleurx catheter and/or pleural biopsy and if rapid recurrence of pleural effusion and negative cultures and cytology. Monitor fever curve with complaint of chills. If she spikes fever in view of recent thoracentesis for emergent repeat thoracentesis would be necessary to exclude pleural infection. Recommend thoracic surgery evaluation
[2017-11-20 15:00] VITALS: BP 110/70
[2017-11-20 22:47] VITALS: BP 118/60
[2017-11-21 07:41] VITALS: BP 126/74
[2017-11-21 07:45] LABS: ABSOLUTE BASOPHIL COUNT 0.1 /CUMM (0.0-0.2); ABSOLUTE EOSINOPHIL COUNT 0.3 /CUMM (0.0-0.7); ABSOLUTE GRANULOCYTE CT 4.3 /CUMM (1.4-6.5); ABSOLUTE LYMPH COUNT 1.9 /CUMM (1.2-3.4); ABSOLUTE MONOCYTE COUNT 0.6 /CUMM (0.10-0.60); BASOPHIL % 0.8 % (0.0-2.0); EOSINOPHIL % 3.7 % (0-5); GRANULOCYTE % 59.9 % (42.2-75.2); HEMATOCRIT 30.6 % (37-47); MEAN CORPUSCULAR HGB 28.3 PG (27.0-31.0); MEAN CORPUSCULAR VOLUME 85.7 FL (81.0-99.0); MEAN PLATELET VOLUME 7.4 FL (7.4-10.4); PLATELET COUNT 428 /CUMM (130-400); RBC DISTRIBUTION WIDTH 16.4 % (11.5-14.5); RED BLOOD CELL CT 3.57 /CUMM (4.20-5.40); WHITE BLOOD CELL COUNT 7.1 /CUMM (4.8-10.8)
--- NOTE | 2017-11-21 08:51 | PN- Pulmonary ---
Subjective HPI/Critical Care Issues: The patient is awake and alert. She reports feeling improved overall. There were no overnight events. She offers no new complaints today. Objective Current Medications: Current Medications Sig/Trinity Start time Last Medication Dose Route Stop Time Status Admin Acetaminophen 650 MG Q6 PRN 11/17 0632 AC 11/17 PO 0637 Albuterol Sulfate 3 ML Q4P PRN 11/13 2330 AC 11/20 INH 0842 Albuterol Sulfate 2 PUF Q4-6 PRN PRN 11/12 2015 AC INH Apixaban 5 MG BID 11/15 2200 AC 11/20 PO 2120 Aspirin 81 MG DAILY 11/16 1000 AC 11/20 PO 0942 Budesonide/ 2 PUF BID 11/14 1240 AC 11/20 Formoterol Fumarate INH 2120 Digoxin 0.125 MG Q48@1700 11/12 2015 AC 11/20 PO 1629 Diltiazem HCl 180 MG DAILY 11/13 1000 AC 11/20 PO 0942 Fluticasone 2 SPRAY DAILY 11/13 1000 AC 11/20 Propionate JONATHAN 0942 Guaifenesin 600 MG Q12 11/14 1346 AC 11/20 PO 2120 Magnesium Oxide 400 MG DAILY 11/13 1000 AC 11/20 PO 0942 Metoprolol Succinate 25 MG DAILY 11/13 1000 AC 11/20 PO 0942 Montelukast Sodium 10 MG 2100 11/12 2100 AC 11/20 PO 2120 Potassium Chloride 40 MEQ .STK-MED ONE 11/20 1207 DC PO 11/20 1208 Rosuvastatin Calcium 20 MG 1700 11/13 1700 AC 11/20 PO 1629 Tiotropium [place] 1 PUF DAILY 11/13 1000 AC 11/20 INH 0942 Torsemide 10 MG 11/27 1000 DC PO Torsemide 20 MG SAT 11/18 1000 AC 11/18 PO 1008 Torsemide 10 MG SuMoWeFr 11/17 1359 AC 11/20 PO 1437 Zinc Oxide 1 ANGELA BID 11/21 0119 AC TOP Vital Signs & I&O Last 24 Hrs of Vitals and I&O: Vital Signs Date Time Temp Pulse Resp B/P B/P Pulse O2 O2 Flow FiO2 Mean Ox Delivery Rate 11/21 0741 98.1 69 18 126/74 94 Room Air 11/21 0000 Nasal 2.0L Cannula 11/207 97.9 67 16 118/60 94 Room Air 11/20 1916 96 Room Air Room Air 11/20 1629 70 11/20 1600 Room Air 11/20 1500 97.0 102 18 110/70 94 Room Air 11/20 1010 96.2 11/20 0942 105 106/62 Intake & Output 11/21 1600 11/21 0800 11/21 0000 Intake Total Output Total 600 Balance -600 Output, Urine 600 Exam General Appearance: alert, awake, comfortable Head: atraumatic, normal appearance Neck: supple Respiratory: no respiratory distress, quiet respiration, lungs clear Cardiovascular: S1 and S2 heard Abdomen: normal bowel sounds, soft, non-tender Extremities: trace edema Skin: intact, normal color, warm/dry Impression/Plan Impression/Plan Impression/Plan: 1. Prevous pericardial effusion with possible constrictive physiology. 2. Recurrent left pleural effusion, exudative. Cytology negative. Etiology remains unclear. Status post repeat thoracentesis on 11/15. 3. History of known atrial fibrillation on Eliquis. 3. History of coronary artery disease with prior LAD stent. 4. History of pulmonary embolism in March 2017. 5. History of mild to moderate asthma. 6. Heart failure with preserved ejection fraction. Recommendations: * Continue diuresis. * Await CT surgery evaluation - pleurex catheter placement? * Increase activity/PT for ambulation. * Continue nebs/TRC. * Check ambulatory oxygen saturations. * Monitor oxygen saturations, keep sats greater than 92% at rest and greaterh than 88% with ambulation. * DVT prophylaxis at all times. * Continue all supportive care per primary team. * Will follow up as out patient.
--- NOTE | 2017-11-21 08:58 | PN- Housestaff ---
Remy MARIN,Marisa 11/21/17 0858: Subjective Follow-up For: recurrent left pleural effusion hypotension constipation afib Tele-Events Since Last Visit: gen med, off tele Subjective: Patient seen and examined bedside. She notes that she feels ok and is eager to get seen by Dr. Corral CT surgeon for treatment of her recurrent pleural fluid accumulation. Review of Systems Constitutional: Reports: no symptoms. EENTM: Reports: no symptoms. Cardiovascular: Reports: no symptoms. Respiratory: Reports: no symptoms. Gastrointestinal: Reports: constipation. Genitourinary: Reports: no symptoms. Musculoskeletal: Reports: no symptoms. Skin: Reports: no symptoms. Neurological/Psychological: Reports: no symptoms. Hematologic/Endocrine: Reports: no symptoms. Immunologic/Allergic: Reports: no symptoms. Objective Last 24 Hrs of Vital Signs/I&O Vital Signs Date Time Temp Pulse Resp B/P B/P Pulse O2 O2 Flow FiO2 Mean Ox Delivery Rate 11/21 1445 97.9 68 20 112/60 92 Room Air 11/21 1324 96 Room Air Room Air 11/21 1300 106/56 11/21 1037 110/60 11/21 0741 98.1 69 18 126/74 94 Room Air 11/21 0000 Nasal 2.0L Cannula 11/20 2247 97.9 67 16 118/60 94 Room Air 11/20 1916 96 Room Air Room Air 11/20 1629 70 11/20 1600 Room Air 11/20 1500 97.0 102 18 110/70 94 Room Air Intake & Output 11/21 1600 11/21 0800 11/21 0000 Intake Total 480 Output Total 200 600 Balance 280 -600 Intake, Oral 480 Number 0 Bowel Movements Output, Urine 200 600 Physical Exam General Appearance: Alert, Oriented X3, Cooperative, No Acute Distress Skin: No Rashes Skin Temp/Moisture Exam: Warm/Dry Sepsis Skin Exam (color): Normal for Ethnicity HEENT: Atraumatic, PERRLA, EOMI, Mucous Membr. moist/pink Neck: Supple, No JVD Cardiovascular: Regular Rate, Normal S1, Normal S2, No Murmurs Lungs: decreased air entry Abdomen: Normal Bowel Sounds, Soft, No Tenderness, No Hepatospenomegaly, No Masses Neurological: Normal Speech Extremities: No Clubbing, No Cyanosis, No Edema, Normal Pulses, No Tenderness/ Swelling Vascular: Normal Pulses, Pulses Symmetrical Sepsis Peripheral Pulse Location: Radial Sepsis Peripheral Pulse Exam: Normal Sepsis Cap Refill Exam: <2 Sec Current Medications: Current Medications Sig/Trinity Start time Last Medication Dose Route Stop Time Status Admin Acetaminophen 650 MG Q6 PRN 11/17 0632 AC 11/17 PO 0637 Albuterol Sulfate 3 ML Q4P PRN 11/13 2330 AC 11/20 INH 0842 Albuterol Sulfate 2 PUF Q4-6 PRN PRN 11/12 2015 AC INH Apixaban 5 MG BID 11/15 2200 DC 11/21 PO 0851 Aspirin 81 MG DAILY 11/16 1000 AC 11/21 PO 0851 Budesonide/ 2 PUF BID 11/14 1240 AC 11/21 Formoterol Fumarate INH 0849 Digoxin 0.125 MG Q48@1700 11/12 2015 AC 11/20 PO 1629 Diltiazem HCl 180 MG DAILY 11/13 1000 AC 11/21 PO 0851 Fluticasone 2 SPRAY DAILY 11/13 1000 AC 11/21 Propionate JONATHAN 0849 Guaifenesin 600 MG Q12 11/14 1346 AC 11/21 PO 0851 Magnesium Oxide 400 MG DAILY 11/13 1000 AC 11/21 PO 0851 Metoprolol Succinate 25 MG DAILY 11/13 1000 AC 11/20 PO 0942 Montelukast Sodium 10 MG 2100 11/12 2100 AC 11/20 PO 2120 Rosuvastatin Calcium 20 MG 1700 11/13 1700 AC 11/20 PO 1629 Senna 187 MG AT BEDTIME 11/21 2200 AC 11/21 PO 1304 Tiotropium [place] 1 PUF DAILY 11/13 1000 AC 11/21 INH 0850 Torsemide 10 MG 11/27 1000 DC PO Torsemide 20 MG SAT 11/18 1000 AC 11/21 PO 1301 Torsemide 10 MG SuMoWeFr 11/17 1359 AC 11/20 PO 1437 Zinc Oxide 1 ANGELA BID 11/21 0119 AC 11/21 TOP 0850 Last 24 Hrs of Lab/Luiz Results Last 24 Hrs of Labs/Mics: Laboratory Tests 11/21/17 0622: Anion Gap 9, Estimated GFR 60, BUN/Creatinine Ratio 22.2, CBC w Diff NO MAN DIFF REQ, RBC 3.57 L, MCV 85.7, MCH 28.3, RDW 16.4 H, MPV 7.4, Gran % 59.9, Lymphocytes % 27.1, Monocytes % 8.5, Eosinophils % 3.7, Basophils % 0.8, Absolute Granulocytes 4.3, Absolute Lymphocytes 1.9, Absolute Monocytes 0.6, Absolute Eosinophils 0.3, Absolute Basophils 0.1, PUBS MCHC 33.0 Assessment/Plan Assessment: Assessment/Plan: Assessment 82 yo F with h/o COPD/ asthma, COLT on CPAP, Afib/PE in december on eliquis, CAD s/p stent, resolved pericardial effusion with negative workup, chronic leukocytosis, HTN, recently admitted to [facility] (Oct 08) for COPD and recurrent left pleural effusion that was tapped showed exudative effusion with reactive epithelial cells, returned for left sided sharp chest pain (under left breast) radiating to the back, worse with inspiration and coughing, productive cough (brown phlegm), congestion and worsening exertional dyspnea. She recently was seen at [place] for pleural and pericardial effusions, pericarditis. Now she is seen again here at [facility] for recurrence of left pleural effusion. Patient had thoracentesis, found to have exudative fluid, with reaccumlation two days later. Patient was NOT found to have pericardial effusion during her admission with us. Current Problems: Recurrent and persistent left pericardial effusion Afib Hypotension Constipation Plan: 1. Acute hypoxic respiratory failure with left recurrent/persistent pleural effusion secondary to questionable pneumonia/malignancy/cardiac causes: -As per CT surgery, Dr. Corral will perform placement of Pleurx catheter on . -We have held Eliquis pending this. Restart after procedure. As per Dr. Gomez no need to bridge with heparin. -Order for NPO starting Monday night is in. -Patient is off oxygen now. Her breathing has improved, 96% on room air. -Continue to follow off antibiotics as per infectious disease. -Continue to diurese with Torsemide. Hold for blood pressures less than 90 systolic. -Blood culture no growth -Urine strep and Legionella antigen are negative. -Symbicort and Mucinex as needed -TRC nebs as needed. -Monitor fevers as this would warrant an emergent repeat thoracentesis to exclude pleural infection. 2. A.fib and history of coronary artery disease: -We will continue Cardizem and metoprolol and digoxin for rate control. -Continue aspirin 81 mg 3. Hypotension: -Will alternate 10mg with her 20 mg torsemide every other day as her blood pressure was previously on the lower side but currently stable. 4. History of COPD and obstructive sleep apnea -TRC nebulization as needed -Continue home medication -Continue nighttime CPAP 5. Constipation -Senna 6. Genital rash -Zinc oxide has helped, no complaints currentlyl DVT prophylaxis: Alps Code status: Full code Problem List: 1. Recurrent left pleural effusion Pain Ratin Pain Location: none Pain Goal: Remain pain free Pain Plan: tylenol prn Tomorrow's Labs & Rationales: BEP CBC Emre Suazo MD 11/21/17 1545: Attending MD Review Statement Attending Statement Attending MD Statement: examined this patient, discuss w/resident/PA/PROPERTY CLAIM REP, agreed w/resident/PA/PROPERTY CLAIM REP, reviewed EMR data (avail) Attending Assessment/Plan: 82F PMH COPD/ asthma, COLT on CPAP, Afib/PE in december on eliquis, CAD s/p stent , resolved pericardial effusion with negative workup, chronic leukocytosis, HTN, recurrent pleural effusion s/p drainage in September, admitted with acute hypoxemic respiratory failure secondary to large left sided pleural effusion. Underwent thoracentesis on 11/16 revealing transudative effusion, with reaccumulation on CXR on 11/19. Underlying etiology of effusion is unknown, thought by cardiology to be secondary to decreased lymphatic drainage from prior pericardial effusion. Patient still short of breath but overall well and breathing comfortably on room air, saturating well. 1. Acute hypoxemic respiratory failure 2. Recurrent left pleural effusion s/p thoracentesis 3. Paroxysmal atrial fibrillation Plan - Discontinue telemetry, transfer to general medicine - Scheduled for Pleurex catheter placement on 11/23 by cardiothoracic surgery - Follow cardiology and pulmonary recommendations - Continue Torsemide for diuresis - Continue home medications - DVT PPx
--- NOTE | 2017-11-21 09:41 | PN- Cardiology ---
Subjective Subjective: Patient complains of mild edema along with shortness of breath. She denies chest discomfort. Review of Systems: Eyes no blurred or double vision Ears no deafness or ringing Nose and throat no recurrent sinusitis Lungs per history of present illness Heart per history of present illness Abdomen no nausea vomiting Musculoskeletal occasional muscle and joint pains Psych no anxiety or depression Neuro without recurrent headache or seizures Endocrine no heat or cold intolerance Objective Vital Signs and I&Os Vital Signs Date Time Temp Pulse Resp B/P B/P Pulse O2 O2 Flow FiO2 Mean Ox Delivery Rate 11/21 0741 98.1 69 18 126/74 94 Room Air 11/21 0000 Nasal 2.0L Cannula 11/20 2247 97.9 67 16 118/60 94 Room Air 11/20 1916 96 Room Air Room Air 11/20 1629 70 11/20 1600 Room Air 11/20 1500 97.0 102 18 110/70 94 Room Air 11/20 1010 96.2 11/20 0942 105 106/62 Intake & Output 11/21 1600 11/21 0800 11/21 0000 11/20 1600 11/20 0800 11/20 0000 Intake Total 500 360 360 Output Total 600 450 Balance -600 500 -90 360 Intake, Oral 500 360 360 Output, Urine 600 450 Physical Exam: Patient is a well-developed well-nourished female appearing in no acute distress HEENT is unremarkable Neck is supple there is no JVD Lungs decreased breath sounds at left base Heart irregular rhythm S1 and S2 are normal no murmurs gallops or rubs Abdomen bowel sounds positive Extremities 1+ edema Current Medications: Current Medications Sig/Trinity Start time Last Medication Dose Route Stop Time Status Admin Acetaminophen 650 MG Q6 PRN 11/17 0632 AC 11/17 PO 0637 Albuterol Sulfate 3 ML Q4P PRN 11/13 2330 AC 11/20 INH 0842 Albuterol Sulfate 2 PUF Q4-6 PRN PRN 11/12 2015 AC INH Apixaban 5 MG BID 11/15 2200 AC 11/21 PO 0851 Aspirin 81 MG DAILY 11/16 1000 AC 11/21 PO 0851 Budesonide/ 2 PUF BID 11/14 1240 AC 11/21 Formoterol Fumarate INH 0849 Digoxin 0.125 MG Q48@1700 11/12 2015 AC 11/20 PO 1629 Diltiazem HCl 180 MG DAILY 11/13 1000 AC 11/21 PO 0851 Fluticasone 2 SPRAY DAILY 11/13 1000 AC 11/21 Propionate JONATHAN 0849 Guaifenesin 600 MG Q12 11/14 1346 AC 11/21 PO 0851 Magnesium Oxide 400 MG DAILY 11/13 1000 AC 11/21 PO 0851 Metoprolol Succinate 25 MG DAILY 11/13 1000 AC 11/20 PO 0942 Montelukast Sodium 10 MG 2100 11/12 2100 AC 11/20 PO 2120 Potassium Chloride 40 MEQ .STK-MED ONE 11/20 1207 DC PO 11/20 1208 Rosuvastatin Calcium 20 MG 1700 11/13 1700 AC 11/20 PO 1629 Tiotropium Chama 1 PUF DAILY 11/13 1000 AC 11/21 INH 0850 Torsemide 10 MG 11/27 1000 DC PO Torsemide 20 MG SAT 11/18 1000 AC 11/18 PO 1008 Torsemide 10 MG SuMoWeFr 11/17 1359 AC 11/20 PO 1437 Zinc Oxide 1 ANGELA BID 11/21 0119 AC 11/21 TOP 0850 Results Last 48 Hrs of Labs/Mics: Laboratory Tests 11/21/17 0622: Anion Gap 9, Estimated GFR 60, BUN/Creatinine Ratio 22.2, CBC w Diff NO MAN DIFF REQ, RBC 3.57 L, MCV 85.7, MCH 28.3, RDW 16.4 H, MPV 7.4, Gran % 59.9, Lymphocytes % 27.1, Monocytes % 8.5, Eosinophils % 3.7, Basophils % 0.8, Absolute Granulocytes 4.3, Absolute Lymphocytes 1.9, Absolute Monocytes 0.6, Absolute Eosinophils 0.3, Absolute Basophils 0.1, PUBS MCHC 33.0 Recent Imaging Studies: Chest x-ray FINDINGS: There is a large volume left pleural effusion. This opacifies about 50% volume of left hemithorax. The volume of the effusion has increased since the chest x-ray of 11/15/2017. The volume of the effusion is now similar to the chest x-ray of 11/12/2017. This left pleural effusion opacifies the left lung base. No right pleural effusion. No pulmonary vascular congestion. There is multilevel bridging osteophytes of the dorsal spine. IMPRESSION: Large volume left pleural effusion. Volume of effusion has increased since the exam of 11/15/2017. Assessment/Plan Assessment/Plan 1. Prevous pericardial effusion requiring prior transfer to [facility] and cardiac mass was excluded by MRI; concern for constrictive physiology 2. Cardiac catheterization 07/2017 without obstructive CAD, mildly increased filling pressures and concern for interventricular dependence 3. History of known atrial fibrillation on Eliquis 3. History of coronary artery disease with prior LAD stent 4. History of pulmonary embolism in March 2017 5. History of asthma 6. Heart failure with preserved ejection fraction, mild 7. Recurrent Pleural effusion, status post repeat thoracentesis 11/15 8. Previous Renal insufficiency Recommendations 1. Since her effusion has recurred consideration is being made for a Pleurx catheter 2. Continue current medications 3. Continue to diuresis 4. If indeed a Pleurx catheter is planned will need to hold Eliquis Continue telemetry? No
[2017-11-21 10:37] VITALS: BP 110/60
[2017-11-21 13:00] VITALS: BP 106/56
--- NOTE | 2017-11-21 14:33 | Transfer of Care Summary ---
See Addendum Hospital Course Course Hospital Course: 82 yo F with h/o COPD/ asthma, COLT on CPAP, Afib/PE in december on eliquis, CAD s/p stent, resolved pericardial effusion with negative workup, chronic leukocytosis, HTN, recently admitted to [place] (Oct 08) for COPD and recurrent left pleural effusion that was tapped showed exudative effusion with reactive epithelial cells, returned for left sided sharp chest pain (under left breast) radiating to the back, worse with inspiration and coughing, productive cough (brown phlegm), congestion and worsening exertional dyspnea. She was last seen at the [facility] on Oct 30 and received IV solumedrol but her symptoms continued to worsen. The patient was inpatient at [place] in July for the same left-sided pleural effusion. During that hospitalization, a moderate to large pericardial effusion was found. CT chest without contrast showed a moderate pericardial effusion in addition to the pleural effusion was found. On 09/06/17, repeat echocardiogram showed a trace pericardial effusion and echodensity in the pericardial space consistent with an organized fibrinous deposit as well as epicardial fat pad was found. Here, on admission, a chest x-ray showed a large left pleural effusion, unable to exclude underlying left lower lobe consolidation. CT scan of the chest showed left-sided pleural parenchymal disease. The patient had a recent echocardiogram which showed an ejection fraction of greater than 55%. The patient has no history of malignancy but does admit to recent weight loss. The patient has a history of pulmonary embolism last December and has been on Eliquis since. The patient has normal kidney function. She had a CTA chest on 11/14 which was negative for PE. Patient had a thoracentesis on the which resulted in exudative fluid return , 860 mL were drained, cytology was normal. As per Dr. Garza cardiology the persistent pleural effusions may be caused by scar tissue from previous pericarditis that is obstructing the lymphatic system. 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 Echocardiogram here on 11/16 showed: Normal left and right ventricular systolic function. Biatrial enlargement. Trace to small pericardial effusion. No significant pulmonary hypertension. Ejection fraction 60-65%. Repeat chest x-ray on 11/18 unfortuately showed reaccumulation of pleural effusion that now occupies about 50% of the left hemithorax. Patient has had some low blood pressure since admission, toresimide was held on and off. Most recent blood pressure is 86/50. Torsemide held along with metoprolol. Assessment/Plan: Assessment 82 yo F with h/o COPD/ asthma, COLT on CPAP, Afib/PE in december on eliquis, CAD s/p stent, resolved pericardial effusion with negative workup, chronic leukocytosis, HTN, recently admitted to [place] (Oct 08-) for COPD and recurrent left pleural effusion that was tapped showed exudative effusion with reactive epithelial cells, returned for left sided sharp chest pain (under left breast) radiating to the back, worse with inspiration and coughing, productive cough (brown phlegm), congestion and worsening exertional dyspnea. She recently was seen at [place] for pleural and pericardial effusions, pericarditis. Now she is seen again here at [place] for recurrence of left pleural effusion. Patient had thoracentesis, found to have exudative fluid, with reaccumlation two days later. Patient was NOT found to have pericardial effusion during her admission with us. Current Problems: Recurrent and persistent left pericardial effusion Afib Hypotension Constipation Plan: 1. Acute hypoxic respiratory failure with left recurrent/persistent pleural effusion secondary to questionable pneumonia/malignancy/cardiac causes: -As per CT surgery, Dr. Corral will perform placement of Pleurx catheter on . -We have held Eliquis pending this. Restart after procedure. As per Dr. Gomez no need to bridge with heparin. -Order for NPO starting Monday night is in. -Patient is off oxygen now. Her breathing has improved, 96% on room air. -Continue to follow off antibiotics as per infectious disease. -Continue to diurese with Torsemide. Hold for blood pressures less than 90 systolic. -Blood culture no growth -Urine strep and Legionella antigen are negative. -Symbicort and Mucinex as needed -TRC nebs as needed. -Monitor fevers as this would warrant an emergent repeat thoracentesis to exclude pleural infection. 2. A.fib and history of coronary artery disease: -We will continue Cardizem and metoprolol and digoxin for rate control. -Continue aspirin 81 mg 3. Hypotension: -Will alternate 10mg with her 20 mg torsemide every other day as her blood pressure was previously on the lower side but currently stable. 4. History of COPD and obstructive sleep apnea -TRC nebulization as needed -Continue home medication -Continue nighttime CPAP 5. Constipation -Senna DVT prophylaxis: Alps Code status: Full code
[2017-11-21 14:45] VITALS: BP 112/60
[2017-11-21 21:07] VITALS: BP 11/68
[2017-11-22 06:41] VITALS: BP 110/70
--- NOTE | 2017-11-22 07:20 | PN- Housestaff ---
[facility] Subjective Follow-up For: Recurrent left pleural effusion hypotension constipation afib Subjective: No overnight events. Patient remained afebrile overnight. Patient seen and examined this morning bedside. She was lying in bed comfortably. She denied any chest pain, short of breath, nausea, vomiting, abdominal pain dysuria. She is waiting for the Pleurx catheter placement. Review of Systems Constitutional: Reports: no symptoms. EENTM: Reports: no symptoms. Cardiovascular: Reports: no symptoms. Respiratory: Reports: no symptoms. Gastrointestinal: Reports: no symptoms. Genitourinary: Reports: no symptoms. Musculoskeletal: Reports: no symptoms. Neurological/Psychological: Reports: no symptoms. Objective Last 24 Hrs of Vital Signs/I&O Vital Signs Date Time Temp Pulse Resp B/P B/P Pulse O2 O2 Flow FiO2 Mean Ox Delivery Rate 11/22 0956 68 102/60 11/22 0641 97.9 73 20 110/70 97 Nasal 2.0L Cannula 11/21 2130 94 Room Air 11/21 2107 97.9 65 20 91 Room Air 11/21 1600 Room Air 11/21 1445 97.9 68 20 112/60 92 Room Air 11/21 1324 96 Room Air Room Air 11/21 1300 106/56 Intake & Output 11/22 1600 11/22 0800 11/22 0000 Intake Total Output Total 400 500 Balance -400 -500 Output, Urine 400 500 Physical Exam General Appearance: Alert, Oriented X3, Cooperative, No Acute Distress Skin Temp/Moisture Exam: Warm/Dry HEENT: Atraumatic, PERRLA, EOMI Neck: Supple Cardiovascular: Normal S1, Normal S2 Lungs: Clear to Auscultation Abdomen: Soft, No Tenderness Neurological: Normal Speech, Strength at 5/5 X4 Ext, Normal Tone, Sensation Intact Extremities: GRADE 1 ON RIGHT LEG Assessment/Plan Assessment: 82 yo F with h/o COPD/ asthma, COLT on CPAP, Afib/PE in december on eliquis, CAD s/p stent, resolved pericardial effusion with negative workup, chronic leukocytosis, HTN, recently admitted to [place] (Oct 08-) for COPD and recurrent left pleural effusion that was tapped showed exudative effusion with reactive epithelial cells, returned for left sided sharp chest pain (under left breast) radiating to the back, worse with inspiration and coughing, productive cough (brown phlegm), congestion and worsening exertional dyspnea. She recently was seen at [place] for pleural and pericardial effusions, pericarditis. Now she is seen again here at [place] for recurrence of left pleural effusion. Patient had thoracentesis, found to have exudative fluid, with reaccumlation two days later. Patient was NOT found to have pericardial effusion during her admission with us. Current Problems: Recurrent and persistent left pericardial effusion Afib Hypotension Constipation Acute hypoxic respiratory failure with left recurrent/persistent pleural effusion secondary to questionable pneumonia/malignancy/cardiac causes: -As per CT surgery, Dr. Corral will perform placement of Pleurx catheter on . -We have held Eliquis pending this. Restart after procedure. As per Dr. Gomez no need to bridge with heparin. -Order for NPO starting Monday night is in. -Patient is off oxygen now. Her breathing has improved, 96% on room air. -Continue to follow off antibiotics as per infectious disease. -Continue to diurese with Torsemide. Hold for blood pressures less than 90 systolic. -Blood culture no growth -Urine strep and Legionella antigen are negative. -Symbicort and Mucinex as needed -TRC nebs as needed. -Monitor fevers as this would warrant an emergent repeat thoracentesis to exclude pleural infection. A.fib and history of coronary artery disease: -We will continue Cardizem and metoprolol and digoxin for rate control. -Continue aspirin 81 mg Hypotension: -Will alternate 10mg with her 20 mg torsemide every other day as her blood pressure was previously on the lower side but currently stable. History of COPD and obstructive sleep apnea -TRC nebulization as needed -Continue home medication -Continue nighttime CPAP Constipation -Senna Genital rash -Zinc oxide has helped, no complaints currentlyl DVT prophylaxis: Alps Code status: Full code Problem List: 1. Acute respiratory failure with hypoxia 2. Recurrent left pleural effusion Pain Ratin Pain Location: NONE Pain Goal: Remain pain free Pain Plan: TYLENOL FOR MILD PAIN Tomorrow's Labs & Rationales: NONE Cindy Barrera MD 11/22/17 1420: Attending Review Statement Attending Statement Attending Statement: examined this patient, discuss w/resident/PA/REGULATORY LEAD, agreed w/resident/PA/REGULATORY LEAD, reviewed EMR data (avail), discussed with nursing, discussed with case mgmt, amended to note Attending Assessment/Plan: Patient seen and examined. Resting comfortably and not in any acute distress. No issues overnight. Transferred off on the telemetry service yesterday. Denies chest pain. No shortness of breath at rest. She remains afebrile and hemodynamically stable off antibiotic therapy. Case was discussed with the cardiothoracic service. Recommendations are to proceed with a diagnostic thoracoscopy tomorrow with pleural Biopsies as well as pleurodesis. Patient is in agreement with this plan. On examination she is not in any acute distress. Heart sounds are regular. She has diminished breath sounds in the left lung base. Abdomen is soft and nontender. She has 1+ peripheral edema bilaterally. Plan: 1. Recurrent left-sided pleural effusion 2. History of pericardial effusion. 3. Atrial fibrillation on anticoagulation. 4. Coronary artery disease. 5. Heart failure with preserved ejection fraction. Plan: -Patient is scheduled for diagnostic thoracoscopy tomorrow with pleural biopsy and pleurodesis. -Anticoagulation has been on hold. -Patient is hemodynamically stable off antibiotic therapy. -She'll be monitored in the ICU postprocedure. -Continue diuretics.
[2017-11-22 08:46] LABS: ABSOLUTE BASOPHIL COUNT 0.1 /CUMM (0.0-0.2); ABSOLUTE EOSINOPHIL COUNT 0.3 /CUMM (0.0-0.7); ABSOLUTE GRANULOCYTE CT 5.2 /CUMM (1.4-6.5); ABSOLUTE LYMPH COUNT 1.8 /CUMM (1.2-3.4); ABSOLUTE MONOCYTE COUNT 0.7 /CUMM (0.10-0.60); BASOPHIL % 0.8 % (0.0-2.0); EOSINOPHIL % 3.2 % (0-5); GRANULOCYTE % 65.2 % (42.2-75.2); HEMATOCRIT 31.5 % (37-47); MEAN CORPUSCULAR HGB 28.3 PG (27.0-31.0); MEAN CORPUSCULAR VOLUME 85.8 FL (81.0-99.0); MEAN PLATELET VOLUME 7.3 FL (7.4-10.4); PLATELET COUNT 460 /CUMM (130-400); RBC DISTRIBUTION WIDTH 16.4 % (11.5-14.5); RED BLOOD CELL CT 3.67 /CUMM (4.20-5.40); WHITE BLOOD CELL COUNT 7.9 /CUMM (4.8-10.8)
--- NOTE | 2017-11-22 12:13 | Cons- Thoracic Surgery ---
General Information and HPI Consulting Request Date of Consult: 11/21/17 Requested By: Cindy Barrera MD Reason for Consult: Evaluation of recurrent left symptomatic exudative pleural effusion Source of Information: patient, old records, PCP Exam Limitations: no limitations History of Present Illness: The patient is an 82-year-old woman who has had multiple previous admissions with a left pleural effusion. She is undergone 2 previous thoracenteses with negative cytology and fluid consistent with an exudate. She is admitted this time with her complaints of acute dyspnea and pleuritic type chest pain. She underwent a CT angiogram evaluation showing no pulmonary embolism and a recurrent pleural effusion. A thoracentesis was done open exit of serous effusion. She has had evidence of a prompt significant reaccumulation. Thoracic surgical evaluation is asked for help in management and treatment. Allergies/Medications Allergies: Coded Allergies: Penicillins (Severe, ANAPHYLAXIS 05/14/17) lubiprostone (From AMITIZA) (Severe, ITCHING 10/06/17) latex (Intermediate, HIVES 05/14/17) atorvastatin (VOMITING 05/14/17) diphenhydramine (HIVES 05/14/17) Home Med List: Albuterol Sulfate (Proair Hfa) 90 MCG HFA.AER.AD 2 PUF INH Q4-6 PRN PRN DYSPNEA Apixaban (Eliquis) 5 MG TABLET 1 TAB PO BID atrial fibrilliation (Reported) Aspirin (Ecotrin*) 81 MG TABLET.DR 0.25 TAB PO [facility] [employer] (Reported) Digoxin 125 MCG TABLET 1 TAB PO EOD HEART (Reported) Diltiazem HCl (Diltiazem 24HR Cd) 180 MG CAP.ER.24H 1 TAB PO DAILY ARRYTHMIAS (Reported) Fluticasone Propionate (Flonase Allergy Relief) 50 MCG/ACTUATION SPRAY.SUSP 1 SPRAY JONATHAN PRN ALLERGIES (Reported) Fluticasone/Salmeterol (Advair 250-50 Diskus) 250 MCG-50 MCG/DOSE BLST.W.DEV 1 PUF INH BID ASTHMA (Reported) Magnesium Oxide 400 MG TABLET 1 TAB PO DAILY supplement (Reported) Metoprolol Succinate 25 MG TAB 1 TAB PO DAILY HIGH BLOOD PRESSURE (Reported) Montelukast Sodium (Singulair) 10 MG TABLET 1 TAB PO 2100 ALLERGIES (Reported ) Rosuvastatin Calcium (Crestor) (Unknown Strength) TABLET 20 MG PO QPM CHOLESTEROL (Reported) Tiotropium [place] (Spiriva) 18 MCG CAP.W.DEV 1 CAP INH DAILY ASTHMA ( Reported) Torsemide 10 MG TABLET 1 TAB PO Mon water retention . Torsemide 20 MG TABLET 1 TAB PO SAT water retention . Current Medications: Current Medications Sig/Trinity Start time Last Medication Dose Route Stop Time Status Admin Acetaminophen 650 MG Q6 PRN 11/17 0632 AC 11/17 PO 0637 Albuterol Sulfate 3 ML Q4P PRN 11/13 2330 AC 11/20 INH 0842 Albuterol Sulfate 2 PUF Q4-6 PRN PRN 11/12 2015 AC INH Aspirin 81 MG DAILY 11/16 1000 AC 11/22 PO 0950 Budesonide/ 2 PUF BID 11/14 1240 AC 11/21 Formoterol Fumarate INH 2205 Digoxin 0.125 MG Q48@1700 11/12 2015 AC 11/20 PO 1629 Diltiazem HCl 180 MG DAILY 11/13 1000 AC 11/22 PO 0951 Fluticasone 2 SPRAY DAILY 11/13 1000 AC 11/22 Propionate JONATHAN 0959 Guaifenesin 600 MG Q12 11/14 1346 AC 11/22 PO 0951 Magnesium Oxide 400 MG DAILY 11/13 1000 AC 11/22 PO 0951 Metoprolol Succinate 25 MG DAILY 11/13 1000 AC 11/20 PO 0942 Montelukast Sodium 10 MG 2100 11/12 2100 AC 11/21 PO 2204 Rosuvastatin Calcium 20 MG 1700 11/13 1700 AC 11/21 PO 1704 Senna 187 MG AT BEDTIME 11/21 2200 AC 11/21 PO 1304 Tiotropium [place] 1 PUF DAILY 11/13 1000 AC 11/21 INH 0850 Torsemide 10 MG 11/27 1000 DC PO Torsemide 20 MG SAT 11/18 1000 AC 11/21 PO 1301 Torsemide 10 MG SuMoWeFr 11/17 1359 AC 11/22 PO 0958 Zinc Oxide 1 ANGELA BID 11/21 0119 AC 11/21 TOP 0850 Past History Medical History Neurological: NONE EENT: NONE Cardiovascular: AFIB, CAD (s/p PCI of LAD), hypertension, hyperlipidemia, myocardial infarction, NSTEMI, pericardial effusion pulmonary embolism Respiratory: asthma, COPD, obstructive sleep apnea, pulmonary embolism, EFFUSION Gastrointestinal: gastritis Hepatic: NONE Renal: NONE Musculoskeletal: osteoarthritis, cervical disc disease with myelopathy s/p anterior cervical discectomy Psychiatric: anxiety Endocrine: NONE Blood Disorders: NONE Cancer(s): NONE HEALTH COMPANION/Reproductive: NONE Surgical History Pertinent Surgical History: appendectomy, CERVICAL SPINE, C SECTION, BREAST CYST , APPENDICITIS, TONSILITIS CARDIAC STENT breast surgery right knee surgery Family History Relations & Conditions If Any: FATHER FH: myocardial infarction, Onset: 60+. BROTHER FH: myocardial infarction, Onset: 50-60. Psychosocial History Who Do You Live With? spouse Services at Home: None Smoking Status: Former Smoker Functional Ability ADLs Independent: dressing, eating, toileting, bathing. Ambulation: cane, walker IADLs Independent: shopping, housework, finances, food prep, telephone, transportation , medication admin. Review of Systems Review of Systems: Is notable for the dyspnea which has improved since her thoracentesis each time. Her pleuritic pain has resolved. She has had no fevers night sweats or chills. There is been no syncope or presyncope. The respiratory 12 point review of systems is unremarkable. Exam & Diagnostic Data Vital Signs and I&O Vital Signs Date Time Temp Pulse Resp B/P B/P Pulse O2 O2 Flow FiO2 Mean Ox Delivery Rate 11/22 0956 68 102/60 11/22 0641 97.9 73 20 110/70 97 Nasal 2.0L Cannula 11/21 2130 94 Room Air 11/21 2107 97.9 65 20 11/68 91 Room Air 11/21 1600 Room Air 11/21 1445 97.9 68 20 112/60 92 Room Air 11/21 1324 96 Room Air Room Air 11/21 1300 106/56 Intake & Output 11/22 1600 11/22 0800 11/22 0000 11/21 1600 11/21 0800 11/21 0000 Intake Total 0 480 Output Total 200 400 500 200 600 Balance -200 -400 -500 280 -600 Intake, IV 0 Intake, Oral 0 480 Number 0 0 Bowel Movements Output, Urine 200 400 500 200 600 Physical Exam: On physical examination she appears well. Her skin is warm and well perfused no suspicious lesions noted. The sclerae are anicteric and her mucous membranes are moist. There is no cervical or supraclavicular lymphadenopathy. Her breath sounds are diminished on the left side with no wheezes or rhonchi noted. The cardiac exam shows an irregular rhythm and rate with no murmurs or sounds. Her abdomen is soft and nontender with no masses. The periphery shows no cyanosis clubbing or edema. Her neurologic exam is grossly normal for motor and sensory function. Last 24 Hours of Labs: Laboratory Tests 11/22 0716 Chemistry Sodium (137 - 145 mmol/L) 142 Potassium (3.5 - 5.1 mmol/L) 4.2 Chloride (98 - 107 mmol/L) 103 Carbon Dioxide (22 - 30 mmol/L) 28 Anion Gap (5 - 16) 11 BUN (7 - 17 mg/dL) 18 H Creatinine (0.5 - 1.0 mg/dL) 0.8 Estimated GFR (>60 ml/min) > 60 BUN/Creatinine Ratio (7 - 25 %) 22.5 Hematology CBC w Diff NO MAN DIFF REQ WBC (4.8 - 10.8 /CUMM) 7.9 RBC (4.20 - 5.40 /CUMM) 3.67 L Hgb (12.0 - 16.0 G/DL) 10.4 L Hct (37 - 47 %) 31.5 L MCV (81.0 - 99.0 FL) 85.8 MCH (27.0 - 31.0 PG) 28.3 RDW (11.5 - 14.5 %) 16.4 H Plt Count (130 - 400 /CUMM) 460 H MPV (7.4 - 10.4 FL) 7.3 L Gran % (42.2 - 75.2 %) 65.2 Lymphocytes % (20.5 - 51.1 %) 22.5 Monocytes % (1.7 - 9.3 %) 8.3 Eosinophils % (0 - 5 %) 3.2 Basophils % (0.0 - 2.0 %) 0.8 Absolute Granulocytes (1.4 - 6.5 /CUMM) 5.2 Absolute Lymphocytes (1.2 - 3.4 /CUMM) 1.8 Absolute Monocytes (0.10 - 0.60 /CUMM) 0.7 H Absolute Eosinophils (0.0 - 0.7 /CUMM) 0.3 Absolute Basophils (0.0 - 0.2 /CUMM) 0.1 PUBS MCHC (33.0 - 37.0 G/DL) 33.0 Imaging Results: PATIENT: [facility] RECORD NO: [id number] PRESENT AGE: 82 PATIENT ACCOUNT NO: [id number] : 34 LOCATION: 1NO ORDERING PHYSICIAN: Gabriel Gee MD SERVICE DATE: 11/14/17- EXAM TYPE: CAT - CTA CHEST EXAMINATION: CT ANGIOGRAM CHEST CLINICAL INFORMATION: Shortness of breath, pleural effusion tachycardia. Assess for pulmonary embolus. COMPARISON: Chest x-ray and CT scan 11/12/2017. TECHNIQUE: Multiple axial images were obtained through the chest after the administration of 98 mL of Optiray 350 intravenous contrast. Images were reviewed on a dedicated 3-D workstation. DLP: 528.01 mGy-cm FINDINGS: Vascular: The main pulmonary artery, secondary and tertiary branches of the pulmonary artery are normally opacified with no evidence of pulmonary embolism. The aorta, coronary arteries and great vessels demonstrate atheromatous calcifications. There is no evidence of thrombus or dissection.. Mediastinum: There is no mediastinal mass and there is no mediastinal lymphadenopathy. The cardiac size is slightly prominent. There is a small pericardial effusion. Lungs: There is opacification of the left base which may be consistent with atelectasis or consolidation. This underlies a moderate pleural effusion, similar compared to the prior study. The right lung is well-aerated. Pleura: There is a moderate left-sided pleural effusion which has a similar configuration compared to the prior study. Fluid is redemonstrated in the left major fissure. Axilla: There is no axillary lymphadenopathy. There are no masses in the chest wall. Upper abdomen: The adrenal glands are not enlarged. The visualized spleen and kidneys are unremarkable. The gallbladder is not included on the [id number], but was normal on the prior CT scan. Skeletal: There are multilevel degenerative changes in the thoracic spine. There are no acute osseous findings. Bone mineralization is diffusely decreased. There is multilevel osteophytosis with multiple bridging osteophytes. IMPRESSION: 1. There are no pulmonary emboli or thrombi. 2. There has been no interval change in the left-sided moderate pleural effusion with adjacent left lower lobe atelectasis/consolidation. 3. There is a stable small pericardial effusion. DICTATED BY: Moses Dickey MD DATE/TIME DICTATED:11/14/171123 MANAGER OF COMPLIANCE:CYDNEY DATE/TIME TRANSCRIBED:12/19/17 / 1124 CONFIDENTIAL, DO NOT COPY WITHOUT APPROPRIATE AUTHORIZATION. <Electronically signed in Other Vendor System> SIGNED BY: Moses Dickey MD 11/14/17 0375 Assessment/Plan Assessment/Plan 82-year-old woman with significant reaccumulation of a symptomatic left exudative pleural effusion of unknown etiology. Initially requested been made for her Pleurx catheter. After discussion with the patient's professor of radiology I think she is better served by a diagnostic thoracoscopy with pleural biopsies and mechanical and chemical pleurodesis with talc. I explained the objectives to the patient. A Pleurx is more for management and a situation where surgery is either contraindicated or with concerns for problems. She is otherwise stable and I think we are best served with pleural biopsies and pleural cultures. We can also directly examine the lung to make sure that there is complete re-expansion. The plan will be for a left thoracoscopy with pleural biopsies and a combination of mechanical and chemical pleurodesis with talc. The patient is on Eliquis which will be discontinued today and allowing for 48 hours we will proceed on afternoon with the planned procedure. The risks and benefits have been explained to the patient and she understands and agrees. Consult Acknowledgment - Thank you for your consult request.
--- NOTE | 2017-11-22 12:30 | PN- Cardiology ---
Subjective Subjective: Feels quite well today. Denies any chest pain or dyspnea. Objective Vital Signs and I&Os Vital Signs Date Time Temp Pulse Resp B/P B/P Pulse O2 O2 Flow FiO2 Mean Ox Delivery Rate 11/22 0956 68 102/60 11/22 0641 97.9 73 20 110/70 97 Nasal 2.0L Cannula 11/21 2130 94 Room Air 11/21 2107 97.9 65 20 11 91 Room Air 11/21 1600 Room Air 11/21 1445 97.9 68 20 112/60 92 Room Air 11/21 1324 96 Room Air Room Air 11/21 1300 106/56 Intake & Output 11/22 1600 11/22 0800 11/22 0000 11/21 1600 11/21 0800 11/21 0000 Intake Total 0 480 Output Total 200 400 500 200 600 Balance -200 -400 -500 280 -600 Intake, IV 0 Intake, Oral 0 480 Number 0 0 Bowel Movements Output, Urine 200 400 500 200 600 Physical Exam: General: no apparent distress. Alert. Eyes: No obvious scleral icterus. HEENT: No jugular venous distention or abnormal jugular venous pulsations. Cardiovascular: Normal intensity S1/S2. Irregular. Respiratory: Decreased air entry on the left Abdomen: Soft, no guarding or rebound tenderness. Musculoskeletal: No clubbing or cyanosis noted Skin: warm Neurologic: No gross focal deficits noted. Current Medications: Current Medications Sig/Trinity Start time Last Medication Dose Route Stop Time Status Admin Acetaminophen 650 MG Q6 PRN 11/17 0632 AC 11/17 PO 0637 Albuterol Sulfate 3 ML Q4P PRN 11/13 2330 AC 11/20 INH 0842 Albuterol Sulfate 2 PUF Q4-6 PRN PRN 11/12 2015 AC INH Aspirin 81 MG DAILY 11/16 1000 AC 11/22 PO 0950 Budesonide/ 2 PUF BID 11/14 1240 AC 11/21 Formoterol Fumarate INH 2205 Digoxin 0.125 MG Q48@1700 11/12 2015 AC 11/20 PO 1629 Diltiazem HCl 180 MG DAILY 11/13 1000 AC 11/22 PO 0951 Fluticasone 2 SPRAY DAILY 11/13 1000 AC 11/22 Propionate JONATHAN 0959 Guaifenesin 600 MG Q12 11/14 1346 AC 11/22 PO 0951 Magnesium Oxide 400 MG DAILY 11/13 1000 AC 11/22 PO 0951 Metoprolol Succinate 25 MG DAILY 11/13 1000 AC 11/20 PO 0942 Montelukast Sodium 10 MG 2100 11/12 2100 AC 11/21 PO 2204 Rosuvastatin Calcium 20 MG 1700 11/13 1700 AC 11/21 PO 1704 Senna 187 MG AT BEDTIME 11/21 2200 AC 11/21 PO 1304 Tiotropium [place] 1 PUF DAILY 11/13 1000 AC 11/21 INH 0850 Torsemide 10 MG 11/27 1000 DC PO Torsemide 20 MG SAT 11/18 1000 AC 11/21 PO 1301 Torsemide 10 MG SuMoWeFr 11/17 1359 AC 11/22 PO 0958 Zinc Oxide 1 ANGELA BID 11/21 0119 AC 11/21 TOP 0850 Results Last 48 Hrs of Labs/Mics: Laboratory Tests 11/22/17 0716: Anion Gap 11, Estimated GFR > 60, BUN/Creatinine Ratio 22.5, CBC w Diff NO MAN DIFF REQ, RBC 3.67 L, MCV 85.8, MCH 28.3, RDW 16.4 H, MPV 7.3 L, Gran % 65.2, Lymphocytes % 22.5, Monocytes % 8.3, Eosinophils % 3.2, Basophils % 0.8, Absolute Granulocytes 5.2, Absolute Lymphocytes 1.8, Absolute Monocytes 0.7 H, Absolute Eosinophils 0.3, Absolute Basophils 0.1, PUBS MCHC 33.0 11/21/17 0622: Anion Gap 9, Estimated GFR 60, BUN/Creatinine Ratio 22.2, CBC w Diff NO MAN DIFF REQ, RBC 3.57 L, MCV 85.7, MCH 28.3, RDW 16.4 H, MPV 7.4, Gran % 59.9, Lymphocytes % 27.1, Monocytes % 8.5, Eosinophils % 3.7, Basophils % 0.8, Absolute Granulocytes 4.3, Absolute Lymphocytes 1.9, Absolute Monocytes 0.6, Absolute Eosinophils 0.3, Absolute Basophils 0.1, PUBS MCHC 33.0 Recent Imaging Studies: Not on tele Assessment/Plan Assessment/Plan 1.prevous pericardial effusion requiring prior transfer to [place] and cardiac mass was excluded by MRI; concern for constrictive physiology 2. Cardiac catheterization 07/2017 without obstructive CAD, mildly increased filling pressures and concern for interventricular dependence 3. History of known atrial fibrillation on Eliquis 3. History of coronary artery disease with prior LAD stent 4. History of pulmonary embolism in March 2017 5. History of asthma 6. Heart failure with preserved ejection fraction, mild 7. Recurrent Pleural effusion, status post repeat thoracentesis 11/15 with recurrence 8. Previous Renal insufficiency Feels well and remains hemodynamically stable. Continue oral diuretic regimen. I discussed with Dr. Corral earlier and the plan is for a left thoracoscopy with pleural biopsies and a combination of mechanical and chemical pleurodesis with talc. Eliquis is being held in anticipation of this procedure. Continue current AV elizabeth regimen. Johnson Jefferson MD [facility] Continue telemetry? Not applicable
--- NOTE | 2017-11-22 13:51 | PN- Infect Dx ---
Subjective Subjective: Afebrile without complaints Objective Last 24 Hrs of Vital Signs/I&O Vital Signs Date Time Temp Pulse Resp B/P B/P Pulse O2 O2 Flow FiO2 Mean Ox Delivery Rate 11/22 0956 68 102/60 11/22 0641 97.9 73 20 110/70 97 Nasal 2.0L Cannula 11/210 94 Room Air 11/21 2107 97.9 65 20 11 91 Room Air 11/21 1600 Room Air 11/21 1445 97.9 68 20 112/60 92 Room Air Intake & Output 11/22 1600 11/22 0800 11/22 0000 Intake Total 0 Output Total 600 400 500 Balance -600 -400 -500 Intake, IV 0 Intake, Oral 0 Number 0 Bowel Movements Output, Urine 600 400 500 Physical Exam Other Physical Findings: She appears comfortable in no acute distress Lungs decreased breath sounds at the left base Results Last 24 Hours of Lab Results: Laboratory Tests 11/22 0716 Chemistry Sodium (137 - 145 mmol/L) 142 Potassium (3.5 - 5.1 mmol/L) 4.2 Chloride (98 - 107 mmol/L) 103 Carbon Dioxide (22 - 30 mmol/L) 28 Anion Gap (5 - 16) 11 BUN (7 - 17 mg/dL) 18 H Creatinine (0.5 - 1.0 mg/dL) 0.8 Estimated GFR (>60 ml/min) > 60 BUN/Creatinine Ratio (7 - 25 %) 22.5 Hematology CBC w Diff NO MAN DIFF REQ WBC (4.8 - 10.8 /CUMM) 7.9 RBC (4.20 - 5.40 /CUMM) 3.67 L Hgb (12.0 - 16.0 G/DL) 10.4 L Hct (37 - 47 %) 31.5 L MCV (81.0 - 99.0 FL) 85.8 MCH (27.0 - 31.0 PG) 28.3 RDW (11.5 - 14.5 %) 16.4 H Plt Count (130 - 400 /CUMM) 460 H MPV (7.4 - 10.4 FL) 7.3 L Gran % (42.2 - 75.2 %) 65.2 Lymphocytes % (20.5 - 51.1 %) 22.5 Monocytes % (1.7 - 9.3 %) 8.3 Eosinophils % (0 - 5 %) 3.2 Basophils % (0.0 - 2.0 %) 0.8 Absolute Granulocytes (1.4 - 6.5 /CUMM) 5.2 Absolute Lymphocytes (1.2 - 3.4 /CUMM) 1.8 Absolute Monocytes (0.10 - 0.60 /CUMM) 0.7 H Absolute Eosinophils (0.0 - 0.7 /CUMM) 0.3 Absolute Basophils (0.0 - 0.2 /CUMM) 0.1 PUBS MCHC (33.0 - 37.0 G/DL) 33.0 Last 24 Hours of Luiz Results: No new cultures Recent Imaging Studies: Chest x-ray November 18, personally reviewed, reveals a large volume left pleural effusion Assessment/Plan Impression: Stable with temperatures and white blood cell count normal off antibiotics, but with a reaccumulation of her pleural effusion, for unclear reasons. She is apparently scheduled for talc pleurodesis tomorrow. Suggestion: 1. Await pleurodesis, scheduled for the a.m. 2. Continue to follow off antibiotics Will no longer follow at this time but please call with any questions
[2017-11-22 14:39] VITALS: BP 130/70
[2017-11-22 21:56] VITALS: BP 116/74
[2017-11-23 06:34] VITALS: BP 100/52
--- NOTE | 2017-11-23 07:27 | PN- Housestaff ---
[facility] Subjective Follow-up For: Recurrent left pleural effusion A.fib Subjective: No overnight events. Patient remained afebrile. Patient seen and examined this morning. She was sitting in bed comfortably. She denied any chest pain, short of breath, nausea, vomiting, abdominal pain dysuria. Patient nothing by mouth and she will go for pleurodesis today. After the procedure patient will be transferred to ICU for close monitoring. Review of Systems Constitutional: Reports: no symptoms. EENTM: Reports: no symptoms. Cardiovascular: Reports: no symptoms. Respiratory: Reports: no symptoms. Gastrointestinal: Reports: no symptoms. Genitourinary: Reports: no symptoms. Musculoskeletal: Reports: no symptoms. Neurological/Psychological: Reports: no symptoms. Objective Last 24 Hrs of Vital Signs/I&O Vital Signs Date Time Temp Pulse Resp B/P B/P Pulse O2 O2 Flow FiO2 Mean Ox Delivery Rate 11/23 1407 99 Non 100% ReBreather 11/23 0900 66 112/66 11/23 0634 98.1 57 18 100/52 98 11/23 0000 Nasal 2.0L Cannula 11/22 2156 98.4 100 18 116/74 94 11/22 2030 93 Room Air 11/22 1745 122/68 Intake & Output 11/23 1600 11/23 0800 11/23 0000 Intake Total 240 Output Total 250 200 Balance -250 -200 240 Intake, Oral 240 Output, Urine 250 200 Physical Exam General Appearance: Alert, Oriented X3, Cooperative, No Acute Distress Skin Temp/Moisture Exam: Warm/Dry HEENT: Atraumatic, PERRLA, EOMI Neck: Supple Cardiovascular: Normal S1, Normal S2 Lungs: Decreased breath sounds on left side with crackles. Abdomen: Soft, No Tenderness Neurological: Normal Speech, Strength at 5/5 X4 Ext, Normal Tone Extremities: No Edema Assessment/Plan Assessment: 82 yo F with h/o COPD/ asthma, COLT on CPAP, Afib/PE in december on eliquis, CAD s/p stent, resolved pericardial effusion with negative workup, chronic leukocytosis, HTN, recently admitted to [place] (Oct 08-) for COPD and recurrent left pleural effusion that was tapped showed exudative effusion with reactive epithelial cells, returned for left sided sharp chest pain (under left breast) radiating to the back, worse with inspiration and coughing, productive cough (brown phlegm), congestion and worsening exertional dyspnea. She recently was seen at [facility] for pleural and pericardial effusions, pericarditis. Now she is seen again here at [place] for recurrence of left pleural effusion. Patient had thoracentesis, found to have exudative fluid, with reaccumlation two days later. Patient was NOT found to have pericardial effusion during her admission with us. Acute hypoxic respiratory failure:(resolved) -Patient presented with acute hypoxic respiratory failure probably multifactorial including COPD exacerbation and left-sided pleural effusion. -Oxygen supplementation to keep saturation above 92%. -Urine strep and Legionella antigen are negative. -Blood cultures are negative so far. Recurrent left-sided pleural effusion: -Patient has recurrent left-sided pleural effusion without any evidence of etiology. -Patient nothing by mouth today and she will go for mechanical and chemical pleurodesis with pleural biopsy. After the procedure patient will be transferred to ICU for close monitoring. -Holding the patient's Eliquis for the procedure,was started after the procedure. -We will continue Symbicort and Mucinex as needed. -TRC nebulization as needed. H/O A.fib and CAD: -We will continue Cardizem and metoprolol and digoxin for rate control. -Continue aspirin 81 mg. H/O COPD/COLT: -TRC nebulization as needed -Continue home medication -Continue nighttime CPAP H/O constipation: -Senna H/O generalized rash: -Zinc oxide has helped, no complaints currentlyl DVT prophylaxis: Alps Code status: Full code Problem List: 1. Recurrent left pleural effusion Pain Ratin Pain Location: none Pain Goal: Remain pain free Pain Plan: tylenol for mild pain Tomorrow's Labs & Rationales: cbc/bep Cindy Barrera MD 11/23/17 5645: Attending MD Review Statement Attending Statement Attending MD Statement: examined this patient, discuss w/resident/PA/[employer]ER[employer] INSTALLER, agreed w/resident/PA/[employer] INSTALLER, reviewed EMR data (avail), discussed with nursing, discussed with case mgmt, amended to note Attending Assessment/Plan: Patient seen and examined. Resting comfortably in the ICU status post thoracoscopic today with pleural biopsies and pleurodesis. Chest tube in place to suction. Receiving pain control via FIREBREAK CUTTER postop chest x-ray shows no significant pleural effusion. No pneumothorax noted. Continue close monitoring in the intensive care unit overnight per recommendations of the thoracic surgery service. Repeat chest x-ray in a.m. If patient decompensates overnight contact the cardiothoracic surgery service.
[2017-11-23 09:44] LABS: ABSOLUTE BASOPHIL COUNT 0.1 /CUMM (0.0-0.2); ABSOLUTE EOSINOPHIL COUNT 0.2 /CUMM (0.0-0.7); ABSOLUTE LYMPH COUNT 1.7 /CUMM (1.2-3.4); ABSOLUTE MONOCYTE COUNT 0.5 /CUMM (0.10-0.60); BASOPHIL % 0.8 % (0.0-2.0); EOSINOPHIL % 3.8 % (0-5); GRANULOCYTE % 61.2 % (42.2-75.2); HEMATOCRIT 31.7 % (37-47); MEAN CORPUSCULAR HGB 28.2 PG (27.0-31.0); MEAN CORPUSCULAR HGB CONC 33.1 G/DL (33.0-37.0); MEAN CORPUSCULAR VOLUME 85.2 FL (81.0-99.0); MEAN PLATELET VOLUME 7.3 FL (7.4-10.4); PLATELET COUNT 453 /CUMM (130-400); RBC DISTRIBUTION WIDTH 16.3 % (11.5-14.5); RED BLOOD CELL CT 3.72 /CUMM (4.20-5.40); WHITE BLOOD CELL COUNT 6.5 /CUMM (4.8-10.8)
--- NOTE | 2017-11-23 14:28 | RADIOLOGY REPORT ---
EXAMINATION:\H\ \N\XR CHEST CLINICAL INFORMATION: Postoperative chest tube insertion COMPARISON: 11/18/2017 TECHNIQUE: Frontal view of the chest was obtained. FINDINGS: There is a left-sided chest tube in place which extends to the retrocardiac region. Improvement of the previous left-sided pleural effusion. There is no pneumothorax. No dense consolidation. The cardiomediastinal silhouette is unchanged. IMPRESSION: Left-sided chest tube in place. No significant pleural effusion noted. No pneumothorax.
--- NOTE | 2017-11-23 15:26 | Operative Report ---
Operative/Inv Procedure Report Surgery Date: 11/23/17 Name of Procedure: Left thoracoscopy with pleural biopsies and mechanical and chemical pleurodesis Pre-Operative Diagnosis: Recurrent symptomatic left pleural effusion Post-Operative Diagnosis: Same Estimated Blood Loss: less than 50ml Surgeon/Celery Tier: Dr. Corral Anesthesia: general endotracheal tube Operative/Procedure Note Note: After placement of monitoring lines there were multiple attempts to pass the double-lumen endotracheal tube. The patient's tracheal anatomy seemed to be such that there was abandoned and there was difficulty passing the normal double -lumen tube. A 35 mm double-lumen tube was then used and this was positioned appropriately. The patient was then placed in the right lateral decubitus position and her left chest was prepped and draped in a sterile fashion. An access thoracostomy site was made and a second working site was made and anteriorly. There was approximately 600 mL of clear serous effusion that was drained and sent for multiple evaluations. Prior to any surgical maneuvers the lower lobe was reinsufflated directly and it was not trapped and found to have good expansion into the costophrenic angle. The pleura was inspected and there were found to be no lesions throughout the pleura. A traffic representative pleural specimen was taken and sent to pathology for permanent histology. Mechanical pleurodesis was then done with abrasive maneuvers. A talc slurry was then instilled into the chest cavity. The chest was drained with a 28 Cymraes angled chest tube placed through the access site anteriorly and positioned at the costophrenic recess. The lung was again reinsufflated directly and the camera was removed with the camera site closed with deep Vicryl suture followed by running Vicryl subcuticular suture. The patient tolerated the procedure well and was brought to the recovery room awake and extubated in stable condition. She showed no evidence of any upper airway problems related to the difficult intubation. CC: Guillermina Benitez MD
[2017-11-23 16:30] VITALS: BP 100/50; BP 100/60
--- NOTE | 2017-11-23 17:39 | PN- Thoracic Surgery ---
Subjective Subjective: POST OP CHECK Patient states she feel well. She report mild chest discomfort on her elft chest wall and pain with inspiration. She states her pain is well controlled. She reports nausea in PACU, which has since resolved. She offers no other complaints. Objective Vital Signs and I&Os Vital Signs Date Time Temp Pulse Resp B/P B/P Pulse O2 O2 Flow FiO2 Mean Ox Delivery Rate 11/23 1407 99 Non 100% ReBreather 11/23 0900 66 112/66 11/23 0634 98.1 57 18 100/52 98 11/23 0000 Nasal 2.0L Cannula 11/22 2156 98.4 100 18 116/74 94 11/22 2030 93 Room Air 11/22 1745 122/68 Intake & Output 11/23 1600 11/23 0800 11/23 0000 11/22 1600 11/22 0800 11/22 0000 Intake Total 240 500 0 Output Total 250 200 600 400 500 Balance -250 -200 240 -100 -400 -500 Intake, IV 0 0 Intake, Oral 240 500 0 Number 1 0 Bowel Movements Output, Urine 250 200 600 400 500 Physical Exam: Gen: Resting comfortably in bed in NAD Cardiac: S1S2 noted, RRR Lungs: Fair inspiratory effort with crackles at the left base, right lung field clear Chest: Left chest tube in place to suction with 210 cc serosanguineous drainage, no air leak noted, no crepitus palpated on anterior, posterior or lateral chest wall, appropriately tender : Vázquez in place with clear urine Ext: Alps in place, no edema or calf tenderness B/L Current Medications: Current Medications Sig/Trinity Start time Last Medication Dose Route Stop Time Status Admin Acetaminophen 650 MG Q6 PRN 11/17 0632 AC 11/17 PO 0637 Albuterol Sulfate 3 ML Q4P PRN 11/13 2330 AC 11/20 INH 0842 Albuterol Sulfate 2 PUF Q4-6 PRN PRN 11/12 2015 AC INH Aspirin 81 MG DAILY 11/16 1000 AC 11/23 PO 0857 Budesonide/ 2 PUF BID 11/14 1240 AC 11/23 Formoterol Fumarate INH 0900 Cefazolin Sodium 2 GM Q8H 11/23 2000 AC N/A 1 UNIT IV 11/24 0429 Digoxin 0.125 MG Q48@1700 11/12 2015 AC 11/22 PO 1745 Diltiazem HCl 180 MG DAILY 11/13 1000 AC 11/23 PO 0858 Fluticasone 2 SPRAY DAILY 11/13 1000 AC 11/23 Propionate JONATHAN 0901 Guaifenesin 600 MG Q12 11/14 1346 AC 11/23 PO 0858 Hydromorphone HCl 50 MG Q24H PRN 11/23 1330 AC Sodium Chloride 45 ML IV Magnesium Oxide 400 MG DAILY 11/13 1000 AC 11/23 PO 0858 Metoprolol Succinate 25 MG DAILY 11/13 1000 AC 11/23 PO 0900 Montelukast Sodium 10 MG 2100 11/12 2100 AC 11/22 PO 2145 Racepinephrine 0.5 ML ONCE ONE 11/23 1415 DC 11/23 INH 11/23 1416 1405 Rosuvastatin Calcium 20 MG 1700 11/13 1700 AC 11/22 PO 1743 Senna 187 MG AT BEDTIME 11/21 2200 AC 11/22 PO 2145 Sodium Chloride 1,000 ML Q13H 11/23 1430 AC IV Tiotropium [place] 1 PUF DAILY 11/13 1000 AC 11/23 INH 0901 Torsemide 10 MG 11/27 1000 DC PO Torsemide 20 MG SAT 11/18 1000 AC 11/23 PO 0857 Torsemide 10 MG SuMoWeFr 11/17 1359 AC 11/22 PO 0958 Zinc Oxide 1 ANGELA BID 11/21 0119 AC 11/21 TOP 0850 Results Last 48 Hours of Labs: Laboratory Tests 11/23 11/23 11/23 1312 1312 0734 Chemistry Sodium (137 - 145 mmol/L) 142 Potassium (3.5 - 5.1 mmol/L) 4.2 Chloride (98 - 107 mmol/L) 104 Carbon Dioxide (22 - 30 mmol/L) 28 Anion Gap (5 - 16) 9 BUN (7 - 17 mg/dL) 15 Creatinine (0.5 - 1.0 mg/dL) 0.8 Estimated GFR (>60 ml/min) > 60 BUN/Creatinine Ratio (7 - 25 %) 18.8 Hematology CBC w Diff NO MAN DIFF REQ WBC (4.8 - 10.8 /CUMM) 6.5 RBC (4.20 - 5.40 /CUMM) 3.72 L Hgb (12.0 - 16.0 G/DL) 10.5 L Hct (37 - 47 %) 31.7 L MCV (81.0 - 99.0 FL) 85.2 MCH (27.0 - 31.0 PG) 28.2 RDW (11.5 - 14.5 %) 16.3 H Plt Count (130 - 400 /CUMM) 453 H MPV (7.4 - 10.4 FL) 7.3 L Gran % (42.2 - 75.2 %) 61.2 Lymphocytes % (20.5 - 51.1 %) 26.2 Monocytes % (1.7 - 9.3 %) 8.0 Eosinophils % (0 - 5 %) 3.8 Basophils % (0.0 - 2.0 %) 0.8 Absolute Granulocytes (1.4 - 6.5 /CUMM) 4.0 Absolute Lymphocytes (1.2 - 3.4 /CUMM) 1.7 Lymphocytes (%) 84 Absolute Monocytes (0.10 - 0.60 /CUMM) 0.5 Absolute Eosinophils (0.0 - 0.7 /CUMM) 0.2 Absolute Basophils (0.0 - 0.2 /CUMM) 0.1 % Normal PMNs (%) 8 PUBS MCHC (33.0 - 37.0 G/DL) 33.1 Misc Hematology Test (%) Other Body Source Fluid WBC (0 - 5 /CUMM) ND Fld Total RBCs Counted (0 /CUMM) ND Fluid Tot Bilirubin (mg/dL) < 0.1 Fluid LDH (U/L) 306 Fluid Amylase (U/L) < 30 11/22 0716 Chemistry Sodium (137 - 145 mmol/L) 142 Potassium (3.5 - 5.1 mmol/L) 4.2 Chloride (98 - 107 mmol/L) 103 Carbon Dioxide (22 - 30 mmol/L) 28 Anion Gap (5 - 16) 11 BUN (7 - 17 mg/dL) 18 H Creatinine (0.5 - 1.0 mg/dL) 0.8 Estimated GFR (>60 ml/min) > 60 BUN/Creatinine Ratio (7 - 25 %) 22.5 Hematology CBC w Diff NO MAN DIFF REQ WBC (4.8 - 10.8 /CUMM) 7.9 RBC (4.20 - 5.40 /CUMM) 3.67 L Hgb (12.0 - 16.0 G/DL) 10.4 L Hct (37 - 47 %) 31.5 L MCV (81.0 - 99.0 FL) 85.8 MCH (27.0 - 31.0 PG) 28.3 RDW (11.5 - 14.5 %) 16.4 H Plt Count (130 - 400 /CUMM) 460 H MPV (7.4 - 10.4 FL) 7.3 L Gran % (42.2 - 75.2 %) 65.2 Lymphocytes % (20.5 - 51.1 %) 22.5 Monocytes % (1.7 - 9.3 %) 8.3 Eosinophils % (0 - 5 %) 3.2 Basophils % (0.0 - 2.0 %) 0.8 Absolute Granulocytes (1.4 - 6.5 /CUMM) 5.2 Absolute Lymphocytes (1.2 - 3.4 /CUMM) 1.8 Absolute Monocytes (0.10 - 0.60 /CUMM) 0.7 H Absolute Eosinophils (0.0 - 0.7 /CUMM) 0.3 Absolute Basophils (0.0 - 0.2 /CUMM) 0.1 PUBS MCHC (33.0 - 37.0 G/DL) 33.0 Recent Imaging Studies: SERVICE DATE: 11/23/17 EXAM TYPE: RAD - XRY-CHEST XRAY, ONE VIEW ONLY EXAMINATION:\H\ \N\XR CHEST CLINICAL INFORMATION: Postoperative chest tube insertion COMPARISON: 11/18/2017 TECHNIQUE: Frontal view of the chest was obtained. FINDINGS: There is a left-sided chest tube in place which extends to the retrocardiac region. Improvement of the previous left-sided pleural effusion. There is no pneumothorax. No dense consolidation. The cardiomediastinal silhouette is unchanged. IMPRESSION: Left-sided chest tube in place. No significant pleural effusion noted. No pneumothorax. Assessment/Plan Assessment/Plan This is an 82 year-old female s/p left thoracoscopy with pleural biopsies and mechanical and chemical pleurodesis with CT x1 seocondary to recurrent left pleural effusion who is recovering well. CXR reveals significant improvement of left pleural effusion Advance diet as tolerated Keep chest tube to suction Dilaudid x ray developer for pain control Cont postop abx - ancef x2 Order CXR in am for reeval Follow up biopsy Monitor I&Os Cont to hold eliquis Cont TRC Likely d/c lana tomorrow
[2017-11-23 18:00] VITALS: BP 100/54
[2017-11-23 23:45] VITALS: BP 113/61
[2017-11-24] VITALS: BP 110/60
[2017-11-24 02:00] VITALS: BP 108/65
[2017-11-24 04:00] VITALS: BP 120/60
[2017-11-24 04:17] LABS: ABSOLUTE BASOPHIL COUNT 0 /CUMM (0.0-0.2); ABSOLUTE EOSINOPHIL COUNT 0 /CUMM (0.0-0.7); ABSOLUTE GRANULOCYTE CT 10.6 /CUMM (1.4-6.5); ABSOLUTE LYMPH COUNT 0.7 /CUMM (1.2-3.4); ABSOLUTE MONOCYTE COUNT 0.4 /CUMM (0.10-0.60); BASOPHIL % 0.1 % (0.0-2.0); EOSINOPHIL % 0.1 % (0-5); GRANULOCYTE % 90.1 % (42.2-75.2); HEMATOCRIT 33.3 % (37-47); MEAN CORPUSCULAR HGB CONC 32.4 G/DL (33.0-37.0); MEAN CORPUSCULAR VOLUME 86.5 FL (81.0-99.0); MEAN PLATELET VOLUME 7.1 FL (7.4-10.4); PLATELET COUNT 478 /CUMM (130-400); RBC DISTRIBUTION WIDTH 16.2 % (11.5-14.5); RED BLOOD CELL CT 3.85 /CUMM (4.20-5.40)
[2017-11-24 04:24] LABS: WHITE BLOOD CELL COUNT 11.8 /CUMM (4.8-10.8)
[2017-11-24 06:00] VITALS: BP 112/54
--- NOTE | 2017-11-24 06:50 | RADIOLOGY REPORT ---
EXAMINATION: XR PORTABLE CHEST CLINICAL INFORMATION: Status post thoracentesis. COMPARISON: Chest x-ray November 23, 2017. TECHNIQUE: Portable frontal view of the chest was obtained. FINDINGS: Left-sided chest tube in unchanged position. Similar mild retrocardiac opacity with possible trace residual pleural effusion. No pneumothorax is appreciated. Cardiac mediastinal silhouette and osseous structures are stable. IMPRESSION: Left chest tube in unchanged position. Similar mild retrocardiac opacity with possible trace residual pleural effusion.
--- NOTE | 2017-11-24 07:52 | Cons- CRCU ---
General Information and HPI Allergies/Medications Allergies: Coded Allergies: Penicillins (Severe, ANAPHYLAXIS 05/14/17) lubiprostone (From AMITIZA) (Severe, ITCHING 10/06/17) latex (Intermediate, HIVES 05/14/17) atorvastatin (VOMITING 05/14/17) diphenhydramine (HIVES 05/14/17) Home Med List: Albuterol Sulfate (Proair Hfa) 90 MCG HFA.AER.AD 2 PUF INH Q4-6 PRN PRN DYSPNEA Apixaban (Eliquis) 5 MG TABLET 1 TAB PO BID atrial fibrilliation (Reported) Aspirin (Ecotrin*) 81 MG TABLET.DR 0.25 TAB PO QAM HEART HEALTH (Reported) Digoxin 125 MCG TABLET 1 TAB PO EOD HEART (Reported) Diltiazem HCl (Diltiazem 24HR Cd) 180 MG CAP.ER.24H 1 TAB PO DAILY ARRYTHMIAS (Reported) Fluticasone Propionate (Flonase Allergy Relief) 50 MCG/ACTUATION SPRAY.SUSP 1 SPRAY JONATHAN PRN ALLERGIES (Reported) Fluticasone/Salmeterol (Advair 250-50 Diskus) 250 MCG-50 MCG/DOSE BLST.W.DEV 1 PUF INH BID ASTHMA (Reported) Magnesium Oxide 400 MG TABLET 1 TAB PO DAILY supplement (Reported) Metoprolol Succinate 25 MG TAB 1 TAB PO DAILY HIGH BLOOD PRESSURE (Reported) Montelukast Sodium (Singulair) 10 MG TABLET 1 TAB PO 2100 ALLERGIES (Reported ) Rosuvastatin Calcium (Crestor) (Unknown Strength) TABLET 20 MG PO QPM CHOLESTEROL (Reported) Tiotropium [place] (Spiriva) 18 MCG CAP.W.DEV 1 CAP INH DAILY ASTHMA ( Reported) Torsemide 10 MG TABLET 1 TAB PO Mon SUN water retention . Torsemide 20 MG TABLET 1 TAB PO Mon water retention . 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 BROTHER FH: myocardial infarction, Onset: 50-60. Psychosocial History Who Do You Live With? spouse Services at Home: None Smoking Status: Former Smoker Functional Ability ADLs Independent: dressing, eating, toileting, bathing. Ambulation: cane, walker IADLs Independent: shopping, housework, finances, food prep, telephone, transportation , medication admin. Assessment/Plan Consult Acknowledgment - Thank you for your consult request.
--- NOTE | 2017-11-24 07:57 | PN- CRCU ---
Subjective HPI/Critical Care Issues: Chart reviewed. No overnight events reported. Objective Current Medications: Current Medications Sig/Trinity Start time Last Medication Dose Route Stop Time Status Admin Acetaminophen 650 MG Q6 PRN 11/17 0632 AC 11/24 PO 0611 Albuterol Sulfate 3 ML Q4P PRN 11/13 2330 AC 11/20 INH 0842 Albuterol Sulfate 2 PUF Q4-6 PRN PRN 11/12 2015 AC INH Aspirin 81 MG DAILY 11/16 1000 AC 11/23 PO 0857 Budesonide/ 2 PUF BID 11/14 1240 AC 11/23 Formoterol Fumarate INH 0900 Cefazolin Sodium 2 GM Q8H 11/23 2000 DC 11/24 N/A 1 UNIT IV 11/24 0429 0443 Dexamethasone 4 MG .STK-MED ONE 11/23 1047 MS IM 11/23 1048 Digoxin 0.125 MG Q48@1700 11/12 2015 AC 11/22 PO 1745 Diltiazem HCl 180 MG DAILY 11/13 1000 AC 11/23 PO 0858 Fentanyl Citrate 250 MCG .STK-MED ONE 11/23 1046 DC IM 11/23 1047 Fluticasone 2 SPRAY DAILY 11/13 1000 AC 11/23 Propionate JONATHAN 0901 Guaifenesin 600 MG Q12 11/14 1346 AC 11/23 PO 2338 Haloperidol 5 MG .STK-MED ONE 11/23 1618 MS IM 11/23 1619 Hydromorphone HCl 2 MG .STK-MED ONE 11/23 1424 DC IM 11/23 1425 Hydromorphone HCl 2 MG .STK-MED ONE 11/23 1402 MS IM 11/23 1403 Hydromorphone HCl 50 MG Q24H PRN 11/23 1330 AC Sodium Chloride 45 ML IV Hydromorphone HCl 2 MG .STK-MED ONE 11/23 1046 DC IM 11/23 1047 Magnesium Oxide 400 MG DAILY 11/13 1000 AC 11/23 PO 0858 Metoprolol Succinate 25 MG DAILY 11/13 1000 AC 11/23 PO 0900 Midazolam HCl 2 MG .STK-MED ONE 11/23 1047 DC IM 11/23 1048 Montelukast Sodium 10 MG 2100 11/12 2100 AC 11/22 PO 2145 Ondansetron HCl 8 MG .STK-MED ONE 11/23 1047 DC IM 11/23 1048 Racepinephrine 0.5 ML ONCE ONE 11/23 1415 DC 11/23 INH 11/23 1416 1405 Rosuvastatin Calcium 20 MG 1700 11/13 1700 AC 11/22 PO 1743 Senna 187 MG AT BEDTIME 11/21 2200 AC 11/22 PO 2145 Sodium Chloride 1,000 ML Q13H 11/23 1430 AC 11/23 IV 1900 Tiotropium [place] 1 PUF DAILY 11/13 1000 AC 11/23 INH 0901 Torsemide 10 MG 11/27 1000 DC PO Torsemide 20 MG SAT 11/18 1000 AC 11/23 PO 0857 Torsemide 10 MG SuMoWeFr 11/17 1359 AC 11/22 PO 0958 Zinc Oxide 1 ANGELA BID 11/21 0119 AC 11/21 TOP 0850 Vital Signs & I&O Last 24 Hrs of Vitals and I&O: Vital Signs Date Time Temp Pulse Resp B/P B/P Pulse O2 O2 Flow FiO2 Mean Ox Delivery Rate 11/24 0600 79 20 112/54 11/24 0400 97.2 66 16 120/60 11/24 0400 98 Nasal 3.0L Cannula 11/24 0200 68 16 108/65 11/24 0000 97 Nasal 3.0L Cannula 11/24 0000 96.6 86 16 110/60 97 Nasal 3.0L Cannula 11/23 2345 66 16 113/61 11/23 2000 95 Nasal 3.0L Cannula 11/23 1800 74 10 100/54 11/23 1630 98.0 88 10 100/50 11/23 1630 98.0 74 10 100/60 94 Nasal 3.0L Cannula 11/23 1630 94 Nasal 3.0L Cannula 11/23 1407 99 Non 100% ReBreather 11/23 0900 66 112/66 Intake & Output 11/24 0800 11/24 0000 11/23 1600 Intake Total 620 645 Output Total 452 029 2503 Balance 375 55 -1150 Intake, IV 520 525 Intake, Oral 100 120 Output, 50 Drainage Output, Urine 095 844 0953 Exam General Appearance: alert, awake, comfortable Head: atraumatic, normal appearance Neck: supple Respiratory: no respiratory distress, quiet respiration, lungs clear Cardiovascular: S1 and S2 heard Abdomen: normal bowel sounds, soft, non-tender Extremities: trace edema Skin: intact, normal color, warm/dry Impression/Plan Impression/Plan Impression/Plan: 1. Prevous pericardial effusion with possible constrictive physiology. 2. Recurrent left pleural effusion, exudative. Patient is s/p left thoracoscopy with pleural biopsies and mechanical and chemical pleurodesis. Sample evaluation is pending. 3. History of known atrial fibrillation, previously on Eliquis (held for procedure). 3. History of coronary artery disease with prior LAD stent. 4. History of pulmonary embolism in March 2017. 5. History of mild to moderate asthma. 6. Heart failure with preserved ejection fraction. Recommendations: * Out of bed to chair. Post operative CT surgery protocol. * Continue nebs/TRC. * Start incentive spirometry. * Continue with pain control. * Continue Symbicort and Spiriva. * Monitor off antibiotics per ID. * Monitor oxygen saturations, keep sats greater than 92% at rest and greater than 88% with ambulation. * DVT prophylaxis at all times. Will need to discuss with CT surgery when Eliquis can be restarted. * Continue all supportive care.
[2017-11-24 08:00] VITALS: BP 110/62
--- NOTE | 2017-11-24 09:11 | PN- Resident CRCU ---
Noni Avina 11/24/17 0843: Subjective HPI/CRCU Issues: * Recurrent symptomatic pleural effusions(exudative) day 1 status post left thoracoscopy with mechanical and chemical pleurodesis. * History of A. fib/PE on Eliquis (currently on hold for the procedure ) * Coronary artery disease status post stent placement * History of COPD not on home oxygen * History of obstructive sleep apnea on CPAP * Hyperlipidemia 24 Hour Events: Patient is day 1 status post left-sided thoracoscopy. She feels well. Complains of mild chest pain on the left lateral side at the region of the chest tube. No palpitations, nausea, vomiting, abdominal pain, urinary or bowel symptoms. Vital stable overnight. Objective Vital Signs & I&O Last 8 Hrs of Vitals and I&O: JBJ Exam General Appearance: well developed/nourished, no apparent distress, alert, awake , comfortable Head: atraumatic, normal appearance Ears, Nose, Throat: normal pharynx Neck: normal inspection Respiratory: normal breath sounds, chest non-tender, BILATERAL BASAL CRACKLES Cardiovascular: regular rate/rhythm, CHEST TUBEON THE LEFT LATERAL CHEST WALL, MILD TENDERNESS AROUND THE AREA. Gastrointestinal: normal bowel sounds, soft, non-tender Extremities: normal inspection Current Medications: Current Medications Sig/Trinity Start time Last Medication Dose Route Stop Time Status Admin Acetaminophen 650 MG Q6 PRN 11/17 0632 AC 11/24 PO 0611 Albuterol Sulfate 3 ML Q4P PRN 11/13 2330 AC 11/20 INH 0842 Albuterol Sulfate 2 PUF Q4-6 PRN PRN 11/12 2015 AC INH Aspirin 81 MG DAILY 11/16 1000 AC 11/23 PO 0857 Budesonide/ 2 PUF BID 11/14 1240 AC 11/23 Formoterol Fumarate INH 0900 Cefazolin Sodium 2 GM Q8H 11/23 2000 DC 11/24 N/A 1 UNIT IV 11/24 0429 0443 Dexamethasone 4 MG .STK-MED ONE 11/23 1047 DC IM 11/23 1048 Digoxin 0.125 MG Q48@1700 11/12 2015 AC 11/22 PO 1745 Diltiazem HCl 180 MG DAILY 11/13 1000 AC 11/23 PO 0858 Fentanyl Citrate 250 MCG .STK-MED ONE 11/23 1046 DC IM 11/23 1047 Fluticasone 2 SPRAY DAILY 11/13 1000 AC 11/23 Propionate JONATHAN 0901 Guaifenesin 600 MG Q12 11/14 1346 AC 11/23 PO 2338 Haloperidol 5 MG .STK-MED ONE 11/23 1618 DC IM 11/23 1619 Hydromorphone HCl 2 MG .STK-MED ONE 11/23 1424 DC IM 11/23 1425 Hydromorphone HCl 2 MG .STK-MED ONE 11/23 1402 DC IM 11/23 1403 Hydromorphone HCl 50 MG Q24H PRN 11/23 1330 AC Sodium Chloride 45 ML IV Hydromorphone HCl 2 MG .STK-MED ONE 11/23 1046 DC IM 11/23 1047 Magnesium Oxide 400 MG DAILY 11/13 1000 AC 11/23 PO 0858 Metoprolol Succinate 25 MG DAILY 11/13 1000 AC 11/23 PO 0900 Midazolam HCl 2 MG .STK-MED ONE 11/23 1047 DC IM 11/23 1048 Montelukast Sodium 10 MG 2100 11/12 2100 AC 11/22 PO 2145 Ondansetron HCl 8 MG .STK-MED ONE 11/23 1047 DC IM 11/23 1048 Racepinephrine 0.5 ML ONCE ONE 11/23 1415 DC 11/23 INH 11/23 1416 1405 Rosuvastatin Calcium 20 MG 1700 11/13 1700 AC 11/22 PO 1743 Senna 187 MG AT BEDTIME 11/21 2200 AC 11/22 PO 2145 Sodium Chloride 1,000 ML Q13H 11/23 1430 AC 11/23 IV 1900 Tiotropium [place] 1 PUF DAILY 11/13 1000 AC 11/23 INH 0901 Torsemide 10 MG 11/27 1000 DC PO Torsemide 20 MG SAT 11/18 1000 AC 11/23 PO 0857 Torsemide 10 MG SuMoWeFr 11/17 1359 AC 11/22 PO 0958 Zinc Oxide 1 ANGELA BID 11/21 0119 AC 11/21 TOP 0850 Impression/Plan Impression/Problem List Impression: 82 yo F with h/o COPD/ asthma, COLT on CPAP, Afib/PE in december on eliquis, CAD s/p stent, resolved pericardial effusion with negative workup, chronic leukocytosis, HTN, recently admitted to [facility] (Oct 08) for COPD and recurrent left pleural effusion that was tapped showed exudative effusion with reactive epithelial cells, returned for left sided sharp chest pain (under left breast) radiating to the back, worse with inspiration and coughing, productive cough (brown phlegm), congestion and worsening exertional dyspnea. Patient is day 1 status post left thoracoscopy with mechanical and chemical pleurodesis. Assessment * Recurrent symptomatic pleural effusions(exudative) day 1 status post left thoracoscopy with mechanical and chemical pleurodesis. * History of A. fib/PE on Eliquis (currently on hold for the procedure ) * Coronary artery disease status post stent placement * History of COPD not on home oxygen * History of obstructive sleep apnea on CPAP * Hyperlipidemia Plan: * Close monitoring in ICU * Vitals per protocol * Chest tube draining well 210 cc of serosanguineous discharge, keep chest tube to suction. * Chest x-ray this morning shows good tube position. * Dilaudid WIDTH STRIPPER for pain control * Patient received 2 doses of Ancef postoperatively * Follow up biopsy results * Continue to hold Eliquis/discuss with surgery when to resume * Diet has been advanced to heart healthy * Appreciate cardiothoracic surgery recommendations * Physical therapy/out of bed to chair * Incentive spirometry * We will continue Symbicort/Spiriva/Singulair and other home medications. * Patient currently on 3 L, will try to wean down on the oxygen to keep saturations more than 92% * DVT prophylaxis Alps * Full code Problem List: 1. Recurrent left pleural effusion 2. Status post chest tube placement Pain Ratin Pain Location: Left lateral chest wall Pain Plan: Dilaudid WIDTH STRIPPER Tomorrow's Labs & Rationales: C BC, status post surgery BeP Plan DVT/Prophylaxis: mechanical Guillermina Benitez MD 11/24/17 1009: Attending MD Review Statement Attending Sign Off Attending Cosign Statement: I have: examined this patient, reviewed [facility] EMR data, personally reviewd images, discussd w/resident/PA/REAL ESTATE LOAN OFFICER, discussed mgmt plan w/mikal, discussed mgmt plan w/pt, agreed w/resident/PA/REAL ESTATE LOAN OFFICER, amended to note. Reason for Cont Hospitalizatn: Post thoracic surgery Adverse Outcomes if Pt Leaves: none Other Findings: The patient is doing better overall. She tolerated the VATS/pleurodiesis well. She feels less shortness of breath. Her oxygen has been reduced to 2 lpm. She is less stable. She has post operatiive pain however she does not want to take pain medication. Please see my note from earlier today for assessment and plan.
[2017-11-24 16:00] VITALS: BP 108/58; BP 95/45
--- NOTE | 2017-11-24 16:18 | PN- Thoracic Surgery ---
Surgical Brief Attending Note Brief Attending Note: Stable post excisional biopsy of pleura and pleurodesis. There is minimal drainage in the chest tube. We'll continue with tube on suction and reassess tomorrow.
[2017-11-25] VITALS: BP 96/54
[2017-11-25 05:04] LABS: ABSOLUTE BASOPHIL COUNT 0.1 /CUMM (0.0-0.2); ABSOLUTE EOSINOPHIL COUNT 0 /CUMM (0.0-0.7); ABSOLUTE GRANULOCYTE CT 12.8 /CUMM (1.4-6.5); ABSOLUTE LYMPH COUNT 1.4 /CUMM (1.2-3.4); ABSOLUTE MONOCYTE COUNT 0.5 /CUMM (0.10-0.60); BASOPHIL % 0.5 % (0.0-2.0); EOSINOPHIL % 0 % (0-5); GRANULOCYTE % 87.2 % (42.2-75.2); HEMATOCRIT 30.3 % (37-47); MEAN CORPUSCULAR HGB 28.3 PG (27.0-31.0); MEAN CORPUSCULAR HGB CONC 32.7 G/DL (33.0-37.0); MEAN CORPUSCULAR VOLUME 86.5 FL (81.0-99.0); MEAN PLATELET VOLUME 7.5 FL (7.4-10.4); PLATELET COUNT 421 /CUMM (130-400); RBC DISTRIBUTION WIDTH 16.9 % (11.5-14.5); WHITE BLOOD CELL COUNT 14.7 /CUMM (4.8-10.8)
[2017-11-25 08:00] VITALS: BP 104/58
--- NOTE | 2017-11-25 08:39 | PN- Resident CRCU ---
Subjective HPI/CRCU Issues: Recurrent symptomatic pleural effusions(exudative) day 2 status post left thoracoscopy with mechanical and chemical pleurodesis. History of A. fib/PE on Eliquis (currently on hold for the procedure ) Coronary artery disease status post stent placement History of COPD not on home oxygen History of obstructive sleep apnea on CPAP Hyperlipidemia 24 Hour Events: afib 96-76 BP 122-96/56-50 inout 3306 output 1190 chest tube 90 Objective Vital Signs & I&O Last 8 Hrs of Vitals and I&O: . Exam General Appearance: well developed/nourished, no apparent distress, alert, awake , comfortable Other Physical Findings: Head: atraumatic, normal appearance Ears, Nose, Throat: normal pharynx Neck: normal inspection Respiratory: normal breath sounds, chest non-tender, BILATERAL BASAL CRACKLES Cardiovascular: regular rate/rhythm, CHEST TUBEON THE LEFT LATERAL CHEST WALL, MILD TENDERNESS AROUND THE AREA. Gastrointestinal: normal bowel sounds, soft, non-tender Extremities: normal inspection Current Medications: Current Medications Sig/Trinity Start time Last Medication Dose Route Stop Time Status Admin Acetaminophen 650 MG .STK-MED ONE 11/27 2111 DC PO 11/27 2112 Acetaminophen 650 MG Q6 PRN 11/17 0632 AC 11/27 PO 211 Albuterol Sulfate 3 ML BID 11/24 2200 AC 11/27 INH 1939 Albuterol Sulfate 2 PUF Q4-6 PRN PRN 11/12 2015 AC INH Apixaban 5 MG BID 11/27 2200 AC 11/27 PO 2108 Aspirin 81 MG DAILY 11/16 1000 AC 11/27 PO 0844 Bisacodyl 10 MG ONCE ONE 11/27 1130 DC 11/27 PA 11/27 1131 1818 Budesonide/ 2 PUF BID 11/14 1240 AC 11/27 Formoterol Fumarate INH 2109 Digoxin 0.125 MG Q48@1700 11/12 2015 AC 11/26 PO 1553 Diltiazem HCl 180 MG DAILY 11/13 1000 AC 11/27 PO 0848 Docusate Sodium 100 MG BID 11/27 1000 AC 11/27 PO 2108 Fluticasone 2 SPRAY DAILY 11/13 1000 AC 11/27 Propionate JONATHAN 0838 Furosemide 20 MG ONCE ONE 11/27 1715 DC 11/27 IV 11/27 1716 1737 Guaifenesin 600 MG Q12 11/14 1346 AC 11/27 PO 2108 Heparin Sodium 5,000 UNIT Q8 11/26 1400 DC 11/27 (Porcine) SC 1542 Hydromorphone HCl 50 MG Q24H PRN 11/23 1330 AC Sodium Chloride 45 ML IV Magnesium Oxide 400 MG DAILY 11/13 1000 AC 11/27 PO 0844 Metoprolol Succinate 25 MG DAILY 11/13 1000 AC 11/27 PO 0843 Montelukast Sodium 10 MG 2100 11/12 2100 AC 11/27 PO 2108 Polyethylene Glycol 17 GM DAILY 11/27 1000 AC 11/27 PO 1541 Rosuvastatin Calcium 20 MG 1700 11/13 1700 AC 11/27 PO 1543 Senna 187 MG AT BEDTIME 11/21 2200 AC 11/27 PO 2109 Tiotropium [place] 1 PUF DAILY 11/13 1000 AC 11/27 INH 0839 Torsemide 10 MG 11/27 1000 DC PO Torsemide 20 MG SAT 11/18 1000 AC 11/25 PO 0905 Torsemide 10 MG SuMoWeFr 11/17 1359 AC 11/27 PO 1547 Zinc Oxide 1 ANGELA BID 11/21 0119 AC 11/24 TOP 1034 Impression/Plan Impression/Problem List Impression: 82 yo F with h/o COPD/ asthma, COLT on CPAP, Afib/PE in december on eliquis, CAD s/p stent, resolved pericardial effusion with negative workup, chronic leukocytosis, HTN, recently admitted to [place] (Oct 08) for COPD and recurrent left pleural effusion that was tapped showed exudative effusion with reactive epithelial cells, returned for left sided sharp chest pain (under left breast) radiating to the back, worse with inspiration and coughing, productive cough (brown phlegm), congestion and worsening exertional dyspnea. Patient is day 2 status post left thoracoscopy with mechanical and chemical pleurodesis. Assessment * Recurrent symptomatic pleural effusions(exudative) day 1 status post left thoracoscopy with mechanical and chemical pleurodesis. * History of A. fib/PE on Eliquis (currently on hold for the procedure ) * Coronary artery disease status post stent placement * History of COPD not on home oxygen * History of obstructive sleep apnea on CPAP * Hyperlipidemia Plan: * hg 9.9 from 10.8 * we will dc fluids * if stable can be dg from ICU to tele * Chest tube draining well 90 cc of serosanguineous discharge, keep chest tube to suction. * Chest x-ray shows good tube position. 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 * Patient currently on 3 L, will try to wean down on the oxygen to keep saturations more than 92% * DVT prophylaxis Alps * Full code Problem List: 1. Atrial fibrillation with RVR Pain Ratin Tomorrow's Labs & Rationales: cbc icu bundle Plan DVT/Prophylaxis: mechanical
--- NOTE | 2017-11-25 09:31 | PN- Pulmonary ---
Subjective HPI/Critical Care Issues: Doing relatively better Afebrile Continues to be in atrial fibrillation Blood pressure is adequate Oxygen saturation 97% on 2 L Continues to be on normal saline Adequate urine output Adequate by mouth intake Chest tube has drained about 90 mL so far the past 24 hours Blood work from this morning is pending White count up to 14,000 with a left shift hemoglobin is down to 9.9 platelets 421 Cultures so far unremarkable Last chest x-ray showed trace left pleural effusion Left pleura biopsy showed chronic inflammation no granulomas or plops are malignancies cytologies pending Medications reviewed continues to be on digoxin last level was done more than 10 days ago Objective Current Medications: Current Medications Sig/Trinity Start time Last Medication Dose Route Stop Time Status Admin Acetaminophen 1,000 MG Q6P PRN 11/24 1330 AC 11/25 N/A 1 UNIT IV 11/25 1329 0328 Acetaminophen 650 MG Q6 PRN 11/17 0632 AC 11/24 PO 0611 Albuterol Sulfate 3 ML BID 11/24 2200 AC 11/24 INH 2156 Albuterol Sulfate 3 ML Q4P PRN 11/13 2330 DC 11/24 INH 1413 Albuterol Sulfate 2 PUF Q4-6 PRN PRN 11/12 2015 AC INH Aspirin 81 MG DAILY 11/16 1000 AC 11/25 PO 0901 Budesonide/ 2 PUF BID 11/14 1240 AC 11/25 Formoterol Fumarate INH 0907 Digoxin 0.125 MG Q48@1700 11/12 2015 AC 11/24 PO 1632 Diltiazem HCl 180 MG DAILY 11/13 1000 AC 11/25 PO 0901 Fluticasone 2 SPRAY DAILY 11/13 1000 AC 11/25 Propionate JONATHAN 0903 Guaifenesin 600 MG Q12 11/14 1346 AC 11/25 PO 0901 Hydromorphone HCl 50 MG Q24H PRN 11/23 1330 AC Sodium Chloride 45 ML IV Magnesium Oxide 400 MG DAILY 11/13 1000 AC 11/25 PO 0901 Metoprolol Succinate 25 MG DAILY 11/13 1000 AC 11/25 PO 0901 Montelukast Sodium 10 MG 2100 11/12 2100 AC 11/24 PO 2123 Rosuvastatin Calcium 20 MG 1700 11/13 1700 AC 11/24 PO 1633 Senna 187 MG AT BEDTIME 11/21 2200 AC 11/24 PO 2123 Sodium Chloride 1,000 ML Q13H 11/23 1430 AC 11/25 IV 0008 Tiotropium [place] 1 PUF DAILY 11/13 1000 AC 11/25 INH 0902 Torsemide 10 MG 11/27 1000 DC PO Torsemide 20 MG SAT 11/18 1000 AC 11/25 PO 0905 Torsemide 10 MG SuMoWeFr 11/17 1359 AC 11/24 PO 1322 Zinc Oxide 1 ANGELA BID 11/21 0119 AC 11/24 TOP 1034 Vital Signs & I&O Last 24 Hrs of Vitals and I&O: Vital Signs Date Time Temp Pulse Resp B/P B/P Pulse O2 O2 Flow FiO2 Mean Ox Delivery Rate 11/25 0901 80 98/60 11/25 0430 97 Nasal 2.0L Cannula 11/25 0000 96 Nasal 2.0L Cannula 11/25 0000 97.9 82 24 96/54 96 Nasal 2.0L Cannula 11/24 2157 95 Room Air Room Air 11/24 2024 94 Nasal 1.0L Cannula 11/24 1600 98.2 82 25 95/45 11/24 1600 94 Nasal 2.0L Cannula 11/24 1600 98.2 82 25 108/58 97 Nasal 2.0L Cannula 11/24 1416 98 Nasal 2.0L Cannula 11/24 1200 Nasal 2.0L Cannula 11/24 1031 78 110/60 Intake & Output 11/25 1600 11/25 0800 11/25 0000 Intake Total 734 1360 Output Total 640 400 Balance 94 960 Intake, IV 674 700 Intake, Oral 60 660 Output, Chest 90 Tube Drainage Output, Urine 550 400 Laboratory Tests 11/25 11/24 0415 0355 Chemistry Sodium (137 - 145 mmol/L) 143 Potassium (3.5 - 5.1 mmol/L) 4.8 Chloride (98 - 107 mmol/L) 106 Carbon Dioxide (22 - 30 mmol/L) 28 Anion Gap (5 - 16) 9 BUN (7 - 17 mg/dL) 16 Creatinine (0.5 - 1.0 mg/dL) 0.8 Estimated GFR (>60 ml/min) > 60 BUN/Creatinine Ratio (7 - 25 %) 20.0 Hematology CBC w Diff MAN DIFF ORDERED MAN DIFF ORDERED WBC (4.8 - 10.8 /CUMM) 14.7 H 11.8 H RBC (4.20 - 5.40 /CUMM) 3.50 L 3.85 L Hgb (12.0 - 16.0 G/DL) 9.9 L 10.8 L Hct (37 - 47 %) 30.3 L 33.3 L MCV (81.0 - 99.0 FL) 86.5 86.5 MCH (27.0 - 31.0 PG) 28.3 28.0 RDW (11.5 - 14.5 %) 16.9 H 16.2 H Plt Count (130 - 400 /CUMM) 421 H 478 H MPV (7.4 - 10.4 FL) 7.5 7.1 L Gran % (42.2 - 75.2 %) 87.2 H 90.1 H Lymphocytes % (20.5 - 51.1 %) 9.2 L 6.2 L Monocytes % (1.7 - 9.3 %) 3.1 3.5 Eosinophils % (0 - 5 %) 0 0.1 Basophils % (0.0 - 2.0 %) 0.5 0.1 Absolute Granulocytes (1.4 - 6.5 /CUMM) 12.8 H 10.6 H Segmented Neutrophils (42.2 - 75.2 %) 88 H Band Neutrophils (0.0 - 5.0 %) 1 Absolute Lymphocytes (1.2 - 3.4 /CUMM) 1.4 0.7 L Lymphocytes (20.5 - 51.1 %) 7 L Monocytes (1.7 - 9.3 %) 4 Absolute Monocytes (0.10 - 0.60 /CUMM) 0.5 0.4 Absolute Eosinophils (0.0 - 0.7 /CUMM) 0 0 Absolute Basophils (0.0 - 0.2 /CUMM) 0.1 0 Platelet Estimate (ADEQUATE) INCREASED INCREASED Polychromasia 1+ Hypochromic-Microcytic 1+ 1+ Poikilocytosis 1+ 1+ Basophilic Stippling 2+ Ovalocytes 1+ PUBS MCHC (33.0 - 37.0 G/DL) 32.7 L 32.4 L Other Body Source Fld Total RBCs Counted (%) 100 Toxicology Digoxin (0.8 - 2.0 ng/mL) Pending 11/23 11/23 1312 1312 Hematology Lymphocytes (%) 84 % Normal PMNs (%) 8 Misc Hematology Test (%) Other Body Source Fluid WBC (0 - 5 /CUMM) ND Fld Total RBCs Counted (0 /CUMM) ND Fluid Tot Bilirubin (mg/dL) < 0.1 Fluid LDH (U/L) 306 Fluid Amylase (U/L) < 30 Microbiology Date/Time Procedure - Status Source Growth 11/23 1930 Surveillance Culture - COMP UPPER RESP 11/23 1930 Surveillance Culture - COMP GI 11/23 1312 AFB Culture with PCR Identification - RES LW RESPINV 11/23 131 AFB Smear Concentration - RES LW RESPINV 11/23 1312 AFB Culture with PCR Identification - CAN MISC O.R. Cancelled: OE 11/23 131 AFB Smear Concentration - CAN MISC O.R. Cancelled: OE 11/23 131 Fungal Culture - RECD LW RESPINV 11/23 1312 Respiratory Culture - RES LW RESPINV 11/23 1312 Gram Stain - RES LW RESPINV 11/23 1145 Urine Culture - RES URINE ROUT Impression/Plan Impression/Plan Impression/Plan: General Appearance: alert, awake, comfortable Head: atraumatic, normal appearance Neck: supple Respiratory: no respiratory distress, quiet respiration, lungs clear Cardiovascular: S1 and S2 heard Abdomen: normal bowel sounds, soft, non-tender Extremities: trace edema Skin: intact, normal color, warm/dry IMPRESSION 82 yo F with h/o COPD/ asthma, COLT on CPAP, Afib/PE in december on eliquis, CAD s/p stent, resolved pericardial effusion with negative workup, chronic leukocytosis, HTN, recently admitted to [place] (Oct 08) for COPD and recurrent left pleural effusion, with previous PE * Recurrent symptomatic pleural effusions(exudative) status post left thoracoscopy with mechanical and chemical pleurodesis. * History of A. fib/PE on Eliquis (currently on hold for the procedure ) * Coronary artery disease status post stent placement * History of asthma with COPD not on home oxygen * History of obstructive sleep apnea on CPAP * Hyperlipidemia REC Discontinue IV fluids IV Lasix 20 mg 1 dose today Continue chest tube Ask cardiothoracic to see one Eliquis can be started Check dig level Continue other medications Patient can go to the floor probably telemetry unit as she had atrial fibrillation
--- NOTE | 2017-11-25 12:03 | PN- Thoracic Surgery ---
Subjective Subjective: feeling well, no sob, no fever, L side chest pain with coughing only. Objective Vital Signs and I&Os Vital Signs Date Time Temp Pulse Resp B/P B/P Pulse O2 O2 Flow FiO2 Mean Ox Delivery Rate 11/25 1038 95 Room Air Room Air 11/25 0901 80 98/60 11/25 0800 95 Room Air 11/25 0800 96.4 67 22 104/58 92 Nasal 2.0L Cannula 11/25 0430 97 Nasal 2.0L Cannula 11/25 0000 96 Nasal 2.0L Cannula 11/25 0000 97.9 82 24 96/54 96 Nasal 2.0L Cannula 11/24 2157 95 Room Air Room Air 11/24 2024 94 Nasal 1.0L Cannula 11/24 1600 98.2 82 25 95/45 11/24 1600 94 Nasal 2.0L Cannula 11/24 1600 98.2 82 25 108/58 97 Nasal 2.0L Cannula 11/24 1416 98 Nasal 2.0L Cannula Intake & Output 11/25 1600 11/25 0800 11/25 0000 11/24 1600 11/24 0800 11/24 0000 Intake Total 734 1360 1812 620 645 Output Total 640 400 170 405 590 Balance 94 960 1642 215 55 Intake, IV 450 218 6479 520 525 Intake, Oral 60 660 600 100 120 Output, Chest 90 20 160 Tube Drainage Output, 50 Drainage Output, Urine 550 400 150 245 540 Physical Exam: wdwn, aox3, nad lungs: harsh L lung sounds, mildly diminished on L. CT in place, moderate s/s drainage. dressing changed. no air leak noted. inicision cdi. Assessment/Plan Assessment/Plan 2d sp vats, pleural biopsy, pleurodesis L side with chest tube in place Doing well, no air leak, pain controlled. dressing changed, dry sterile dressing and Tegaderm applied. Continue chest tube on suction Recheck chest x-ray tomorrow Hold full anticoagulation until chest tube has been removed [place]
--- NOTE | 2017-11-25 15:49 | RADIOLOGY REPORT ---
EXAMINATION: XR PORTABLE CHEST CLINICAL INFORMATION: Post chest tube placement. COMPARISON: Chest x-ray 11/24/2017. TECHNIQUE: Portable frontal view of the chest was obtained. FINDINGS: Upright view of the chest reveals moderate haziness in the left lower hemithorax likely combination of cardiomegaly and effusion/atelectasis. The endometrial of chest tube lies medially towards the mediastinum in the right lower chest and the sidehole is close to the hilum medially. The left upper lobe and the right lung remains clear. Heart size is normal. No gross bony abnormality seen. IMPRESSION: No change in left chest tube as discussed above. There is moderate haziness left lower hemithorax probably combination of cardiomegaly and effusion/atelectasis. The right lung appears clear.
[2017-11-25 20:08] VITALS: BP 96/48
[2017-11-26 06:46] VITALS: BP 112/64
--- NOTE | 2017-11-26 08:24 | PN- Housestaff ---
Subjective Follow-up For: Recurrent left pleural effusion Dashawnlori Tele-Events Since Last Visit: DashawnMelissaramon with HR 56-75. No overnight events. Subjective: Patient was seen and examined at bedside. She reports doing much better, she has no difficulty breathing. She still has a mild productive cough. She offers no complaints. Review of Systems Constitutional: Reports: no symptoms. Objective Last 24 Hrs of Vital Signs/I&O Vital Signs Date Time Temp Pulse Resp B/P B/P Pulse O2 O2 Flow FiO2 Mean Ox Delivery Rate 11/26 1015 96 Room Air 11/26 0929 74 90/60 11/26 0923 74 90/60 11/26 0800 Room Air 11/26 0646 97.7 59 18 112/64 98 Nasal 2.0L Cannula 11/26 0000 Nasal 2.0L Cannula 11/25 2053 95 Room Air Room Air 11/25 2008 98.1 69 18 96/48 93 Room Air 11/25 1600 Room Air 11/25 1200 95 Room Air Intake & Output 11/26 1600 11/26 0800 11/26 0000 Intake Total 120 250 Output Total 400 650 Balance -280 -400 Intake, IV 20 Intake, Oral 100 250 Number 0 Bowel Movements Output, Chest 50 50 Tube Drainage Output, Urine 350 600 Physical Exam General Appearance: Alert, Oriented X3, Cooperative, No Acute Distress Skin: No Rashes, No Breakdown Skin Temp/Moisture Exam: Warm/Dry Sepsis Skin Exam (color): Normal for Ethnicity HEENT: Atraumatic Cardiovascular: Normal S1, Normal S2, No Murmurs Lungs: Normal Air Movement Abdomen: Soft, No Tenderness Extremities: b/l lower extremity edema Assessment/Plan Assessment: 82 yo F with h/o COPD/ asthma, COLT on CPAP, Afib/PE in december on eliquis, CAD s/p stent, resolved pericardial effusion with negative workup, chronic leukocytosis, HTN, recently admitted to [place] (Oct 08) for COPD and recurrent left pleural effusion that was tapped showed exudative effusion with reactive epithelial cells, returned for left sided sharp chest pain (under left breast) radiating to the back, worse with inspiration and coughing, productive cough (brown phlegm), congestion and worsening exertional dyspnea. She recently was seen at [facility] for pleural and pericardial effusions, pericarditis. Now she is seen again here at [facility] for recurrence of left pleural effusion. Patient had thoracentesis, found to have exudative fluid, with reaccumlation two days later. Patient was NOT found to have pericardial effusion during her admission with us. Acute hypoxic respiratory failure:(resolved) -Patient presented with acute hypoxic respiratory failure probably multifactorial including COPD exacerbation and left-sided pleural effusion. -Oxygen supplementation to keep saturation above 92%. -Urine strep and Legionella antigen are negative. -Blood cultures are negative so far. Recurrent left-sided pleural effusion: -Patient has recurrent left-sided pleural effusion without any evidence of etiology. -Patient is s/p VATS with mechanical and chemical pleurodesis with pleural biopsy. -Holding the patient's Eliquis for now. Will confirm with CTS about when to restart it. -We will continue Symbicort and Mucinex as needed. -TRC nebulization as needed. - one dose of IV lasix 20mg given today. - She will have the chest tube removed today. H/O A.fib and CAD: -We will continue Cardizem and metoprolol and digoxin for rate control. -Continue aspirin 81 mg. H/O COPD/COLT: -TRC nebulization as needed -Continue home medication -Continue nighttime CPAP H/O constipation: -Senna H/O generalized rash: -Zinc oxide has helped, no complaints currently DVT prophylaxis: SC Heparin x3 Code status: Full code Problem List: 1. Pleural effusion Pain Ratin Pain Location: none Pain Goal: Remain pain free Pain Plan: none Tomorrow's Labs & Rationales: CBC,
[2017-11-26 08:29] LABS: ABSOLUTE BASOPHIL COUNT 0.1 /CUMM (0.0-0.2); ABSOLUTE EOSINOPHIL COUNT 0.1 /CUMM (0.0-0.7); ABSOLUTE GRANULOCYTE CT 7.5 /CUMM (1.4-6.5); ABSOLUTE LYMPH COUNT 2.1 /CUMM (1.2-3.4); BASOPHIL % 0.5 % (0.0-2.0); EOSINOPHIL % 1.2 % (0-5); HEMATOCRIT 30.6 % (37-47); MEAN CORPUSCULAR HGB 27.9 PG (27.0-31.0); MEAN CORPUSCULAR HGB CONC 32.3 G/DL (33.0-37.0); MEAN CORPUSCULAR VOLUME 86.4 FL (81.0-99.0); MEAN PLATELET VOLUME 7.6 FL (7.4-10.4); PLATELET COUNT 413 /CUMM (130-400); RED BLOOD CELL CT 3.54 /CUMM (4.20-5.40); WHITE BLOOD CELL COUNT 10.8 /CUMM (4.8-10.8)
[2017-11-26 09:23] VITALS: BP 90/60
--- NOTE | 2017-11-26 10:36 | PN- Thoracic Surgery ---
See Addendum Subjective Subjective: feeling well despite some pain at CT site. some serosang drainage from tube site earlier- reinforced by RN. +productive cough. Denies SOB. OOB in chair Objective Vital Signs and I&Os Vital Signs Date Time Temp Pulse Resp B/P B/P Pulse O2 O2 Flow FiO2 Mean Ox Delivery Rate 11/26 0929 74 90/60 11/26 0923 74 90/60 11/26 0800 Room Air 11/26 0646 97.7 59 18 112/64 98 Nasal 2.0L Cannula 11/26 0000 Nasal 2.0L Cannula 11/25 2053 95 Room Air Room Air 11/25 2008 98.1 69 18 96/48 93 Room Air 11/25 1600 Room Air 11/25 1200 95 Room Air 11/25 1038 95 Room Air Room Air Intake & Output 11/26 1600 11/26 0800 11/26 0000 11/25 1600 11/25 0800 11/25 0000 Intake Total 120 250 942 064 0086 Output Total 094 195 5450 640 400 Balance -280 -400 -520 94 960 Intake, IV 20 300 674 700 Intake, Oral 100 250 480 60 660 Number 0 Bowel Movements Output, Chest 50 50 50 90 Tube Drainage Output, Urine 835 [address]: serosang, 160cc/12hrs by pleurovac marking. no AL. to lcws Physical Exam: gen- nad, in chair card- s1s2 rrr pulm- +bs throughout, though decreased left. CT w serosang drainage in tube- to lcws, no al. ttp at insertion site. dressings intact w some serosang staining. abd- soft nt calves- +edema bl, calves nt Assessment/Plan Assessment/Plan A-POD3 sp left VATS, pleural bx, pleurodesis, with CT to lc[facility] without AL, with exprectred discomfort at tube insertion site. P- DVT ppx- rec hep sq. Continue to hold eliquis until CT removed am CXR pending. to waterseal? apple picker for pain medical mgmt per primary team will dw attending Core Measures Venous Thromboembolism VTE Risk Factors Acute Medical Illness No Mechanical VTE Prophylaxis d/t N/A MechProphylax Ordered No VTE Pharm Prophylaxis d/t Surgical Contraindication
--- NOTE | 2017-11-26 12:26 | PN- Pulmonary ---
Subjective HPI/Critical Care Issues: feeling well despite some pain at CT site. some serosang drainage from tube site earlier- reinforced by RN. +productive cough. Denies SOB. OOB in chair Objective Current Medications: Current Medications Sig/Trinity Start time Last Medication Dose Route Stop Time Status Admin Acetaminophen 1,000 MG Q6P PRN 11/24 1330 DC 11/25 N/A 1 UNIT IV 11/25 1329 0328 Acetaminophen 650 MG Q6 PRN 11/17 0632 AC 11/26 PO 0742 Albuterol Sulfate 3 ML BID 11/24 2200 AC 11/26 INH 1015 Albuterol Sulfate 2 PUF Q4-6 PRN PRN 11/12 2015 AC INH Aspirin 81 MG DAILY 11/16 1000 AC 11/26 PO 0928 Budesonide/ 2 PUF BID 11/14 1240 AC 11/26 Formoterol Fumarate INH 0931 Digoxin 0.125 MG Q48@1700 11/12 2015 AC 11/24 PO 1632 Diltiazem HCl 180 MG DAILY 11/13 1000 AC 11/25 PO 0901 Fluticasone 2 SPRAY DAILY 11/13 1000 AC 11/26 Propionate JONATHAN 0929 Guaifenesin 600 MG Q12 11/14 1346 AC 11/26 PO 0929 Heparin Sodium 5,000 UNIT Q8 11/26 1400 AC (Porcine) SC Hydromorphone HCl 50 MG Q24H PRN 11/23 1330 AC Sodium Chloride 45 ML IV Magnesium Oxide 400 MG DAILY 11/13 1000 AC 11/26 PO 0928 Metoprolol Succinate 25 MG DAILY 11/13 1000 AC 11/25 PO 0901 Montelukast Sodium 10 MG 2100 11/12 2100 AC 11/25 PO 2009 Rosuvastatin Calcium 20 MG 1700 11/13 1700 AC 11/25 PO 2009 Senna 187 MG AT BEDTIME 11/21 2200 AC 11/25 PO 2009 Tiotropium [place] 1 PUF DAILY 11/13 1000 AC 11/26 INH 0930 Torsemide 10 MG 11/27 1000 DC PO Torsemide 20 MG SAT 11/18 1000 AC 11/25 PO 0905 Torsemide 10 MG SuMoWeFr 11/17 1359 AC 11/24 PO 1322 Zinc Oxide 1 ANGELA BID 11/21 0119 AC 11/24 TOP 1034 Vital Signs & I&O Last 24 Hrs of Vitals and I&O: Vital Signs Date Time Temp Pulse Resp B/P B/P Pulse O2 O2 Flow FiO2 Mean Ox Delivery Rate 11/26 1015 96 Room Air 11/26 0929 74 90/60 11/26 0923 74 90/60 11/26 0800 Room Air 11/26 0646 97.7 59 18 112/64 98 Nasal 2.0L Cannula 11/26 0000 Nasal 2.0L Cannula 11/25 2053 95 Room Air Room Air 11/25 2008 98.1 69 18 96/48 93 Room Air 11/25 1600 Room Air Intake & Output 11/26 1600 11/26 0800 11/26 0000 Intake Total 120 250 Output Total 400 650 Balance -280 -400 Intake, IV 20 Intake, Oral 100 250 Number 0 Bowel Movements Output, Chest 50 50 Tube Drainage Output, Urine 350 600 Impression/Plan Impression/Plan Impression/Plan: General Appearance: alert, awake, comfortable Head: atraumatic, normal appearance Neck: supple Respiratory: no respiratory distress, quiet respiration, lungs clear chest tube in Cardiovascular: S1 and S2 heard Abdomen: normal bowel sounds, soft, non-tender Extremities: trace edema Skin: intact, normal color, warm/dry IMPRESSION 82 yo F with h/o COPD/ asthma, COLT on CPAP, Afib/PE in december on eliquis, CAD s/p stent, resolved pericardial effusion with negative workup, chronic leukocytosis, HTN, recently admitted to [place] (Oct 08-) for COPD and recurrent left pleural effusion, with previous PE * Recurrent symptomatic pleural effusions(exudative) status post left thoracoscopy with mechanical and chemical pleurodesis. * History of A. fib/PE on Eliquis (currently on hold for the procedure ) * Coronary artery disease status post stent placement * History of asthma with COPD not on home oxygen * History of obstructive sleep apnea on CPAP * Hyperlipidemia REC IV Lasix 20 mg 1 dose today Chest tube per cts Ask cardiothoracic to see one Eliquis can be started Continue other medications WIll follow
[2017-11-26 12:59] VITALS: BP 94/52
[2017-11-26 14:38] VITALS: BP 110/60
--- NOTE | 2017-11-26 17:19 | RADIOLOGY REPORT ---
EXAMINATION: XR PORTABLE CHEST CLINICAL INFORMATION: Follow-up status-post left thoracostomy tube placement. COMPARISON: Prior chest regressed, most recently 11/25/2017. TECHNIQUE: Portable frontal view of the chest was obtained. FINDINGS: The heart size is again mildly enlarged. A moderate left pleural effusion is seen with adjacent airspace disease. There is further probable linear atelectasis at the medial left apex. A left thoracostomy tube is unchanged position, curved towards the apex, with tip situated at the medial left base. The right lung field appears clear. There is no pneumothorax seen. No acute osseous abnormality is seen. IMPRESSION: There is a stable moderate left pleural effusion, with stable probable atelectasis at the medial left apex and left base. A left thoracostomy tube is unchanged in position. No pneumothorax is seen.
[2017-11-26 23:02] VITALS: BP 106/60
[2017-11-27 07:15] VITALS: BP 118/64
[2017-11-27 08:19] LABS: ABSOLUTE BASOPHIL COUNT 0.1 /CUMM (0.0-0.2); ABSOLUTE EOSINOPHIL COUNT 0.2 /CUMM (0.0-0.7); ABSOLUTE GRANULOCYTE CT 6.5 /CUMM (1.4-6.5); ABSOLUTE LYMPH COUNT 2.3 /CUMM (1.2-3.4); ABSOLUTE MONOCYTE COUNT 0.5 /CUMM (0.10-0.60); BASOPHIL % 0.5 % (0.0-2.0); EOSINOPHIL % 2.6 % (0-5); GRANULOCYTE % 67.6 % (42.2-75.2); HEMATOCRIT 31.9 % (37-47); MEAN CORPUSCULAR HGB 27.9 PG (27.0-31.0); MEAN CORPUSCULAR HGB CONC 32.5 G/DL (33.0-37.0); MEAN PLATELET VOLUME 7.8 FL (7.4-10.4); PLATELET COUNT 436 /CUMM (130-400); RBC DISTRIBUTION WIDTH 16.6 % (11.5-14.5); WHITE BLOOD CELL COUNT 9.6 /CUMM (4.8-10.8)
--- NOTE | 2017-11-27 09:27 | PN- Housestaff ---
Subjective Follow-up For: Recurrent left pleural effusion [place] Tele-Events Since Last Visit: Luis navarro with rates from 60-73, no events Subjective: Patient seen and examined bedside. This morning patient is having spillage from her surgical wound. She notes that when she noticed that she had some shortness of breath that she attributes more to anxiety. She also notes a sharp pain in the surgical site. We did a chest x-ray in response to this which showed no evidence of pneumothorax. Otherwise the patient has no complaints. Review of Systems Constitutional: Reports: no symptoms. EENTM: Reports: no symptoms. Cardiovascular: Reports: chest pain. Respiratory: Reports: short of breath. Gastrointestinal: Reports: constipation. Genitourinary: Reports: no symptoms. Musculoskeletal: Reports: no symptoms. Skin: Reports: no symptoms. Neurological/Psychological: Reports: no symptoms. Hematologic/Endocrine: Reports: no symptoms. Immunologic/Allergic: Reports: no symptoms. Objective Last 24 Hrs of Vital Signs/I&O Vital Signs Date Time Temp Pulse Resp B/P B/P Pulse O2 O2 Flow FiO2 Mean Ox Delivery Rate 11/27 1943 97 Nasal 2.5L Cannula 11/27 1433 98.3 68 20 108/60 98 Nasal 2.0L Cannula 11/27 0843 134 105/60 11/27 0819 93 Nasal 2.5L Cannula 11/27 0800 Nasal 2.0L Cannula 11/27 0715 98.7 98 118/64 11/27 0000 Nasal 2.0L Cannula 11/26 2302 98.8 104 18 106/60 97 Nasal 2.0L Cannula Intake & Output 11/27 1600 11/27 0800 11/27 0000 Intake Total 550 60 352 Output Total 227 581 0860 Balance 350 -340 -1098 Intake, IV 12 Intake, Oral 550 60 340 Number 0 0 Bowel Movements Output, Urine [phone] Physical Exam General Appearance: Alert, Oriented X3, Cooperative, No Acute Distress Skin: No Rashes Skin Temp/Moisture Exam: Warm/Dry HEENT: Atraumatic Cardiovascular: Normal S1, Normal S2, No Murmurs Lungs: Clear to Auscultation, Normal Air Movement Abdomen: Normal Bowel Sounds, Soft Neurological: Normal Speech Extremities: No Clubbing, No Cyanosis, No Edema Current Medications: Current Medications Sig/Trinity Start time Last Medication Dose Route Stop Time Status Admin Acetaminophen 650 MG .STK-MED ONE 11/27 0606 DC PO 11/27 0607 Acetaminophen 650 MG Q6 PRN 11/17 0632 AC 11/27 PO 0607 Albuterol Sulfate 3 ML BID 11/24 220 AC 11/27 INH 1939 Albuterol Sulfate 2 PUF Q4-6 PRN PRN 11/12 2015 AC INH Apixaban 5 MG BID 11/27 2200 AC PO Aspirin 81 MG DAILY 11/16 1000 AC 11/27 PO 0844 Bisacodyl 10 MG ONCE ONE 11/27 1130 DC 11/27 MA 11/27 1131 1818 Budesonide/ 2 PUF BID 11/14 1240 AC 11/27 Formoterol Fumarate INH 0845 Digoxin 0.125 MG Q48@1700 11/12 2015 AC 11/26 PO 1553 Diltiazem HCl 180 MG DAILY 11/13 1000 AC 11/27 PO 0848 Docusate Sodium 100 MG BID 11/27 1000 AC 11/27 PO 1542 Fluticasone 2 SPRAY DAILY 11/13 1000 AC 11/27 Propionate JONATHAN 0838 Furosemide 20 MG ONCE ONE 11/27 1715 DC 11/27 IV 11/27 1716 1737 Guaifenesin 600 MG Q12 11/14 1346 AC 11/27 PO 0844 Heparin Sodium 5,000 UNIT Q8 11/26 1400 DC 11/27 (Porcine) SC 1542 Hydromorphone HCl 50 MG Q24H PRN 11/23 1330 AC Sodium Chloride 45 ML IV Magnesium Oxide 400 MG DAILY 11/13 1000 AC 11/27 PO 0844 Metoprolol Succinate 25 MG DAILY 11/13 1000 AC 11/27 PO 0843 Montelukast Sodium 10 MG 2100 11/12 2100 AC 11/26 PO 2003 Polyethylene Glycol 17 GM DAILY 11/27 1000 AC 11/27 PO 1541 Rosuvastatin Calcium 20 MG 1700 11/13 1700 AC 11/27 PO 1543 Senna 187 MG AT BEDTIME 11/21 2200 AC 11/26 PO 2004 Tiotropium [place] 1 PUF DAILY 11/13 1000 AC 11/27 INH 0839 Torsemide 10 MG 11/27 1000 DC PO Torsemide 20 MG TH SAT 11/18 1000 AC 11/25 PO 0905 Torsemide 10 MG SuMoWeFr 11/17 1359 AC 11/27 PO 1547 Zinc Oxide 1 ANGELA BID 11/21 0119 AC 11/24 TOP 1034 Last 24 Hrs of Lab/Luiz Results Last 24 Hrs of Labs/Mics: Laboratory Tests 11/27/17 0625: CBC w Diff NO MAN DIFF REQ, RBC 3.70 L, MCV 86.0, MCH 27.9, RDW 16.6 H, MPV 7.8, Gran % 67.6, Lymphocytes % 24.0, Monocytes % 5.3, Eosinophils % 2.6, Basophils % 0.5, Absolute Granulocytes 6.5, Absolute Lymphocytes 2.3, Absolute Monocytes 0.5, Absolute Eosinophils 0.2, Absolute Basophils 0.1, PUBS MCHC 32.5 L Assessment/Plan Assessment: 82 yo F with h/o COPD/ asthma, COLT on CPAP, Afib/PE in december on eliquis, CAD s/p stent, resolved pericardial effusion with negative workup, chronic leukocytosis, HTN, recently admitted to [place] (Oct 08) for COPD and recurrent left pleural effusion that was tapped showed exudative effusion with reactive epithelial cells, returned for left sided sharp chest pain (under left breast) radiating to the back, worse with inspiration and coughing, productive cough (brown phlegm), congestion and worsening exertional dyspnea. She recently was seen at [place] for pleural and pericardial effusions, pericarditis. Now she is seen again here at [place] for recurrence of left pleural effusion. Patient had thoracentesis, found to have exudative fluid, with reaccumlation two days later. Patient was NOT found to have pericardial effusion during her admission with us. Acute hypoxic respiratory failure: -No evidence of pneumothorax on chest x-ray done after spillage of fluid from surgical site this morning. -Maintain dressing and reinforced if needed, do not remove! -Patient requiring 2.5 L -Patient presented with acute hypoxic respiratory failure probably multifactorial including COPD exacerbation and left-sided pleural effusion. -Oxygen supplementation to keep saturation above 92%. -Urine strep and Legionella antigen are negative. -Blood cultures are negative so far. -Give 1 dose IV Lasix 20 mg Recurrent left-sided pleural effusion: -Patient has recurrent left-sided pleural effusion without any evidence of etiology. -Patient is s/p VATS with mechanical and chemical pleurodesis with pleural biopsy. -We restarted patient's Eliquis. -We will continue Symbicort and Mucinex as needed. -TRC nebulization as needed. - one dose of IV lasix 20mg given today. - She will have the chest tube removed today. H/O A.fib and CAD: -We will continue Cardizem and metoprolol and digoxin for rate control. -Continue aspirin 81 mg. -Eliquis restarted -Heart rates 130 to 150s, gave Cardizem to good effect H/O COPD/COLT: -TRC nebulization as needed -Continue home medication -Continue nighttime CPAP H/O constipation: -Senna -Dulcolax suppository as patient has not had bowel movement in 5 days. H/O generalized rash: -Zinc oxide has helped, no complaints currently DVT prophylaxis: SC Heparin x3 Code status: Full code Problem List: 1. Status post chest tube placement 2. Consolidation lung 3. Pleural effusion 4. Acute respiratory failure with hypoxia Pain Ratin Pain Location: Surgical site Pain Goal: Pain 4 or less Pain Plan: Pathway Tomorrow's Labs & Rationales: CBC, BEP, dig level
--- NOTE | 2017-11-27 09:58 | PN- Pulmonary ---
Subjective HPI/Critical Care Issues: Stable Patient was ambulating today and subsequently a large amount of pleural fluid was leaking around her chest tube site. Patient suggestive as been removed since yesterday. Her breathing has improved oxygen saturation 94% on 2.5 L afebrile Her white count is 9.6 hemoglobin is stable no significant left shift Chest x-ray done yesterday had shown moderate left effusion atelectasis this morning's x-rays pending Objective Current Medications: Current Medications Sig/Trinity Start time Last Medication Dose Route Stop Time Status Admin Acetaminophen 650 MG Q6 PRN 11/17 0632 AC 11/27 PO 0607 Albuterol Sulfate 3 ML BID 11/24 2200 AC 11/27 INH 0833 Albuterol Sulfate 2 PUF Q4-6 PRN PRN 11/12 2015 AC INH Aspirin 81 MG DAILY 11/16 1000 AC 11/27 PO 0844 Budesonide/ 2 PUF BID 11/14 1240 AC 11/27 Formoterol Fumarate INH 0845 Digoxin 0.125 MG Q48@1700 11/12 2015 AC 11/26 PO 1553 Diltiazem HCl 180 MG DAILY 11/13 1000 AC 11/27 PO 0848 Docusate Sodium 100 MG BID 11/27 1000 AC PO Fluticasone 2 SPRAY DAILY 11/13 1000 AC 11/27 Propionate JONATHAN 0838 Furosemide 20 MG ONCE ONE 11/26 1345 DC 11/26 IV 11/26 1346 1519 Guaifenesin 600 MG Q12 11/14 1346 AC 11/27 PO 0844 Heparin Sodium 5,000 UNIT Q8 11/26 1400 AC 11/27 (Porcine) SC 0607 Hydromorphone HCl 50 MG Q24H PRN 11/23 1330 AC Sodium Chloride 45 ML IV Magnesium Oxide 400 MG DAILY 11/13 1000 AC 11/27 PO 0844 Metoprolol Succinate 25 MG DAILY 11/13 1000 AC 11/27 PO 0843 Montelukast Sodium 10 MG 2100 11/12 2100 AC 11/26 PO 2003 Polyethylene Glycol 17 GM DAILY 11/27 1000 AC PO Rosuvastatin Calcium 20 MG 1700 11/13 1700 AC 11/26 PO 1554 Senna 187 MG AT BEDTIME 11/21 2200 AC 11/26 PO 2004 Tiotropium [place] 1 PUF DAILY 11/13 1000 AC 11/27 INH 0839 Torsemide 10 MG 11/27 1000 DC PO Torsemide 20 MG SAT 11/18 1000 AC 11/25 PO 0905 Torsemide 10 MG SuMoWeFr 11/17 1359 AC 11/26 PO 1301 Zinc Oxide 1 ANGELA BID 11/21 0119 AC 11/24 TOP 1034 Vital Signs & I&O Last 24 Hrs of Vitals and I&O: Vital Signs Date Time Temp Pulse Resp B/P B/P Pulse O2 O2 Flow FiO2 Mean Ox Delivery Rate 11/27 0843 134 105/60 11/27 0819 93 Nasal 2.5L Cannula 11/27 0715 98.7 98 118/64 11/27 0000 Nasal 2.0L Cannula 11/26 2302 98.8 104 18 106/60 97 Nasal 2.0L Cannula 11/26 1840 94 Room Air 11/26 1553 77 110/60 11/26 1438 98.5 77 20 110/60 95 Room Air 11/26 1259 94/52 11/26 1015 96 Room Air Intake & Output 11/27 1600 11/27 0800 11/27 0000 Intake Total 60 352 Output Total 400 1450 Balance -340 -1098 Intake, IV 12 Intake, Oral 60 340 Number 0 0 Bowel Movements Output, Urine 400 1450 Laboratory Tests 11/27 11/26 0625 0653 Hematology CBC w Diff NO MAN DIFF REQ NO MAN DIFF REQ WBC (4.8 - 10.8 /CUMM) 9.6 10.8 RBC (4.20 - 5.40 /CUMM) 3.70 L 3.54 L Hgb (12.0 - 16.0 G/DL) 10.3 L 9.9 L Hct (37 - 47 %) 31.9 L 30.6 L MCV (81.0 - 99.0 FL) 86.0 86.4 MCH (27.0 - 31.0 PG) 27.9 27.9 RDW (11.5 - 14.5 %) 16.6 H 17.0 H Plt Count (130 - 400 /CUMM) 436 H 413 H MPV (7.4 - 10.4 FL) 7.8 7.6 Gran % (42.2 - 75.2 %) 67.6 70.0 Lymphocytes % (20.5 - 51.1 %) 24.0 19.1 L Monocytes % (1.7 - 9.3 %) 5.3 9.2 Eosinophils % (0 - 5 %) 2.6 1.2 Basophils % (0.0 - 2.0 %) 0.5 0.5 Absolute Granulocytes (1.4 - 6.5 /CUMM) 6.5 7.5 H Absolute Lymphocytes (1.2 - 3.4 /CUMM) 2.3 2.1 Absolute Monocytes (0.10 - 0.60 /CUMM) 0.5 1.0 H Absolute Eosinophils (0.0 - 0.7 /CUMM) 0.2 0.1 Absolute Basophils (0.0 - 0.2 /CUMM) 0.1 0.1 PUBS MCHC (33.0 - 37.0 G/DL) 32.5 L 32.3 L Impression/Plan Impression/Plan Impression/Plan: General Appearance: alert, awake, comfortable Head: atraumatic, normal appearance Neck: supple Respiratory: no respiratory distress, quiet respiration, lungs clear chest tube in Cardiovascular: S1 and S2 heard Abdomen: normal bowel sounds, soft, non-tender Extremities: trace edema Skin: intact, normal color, warm/dry IMPRESSION 82 yo F with h/o COPD/ asthma, COLT on CPAP, Afib/PE in december on eliquis, CAD s/p stent, resolved pericardial effusion with negative workup, chronic leukocytosis, HTN, recently admitted to [place] (Oct 08-) for COPD and recurrent left pleural effusion, with previous PE * Recurrent symptomatic pleural effusions(exudative) status post left thoracoscopy with mechanical and chemical pleurodesis/ chest tube is now removed and a sig amount of fluid was noted to be leaking around the chest tube insertion site * History of A. fib/PE on Eliquis (currently on hold for the procedure ) * Coronary artery disease status post stent placement * History of asthma with COPD not on home oxygen * History of obstructive sleep apnea on CPAP * Hyperlipidemia REC IV Lasix 20 mg 1 dose today, Check BMP Cxr Watch for worsening leak around the tube and CTS following the patient Continue other medications WIll follow
--- NOTE | 2017-11-27 13:35 | PN- Cardiology ---
Subjective Subjective: Sitting up in her chair. Still with some drainage at the surgical site. Objective Vital Signs and I&Os Vital Signs Date Time Temp Pulse Resp B/P B/P Pulse O2 O2 Flow FiO2 Mean Ox Delivery Rate 11/27 0843 134 105/60 11/27 0819 93 Nasal 2.5L Cannula 11/27 0800 Nasal 2.0L Cannula 11/27 0715 98.7 98 118/64 11/27 0000 Nasal 2.0L Cannula 11/26 2302 98.8 104 18 106/60 97 Nasal 2.0L Cannula 11/26 1840 94 Room Air 11/26 1553 77 110/60 11/26 1438 98.5 77 20 110/60 95 Room Air Intake & Output 11/27 1600 11/27 0800 11/27 0000 11/26 1600 11/26 0800 11/26 0000 Intake Total 60 352 600 120 250 Output Total 400 1450 340 400 650 Balance -340 -1098 260 -280 -400 Intake, IV 12 20 Intake, Oral 60 340 600 100 250 Number 0 0 0 Bowel Movements Output, Chest 90 50 50 Tube Drainage Output, Urine 400 1450 250 350 600 Physical Exam: General: no apparent distress. Alert. Eyes: No obvious scleral icterus. HEENT: No jugular venous distention or abnormal jugular venous pulsations. Cardiovascular: Normal intensity S1/S2. Irregular. Respiratory: Decreased air entry on the left Abdomen: Soft, no guarding or rebound tenderness. Musculoskeletal: No clubbing or cyanosis noted; trace to 1+ LE edema Skin: warm Neurologic: No gross focal deficits noted. Current Medications: Current Medications Sig/Trinity Start time Last Medication Dose Route Stop Time Status Admin Acetaminophen 650 MG Q6 PRN 11/17 0632 AC 11/27 PO 0607 Albuterol Sulfate 3 ML BID 11/24 2200 AC 11/27 INH 0833 Albuterol Sulfate 2 PUF Q4-6 PRN PRN 11/12 2015 AC INH Aspirin 81 MG DAILY 11/16 1000 AC 11/27 PO 0844 Bisacodyl 10 MG ONCE ONE 11/27 1130 DC MA 11/27 1131 Budesonide/ 2 PUF BID 11/14 1240 AC 11/27 Formoterol Fumarate INH 0845 Digoxin 0.125 MG Q48@1700 11/12 2015 AC 11/26 PO 1553 Diltiazem HCl 180 MG DAILY 11/13 1000 AC 11/27 PO 0848 Docusate Sodium 100 MG BID 11/27 1000 AC PO Fluticasone 2 SPRAY DAILY 11/13 1000 AC 11/27 Propionate JONATHAN 0838 Furosemide 20 MG ONCE ONE 11/26 1345 DC 11/26 IV 11/26 1346 1519 Guaifenesin 600 MG Q12 11/14 1346 AC 11/27 PO 0844 Heparin Sodium 5,000 UNIT Q8 11/26 1400 AC 11/27 (Porcine) SC 0607 Hydromorphone HCl 50 MG Q24H PRN 11/23 1330 AC Sodium Chloride 45 ML IV Magnesium Oxide 400 MG DAILY 11/13 1000 AC 11/27 PO 0844 Metoprolol Succinate 25 MG DAILY 11/13 1000 AC 11/27 PO 0843 Montelukast Sodium 10 MG 2100 11/12 2100 AC 11/26 PO 2003 Polyethylene Glycol 17 GM DAILY 11/27 1000 AC PO Rosuvastatin Calcium 20 MG 1700 11/13 1700 AC 11/26 PO 1554 Senna 187 MG AT BEDTIME 11/21 2200 AC 11/26 PO 2004 Tiotropium [place] 1 PUF DAILY 11/13 1000 AC 11/27 INH 0839 Torsemide 10 MG 11/27 1000 DC PO Torsemide 20 MG SAT 11/18 1000 AC 11/25 PO 0905 Torsemide 10 MG SuMoWeFr 11/17 1359 AC 11/26 PO 1301 Zinc Oxide 1 ANGELA BID 11/21 0119 AC 11/24 TOP 1034 Results Last 48 Hrs of Labs/Mics: Laboratory Tests 11/27/17 0625: CBC w Diff NO MAN DIFF REQ, RBC 3.70 L, MCV 86.0, MCH 27.9, RDW 16.6 H, MPV 7.8, Gran % 67.6, Lymphocytes % 24.0, Monocytes % 5.3, Eosinophils % 2.6, Basophils % 0.5, Absolute Granulocytes 6.5, Absolute Lymphocytes 2.3, Absolute Monocytes 0.5, Absolute Eosinophils 0.2, Absolute Basophils 0.1, PUBS MCHC 32.5 L 11/26/17 0653: CBC w Diff NO MAN DIFF REQ, RBC 3.54 L, MCV 86.4, MCH 27.9, RDW 17.0 H, MPV 7.6, Gran % 70.0, Lymphocytes % 19.1 L, Monocytes % 9.2, Eosinophils % 1.2, Basophils % 0.5, Absolute Granulocytes 7.5 H, Absolute Lymphocytes 2.1, Absolute Monocytes 1.0 H, Absolute Eosinophils 0.1, Absolute Basophils 0.1, PUBS MCHC 32.3 L Recent Imaging Studies: Telemetry tracings were personally reviewed and show atrial fibrillation with some tachycardia this morning Assessment/Plan Assessment/Plan 1. Prevous pericardial effusion requiring prior transfer to [place] and cardiac mass was excluded by MRI; concern for constrictive physiology 2. Cardiac catheterization 07/2017 without obstructive CAD, mildly increased filling pressures and concern for interventricular dependence 3. History of known atrial fibrillation on Eliquis 3. History of coronary artery disease with prior LAD stent 4. History of pulmonary embolism in March 2017 5. History of asthma 6. Heart failure with preserved ejection fraction, mild 7. Recurrent Pleural effusion, status post repeat thoracentesis 11/15 with recurrence 8. Previous Renal insufficiency 9. Status post left thoracoscopy with pleurodesis Continue with gentle diuresis. Some tachycardia noted today but would hold off on increasing her AV elizabeth blockers for now given borderline blood pressure. Resume anticoagulation if cleared. Johnson Jefferson MD [facility] Continue telemetry? Yes
[2017-11-27 14:33] VITALS: BP 108/60
--- NOTE | 2017-11-27 15:50 | RADIOLOGY REPORT ---
EXAMINATION: XR CHEST PORTABLE CLINICAL INFORMATION: Shortness of breath. COMPARISON: Chest done on 11/26/2017. TECHNIQUE: Portable frontal view of the chest was obtained. FINDINGS: Nonspecific pleural parenchymal disease is noted at left lung base with obliteration of the left lateral CP angle and left hemidiaphragm, unchanged. Previously identified left-sided chest tube is no longer visualized. There is no evidence of any pneumothorax present. The aerated lung villavicencio otherwise bilaterally appear clear, unchanged. The cardiomediastinal silhouette is enlarged, unchanged. IMPRESSION: 1. The left-sided chest tube has been removed since the prior chest radiograph done on 11/26/2017. 2. No other significant interval change.
[2017-11-28 07:10] VITALS: BP 124/64
[2017-11-28 08:22] LABS: ABSOLUTE BASOPHIL COUNT 0.1 /CUMM (0.0-0.2); ABSOLUTE EOSINOPHIL COUNT 0.2 /CUMM (0.0-0.7); ABSOLUTE GRANULOCYTE CT 6.9 /CUMM (1.4-6.5); ABSOLUTE LYMPH COUNT 1.8 /CUMM (1.2-3.4); ABSOLUTE MONOCYTE COUNT 0.6 /CUMM (0.10-0.60); BASOPHIL % 0.5 % (0.0-2.0); EOSINOPHIL % 2.3 % (0-5); GRANULOCYTE % 72.3 % (42.2-75.2); HEMATOCRIT 31.3 % (37-47); MEAN CORPUSCULAR HGB 28.3 PG (27.0-31.0); MEAN CORPUSCULAR HGB CONC 32.8 G/DL (33.0-37.0); MEAN CORPUSCULAR VOLUME 86.1 FL (81.0-99.0); MEAN PLATELET VOLUME 7.8 FL (7.4-10.4); PLATELET COUNT 428 /CUMM (130-400); RBC DISTRIBUTION WIDTH 16.5 % (11.5-14.5); RED BLOOD CELL CT 3.64 /CUMM (4.20-5.40); WHITE BLOOD CELL COUNT 9.6 /CUMM (4.8-10.8)
--- NOTE | 2017-11-28 08:24 | PN- Pulmonary ---
Subjective HPI/Critical Care Issues: The patient is feeling better overall. She reports having some pain at her incisional site. She is less short of breath however and she is ambulating easier. She has some mild leakage at her incisional site. Overall, she feels she is doing better and offers no new complaints today. Objective Current Medications: Current Medications Sig/Trinity Start time Last Medication Dose Route Stop Time Status Admin Acetaminophen 650 MG .STK-MED ONE 11/27 2111 DC PO 11/27 211 Acetaminophen 650 MG Q6 PRN 11/17 0632 AC 11/27 PO 2112 Albuterol Sulfate 3 ML BID 11/24 2200 AC 11/27 INH 1939 Albuterol Sulfate 2 PUF Q4-6 PRN PRN 11/12 2015 AC INH Apixaban 5 MG BID 11/27 2200 AC 11/27 PO 2108 Aspirin 81 MG DAILY 11/16 1000 AC 11/27 PO 0844 Bisacodyl 10 MG ONCE ONE 11/27 1130 DC 11/27 TN 11/27 1131 1818 Budesonide/ 2 PUF BID 11/14 1240 AC 11/27 Formoterol Fumarate INH 2109 Digoxin 0.125 MG Q48@1700 11/12 2015 AC 11/26 PO 1553 Diltiazem HCl 180 MG DAILY 11/13 1000 AC 11/27 PO 0848 Docusate Sodium 100 MG BID 11/27 1000 AC 11/27 PO 2108 Fluticasone 2 SPRAY DAILY 11/13 1000 AC 11/27 Propionate JONATHAN 0838 Furosemide 20 MG ONCE ONE 11/27 1715 DC 11/27 IV 11/27 1716 1737 Guaifenesin 600 MG Q12 11/14 1346 AC 11/27 PO 2108 Heparin Sodium 5,000 UNIT Q8 11/26 1400 DC 11/27 (Porcine) SC 1542 Hydromorphone HCl 50 MG Q24H PRN 11/23 1330 AC Sodium Chloride 45 ML IV Magnesium Oxide 400 MG DAILY 11/13 1000 AC 11/27 PO 0844 Metoprolol Succinate 25 MG DAILY 11/13 1000 AC 11/27 PO 0843 Montelukast Sodium 10 MG 2100 11/12 2100 AC 11/27 PO 2108 Polyethylene Glycol 17 GM DAILY 11/27 1000 AC 11/27 PO 1541 Rosuvastatin Calcium 20 MG 1700 11/13 1700 AC 11/27 PO 1543 Senna 187 MG AT BEDTIME 11/21 2200 AC 11/27 PO 2109 Tiotropium [place] 1 PUF DAILY 11/13 1000 AC 11/27 INH 0839 Torsemide 10 MG 11/27 1000 DC PO Torsemide 20 MG SAT 11/18 1000 AC 11/25 PO 0905 Torsemide 10 MG SuMoWeFr 11/17 1359 AC 11/27 PO 1547 Zinc Oxide 1 ANGELA BID 11/21 0119 AC 11/24 TOP 1034 Vital Signs & I&O Last 24 Hrs of Vitals and I&O: Vital Signs Date Time Temp Pulse Resp B/P B/P Pulse O2 O2 Flow FiO2 Mean Ox Delivery Rate 11/28 0710 97.9 93 16 124/64 98 Nasal 2.0L Cannula 11/28 0000 Nasal 2.0L Cannula 11/27 1943 97 Nasal 2.5L Cannula 11/27 1433 98.3 68 20 108/60 98 Nasal 2.0L Cannula 11/27 0843 134 105/60 Intake & Output 11/28 1600 11/28 0800 11/28 0000 Intake Total 240 120 Output Total 1000 700 Balance -760 -580 Intake, Oral 240 120 Output, Urine 1000 700 Patient 183 lb Weight Weight Chair scale Measurement Method Exam General Appearance: alert, awake, comfortable Head: atraumatic, normal appearance Neck: supple Respiratory: no respiratory distress, quiet respiration, lungs clear Cardiovascular: S1 and S2 heard Abdomen: normal bowel sounds, soft, non-tender Extremities: trace edema Skin: intact, normal color, warm/dry Results Last 24 Hrs of Lab Results: Laboratory Tests 11/28/17 0625: Sodium Pending, Potassium Pending, Chloride Pending, Carbon Dioxide Pending, Anion Gap Pending, BUN Pending, Creatinine Pending, BUN/Creatinine Ratio Pending , CBC w Diff Pending, WBC Pending, RBC Pending, Hgb Pending, Hct Pending, MCV Pending, MCH Pending, RDW Pending, Plt Count Pending, MPV Pending, PUBS MCHC Pending, Digoxin Pending Diagnostic Data CXR Findings: 11/27/17:Nonspecific pleural parenchymal disease is noted at left lung base with obliteration of the left lateral CP angle and left hemidiaphragm, unchanged. Previously identified left-sided chest tube is no longer visualized. There is no evidence of any pneumothorax present. The aerated lung villavicencio otherwise bilaterally appear clear, unchanged. The cardiomediastinal silhouette is enlarged, unchanged. IMPRESSION: 1. The left-sided chest tube has been removed since the prior chest radiograph done on 11/26/2017. 2. No other significant interval change. Impression/Plan Impression/Plan Impression/Plan: 1. Prevous pericardial effusion with constrictive physiology. 2. Recurrent left pleural effusion, exudative. Patient is s/p left thoracoscopy with pleural biopsies and mechanical and chemical pleurodesis. Prelim results are negative for malignancy, cytology is still pending. 3. History of known atrial fibrillation, on Eliquis. 3. History of coronary artery disease with prior LAD stent. 4. History of pulmonary embolism in March 2017. 5. History of mild to moderate asthma. 6. Heart failure with preserved ejection fraction. Recommendations: * Out of bed to chair. * Continue nebs/TRC. * Start incentive spirometry. * Continue with pain control. * Continue Symbicort and Spiriva. * Monitor off antibiotics per ID. * Monitor oxygen saturations, keep sats greater than 92% at rest and greater than 88% with ambulation. * Continue all supportive care. * Discharge planning.
--- NOTE | 2017-11-28 08:31 | PN- Thoracic Surgery ---
Subjective Subjective: Patient reports feeling well. She reports incisional pain is well controlled. She reports using her incentive spirometry frequently. CXR post CT removal revealed no evidence of PTX Objective Vital Signs and I&Os Vital Signs Date Time Temp Pulse Resp B/P B/P Pulse O2 O2 Flow FiO2 Mean Ox Delivery Rate 11/28 0800 Nasal 2.0L Cannula 11/28 0710 97.9 93 16 124/64 98 Nasal 2.0L Cannula 11/28 0000 Nasal 2.0L Cannula 11/27 1943 97 Nasal 2.5L Cannula 11/27 1433 98.3 68 20 108/60 98 Nasal 2.0L Cannula Intake & Output 11/28 1600 11/28 0800 11/28 0000 11/27 1600 11/27 0800 11/27 0000 Intake Total 240 120 550 60 352 Output Total 1000 700 450 033 9631 Balance -760 -580 350 -340 -1098 Intake, IV 12 Intake, Oral 240 120 550 60 340 Number 0 0 Bowel Movements Output, Urine [id number] Patient 183 lb Weight Weight Chair scale Measurement Method Physical Exam: Gen: Resting comfortable in a chair awake an alert in NAD Cardiac: S1S2 noted, RRR Lungs: Good air entry, diminished on left base, otherwise CTA, bulky left sided dressing c/d/i. No surronding crepitus or tenderness. Current Medications: Current Medications Sig/Trinity Start time Last Medication Dose Route Stop Time Status Admin Acetaminophen 650 MG .STK-MED ONE 11/27 2111 DC PO 11/27 2112 Acetaminophen 650 MG Q6 PRN 11/17 0632 AC 11/27 PO 2111 Albuterol Sulfate 3 ML BID 11/24 2200 AC 11/27 INH 1939 Albuterol Sulfate 2 PUF Q4-6 PRN PRN 11/12 2015 AC INH Apixaban 5 MG BID 11/27 2200 AC 11/27 PO 2108 Aspirin 81 MG DAILY 11/16 1000 AC 11/27 PO 0844 Bisacodyl 10 MG ONCE ONE 11/27 1130 DC 11/27 IA 11/27 1131 1818 Budesonide/ 2 PUF BID 11/14 1240 AC 11/27 Formoterol Fumarate INH 2109 Digoxin 0.125 MG Q48@1700 11/12 2015 AC 11/26 PO 1553 Diltiazem HCl 180 MG DAILY 11/13 1000 AC 11/27 PO 0848 Docusate Sodium 100 MG BID 11/27 1000 AC 11/27 PO 2108 Fluticasone 2 SPRAY DAILY 11/13 1000 AC 11/27 Propionate JONATHAN 0838 Furosemide 20 MG ONCE ONE 11/27 1715 DC 11/27 IV 11/27 1716 1737 Guaifenesin 600 MG Q12 11/14 1346 AC 11/27 PO 2108 Heparin Sodium 5,000 UNIT Q8 11/26 1400 DC 11/27 (Porcine) SC 1542 Hydromorphone HCl 50 MG Q24H PRN 11/23 1330 AC Sodium Chloride 45 ML IV Magnesium Oxide 400 MG DAILY 11/13 1000 AC 11/27 PO 0844 Metoprolol Succinate 25 MG DAILY 11/13 1000 AC 11/27 PO 0843 Montelukast Sodium 10 MG 2100 11/12 2100 AC 11/27 PO 2108 Polyethylene Glycol 17 GM DAILY 11/27 1000 AC 11/27 PO 1541 Rosuvastatin Calcium 20 MG 1700 11/13 1700 AC 11/27 PO 1543 Senna 187 MG AT BEDTIME 11/21 2200 AC 11/27 PO 2109 Tiotropium [place] 1 PUF DAILY 11/13 1000 AC 11/27 INH 0839 Torsemide 10 MG 11/27 1000 DC PO Torsemide 20 MG SAT 11/18 1000 AC 11/25 PO 0905 Torsemide 10 MG SuMoWeFr 11/17 1359 AC 11/27 PO 1547 Zinc Oxide 1 ANGELA BID 11/21 0119 AC 11/24 TOP 1034 Assessment/Plan Assessment/Plan This is an 82 year-old female who is POD 5 s/p left VATS, pleural bx, pleurodesis with CT insertion and removal who is recovering well. Follow up CXR revealed no PTX Keep dressing in place, reinforce prn Cont current pain regimen Cont TRC, encourage IS Cont anticoag per primary All other medical management per primary Follow up with Dr. Corral in 1-2 weeks Will d/w Dr. Corral
[2017-11-28 09:30] VITALS: BP 96/78
--- NOTE | 2017-11-28 10:34 | PN- Housestaff ---
See Addendum Subjective Follow-up For: Recurrent left pleural effusion A.fib Tele-Events Since Last Visit: A. fib rates 82-112 with an 8 beat run of V. tach at 12:13 AM Subjective: Patient states that she's feeling much better. She does continue to have a little bit of left chest pain. Her breathing is much better and she is no longer on oxygen. Review of Systems Constitutional: Reports: no symptoms. EENTM: Reports: no symptoms. Cardiovascular: Reports: no symptoms. Respiratory: Reports: no symptoms. Gastrointestinal: Reports: no symptoms. Genitourinary: Reports: no symptoms. Musculoskeletal: Reports: no symptoms. Skin: Reports: no symptoms. Neurological/Psychological: Reports: no symptoms. Hematologic/Endocrine: Reports: no symptoms. Immunologic/Allergic: Reports: no symptoms. Objective Last 24 Hrs of Vital Signs/I&O Vital Signs Date Time Temp Pulse Resp B/P B/P Pulse O2 O2 Flow FiO2 Mean Ox Delivery Rate 11/28 1101 94 Room Air Room Air 11/28 0930 20 96/78 11/28 0911 107 124/64 11/28 0900 107 11/28 0800 Nasal 2.0L Cannula 11/28 0710 97.9 93 16 124/64 98 Nasal 2.0L Cannula 11/28 0000 Nasal 2.0L Cannula 11/27 1943 97 Nasal 2.5L Cannula 11/27 1433 98.3 68 20 108/60 98 Nasal 2.0L Cannula Intake & Output 11/28 1600 11/28 0800 11/28 0000 Intake Total 240 120 Output Total 1000 700 Balance -760 -580 Intake, Oral 240 120 Output, Urine 1000 700 Patient 183 lb Weight Weight Chair scale Measurement Method Physical Exam General Appearance: Alert, Oriented X3, Cooperative, No Acute Distress Skin: No Rashes Skin Temp/Moisture Exam: Warm/Dry Sepsis Skin Exam (color): Normal for Ethnicity HEENT: Atraumatic Cardiovascular: Normal S1, Normal S2, No Murmurs Lungs: Clear to Auscultation, Normal Air Movement Abdomen: Normal Bowel Sounds, Soft Extremities: No Clubbing, No Cyanosis, No Edema Vascular: Normal Pulses, Pulses Symmetrical Current Medications: Current Medications Sig/Trinity Start time Last Medication Dose Route Stop Time Status Admin Acetaminophen 650 MG .STK-MED ONE 11/27 2111 DC PO 01/01 2113 Acetaminophen 650 MG Q6 PRN 11/17 0632 AC 11/27 PO 2112 Albuterol Sulfate 3 ML BID 11/24 220 AC 11/28 INH 1059 Albuterol Sulfate 2 PUF Q4-6 PRN PRN 11/12 2015 AC INH Apixaban 5 MG BID 11/27 2200 AC 11/28 PO 0911 Aspirin 81 MG DAILY 11/16 1000 AC 11/28 PO 0909 Budesonide/ 2 PUF BID 11/14 1240 AC 11/28 Formoterol Fumarate INH 0912 Digoxin 0.125 MG Q48@1700 11/12 2015 AC 11/26 PO 1553 Diltiazem HCl 180 MG DAILY 11/13 1000 AC 11/28 PO 0911 Docusate Sodium 100 MG BID 11/27 1000 AC 11/28 PO 0911 Fluticasone 2 SPRAY DAILY 11/13 1000 AC 11/28 Propionate JONATHAN 0911 Furosemide 20 MG ONCE ONE 11/27 1715 DC 11/27 IV 11/27 1716 1737 Guaifenesin 600 MG Q12 11/14 1346 AC 11/28 PO 0911 Heparin Sodium 5,000 UNIT Q8 11/26 1400 DC 11/27 (Porcine) SC 1542 Hydromorphone HCl 50 MG Q24H PRN 11/23 1330 AC Sodium Chloride 45 ML IV Magnesium Oxide 400 MG DAILY 11/13 1000 AC 11/28 PO 0911 Metoprolol Succinate 25 MG DAILY 11/13 1000 AC 11/28 PO 0911 Montelukast Sodium 10 MG 2100 11/12 2100 AC 11/27 PO 2108 Polyethylene Glycol 17 GM DAILY 11/27 1000 AC 11/28 PO 0912 Rosuvastatin Calcium 20 MG 1700 11/13 1700 AC 11/27 PO 1543 Senna 187 MG AT BEDTIME 11/21 2200 AC 11/27 PO 2109 Tiotropium [place] 1 PUF DAILY 11/13 1000 AC 11/28 INH 0911 Torsemide 20 MG TUES THURS SAT 11/18 1000 AC 11/28 PO 0911 Torsemide 10 MG SuMoWeFr 11/17 1359 AC 11/27 PO 1547 Zinc Oxide 1 ANGELA BID 11/21 0119 AC 11/24 TOP 1034 Last 24 Hrs of Lab/Luzi Results Last 24 Hrs of Labs/Mics: Laboratory Tests 11/28/17 0625: Anion Gap 7, Estimated GFR > 60, BUN/Creatinine Ratio 22.9, CBC w Diff NO MAN DIFF REQ, RBC 3.64 L, MCV 86.1, MCH 28.3, RDW 16.5 H, MPV 7.8, Gran % 72.3, Lymphocytes % 18.7 L, Monocytes % 6.2, Eosinophils % 2.3, Basophils % 0.5, Absolute Granulocytes 6.9 H, Absolute Lymphocytes 1.8, Absolute Monocytes 0.6, Absolute Eosinophils 0.2, Absolute Basophils 0.1, PUBS MCHC 32.8 L, Digoxin < 0.4 L Assessment/Plan Assessment: Assessment 82 yo F with h/o COPD/ asthma, COLT on CPAP, Afib/PE in december on eliquis, CAD s/p stent, resolved pericardial effusion with negative workup, chronic leukocytosis, HTN, recently admitted to [place] (Oct 08-) for COPD and recurrent left pleural effusion that was tapped showed exudative effusion with reactive epithelial cells, returned for left sided sharp chest pain (under left breast) radiating to the back, worse with inspiration and coughing, productive cough (brown phlegm), congestion and worsening exertional dyspnea. She recently was seen at [place] for pleural and pericardial effusions, pericarditis. Now she is seen again here at [facility] for recurrence of left pleural effusion. Patient had thoracentesis, found to have exudative fluid, with reaccumlation two days later. Patient was NOT found to have pericardial effusion during her admission with us. Currently, patient is s/p VATS with mechanical and chemical pleurodesis with pleural biopsy. We await pleural biopsy results. Previous biopsy done during thoracentesis this admission showed no evidence of malignancy. Patient does not have TB. Plan Acute hypoxic respiratory failure: -No evidence of pneumothorax on chest x-ray done after spillage of fluid from surgical site yesterday morning -Maintain dressing and reinforced if needed, do not remove! -Paytient not on O2 today -Patient presented with acute hypoxic respiratory failure probably multifactorial including COPD exacerbation and left-sided pleural effusion. -Oxygen supplementation to keep saturation above 92%. -Urine strep and Legionella antigen are negative. Recurrent left-sided pleural effusion: -Patient has recurrent left-sided pleural effusion without any evidence of etiology. -Patient is s/p VATS with mechanical and chemical pleurodesis with pleural biopsy. We await biopsy results. -We restarted patient's Eliquis. -We will continue Symbicort and Mucinex as needed. -TRC nebulization as needed. H/O A.fib and CAD: -We will continue Cardizem and metoprolol and digoxin for rate control. -Patient's digoxin level is subtherapeutic at 0.4. She is currently receiving 0.125 mg of digoxin every other day. We will await recommendations from cardiology. -Continue aspirin 81 mg. -Eliquis restarted -Heart rates overnight were 82 - 112 H/O COPD/COLT: -TRC nebulization as needed -Continue home medication -Continue nighttime CPAP H/O constipation: -Senna -Dulcolax suppository as patient has not had bowel movement in 5 days. H/O generalized rash: -Zinc oxide has helped, no complaints currently Disposition -As per physical therapy patient can go home with PT services. Patient states that today she feels unsafe to leave. DVT prophylaxis: SC Heparin Code status: Full code Problem List: 1. Recurrent left pleural effusion 2. Atrial fibrillation with RVR Pain Ratin Pain Location: Left chest Pain Goal: Remain pain free Pain Plan: Per pathway Tomorrow's Labs & Rationales: She is to be discharged today.
--- NOTE | 2017-11-28 10:57 | PN- Cardiology ---
Subjective Subjective: Patient feels better. She denies chest pain or shortness of breath. Review of Systems: Eyes no blurred or double vision Ears no deafness or ringing Nose and throat no recurrent sinusitis Lungs per history of present illness Heart per history of present illness Abdomen no nausea vomiting Musculoskeletal occasional muscle and joint pains Psych no anxiety or depression Neuro without recurrent headache or seizures Endocrine no heat or cold intolerance Objective Vital Signs and I&Os Vital Signs Date Time Temp Pulse Resp B/P B/P Pulse O2 O2 Flow FiO2 Mean Ox Delivery Rate 11/28 0930 20 96/78 11/28 0911 107 124/64 11/28 0900 107 11/28 0800 Nasal 2.0L Cannula 11/28 0710 97.9 93 16 124/64 98 Nasal 2.0L Cannula 11/28 0000 Nasal 2.0L Cannula 11/27 1943 97 Nasal 2.5L Cannula 11/27 1433 98.3 68 20 108/60 98 Nasal 2.0L Cannula Intake & Output 11/28 1600 11/28 0811/28 0000 11/27 1600 11/27 0811/27 0000 Intake Total 240 120 550 60 352 Output Total 1000 700 131 926 7582 Balance -760 -580 350 -340 -1098 Intake, IV 12 Intake, Oral 240 120 550 60 340 Number 0 0 Bowel Movements Output, Urine [phone] [id number] Patient 183 lb Weight Weight Chair scale Measurement Method Physical Exam: Patient is a well-developed well-nourished female appearing in no acute distress HEENT is unremarkable Neck is supple there is no JVD Lungs are clear Heart Irregular rhythm S1 and S2 are normal no murmurs gallops or rubs Abdomen bowel sounds positive Extremities without edema Current Medications: Current Medications Sig/Trinity Start time Last Medication Dose Route Stop Time Status Admin Acetaminophen 650 MG .STK-MED ONE 11/27 2111 DC PO 11/27 2112 Acetaminophen 650 MG Q6 PRN 11/17 632 AC 11/27 PO 2111 Albuterol Sulfate 3 ML BID 11/24 2200 AC 11/27 INH 1939 Albuterol Sulfate 2 PUF Q4-6 PRN PRN 11/12 2015 AC INH Apixaban 5 MG BID 11/27 220 AC 11/28 PO 0911 Aspirin 81 MG DAILY 11/16 1000 AC 11/28 PO 0909 Bisacodyl 10 MG ONCE ONE 11/27 1130 DC 11/27 OK 11/27 1131 1818 Budesonide/ 2 PUF BID 11/14 1240 AC 11/28 Formoterol Fumarate INH 0912 Digoxin 0.125 MG Q48@1700 11/12 2015 AC 11/26 PO 1553 Diltiazem HCl 180 MG DAILY 11/13 1000 AC 11/28 PO 0911 Docusate Sodium 100 MG BID 11/27 1000 AC 11/28 PO 0911 Fluticasone 2 SPRAY DAILY 11/13 1000 AC 11/28 Propionate JONATHAN 0911 Furosemide 20 MG ONCE ONE 11/27 1715 DC 11/27 IV 11/27 1716 1737 Guaifenesin 600 MG Q12 11/14 1346 AC 11/28 PO 0911 Heparin Sodium 5,000 UNIT Q8 11/26 1400 DC 11/27 (Porcine) SC 1542 Hydromorphone HCl 50 MG Q24H PRN 11/23 1330 AC Sodium Chloride 45 ML IV Magnesium Oxide 400 MG DAILY 11/13 1000 AC 11/28 PO 0911 Metoprolol Succinate 25 MG DAILY 11/13 1000 AC 11/28 PO 0911 Montelukast Sodium 10 MG 2100 11/12 2100 AC 11/27 PO 2108 Polyethylene Glycol 17 GM DAILY 11/27 1000 AC 11/28 PO 0912 Rosuvastatin Calcium 20 MG 1700 11/13 1700 AC 11/27 PO 1543 Senna 187 MG AT BEDTIME 11/21 2200 AC 11/27 PO 2109 Tiotropium [place] 1 PUF DAILY 11/13 1000 AC 11/28 INH 0911 Torsemide 20 MG TUES THURS SAT 11/18 1000 AC 11/28 PO 0911 Torsemide 10 MG SuMoWeFr 11/17 1359 AC 11/27 PO 1547 Zinc Oxide 1 ANGELA BID 11/21 0119 AC 11/24 TOP 1034 Results Last 48 Hrs of Labs/Mics: Laboratory Tests 11/28/17 0625: Anion Gap 7, Estimated GFR > 60, BUN/Creatinine Ratio 22.9, CBC w Diff NO MAN DIFF REQ, RBC 3.64 L, MCV 86.1, MCH 28.3, RDW 16.5 H, MPV 7.8, Gran % 72.3, Lymphocytes % 18.7 L, Monocytes % 6.2, Eosinophils % 2.3, Basophils % 0.5, Absolute Granulocytes 6.9 H, Absolute Lymphocytes 1.8, Absolute Monocytes 0.6, Absolute Eosinophils 0.2, Absolute Basophils 0.1, PUBS MCHC 32.8 L, Digoxin < 0.4 L 11/27/17 0625: CBC w Diff NO MAN DIFF REQ, RBC 3.70 L, MCV 86.0, MCH 27.9, RDW 16.6 H, MPV 7.8, Gran % 67.6, Lymphocytes % 24.0, Monocytes % 5.3, Eosinophils % 2.6, Basophils % 0.5, Absolute Granulocytes 6.5, Absolute Lymphocytes 2.3, Absolute Monocytes 0.5, Absolute Eosinophils 0.2, Absolute Basophils 0.1, PUBS MCHC 32.5 L Telemetry personally reviewed atrial fibrillation with brief run of aberrancy Assessment/Plan Assessment/Plan 1. Prevous pericardial effusion requiring prior transfer to [place] and cardiac mass was excluded by MRI; concern for constrictive physiology 2. Cardiac catheterization 07/2017 without obstructive CAD, mildly increased filling pressures and concern for interventricular dependence 3. History of known atrial fibrillation on Eliquis 3. History of coronary artery disease with prior LAD stent 4. History of pulmonary embolism in March 2017 5. History of asthma 6. Heart failure with preserved ejection fraction, mild 7. Recurrent Pleural effusion, status post repeat thoracentesis 11/15 with recurrence 8. Previous Renal insufficiency 9. Status post left thoracoscopy with pleurodesis Recommendations 1. Continue current medication including eloquent for stroke prevention 2. Continue to monitor on telemetry 3. Ambulate Continue telemetry? Yes
[2017-11-28 14:54] VITALS: BP 98/52
[2017-11-28 18:08] VITALS: BP 90/60
[2017-11-28 23:01] VITALS: BP 102/64
[2017-11-29 06:51] VITALS: BP 118/62
[2017-11-29 08:07] LABS: ABSOLUTE BASOPHIL COUNT 0.1 /CUMM (0.0-0.2); ABSOLUTE EOSINOPHIL COUNT 0.3 /CUMM (0.0-0.7); ABSOLUTE GRANULOCYTE CT 7.5 /CUMM (1.4-6.5); ABSOLUTE LYMPH COUNT 1.8 /CUMM (1.2-3.4); ABSOLUTE MONOCYTE COUNT 0.8 /CUMM (0.10-0.60); BASOPHIL % 1.2 % (0.0-2.0); EOSINOPHIL % 2.6 % (0-5); GRANULOCYTE % 71.2 % (42.2-75.2); HEMATOCRIT 30.5 % (37-47); MEAN CORPUSCULAR HGB 28.1 PG (27.0-31.0); MEAN CORPUSCULAR HGB CONC 32.9 G/DL (33.0-37.0); MEAN CORPUSCULAR VOLUME 85.5 FL (81.0-99.0); MEAN PLATELET VOLUME 7.7 FL (7.4-10.4); PLATELET COUNT 421 /CUMM (130-400); RBC DISTRIBUTION WIDTH 16.2 % (11.5-14.5); RED BLOOD CELL CT 3.56 /CUMM (4.20-5.40); WHITE BLOOD CELL COUNT 10.5 /CUMM (4.8-10.8)
[2017-11-29 10:08] VITALS: BP 92/62
[2017-11-29] MEDS ORDERED: ZOFRAN ODT4 M1 SL (10:30)
[2017-11-29] MEDS ORDERED: 8 HOUR PAIN RE650 M1 PO (10:30)
[2017-11-29] MEDS ORDERED: METOPROLOL SUCC25 M1 PO ×2 (11:03→11:22)
--- NOTE | 2017-11-29 11:18 | PN- Housestaff ---
Remy MARIN,Marisa 11/29/17 1118: Subjective Follow-up For: Recurrent left pleural effusion Tele-Events Since Last Visit: A. fib rate 69-80 no events Subjective: seen and examined. She states that this morning she began to have chills and nausea, has not vomited. Her temperature is afebrile 98.7. She also notes that she was diaphoretic on waking this morning. She states that this happened last when she had thoracentesis 10-12 days ago. She was given Zofran for the nausea. She states that her left-sided pain around the surgical incision is minimal at this point. Review of Systems Constitutional: Reports: chills, diaphoresis, weakness. EENTM: Reports: no symptoms. Cardiovascular: Reports: no symptoms. Respiratory: Reports: no symptoms. Gastrointestinal: Reports: nausea. Genitourinary: Reports: no symptoms. Musculoskeletal: Reports: no symptoms. Skin: Reports: no symptoms. Neurological/Psychological: Reports: no symptoms. Hematologic/Endocrine: Reports: no symptoms. Immunologic/Allergic: Reports: no symptoms. Objective Last 24 Hrs of Vital Signs/I&O Vital Signs Date Time Temp Pulse Resp B/P B/P Pulse O2 O2 Flow FiO2 Mean Ox Delivery Rate 11/29 1115 93 Room Air 11/29 1008 70 92/62 11/29 0800 Nasal 2.0L Cannula 11/29 0651 98.7 70 18 118/62 94 Room Air 11/28 2301 98.5 53 16 102/64 93 Room Air 11/28 2128 97 Nasal 2.0L Cannula 11/28 1810 80 90/60 11/28 1808 80 90/60 Intake & Output 11/29 1600 11/29 0800 11/29 0000 Intake Total 375 240 600 Output Total 400 350 400 Balance -25 -110 200 Intake, Oral 375 240 600 Number 1 Bowel Movements Output, Urine 400 350 400 Patient 181 lb Weight Weight Chair scale Measurement Method Physical Exam General Appearance: Alert, Oriented X3, Cooperative, Mild Distress Skin: No Rashes, No Breakdown, No Significant Lesion Sepsis Skin Exam (color): Normal for Ethnicity HEENT: Atraumatic Cardiovascular: Normal S1, Normal S2, No Murmurs Lungs: Clear to Auscultation, Normal Air Movement Abdomen: Normal Bowel Sounds, Soft, No Tenderness Neurological: Normal Speech Extremities: No Clubbing, No Cyanosis, No Edema, Normal Pulses, No Tenderness/ Swelling Vascular: Pulses Symmetrical Current Medications: Current Medications Sig/Trinity Start time Last Medication Dose Route Stop Time Status Admin Acetaminophen 650 MG Q6 PRN 11/17 0632 DCD 11/27 PO 2112 Albuterol Sulfate 3 ML BID 11/24 2200 DCD 11/29 INH 1109 Albuterol Sulfate 2 PUF Q4-6 PRN PRN 11/12 2015 DCD INH Apixaban 5 MG BID 11/27 2200 DCD 11/29 PO 1008 Aspirin 81 MG DAILY 11/16 1000 DCD 11/29 PO 1007 Bisacodyl 10 MG ONCE ONE 11/28 1900 DC CO 11/28 1901 Budesonide/ 2 PUF BID 11/14 1240 DCD 11/29 Formoterol Fumarate INH 1010 Digoxin 0.125 MG Q48@1700 11/12 2015 DCD 11/28 PO 1810 Diltiazem HCl 180 MG DAILY 11/13 1000 DCD 11/29 PO 1007 Docusate Sodium 100 MG BID 11/27 1000 DCD 11/29 PO 1008 Fluticasone 2 SPRAY DAILY 11/13 1000 DCD 11/29 Propionate JONATHAN 1010 Guaifenesin 600 MG Q12 11/14 1346 DCD 11/29 PO 1008 Hydromorphone HCl 50 MG Q24H PRN 11/23 1330 DCD Sodium Chloride 45 ML IV Magnesium Oxide 400 MG DAILY 11/13 1000 DCD 11/29 PO 1008 Metoprolol Succinate 25 MG DAILY 11/13 1000 DCD 11/28 PO 0911 Montelukast Sodium 10 MG 2100 11/12 2100 DCD 11/28 PO 2105 Ondansetron HCl 4 MG ONCE ONE 11/29 0730 DC 11/29 IV 11/29 0731 0731 Polyethylene Glycol 17 GM DAILY 11/27 1000 DCD 11/29 PO 1011 Rosuvastatin Calcium 20 MG 1700 11/13 1700 DCD 11/28 PO 1810 Senna 187 MG AT BEDTIME 11/21 2200 DCD 11/28 PO 2106 Tiotropium [place] 1 PUF DAILY 11/13 1000 DCD 11/29 INH 1010 Torsemide 20 MG TUES THURS SAT 11/18 1000 DCD 11/28 PO 0911 Torsemide 10 MG SuMoWeFr 11/17 1359 DCD 11/29 PO 1321 Zinc Oxide 1 ANGELA BID 11/21 0119 DCD 11/24 TOP 1034 Last 24 Hrs of Lab/Luiz Results Last 24 Hrs of Labs/Mics: Laboratory Tests 11/29/17 0635: Anion Gap 8, Estimated GFR > 60, BUN/Creatinine Ratio 25.7 H, CBC w Diff NO MAN DIFF REQ, RBC 3.56 L, MCV 85.5, MCH 28.1, RDW 16.2 H, MPV 7.7, Gran % 71.2, Lymphocytes % 17.1 L, Monocytes % 7.9, Eosinophils % 2.6, Basophils % 1.2, Absolute Granulocytes 7.5 H, Absolute Lymphocytes 1.8, Absolute Monocytes 0.8 H, Absolute Eosinophils 0.3, Absolute Basophils 0.1, PUBS MCHC 32.9 L Assessment/Plan Assessment: Assessment 82 yo F with h/o COPD/ asthma, COLT on CPAP, Afib/PE in december on eliquis, CAD s/p stent, resolved pericardial effusion with negative workup, chronic leukocytosis, HTN, recently admitted to [place] (Oct 08) for COPD and recurrent left pleural effusion that was tapped showed exudative effusion with reactive epithelial cells, returned for left sided sharp chest pain (under left breast) radiating to the back, worse with inspiration and coughing, productive cough (brown phlegm), congestion and worsening exertional dyspnea. She recently was seen at [place] for pleural and pericardial effusions, pericarditis. Now she is seen again here at [place] for recurrence of left pleural effusion. Patient had thoracentesis, found to have exudative fluid, with reaccumlation two days later. Patient was NOT found to have pericardial effusion during her admission with us. Currently, patient is s/p VATS with mechanical and chemical pleurodesis with pleural biopsy. We await pleural biopsy results. Previous biopsy done during thoracentesis this admission showed no evidence of malignancy. Patient does not have TB. Patient is having chills and nausea as of this morning. She is afebrile. She has had low blood pressure of 92/62. She is on diltiazem, her metoprolol is being held on and off for hypotension. Her heart rate is around 75 A. fib. Plan Acute hypoxic respiratory failure: -No evidence of pneumothorax on chest x-ray done after spillage of fluid from surgical site yesterday morning -Maintain dressing and reinforced if needed, do not remove! -Patient will be discharged with instructions to follow up with Dr. Corral in 1 -2 weeks -Patient was not on oxygen overnight but is now on 2 L. We will wean today. -Patient presented with acute hypoxic respiratory failure probably multifactorial including COPD exacerbation and left-sided pleural effusion. -Oxygen supplementation to keep saturation above 92%. -Urine strep and Legionella antigen are negative. Recurrent left-sided pleural effusion: -Patient has recurrent left-sided pleural effusion without any evidence of etiology. -Patient is s/p VATS with mechanical and chemical pleurodesis with pleural biopsy. We await biopsy results. -We restarted patient's Eliquis. -We will continue Symbicort and Mucinex as needed. -TRC nebulization as needed. H/O A.fib and CAD: -We will continue Cardizem and metoprolol and digoxin for rate control. -Patient's current blood pressure is 92/62 and her metoprolol is being held. As per nursing her metoprolol has been held on and off. She is currently on 25 mg by mouth per day which we will decrease to 12.5 mg by mouth per day. -Patient's digoxin level is subtherapeutic at 0.4. She is currently receiving 0.125 mg of digoxin every other day. We will await recommendations from cardiology. -Continue aspirin 81 mg. -Eliquis restarted -Heart rates overnight were 82 - 112 H/O COPD/COLT: -TRC nebulization as needed -Continue home medication -Continue nighttime CPAP H/O constipation: -Senna -Dulcolax suppository as patient has not had bowel movement in 5 days. H/O generalized rash: -Zinc oxide has helped, no complaints currently Disposition -As per physical therapy patient can go home with PT services. Will also go home with home health services to help her with changing her dressing. DVT prophylaxis: SC Heparin Code status: Full code Problem List: 1. Recurrent pleural effusion on left 2. Atrial fibrillation with RVR Pain Ratin Pain Location: Left chest Pain Goal: Pain 4 or less Pain Plan: As needed Tomorrow's Labs & Rationales: will be discharged today Abdiel Morgan 11/29/17 1602: Attending MD Review Statement Attending Statement Attending MD Statement: examined this patient, discuss w/resident/PA/[employer], agreed w/resident/PA/[employer], reviewed EMR data (avail), discussed with nursing, discussed with case mgmt Attending Assessment/Plan: pt being dced home in stable condition. Metoprolol succinate dose was decreased to 12.5 mg qd . Home health is going to f/u with pt tomorrow afternoon for dressing change. d/w pt the care plan.
--- NOTE | 2017-11-29 11:26 | Patient Discharge Instructions ---
Discharge Instructions General Discharge Information You were seen/treated for: recurrent pleural effusion You had these procedures: Thoracentesis, VATS with mechanical and chemical pleurodesis with pleural biopsy. Special Instructions: 1. Please follow up with surgery Dr. Corral in 1-2 weeks 2. Please follow up with primary care doctor in one week. 3. Please follow up with grove superintendent Dr. Benitez in one week. Diet Continue normal diet: Yes Activity Full Activity/No Limits: Yes (as tolerated) Acute Coronary Syndrome Inclusion Criteria At DC or during hospital stay patient has or had the following: ACS DIAGNOSIS No Discharge Core Measures Meds if any: Prescribed or Continued at Discharge Meds if any: NOT Prescribed or Continued at Discharge Congestive Heart Failure Inclusion Criteria At DC or during hospital stay patient has or had the following: CHF DIAGNOSIS No Discharge Core Measures Meds if any: Prescribed or Continued at Discharge Meds if any: NOT Prescribed or Continued at Discharge Cerebrovascular accident Inclusion Criteria At DC or during hospital stay patient has or had the following: CVA/TIA Diagnosis No Discharge Core Measures Meds if any: Prescribed or Continued at Discharge Meds if any: NOT Prescribed or Continued at Discharge Venous thromboembolism Inclusion Criteria VTE Diagnosis No VTE Type NONE VTE Confirmed by (Test) NONE Discharge Core Measures - Per Current guidelines, there needs to be overlap - treatment for the first 5 days of Warfarin therapy. - If discharged on Warfarin prior to 5 days of - overlap therapy, the patient will need to be - assessed for post discharge needs including - *Post discharge parental anticoagulation - *Warfarin and/or parental anticoagulation education - *Follow up date to check INR post discharge At least 5 days overlap therapy as Inpatient No Meds if any: Prescribed or Continued at Discharge Note: Overlap Therapy is Warfarin and Anticoagulant Meds if any: NOT Prescribed or Continued at Discharge
--- NOTE | 2017-11-29 13:40 | Discharge Summary ---
Visit Information Visit Dates Admission Date: 11/14/17 Discharge Date: 11/29/17 Hospital Course Course Attending Physician: Abdiel Morgan MD Primary Care Physician: Thierry Nunes MD Hospital Course: 82 yo F pmhx AFIB, CAD (s/p PCI of LAD), hypertension, hyperlipidemia, myocardial infarction, NSTEMI, pericardial effusion, pulmonary embolism, asthma, COPD, pulmonary embolism, osteoarthritis, cervical disc disease with myelopathy s/p anterior cervical discectomy, anxiety presenting for sob and L chest pain. She recently admitted to [facility] (Oct 08-) for COPD and recurrent left exudative pleural effusion, tapped showed exudative effusion with reactive epithelial cells. She states that she was recently admitted to [facility] for the same issue several months back and was found to have pericarditis then on top of the pleural effusion. The patient states that she has been having intermitted cough with brown productive phelgm, congestion and worsenign SOB. She visited the [facility] center and was treated with IV steroids which initially improved her symptoms however for the previous 2 days her symptoms have gotten worst. She also complains of L sided chest pain described as sharp, 10/10 and radiating to her back. She says it feels like it is an electic shock. The pain is worst with inspiration, sitting up and acitvity. She also states that she has stopped her diuretics as she lost 5 lbs 2 weeks ago and 5 lbs this past week. She endorses poor appetite during this period. She was supposed to see Dr. Benitez the next day She denies any nausea, vomiting, abdominal pain, palpitations, urinary or bowel symptoms. In the ED her vitals were HR 114, RR 19, BP 93/86075/60, 96% on 2 L. WBC 14.8 pro bnp 201. CXR: Moderate to large left pleural effusion which is larger in size than effusion demonstrated on the prior exam. Cannot exclude underlying left lower lobe consolidation. Chest Ct: Left-sided pleural-parenchymal disease is essentially stable. No new findings. Interval resolution right-sided groundglass nodule. Stable small pericardial fluid. Severe coronary atherosclerosis with stents noted. Echo 2017: LVEF >55, prominent picardial fat. She was placed in observation on telemetry for: 1. Acute hypoxic respiratory failure and Recurrent left pleural effusion: -trc, nebs, mucinixex, spiriva, flonase, singulair -IR consult for thoracentesis -holding eliquis for thoracentesis -pulm consult 2. Left lower lobe consolidation concerning for community acquired pneumonia - Panculture, urine legionella and strep Ag, flu swab - IV ceftriaxone and azithro if she remains afebrile, would consider stopping antibiotics 3. No evidence of COPD exacerbation - Symptomatic rx with nebs, mucinex. - No need for steroids at this point. 4. Afib on eliquis (last dose at 10.30 pm on 11/12) -hold for thoracentesis -Cardizem and metoprolol and digoxin for rate control. 5. Left chest pain -likely due to effusion but R/O ACS -Trops <.01x3, ekgs negative. Patient had echo and thoracentesis. Found to have exudative fluid, with reaccumlation two days later which was drained. Patient was NOT found to have pericardial effusion on echo. From the records, her [facility] stay, she had pericardial effusion as well as pleural effusion. She was treated for pericarditis there. Biopsy done during thoracentesis showed no evidence of malignancy. We transferred the patient to general medicine as she was stable. It was felt by director of community center Dr. Mateo Garza that the pericarditis could've caused scarring that was now obstructing her lymphatic system and causing reaccumulation of the left pleural effusion. Patient did have evidence of pneumonia and malignancy was a concern as patient had smoked and did lose weight prior to coming here. CT surgery Dr. Corral performed placement of Pleurx catheter with mechanical and chemical pleurodesis and pleural biopsy on 11/23. We held Eliquis pending this. We restarted Eliquis after her procedure. Torsemide was held some nights for systolic blood pressure less than 90. It was then decided that it would be alternated 20 mg and 10 mg. She recovered in ICU for 3 days following this. Her oxygen was weaned and she continued to drain serosanguineous discharge with the chest tube To suction. She received Ancef postoperatively. The patient was stable she was transferred back to telemetry. In telemetry, the Patient was having chills and nausea as of this morning. She was however afebrile. She had low blood pressure of 92/62. She was on diltiazem, her metoprolol was being held on and off for hypotension. Her heart rate is around 75 A. fib. One morning was found that a large volume of fluid had spilled from her surgical site covered wound. Chest x-ray was done. No evidence of pneumothorax on chest x-ray done after spillage of fluid from surgical site. The site was reinforced with several layers of gauze. Patient will be discharged with instructions to follow up with Dr. Corral in 1-2 weeks. Biopsy results were negative for malignancy. Patient was given Dulcolax suppository for constipation. She also complained of a generalized rash and zinc oxide was applied to various small areas of the body. Allergies: Coded Allergies: Penicillins (Severe, ANAPHYLAXIS 05/14/17) lubiprostone (From AMITIZA) (Severe, ITCHING 10/06/17) latex (Intermediate, HIVES 05/14/17) atorvastatin (VOMITING 05/14/17) diphenhydramine (HIVES 05/14/17) Disposition Summary Disposition Principal Diagnosis: RECURRENT LEFT PLEURAL EFFUSION Additional Diagnosis: NA Discharge Disposition: home health services Discharge Instructions General Discharge Information Code Status: Full Code Patient's Diet: REGULAR Patient's Activity: TOLERATED Follow-Up Instructions/Appts: 1. Please follow up with surgery Dr. Corral in 1-2 weeks 2. Please follow up with primary care doctor in one week. 3. Please follow up with newspaper correspondent Dr. Benitez in one week. Medications at Discharge Discharge Medications: Stop taking the following medications: Metoprolol Succinate (Metoprolol Succinate) 25 MG TAB ORAL DAILY Qty = 30 Continue taking these medications: Fluticasone/Salmeterol (Advair 250-50 Diskus) 250 MCG-50 MCG/DOSE BLST.W.DEV 1 Puff Inhale through mouth TWICE DAILY Comments: Last Taken: 11/29/17 Time: 1010 SYMBICORT GIVEN Tiotropium [place] (Spiriva) 18 MCG CAP.W.DEV 1 Capsule Inhale through mouth DAILY Comments: Last Taken: 11/29/17 Time: 1010 Aspirin (Ecotrin*) 81 MG TABLET. 1 Tablet ORAL Every Morning Comments: Last Taken: 11/29/17 Time: 1007 Rosuvastatin Calcium (Crestor) (Unknown Strength) TABLET 20 Milligram ORAL Every night Comments: Last Taken: 11/28/17 Time: 1810 Digoxin (Digoxin) 125 MCG TABLET 1 Tablet ORAL Every other day Comments: Last Taken:10/13/17 Time:2PM Fluticasone Propionate (Flonase Allergy Relief) 50 MCG/ACTUATION SPRAY.SUSP 1 Whitman In the nose as needed for ALLERGIES Comments: Last Taken: 11/29/17 Time: 1010 Diltiazem HCl (Diltiazem 24HR Cd) 180 MG CAP.ER.24H 1 Tablet ORAL DAILY Qty = 30 Comments: Last Taken:11/29/17 Time 1007 Albuterol Sulfate (Proair Hfa) 90 MCG HFA.AER.AD 2 Puff Inhale through mouth EVERY 4-6 HOURS NEEDED as needed for DYSPNEA Qty = 1 Comments: NOT GIVEN IN HOSPITAL Montelukast Sodium (Singulair) 10 MG TABLET 1 Tablet ORAL 2100 Qty = 30 Comments: NOT GIVEN Apixaban (Eliquis) 5 MG TABLET 1 Tablet ORAL TWICE DAILY Qty = 30 Comments: Last Taken:11/29/17 Time: 1008 Magnesium Oxide (Magnesium Oxide) 400 MG TABLET 1 Tablet ORAL DAILY Qty = 30 Comments: Last Taken:11/29/17 Time: 1008 Torsemide (Torsemide) 10 MG TABLET 1 Tablet ORAL Mon Qty = 30 Instructions: . Comments: Last Taken:11/27/17 Time: 1547 Torsemide (Torsemide) 20 MG TABLET 1 Tablet ORAL MONDAY, MONDAY, MONDAY Qty = 30 Instructions: . Comments: Last Taken:11/28/17 Time: 09 Start taking the following new medications: Metoprolol Succinate (Metoprolol Succinate) 25 MG TAB 12.5 Milligram ORAL DAILY Qty = 30 No Refills Instructions: . Comments: GIVEN 25MG IN HOSPITAL Last Taken: 11/28/17 Time: 09 Acetaminophen (8 Hour Pain Relief) 650 MG TABLET.ER 1 Tablet ORAL EVERY 8 HOURS as needed for pain Qty = 28 No Refills Comments: Last Taken: 11/27/17 Time: 2111 Ondansetron (Zofran Odt) 4 MG TAB.RAPDIS 1 Tablet SUBLINGUAL THREE TIMES DAILY Qty = 10 No Refills Comments: Last Taken: 11/29/17 Time: 07 Copies To: Emmanuel MARIN,Guillermina Reyna; Des MARIN,Thierry Smith; Ellis Coronado MD,Harjit Zhang Last Taken: 11/29/17 Time: 1010 SYMBICORT GIVEN Tiotropium [place] (Spiriva) 18 MCG CAP.W.DEV 1 Capsule Inhale through mouth DAILY Comments: Last Taken: 11/29/17 Time: 1010 Aspirin (Ecotrin*) 81 MG TABLET.DR 1 Tablet ORAL Every Morning Comments: Last Taken: 11/29/17 Time: 1007 Rosuvastatin Calcium (Crestor) (Unknown Strength) TABLET 20 Milligram ORAL Every night Comments: Last Taken: 11/28/17 Time: 1810 Digoxin (Digoxin) 125 MCG TABLET 1 Tablet ORAL Every other day Comments: Last Taken:10/13/17 Time:2PM Fluticasone Propionate (Flonase Allergy Relief) 50 MCG/ACTUATION SPRAY.SUSP 1 [place] In the nose as needed for ALLERGIES Comments: Last Taken: 11/29/17 Time: 1010 Diltiazem HCl (Diltiazem 24HR Cd) 180 MG CAP.ER.24H 1 Tablet ORAL DAILY Qty = 30 Comments: Last Taken:11/29/17 Time 1007 Albuterol Sulfate (Proair Hfa) 90 MCG HFA.AER.AD 2 Puff Inhale through mouth EVERY 4-6 HOURS NEEDED as needed for DYSPNEA Qty = 1 Comments: NOT GIVEN IN HOSPITAL Montelukast Sodium (Singulair) 10 MG TABLET 1 Tablet ORAL 2100 Qty = 30 Comments: NOT GIVEN Apixaban (Eliquis) 5 MG TABLET 1 Tablet ORAL TWICE DAILY Qty = 30 Comments: Last Taken:11/29/17 Time: 1008 Magnesium Oxide (Magnesium Oxide) 400 MG TABLET 1 Tablet ORAL DAILY Qty = 30 Comments: Last Taken:11/29/17 Time: 1008 Torsemide (Torsemide) 10 MG TABLET 1 Tablet ORAL Mon Qty = 30 Instructions: . Comments: Last Taken:11/27/17 Time: 1547 Torsemide (Torsemide) 20 MG TABLET 1 Tablet ORAL MONDAY, MONDAY, MONDAY Qty = 30 Instructions: . Comments: Last Taken:11/28/17 Time: 09 Start taking the following new medications: Metoprolol Succinate (Metoprolol Succinate) 25 MG TAB 12.5 Milligram ORAL DAILY Qty = 30 No Refills Instructions: . Comments: GIVEN 25MG IN HOSPITAL Last Taken: 11/28/17 Time: 09 Acetaminophen (8 Hour Pain Relief) 650 MG TABLET.ER 1 Tablet ORAL EVERY 8 HOURS as needed for pain Qty = 28 No Refills Comments: Last Taken: 11/27/17 Time: 2111 Ondansetron (Zofran Odt) 4 MG TAB.RAPDIS 1 Tablet SUBLINGUAL THREE TIMES DAILY Qty = 10 No Refills Comments: Last Taken: 11/29/17 Time: 07
--- NOTE | 2017-11-29 15:25 | PN- Cardiology ---
Subjective Subjective: The patient is awake, alert The events of the last 24 hours as well as telemetry were reviewed. Review of Systems: The review of systems is negative for chest pains, palpitations nor lightheadedness. The remainder of the 14 point review of systems is noncontributory with the exception of above. Objective Vital Signs and I&Os Vital Signs Date Time Temp Pulse Resp B/P B/P Pulse O2 O2 Flow FiO2 Mean Ox Delivery Rate 11/29 1115 93 Room Air 11/29 1008 70 92/62 11/29 0800 Nasal 2.0L Cannula 11/29 0651 98.7 70 18 118/62 94 Room Air 11/28 2301 98.5 53 16 102/64 93 Room Air 11/28 2128 97 Nasal 2.0L Cannula 11/28 1810 80 90/60 11/28 1808 80 90/60 Intake & Output 11/29 1600 11/29 0800 11/29 0000 11/28 1600 11/28 0800 11/28 0000 Intake Total 375 240 600 600 240 120 Output Total 400 350 713 935 7520 700 Balance -25 -110 200 0 -760 -580 Intake, Oral 375 240 600 600 240 120 Number 1 Bowel Movements Output, Urine 400 350 089 923 1384 700 Patient 181 lb 183 lb Weight Weight Chair scale Chair scale Measurement Method Physical Exam: General: Nontoxic, no apparent distress. HEENT: Sclera and conjunctiva within normal limits, without xanthelasmas. Neck: Carotids 2+ without bruits. Respiratory: Scattered rhonchi, air movement is good, without accessory respiratory muscle use. Heart: Regular rate and rhythm, without murmurs, without JVD. Abdomen: Soft, nontender, no masses, normoactive bowel sounds. Extremities: Without clubbing, cyanosis, without edema. Neuro: Nonfocal exam, strength, 5 out of 5 Skin: Within normal limits without lesions. Psych: Mood and affect: Normal Current Medications: Current Medications Sig/Trinity Start time Last Medication Dose Route Stop Time Status Admin Acetaminophen 650 MG Q6 PRN 11/17 632 AC 11/27 PO 2111 Albuterol Sulfate 3 ML BID 11/24 2200 AC 11/29 INH 1109 Albuterol Sulfate 2 PUF Q4-6 PRN PRN 11/12 2015 AC INH Apixaban 5 MG BID 11/27 2199 AC 11/29 PO 1008 Aspirin 81 MG DAILY 11/16 1000 AC 11/29 PO 1007 Bisacodyl 10 MG ONCE ONE 11/28 1900 DC W[place] 11/28 1901 Budesonide/ 2 PUF BID 11/14 1240 AC 11/29 Formoterol Fumarate INH 1010 Digoxin 0.125 MG Q48@1700 11/12 2015 AC 11/28 PO 1810 Diltiazem HCl 180 MG DAILY 11/13 1000 AC 11/29 PO 1007 Docusate Sodium 100 MG BID 11/27 1000 AC 11/29 PO 1008 Fluticasone 2 SPRAY DAILY 11/13 1000 AC 11/29 Propionate JONATHAN 1010 Guaifenesin 600 MG Q12 11/14 1346 AC 11/29 PO 1008 Hydromorphone HCl 50 MG Q24H PRN 11/23 1330 AC Sodium Chloride 45 ML IV Magnesium Oxide 400 MG DAILY 11/13 1000 AC 11/29 PO 1008 Metoprolol Succinate 25 MG DAILY 11/13 1000 AC 11/28 PO 0911 Montelukast Sodium 10 MG 2100 11/12 2100 AC 11/28 PO 2105 Ondansetron HCl 4 MG ONCE ONE 11/29 0730 DC 11/29 IV 11/29 0731 0731 Polyethylene Glycol 17 GM DAILY 11/27 1000 AC 11/29 PO 1011 Rosuvastatin Calcium 20 MG 1700 11/13 1700 AC 11/28 PO 1810 Senna 187 MG AT BEDTIME 11/21 2200 AC 11/28 PO 2106 Tiotropium [place] 1 PUF DAILY 11/13 1000 AC 11/29 INH 1010 Torsemide 20 MG TUES THURS SAT 11/18 1000 AC 11/28 PO 0911 Torsemide 10 MG SuMoWeFr 11/17 1359 AC 11/29 PO 1321 Zinc Oxide 1 ANGELA BID 11/21 0119 AC 11/24 TOP 1034 Results Last 48 Hrs of Labs/Mics: Laboratory Tests 11/29/17 0635: Anion Gap 8, Estimated GFR > 60, BUN/Creatinine Ratio 25.7 H, CBC w Diff NO MAN DIFF REQ, RBC 3.56 L, MCV 85.5, MCH 28.1, RDW 16.2 H, MPV 7.7, Gran % 71.2, Lymphocytes % 17.1 L, Monocytes % 7.9, Eosinophils % 2.6, Basophils % 1.2, Absolute Granulocytes 7.5 H, Absolute Lymphocytes 1.8, Absolute Monocytes 0.8 H, Absolute Eosinophils 0.3, Absolute Basophils 0.1, PUBS MCHC 32.9 L 11/28/17 0625: Anion Gap 7, Estimated GFR > 60, BUN/Creatinine Ratio 22.9, CBC w Diff NO MAN DIFF REQ, RBC 3.64 L, MCV 86.1, MCH 28.3, RDW 16.5 H, MPV 7.8, Gran % 72.3, Lymphocytes % 18.7 L, Monocytes % 6.2, Eosinophils % 2.3, Basophils % 0.5, Absolute Granulocytes 6.9 H, Absolute Lymphocytes 1.8, Absolute Monocytes 0.6, Absolute Eosinophils 0.2, Absolute Basophils 0.1, PUBS MCHC 32.8 L, Digoxin < 0.4 L Assessment/Plan Assessment/Plan The patient is an 82-year-old woman with past medical history of asthma, congestive heart failure with preserved LVEF, chronic kidney disease, coronary artery disease (prior LAD stenting), atrial fibrillation on request and a prior pulmonary embolism. She has well has had pleural effusions with thoracentesis. She presented to our hospital with increasing dyspnea in the setting of withholding her diuretics at home due to a self concern of losing minerals. 1. Prevous pericardial effusion requiring prior transfer to [place] and cardiac mass was excluded by MRI; concern for constrictive physiology 2. Cardiac catheterization 07/2017 without obstructive CAD, mildly increased filling pressures and concern for interventricular dependence 3. History of known atrial fibrillation on Eliquis 3. History of coronary artery disease with prior LAD stent 4. History of pulmonary embolism in March 2017 5. History of asthma 6. Heart failure with preserved ejection fraction, mild 7. Recurrent Pleural effusion, status post repeat thoracentesis 11/15 with recurrence 8. Previous Renal insufficiency 9. Status post left thoracoscopy with pleurodesis The patient has improved status post thoracentesis and pleurodesis. We will continue her current medication regimen and discharge when ready from a medical standpoint. Continue telemetry? No
[2017-12-03] MEDS ORDERED: MUCINEX1200 M1 PO (12:01)
[2017-12-03] MEDS ORDERED: ZOFRAN ODT4 M1 SL (14:08)
== END 2017-11-29 16:05 | disposition home health service (06) | DRG 163 ==
LOC: ERH 14:08 → ERHI 18:53 → ENRESERV 20:32 → CANRESERV 20:32 → ERHI 11-13 04:22 → ENTRNSPT 11-13 21:53 → 1NO 11-13 22:12 → CMPTRNSPT 11-14 07:19 → 1NO 11-14 09:20 → 2NB 11-14 09:20 → CRI 11-14 09:20 → 1NO 11-15 08:34 → ENTRNSPT 11-21 13:30 → EDTRNSPTSTS 11-21 14:20 → 2NB 11-21 14:30 → EDTRNSPT 11-21 14:33 → 2NB 11-21 14:41 → CMPTRNSPT 11-21 14:59 → 2NB 11-22 07:57 → ENRESERV 11-23 14:03 → ENTRNSPT 11-23 16:10 → CRI 11-23 16:13 → EDTRNSPT 11-23 16:16 → EDTRNSPTSTS 11-23 16:16 → CMPTRNSPT 11-23 16:46 → CRI 11-24 18:59 → DELTRNSPT 11-25 16:33 → ENTRNSPT 11-25 17:39 → EDTRNSPTSTS 11-25 17:55 → CMPTRNSPT 11-25 18:12 → 1NO 11-25 18:20 → ENPENDDIS 11-29 13:23 → 1NO 11-29 16:05
PROVIDERS: Emergency Medicine; Internal Medicine; Internal Medicine Adolescent Medicine; Physician Assistant Surgical; Student in an Organized Health Care Education/Training Program
PROC: 0W9B3ZZ Drainage of Left Pleural Cavity, Percutaneous Approach (ICD-10-PCS; 2017-11-15)
PROC: 0BBP4ZX Excision of Left Pleura, Percutaneous Endoscopic Approach, Diagnostic (ICD-10-PCS; principal; 2017-11-23)
PROC: 0B5P4ZZ Destruction of Left Pleura, Percutaneous Endoscopic Approach (ICD-10-PCS; 2017-11-23)
PROC: 3E0L3GC Introduction of Other Therapeutic Substance into Pleural Cavity, Percutaneous Approach (ICD-10-PCS; 2017-11-23)
DX: J98.4 Other disorders of lung (principal); J96.01 Acute respiratory failure with hypoxia; I13.0 Hypertensive heart and chronic kidney disease with heart failure and stage 1 through stage 4 chronic kidney disease, or unspecified chronic kidney disease; I95.9 Hypotension, unspecified; I50.32 Chronic diastolic (congestive) heart failure; I48.2 Chronic atrial fibrillation; J90 Pleural effusion, not elsewhere classified; Z79.01 Long term (current) use of anticoagulants; N18.9 Chronic kidney disease, unspecified; G47.33 Obstructive sleep apnea (adult) (pediatric); K59.00 Constipation, unspecified; I25.10 Atherosclerotic heart disease of native coronary artery without angina pectoris; Z95.5 Presence of coronary angioplasty implant and graft
CPT/HCPCS: 1NP; 2NBSP; 6020; 84311; 87070; 87075; 87205; CCU; 36415; 71045; 82436; 87040; 87086; 87449; 87450; 87804; 87804-59; 88305; 93005; 93010; 93306; 97110-GO; 97116-GO; 97161-GP; 97530-GO; C9290; C9399; G0378; J0131; J0456; J0690; J0696; J1100; J1170; J1630; J1644; J1940; J2405; J3490; J7040

== ENCOUNTER → 2018-04-11 | Day surgery (SDC) | payer OTHER, MEDICARE ==
[~2018-04-11] VITALS: Ht 154.9 cm; Wt 83.9 kg
[~2018-04-11] MED LIST changes: +8 HOUR PAIN RE650 M1 PO; +MUCINEX1200 M1 PO; +ZOFRAN ODT4 M1 SL
--- NOTE | 2018-04-11 10:19 | Operative Report ---
Operative/Inv Procedure Report Surgery Date: 04/11/18 Name of Procedure: Cataract extraction lens implantation right eye Pre-Operative Diagnosis: Age-related cataract right eye 20/30 vision 20/100 glare vision Post-Operative Diagnosis: Same Estimated Blood Loss: none Surgeon/Loop Drier Operator: Mateo MARIN,Bennett Zaldivar Anesthesia: local monitored anesthesi Complications: None Operative/Procedure Note Note: The patient was brought to the operating room standard monitoring equipment was attached the patient was prepped and draped in the usual fashion for intraocular surgery. A lid speculum was placed to retract the lids. The case was begun by making a temporal incision with a 2.4 mm keratome. The eye was stabilized with a Maria ring during this incision. 1 mL of non-preserved lidocaine was introduced into the anterior chamber to provide anesthesia. The anterior chamber was then filled and deepened with viscoelastic. A curvilinear capsulorrhexis was achieved using a 30-gauge needle and is a cystotome and capsulorrhexis was finished using a Utrata forceps. A second or paracentesis incision was made temporally with a 1 mm MVR blade. The lens was then hydrodissected with balanced salt solution and found to be rotatable. The lens was emulsified using phacoemulsification and a modified four-quadrant cracking technique. The residual cortical material was removed using automated irrigation and aspiration and as much of the anterior capsular rim was cleaned as well as possible. The posterior capsule was cleaned first with the automated machine on a low setting and then manually with a Antonio squeegee. The capsular bag was deepened with viscoelastic. The lens a Technis 1 22.0 Diopter placed into the bag under direct visualization and rotated so that the haptics were at 12 and 6:00. Viscoelastic was then removed from the eye by flushing it out and then by automated irrigation and aspiration. The eye was pressurized to a normal tone. 1/10 of a cc of cefuroxime solution was introduced into the anterior chamber to provide antibiotic prophylaxis. The wounds were sealed by hydrating the stroma adjacent to them and the eye was left at a proper tone after the wounds were checked and found not to be leaking. The lid speculum was removed from the orbit. Antibiotic and steroid drops were placed on the eye and then the eye was shielded. Monitoring equipment was removed from the patient and the patient was removed from the operative suite to the holding area. The patient tolerated the procedure well and will be seen in the office tomorrow.
== END ==
LOC: STS 02:33
DX: H25.9 Unspecified age-related cataract (principal); I48.91 Unspecified atrial fibrillation; Z79.01 Long term (current) use of anticoagulants; J44.9 Chronic obstructive pulmonary disease, unspecified; I10 Essential (primary) hypertension; K21.9 Gastro-esophageal reflux disease without esophagitis
CPT/HCPCS: J2250; V2632

== ENCOUNTER 2018-04-21 20:01 | Emergency (ER) | payer OTHER, MEDICARE ==
[~2018-04-21] VITALS: Ht 154.9 cm; Wt 83.9 kg
[2018-04-21 20:07] VITALS: BP 122/72
--- NOTE | 2018-04-21 20:57 | ED MVC/FALL/TRAUMA COMPLAINT ---
History of Present Illness General Chief Complaint: Fall Stated Complaint: FALL HIT HEAD Source: patient Exam Limitations: no limitations Vital Signs & Intake/Output Vital Signs & Intake/Output Vital Signs Date Time Temp Pulse Resp B/P B/P Pulse O2 O2 Flow FiO2 Mean Ox Delivery Rate 04/21 2007 96.2 77 18 122/72 95 Room Air ED Intake and Output 04/22 0000 04/21 1200 Intake Total Output Total Balance Patient 185 lb Weight Weight Reported by Patient Measurement Method Allergies Coded Allergies: Penicillins (Severe, ANAPHYLAXIS 05/14/17) lubiprostone (From AMITIZA) (Severe, ITCHING 10/06/17) latex (Intermediate, HIVES 05/14/17) atorvastatin (VOMITING 05/14/17) diphenhydramine (HIVES 05/14/17) Reconcile Medications Acetaminophen (8 Hour Pain Relief) 650 MG TABLET.ER 1 TAB PO Q8 PRN pain Albuterol Sulfate (Proair Hfa) 90 MCG HFA.AER.AD 2 PUF INH Q4-6 PRN PRN DYSPNEA Apixaban (Eliquis) 5 MG TABLET 1 TAB PO BID atrial fibrilliation (Reported) Aspirin (Ecotrin*) 81 MG TABLET.DR 1 TAB PO QAM HEART HEALTH (Reported) Digoxin 125 MCG TABLET 1 TAB PO EOD HEART (Reported) Diltiazem HCl (Diltiazem 24HR Cd) 180 MG CAP.ER.24H 1 TAB PO DAILY ARRYTHMIAS (Reported) Fluticasone Propionate (Flonase Allergy Relief) 50 MCG/ACTUATION SPRAY.SUSP 1 SPRAY JONATHAN PRN ALLERGIES (Reported) Fluticasone/Salmeterol (Advair 250-50 Diskus) 250 MCG-50 MCG/DOSE BLST.W.DEV 1 PUF INH BID ASTHMA (Reported) Guaifenesin (Mucinex) 1,200 MG TAB.ER.12H 1 TAB PO QPM MUCUS (Reported) Magnesium Oxide 400 MG TABLET 1 TAB PO DAILY supplement (Reported) Metoprolol Succinate 25 MG TAB 12.5 MG PO DAILY cardiac . Montelukast Sodium (Singulair) 10 MG TABLET 1 TAB PO 2100 ALLERGIES (Reported ) Ondansetron (Zofran Odt) 4 MG TAB.RAPDIS 1 TAB SL Q6P PRN NAUSEA OR VOMITING Ondansetron (Zofran Odt) 4 MG TAB.RAPDIS 1 TAB SL TID nausea Rosuvastatin Calcium (Crestor) (Unknown Strength) TABLET 20 MG PO QPM CHOLESTEROL (Reported) Tiotropium [place] (Spiriva) 18 MCG CAP.W.DEV 1 CAP INH DAILY ASTHMA ( Reported) Torsemide 10 MG TABLET 1 TAB PO Mon SUN water retention . Torsemide 20 MG TABLET 1 TAB PO SAT water retention . Triage Note: PT FROM HOME C/O FALL X1 HR PRIOR. PT STATES SHE WAS SITTING ON HER WALKER AND WENT TO BACK UP WHEN THE PAVEMENT WAS UNEVEN AND PT FELL OFF OF WALKER LANDING ON RIGHT HIP PAIN 6/10 AND +HEADSTRIKE, +WITNESSED, -LOC. PT STATES CEVALLOS, WAS RAISED BUMP TO THE BACK OR RIGHT HEAD. PT IS ON ELAQUIS, ICE PACK APPLIED. PT IS DIZZY WITH BLURRY VISION. VSS. Triage Nurses Notes Reviewed? yes Onset: Abrupt Duration: hour(s): (1), better, continues in ED Timing: single episode today Severity: moderate, severe Severity Numbers: 7 Injuries/Fall Location: head, lower extremity Method of Injury: fall Loss of Consciousness: no loss of consciousness No Modifying Factors: none LMP (ages 10-50): post menopausal, unknown : No Patient currently breastfeeds: No HPI: 82-year-old female past medical history of A. fib, coronary artery disease, hypertension, COPD presents for evaluation after fall. Patient states she was sitting on her walker when it started to roll backwards causing her to fall backwards hitting her head and right hip. No loss of consciousness. She was able to get up and walk with assistance. She is on Elquis. No vomiting changes in vision chest pain shortness of breath or dizziness. Follow-up. She is able to walk without difficulty. not taking any any pain medicine. (Lenny Galo) Past History Travel History Traveled to [place] past 21 day No Medical History Any Pertinent Medical History? see below for history Neurological: NONE EENT: NONE Cardiovascular: AFIB, CAD (s/p PCI of LAD), hypertension, hyperlipidemia, myocardial infarction, NSTEMI, pericardial effusion pulmonary embolism Respiratory: asthma, COPD, obstructive sleep apnea, pulmonary embolism, EFFUSION Gastrointestinal: gastritis Hepatic: NONE Renal: NONE Musculoskeletal: osteoarthritis, cervical disc disease with myelopathy s/p anterior cervical discectomy Psychiatric: anxiety Endocrine: NONE Blood Disorders: NONE Cancer(s): NONE HISTOLOGY SUPERVISOR/Reproductive: NONE History of MRSA: No History of VRE: No History of CDIFF: No Tetanus Vaccine: 06/24/17 Surgical History Surgical History: appendectomy, CERVICAL SPINE, C SECTION, BREAST CYST, APPENDICITIS, TONSILITIS CARDIAC STENT breast surgery right knee surgery Psychosocial History Who do you live with Spouse Services at Home None What is your primary language Hungarian Tobacco Use: Quit >30 days ago Family History Family History, If Any: FATHER FH: myocardial infarction, Onset: 60+. BROTHER FH: myocardial infarction, Onset: 50-60. Hx Contributory? No (Lenny Galo) Review of Systems Review of Systems Constitutional: Reports: no symptoms. Eyes: Reports: no symptoms. Ears, Nose, Throat, Mouth: Reports: no symptoms. Respiratory: Reports: no symptoms. Cardiovascular: Reports: no symptoms. Gastrointestinal/Abdominal: Reports: no symptoms. Genitourinary: Reports: no symptoms. Musculoskeletal: Reports: joint pain. Skin: Reports: no symptoms. Neurological/Psychological: Reports: headache. All Other Systems: Reviewed and Negative (Lenny Galo) Physical Exam Physical Exam General Appearance: well developed/nourished, no apparent distress, alert, awake , obese Head: atraumatic, normal appearance Eyes: Bilateral: normal appearance, PERRL, EOMI, normal inspection. Ears, Nose, Throat, Mouth: hearing grossly normal, moist mucous membrane Neck: normal inspection, supple, full range of motion Respiratory: normal breath sounds, chest non-tender, no respiratory distress, lungs clear Cardiovascular: regular rate/rhythm, normal peripheral pulses Peripheral Pulses: 2+ radial (R), 2+ radial (L) Gastrointestinal: normal bowel sounds, soft, non-tender, no organomegaly Back: normal inspection, normal range of motion, no vertebral tenderness Extremities: normal range of motion, there is tenderness with palpation of the right lateral hip. Full range of motion intact patient is able to walk and bear weight neurovascular supply intact Neurologic/Psych: no motor/sensory deficits, awake, alert, oriented x 3, normal gait Skin: intact, normal color, warm/dry Core Measures ACS in differential dx? No CVA/TIA Diagnosis No Sepsis Present: No Sepsis Focused Exam Completed? No (Lenny Galo) Progress Differential Diagnosis: C/T/L spine injury, ext injury, ICH, pelvis injury, spinal cord injury, contusion, sprain Plan of Care: Orders Procedure Date/time Status XRY-AP PELVIS 04/21 2021 Active XRY-HIP 2-3 VIEWS, RIGHT 04/[address] HEAD WO IV CONTRAST 04/[address] CERV SPINE WO IV CONTRAST 04/21 2014 Active pt is here after a mechanical fall. She did hit her head she is unable was. CT scan of the head and neck ordered. We'll check x-rays of the hip. Patient declines any pain medicine she has a steady gait. Imaging is negative. Review of the patient advised her to rest Tylenol for pain follow-up with primary care doctor discussed return preCautions case discussed Dr. Ravi he agrees. Diagnostic Imaging: Viewed by Me: Radiology Read, CT Scan. Discussed w/RAD: Radiology Read, CT Scan. Radiology Impression: PATIENT: HERIBERTO PETTY PRESENT AGE: 82 PATIENT ACCOUNT NO: [id number] : 34 LOCATION: [facility] ORDERING PHYSICIAN: Lenny PACE SERVICE DATE: 04/21/18 EXAM TYPE: CAT - CT HEAD WO IV CONTRAST EXAMINATION: CT HEAD without contrast CLINICAL INFORMATION: Trauma COMPARISON: No prior CT scan available for comparison. TECHNIQUE: Computed axial tomographic sections acquired DLP: 979 mGy-cm FINDINGS: CEREBRAL HEMISPHERES: There is no evidence of intra-axial or extra-axial mass, hemorrhage or acute infarct. BRAIN PARENCHYMA: Normal mcgraw-white matter differentiation. SUBDURAL SPACE: No bleed. BASAL GANGLIA AND PINEAL GLAND: Unremarkable VENTRICLES: Symmetric and normal in size. CEREBELLUM AND BRAINSTEM: No space- occupying mass, hemorrhage or acute infarct. CEREBELLOPONTINE ANGLES: No lesion found. ORBITS: No intraorbital mass. VESSELS: Unremarkable SKULL BASE: Unremarkable INCLUDED SINUSES AT SKULL BASE: Clear SKULL AND SKIN: No fracture or bone lesion found. IMPRESSION: No CT evidence of intracranial space-occupying mass, bleed or infarct. DICTATED BY: Tyler Mcneill MD DATE/TIME DICTATED:2099 DENT REMOVER:CYDNEY DATE/TIME TRANSCRIBED:04/21/182099 CONFIDENTIAL, DO NOT COPY WITHOUT APPROPRIATE AUTHORIZATION. <Electronically signed in Other Vendor System> SIGNED BY: Tyler Mcneill MD 04/21/182105 , PATIENT: HERIBERTO PETTY PRESENT AGE: 82 PATIENT ACCOUNT NO: [id number] : 34 LOCATION: [facility] ORDERING PHYSICIAN: Lenny PACE SERVICE DATE: 04/21/18 EXAM TYPE: CAT - CT CERV SPINE WO IV CONTRAST EXAMINATION: CT CERVICAL SPINE WITHOUT CONTRAST CLINICAL INFORMATION: Trauma COMPARISON: None TECHNIQUE: Computer axial tomographic sections acquired with reconstruction in the sagittal and coronal plane. Noncontrast study. DLP: 979 mGy-cm FINDINGS: Included structure at skull base are intact. Occipital condyles and basion are normal. There are postsurgical changes of prior posterior laminectomy at C3, C4, C5 and C6. The vertebral bodies of C4-C5 and C6 are fused. There is calcifications of the posterior longitudinal ligament. There are advanced degenerative facet joints arthropathy at all levels. There is a reversal of normal cervical lordosis might be spasm. SPINAL LEVELS: C2-C3: Severe facet joints arthropathy. Mild narrowing of the foramen. C3-C4: There is osseous narrowing of the foramen LEFT more than RIGHT. Posterior osteophyte protruding from the endplates into the central canal. C4-C5: Osteophyte ridge and facet joints arthropathy cause mild narrowing of the foramen. C5-C6: Postsurgical changes posterior laminectomy. C6-C7: Foraminal narrowing of the LEFT caused by osteophyte ridge. C7-T1: Normal. IMPRESSION: 1. No CT evidence of acute fracture. 2. Anterior fusion of the vertebral body of C4-C5 and C6. 3. Postsurgical changes posterior laminectomy L3 L4 L5 L6. Large posterior osteophytes protruding from the disks and calcifications of the posterior longitudinal ligament cause narrowing of the central canal which was released by the laminectomies. 4. Advanced facet joints arthropathy at multiple levels combined with osteophyte ridges cause foraminal stenosis as described above. This can be confirmed by MRI. DICTATED BY: Osito MARIN,Tyler DATE/TIME DICTATED:04/21/182103 DENT REMOVER:CYDNEY DATE/TIME TRANSCRIBED:2103 CONFIDENTIAL, DO NOT COPY WITHOUT APPROPRIATE AUTHORIZATION. < Electronically signed in Other Vendor System> SIGNED BY: Osito MARIN, Hadeer 04/21/182114, PATIENT: HERIBERTO PETTY PRESENT AGE: 82 PATIENT ACCOUNT NO: [id number] : 34 LOCATION: [facility] ORDERING PHYSICIAN: Calvin PACE SERVICE DATE: 04/21/18 EXAM TYPE: RAD - XRY-AP PELVIS; XRY-HIP 2-3 VIEWS, RIGHT EXAMINATION: XR HIP, RIGHT X-ray pelvis CLINICAL INFORMATION: Fall, pain COMPARISON: None TECHNIQUE: Two views of the right hip. AP view of the pelvis. FINDINGS: There is no acute fracture or dislocation of the right hip or the pelvis. The femoral heads are normal in contour and well-seated within the acetabuli. The symphysis pubis and SI joints demonstrate degenerative changes without evidence of acute diastases. The pelvic ring is intact. Degenerative osteophytes originating from the superior and inferior acetabular rami noted. There are periosteal cortical enthesopathy involving the bilateral iliac crests, inferior pubic rami, bilateral femoral greater trochanters. These changes are more prominent surrounding the right femoral greater trochanter. Bridging osteophytes on the left side of L3-L4 and L4-L5 disc spaces. No large joint effusion. IMPRESSION: No acute fracture or dislocation of the right hip. No acute pelvic fracture. Chronic changes as above. DICTATED BY: Steve Cifuentes MD DATE/TIME DICTATED:04/21/182105 DENT REMOVER:CYDNEY DATE/TIME TRANSCRIBED:04/21/182105 CONFIDENTIAL, DO NOT COPY WITHOUT APPROPRIATE AUTHORIZATION. <Electronically signed in Other Vendor System> SIGNED BY: Steve Cifuentes MD 04/21/182118 (Ck PACE,[facility]) Departure Departure Disposition: HOME OR SELF CARE Condition: Stable Clinical Impression Primary Impression: Fall Qualifiers: Encounter type: initial encounter Qualified Code: W19.XXXA - Unspecified fall, initial encounter Referrals: Des MARIN,Thierry Smith (PCP/Family) Additional Instructions: Rest, apply ice FOR 15-20 minutes every FEW hours. Tylenol 1000 mg every 6-8 hours as needed for pain. Make a follow-up appointment with her primary care doctor within next week to review all results of today's visit and to reassess YOUr symptoms. Return to the emergency department immediately with severe headache, vomiting, lethargy or any other concerns. Follow-up with your primary care physician this week. Contact them to let them know you were here in the emergency room. Return to the emergency room at any time sooner if you have worsening of your symptoms or any other concerns. Please note that there might be incidental findings in your evaluation that are unrelated to the current emergency department visit. Please notify your primary care doctor about this emergency department visit in order to obtain and review all of the testing performed so that these incidental findings can be monitored as needed. If you were prescribed a narcotic use caution as this medication is highly addictive and may make you feel lightheaded,dizzy or drowsy. These can make you constipated. Use for breakthrough pain only. No driving, drinking alcohol or operating machinary when taking. If you had an x-ray performed, please understand that some fractures may not be seen on the initial set of x-rays. If your symptoms persist you might need a repeat set of x-rays to check for such a fracture. If you had a laceration evaluated, please understand that foreign bodies such as glass or wood may not be visible to the naked eye or on plain x-rays. If the wound becomes red, swollen, increasingly more painful or if there is any drainage from the wound, please have it reevaluated by a physician for the possibility of a retained foreign body. Departure Forms: Customer Survey General Discharge Information (Lenny Galo) PA/PSYCHIATRIC CNS Co-Sign Statement Statement: ED Attending supervision documentation- [X] I saw and evaluated the patient. I have also reviewed all the pertinent lab results and diagnostic results. I agree with the findings and the plan of care as documented in the PA's/PSYCHIATRIC CNS's documentation. [X] I have reviewed the ED Record and agree with the PA's/PSYCHIATRIC CNS's documentation. [] Additions or exceptions (if any) to the PAs/PSYCHIATRIC CNS's note and plan are summarized below: [] (Trav MARIN,Chuy Yang)
--- NOTE | 2018-04-21 21:06 | CT SCAN REPORT ---
EXAMINATION: CT HEAD without contrast CLINICAL INFORMATION: Trauma COMPARISON: No prior CT scan available for comparison. TECHNIQUE: Computed axial tomographic sections acquired DLP: 979 mGy-cm FINDINGS: CEREBRAL HEMISPHERES: There is no evidence of intra-axial or extra-axial mass, hemorrhage or acute infarct. BRAIN PARENCHYMA: Normal mcgraw-white matter differentiation. SUBDURAL SPACE: No bleed. BASAL GANGLIA AND PINEAL GLAND: Unremarkable VENTRICLES: Symmetric and normal in size. CEREBELLUM AND BRAINSTEM: No space-occupying mass, hemorrhage or acute infarct. CEREBELLOPONTINE ANGLES: No lesion found. ORBITS: No intraorbital mass. VESSELS: Unremarkable SKULL BASE: Unremarkable INCLUDED SINUSES AT SKULL BASE: Clear SKULL AND SKIN: No fracture or bone lesion found. IMPRESSION: No CT evidence of intracranial space-occupying mass, bleed or infarct.
--- NOTE | 2018-04-21 21:15 | CT SCAN REPORT ---
EXAMINATION: CT CERVICAL SPINE WITHOUT CONTRAST CLINICAL INFORMATION: Trauma COMPARISON: None TECHNIQUE: Computer axial tomographic sections acquired with reconstruction in the sagittal and coronal plane. Noncontrast study. DLP: 979 mGy-cm FINDINGS: Included structure at skull base are intact. Occipital condyles and basion are normal. There are postsurgical changes of prior posterior laminectomy at C3, C4, C5 and C6. The vertebral bodies of C4-C5 and C6 are fused. There is calcifications of the posterior longitudinal ligament. There are advanced degenerative facet joints arthropathy at all levels. There is a reversal of normal cervical lordosis might be spasm. SPINAL LEVELS: C2-C3: Severe facet joints arthropathy. Mild narrowing of the foramen. C3-C4: There is osseous narrowing of the foramen LEFT more than RIGHT. Posterior osteophyte protruding from the endplates into the central canal. C4-C5: Osteophyte ridge and facet joints arthropathy cause mild narrowing of the foramen. C5-C6: Postsurgical changes posterior laminectomy. C6-C7: Foraminal narrowing of the LEFT caused by osteophyte ridge. C7-T1: Normal. IMPRESSION: 1. No CT evidence of acute fracture. 2. Anterior fusion of the vertebral body of C4-C5 and C6. 3. Postsurgical changes posterior laminectomy L3 L4 L5 L6. Large posterior osteophytes protruding from the disks and calcifications of the posterior longitudinal ligament cause narrowing of the central canal which was released by the laminectomies. 4. Advanced facet joints arthropathy at multiple levels combined with osteophyte ridges cause foraminal stenosis as described above. This can be confirmed by MRI.
--- NOTE | 2018-04-21 21:19 | RADIOLOGY REPORT ---
EXAMINATION: XR HIP, RIGHT X-ray pelvis CLINICAL INFORMATION: Fall, pain COMPARISON: None TECHNIQUE: Two views of the right hip. AP view of the pelvis. FINDINGS: There is no acute fracture or dislocation of the right hip or the pelvis. The femoral heads are normal in contour and well-seated within the acetabuli. The symphysis pubis and SI joints demonstrate degenerative changes without evidence of acute diastases. The pelvic ring is intact. Degenerative osteophytes originating from the superior and inferior acetabular rami noted. There are periosteal cortical enthesopathy involving the bilateral iliac crests, inferior pubic rami, bilateral femoral greater trochanters. These changes are more prominent surrounding the right femoral greater trochanter. Bridging osteophytes on the left side of L3-L4 and L4-L5 disc spaces. No large joint effusion. IMPRESSION: No acute fracture or dislocation of the right hip. No acute pelvic fracture. Chronic changes as above.
== END 2018-04-21 21:45 ==
LOC: ERH 20:01
DX: S09.90XA Unspecified injury of head, initial encounter (principal); W19.XXXA Unspecified fall, initial encounter; Y92.9 Unspecified place or not applicable; Y93.9 Activity, unspecified
CPT/HCPCS: 72170; 73502-RT